=== PATIENT | male | born 1960 | race Caucasian/White ===

== ENCOUNTER → 2016-07-12 | Outpatient (CLI) | payer BC ==
[~2016-07-12] MED LIST: ACET-176 PO; ALL180 PO; AMR2 PO; CMD/25 PO; CRDCD/180 PO; HYD50 PO; LISI40TA PO; LOVA20TA4 PO; METF1TAB53 PO
[2016-07-12 12:28] LABS: HEMATOCRIT 30.5 % (42-52); MEAN CELL VOLUME 60.9 fL (80-100); MEAN CORPUSCULAR HEMOGLOBIN 15.8 pg (25-34); MEAN CORPUSCULAR HGB CONC 25.9 g/dl (32-36); RED BLOOD COUNT 5.01 M/uL (4.7-6.1); WHITE BLOOD COUNT 6.82 K/uL (4.8-10.8)
[2016-07-12 12:33] LABS: ANISOCYTOSIS PRESENT; BASO % 0.4 %; BASO ABS # 0.03 K/uL (0-0.2); COMPLETE YES; EOS % 2.1 %; GIANT PLATELETS 1+; HYPOCHROMIA PRESENT; IG% 0.3 %; LYMPH % 14.8 %; LYMPH ABS # 1.01 K/uL (1.2-3.4); MICROCYTOSIS PRESENT; MONO % 8.1 %; NEUT % 74.3 %; PLATELET COUNT 185 K/uL (130-400); POIKILOCYTOSIS PRESENT; POLYCHROMASIA 1+
[2016-07-12 12:47] LABS: BLOOD UREA NITROGEN 13 mg/dl (7-18); BUN/CREATININE RATIO 13.5 (10-20); CALCIUM 8.6 mg/dl (8.5-10.1); CARBON DIOXIDE 27 mmol/L (21-32); CHLORIDE 107 mmol/L (98-107); CREATININE 0.96 mg/dl (0.60-1.40); GLUCOSE 176 mg/dl (70-99); POTASSIUM 4.3 mmol/L (3.5-5.1); SODIUM 140 mmol/L (136-145)
[2016-07-12 12:56] LABS: ESTIMATED AVERAGE GLUCOSE 154 mg/dl; HA1C FLAG Normal (Normal)
== END | disposition home or self-care (01) ==
LOC: C.LABPVFM 10:30
PROVIDERS: ATTEND Nurse Practitioner
DX: D64.9 Anemia, unspecified (principal); K31.811 Angiodysplasia of stomach and duodenum with bleeding; E11.9 Type 2 diabetes mellitus without complications

== ENCOUNTER → 2016-09-20 | Outpatient (CLI) | payer BC ==
[2016-09-20 18:05] LABS: HEMATOCRIT 35.4 % (42-52); MEAN CELL VOLUME 62.8 fL (80-100); MEAN CORPUSCULAR HEMOGLOBIN 17.7 pg (25-34); MEAN CORPUSCULAR HGB CONC 28.2 g/dl (32-36); PLATELET COUNT 306 K/uL (130-400); RED BLOOD COUNT 5.64 M/uL (4.7-6.1); WHITE BLOOD COUNT 8.08 K/uL (4.8-10.8)
[2016-09-20 19:44] LABS: ANISOCYTOSIS PRESENT; BASO ABS # 0.08 K/uL (0-0.2); COMPLETE YES; EOS % 1.7 %; HYPOCHROMIA PRESENT; IG% 0.6 %; MONO % 12.2 %; NEUT % 69.5 %; OVALOCYTES 1+; POLYCHROMASIA 1+; SPHEROCYTE 1+
== END | disposition home or self-care (01) ==
LOC: C.LABPVFM 13:38
PROVIDERS: ATTEND Nurse Practitioner
DX: D64.9 Anemia, unspecified (principal)

== ENCOUNTER → 2016-12-24 | Outpatient (CLI) | payer BC ==
[2016-12-24 13:32] LABS: ESTIMATED AVERAGE GLUCOSE 329 mg/dl; HA1C FLAG Normal (Normal)
[2016-12-24 13:35] LABS: HEMATOCRIT 39.4 % (42-52); MEAN CELL VOLUME 64.5 fL (80-100); MEAN CORPUSCULAR HEMOGLOBIN 18.8 pg (25-34); MEAN CORPUSCULAR HGB CONC 29.2 g/dl (32-36); PLATELET COUNT 219 K/uL (130-400); RED BLOOD COUNT 6.11 M/uL (4.7-6.1)
[2016-12-24 13:36] LABS: BASO % 1.2 %; BASO ABS # 0.06 K/uL (0-0.2); COMPLETE YES; EOS % 4.9 %; HYPOCHROMIA PRESENT; IG% 0.2 %; LYMPH % 22.4 %; MICROCYTOSIS PRESENT; MONO % 8.6 %; NEUT % 62.7 %; SPHEROCYTE 1+
[2016-12-24 13:50] LABS: ALT/SGPT 17 U/L (12-78); AST/SGOT 11 U/L (15-37); BLOOD UREA NITROGEN 12 mg/dl (7-18); BUN/CREATININE RATIO 15.4 (10-20); CALCIUM 8.8 mg/dl (8.5-10.1); CARBON DIOXIDE 27 mmol/L (21-32); CHLORIDE 111 mmol/L (98-107); CREATININE 0.76 mg/dl (0.60-1.40); GLUCOSE 206 mg/dl (70-99); POTASSIUM 4.1 mmol/L (3.5-5.1); SODIUM 140 mmol/L (136-145)
[2016-12-24 13:53] LABS: ALB/GLOB RATIO 0.9 (0.9-2); ALKALINE PHOSPHATASE 116 U/L (45-117); CHOLESTEROL 171 mg/dl (0-200); CHOLESTEROL/HDL RATIO 4.5; HDL CHOLESTEROL 38 mg/dl; LDL CHOLESTEROL CALCULATED 98 mg/dl; TRIGLYCERIDES 175 mg/dl (0-150); VERY LOW DENSITY LIPOPROT CALC 35 mg/dl
== END | disposition home or self-care (01) ==
LOC: C.LABPVFM 09:15
PROVIDERS: ATTEND Neuromusculoskeletal Medicine & OMM
DX: E78.5 Hyperlipidemia, unspecified (principal); D64.9 Anemia, unspecified; E11.9 Type 2 diabetes mellitus without complications

== ENCOUNTER → 2017-02-01 | Outpatient (CLI) | payer BC ==
[~2017-02-01] MED LIST changes: +GADAVIST IV PRN
--- NOTE | 2017-02-01 09:38 | DIAGNOSTIC IMAGING REPORT ---
PROSTATE MRI COMBO CLINICAL HISTORY: 56 years-old Male presenting with R97.20. PSA 24.9 ng/mL. TECHNIQUE: Multisequence, multiplanar MR imaging of the prostate was performed before and after the administration of intravenous contrast. Additional postprocessing was performed on a separate [employer] workstation by the radiologist for 3-D volumetric segmentation of the prostate and contouring of region(s) of interest (DIALLO) for targeting. IV contrast: None. COMPARISON: None. FINDINGS: Prostate: The prostate measures 7.0 cm in transverse diameter (Dyna[employer] prostate boundary segmentation volume 157 mL). There is advanced benign prostatic hyperplasia. Median lobe hypertrophy is observed. A small utricular cyst is incidentally noted and measures up to 9 mm. Precontrast T1 weighted imaging demonstrates no T1 hyperintense lesions. Seminal vesicles normal. No suspicious lesion is apparent in the transition or peripheral zones. Bladder: The bladder wall is thickened and trabeculated consistent with chronic outlet obstruction. Bowel: Visualized portion of the rectum normal. Peritoneum: No free fluid in the pelvis. Lymph nodes: No lymphadenopathy in the visualized portion of the pelvis. Vasculature: Iliac vessels patent. Osseous structures: No destructive bony lesion is seen. IMPRESSION: 1. Severe benign prostatic hyperplasia . 2. No concerning prostatic lesion is identified. 3. A small utricular cyst is incidentally noted. 4. There is evidence of chronic bladder outlet obstruction. Electronically signed by: Eladio Mobley M.D. 02/01/2017 9:37 AM Dictated Date/Time: 02/01/2017 9:20 AM
== END | disposition home or self-care (01) ==
LOC: C.MRIBC 07:44
PROVIDERS: ATTEND Urology
DX: R97.20 Elevated prostate specific antigen [PSA] (principal)

== ENCOUNTER → 2017-05-29 | Outpatient (CLI) | payer BC ==
[~2017-05-29] MED LIST changes: -GADAVIST IV PRN
[2017-05-29 17:34] LABS: BLOOD UREA NITROGEN 10 mg/dl (7-18); CARBON DIOXIDE 29 mmol/L (21-32); CREATININE 0.96 mg/dl (0.60-1.40); GLUCOSE 116 mg/dl (70-99); POTASSIUM 3.5 mmol/L (3.5-5.1); SODIUM 136 mmol/L (136-145)
[2017-05-29 17:45] LABS: HEMATOCRIT 35.8 % (42-52); HEMOGLOBIN 10.3 g/dL (14.0-18.0); MEAN CELL VOLUME 59.9 fL (80-100); MEAN CORPUSCULAR HEMOGLOBIN 17.2 pg (25-34); MEAN CORPUSCULAR HGB CONC 28.8 g/dl (32-36); PLATELET COUNT 204 K/uL (130-400); RED CELL DISTRIBUTION WIDTH CV 18.7 % (11.5-14.5); RED CELL DISTRIBUTION WIDTH SD 39.6 fL (36.4-46.3); WHITE BLOOD COUNT 6.39 K/uL (4.8-10.8)
[2017-05-29 17:53] LABS: BASO % 0.9 %; BASO ABS # 0.06 K/uL (0-0.2); EOS % 3.6 %; EOS ABS # 0.23 K/uL (0-0.5); IG# 0.03 K/uL (0.00-0.02); LYMPH % 22.5 %; LYMPH ABS # 1.44 K/uL (1.2-3.4); MONO % 9.9 %; MONO ABS # 0.63 K/uL (0.11-0.59); NEUT % 62.6 %
[2017-05-30 05:40] LABS: HEMOGLOBIN A1C 6.7 % (4.5-5.6)
== END | disposition home or self-care (01) ==
LOC: C.LABPVFM 13:58
PROVIDERS: ATTEND Nurse Practitioner
DX: D64.9 Anemia, unspecified (principal); E11.9 Type 2 diabetes mellitus without complications

== ENCOUNTER 2020-09-23 12:08 | Inpatient (IN) ==
[2020-09-23 12:55] LABS: Basophils # (auto) 0.01 K/uL (0-0.2); Basophils % (auto) 0.1 %; Eosinophils # (auto) 0.03 K/uL (0-0.5); Eosinophils % (auto) 0.2 %; Hematocrit (blood only) 37.4 % (42-52); Immature Granulocytes # (auto) 0.12 K/uL (0.00-0.02); Immature Granulocytes % (auto) 0.8 %; Lymphocytes # (auto) 0.84 K/uL (1.2-3.4); Lymphocytes % (auto) 5.7 %; Mean Corpuscular Hemoglobin 28.1 pg (25-34); Mean Corpuscular Hgb Conc 34.8 g/dL (32-36); Mean Platelet Volume 10.2 fL (7.4-10.4); Monocytes # (auto) 1.34 K/uL (0.11-0.59); Monocytes % (auto) 9.1 %; Neutrophils # (auto) 12.33 K/uL (1.4-6.5); Neutrophils % (auto) 84.1 %; Platelet Count 276 K/uL (130-400); RDW Coefficient of Variation 13.8 % (11.5-14.5); RDW Standard Deviation 41.1 fL (36.4-46.3); Red Blood Count 4.62 M/uL (4.7-6.1); White Blood Count 14.67 K/uL (4.8-10.8)
[2020-09-23 13:00] LABS: iSTAT Arterial Blood Gas HCO3 21 meg/L (19-24); iSTAT Arterial Blood Gas pCO2 29 mmHg (35-46); iSTAT Arterial Blood Gas pH 7.46 (7.35-7.45); iSTAT Arterial Blood Gas pO2 63 mmHg (80-95); iSTAT Carbon Dioxide 21 mmol/L (24-31); iSTAT Hematocrit 40 % (42-52); iSTAT Hemoglobin 13.6 g/dl (14.0-18.0); iSTAT Potassium 3.9 mmol/L (3.3-5.0); iSTAT Sodium 131 mmol/L (135-144)
[2020-09-23 13:02] LABS: iSTAT Creatinine 0.5 mg/dl (0.6-1.3); iSTAT Hemoglobin 13.9 g/dl (14.0-18.0); iSTAT Ionized Calcium 1.19 mmol/l (1.12-1.32)
[2020-09-23] MEDS ORDERED: CEFEPIME 2,000 MG/20 ML VIAL IV STA (13:08)
[2020-09-23] MEDS ORDERED: VANCOMYCIN CONSULT ACTIVE PRN ×2 (13:08→18:25)
[2020-09-23] MEDS ORDERED: VANCOMYCIN HCL 2,000 MG in SODIUM CHLORIDE 0.9% 500 ML IV ONE (13:08)
[2020-09-23 13:13] LABS: Prothrombin Time 10.6 Seconds (9.0-12.0)
--- NOTE | 2020-09-23 13:15 | XRay Report ---
SINGLE VIEW CHEST CLINICAL HISTORY: Sepsis. FINDINGS: An AP, portable, upright chest radiograph is correlated with chest CT dated 11/10/2008. The cardiomediastinal silhouette is unremarkable. There is a moderate right pleural effusion with dense r ight basilar consolidation. Question mediastinal and hilar adenopathy. The left lung appears clear. N o pneumothorax is seen. The bony thorax is grossly intact. IMPRESSION: 1. There is a moderate right pleural effusion with associated right basilar consolidation. Correlate clinically for evidence of pneumonia. 2. Question mediastinal and hilar adenopathy. 3. The left lung appears clear. ACT 112: Negative or not required by law. Electronically signed by: Eladio Mobley M.D. 09/23/2020 1:14 PM
[2020-09-23 13:24] LABS: Alanine Aminotransferase 13 U/L (12-78); Albumin Globulin Ratio 0.4 (0.9-2); Albumin Level 2.2 gm/dl (3.4-5.0); Alkaline Phosphatase 105 U/L (45-117); Aspartate Aminotransferase 11 U/L (15-37); BUN Creatinine Ratio 26.6 (10-20); Bilirubin,Total 0.5 mg/dl (0.2-1); Blood Urea Nitrogen 19 mg/dl (7-18); Calcium 8.5 mg/dl (8.5-10.1); Carbon Dioxide 21 mmol/L (21-32); Chloride 99 mmol/L (98-107); Creatinine Clr Calc Pharmacy 124.5 ml/min; Est GFR (African American) 119.7 ml/min; Est GFR (Non-African American) 103.3 ml/min; Glucose 328 mg/dl (70-99); NT Pro B Type Natriuretic Pept 131 pg/ml (0-900); Potassium 3.9 mmol/L (3.5-5.1); Sodium 132 mmol/L (136-145); Total Protein 7.2 gm/dl (6.4-8.2); Troponin I < 0.015 ng/ml (0-0.045)
--- NOTE | 2020-09-23 13:43 | Electrocardiogram Report ---
Test Reason : Blood Pressure : / mmHG Vent. Rate : 134 BPM Atrial Rate : 134 BPM P-R Int : 148 ms QRS Dur : 092 ms QT Int : 284 ms P-R-T Axes : 037 117 014 degrees QTc Int : 424 ms Sinus tachycardia Left atrial enlargement Right axis deviation T wave abnormality, consider inferior ischemia Abnormal ECG When compared with ECG of 15-JUN-2007 12:28, Vent. rate has increased BY 53 BPM Confirmed by Gera Ray ([id number]) on 09/23/2020 1:42:57 PM Referred By: REFERRED SELF Confirmed By:Gera Ray
[2020-09-23 13:55] LABS: Beta-Hydroxybutyrate 27.35 mg/dl (0.2-2.81)
--- NOTE | 2020-09-23 14:15 | Emergency Department Note ---
History of Present Illness General Chief Complaint: Shortness of Breath/Dyspnea Stated Complaint: COUGH,RIB PAIN,LOW O2,TIRED,FEVER Time Seen by Provider: 09/23/20 12:15 History of Present Illness Provider Complaint: shortness of breath and cough Onset (ago): day(s) (5) Severity: moderate Consistency/Duration: + constant and + progressively worsening Maximum Pain Intensity: 4 Relieved By: + oxygen Exacerbated By: + lying flat, + exertion and + coughing Context: + recent illness; no choking/aspiration, no medication noncompliance, no recent travel and no trauma/injury Known history of: diabetes and other (Pulmonary hypertension) Associated symptoms: + chest pain, + fever (T-max 101), + cough and + sputum production; no orthopnea, no lower extremity pain, no polyuria, no polydipsia, no palpitations, no diaphoresis, no nausea/vomiting, no syncope, no abdominal pain and no lightheadedness Treatment prior to arrival: oxygen Related Data Home oxygen amount: none Home Medications Medication Instructions Recorded Confirmed Type acetaminophen 500 mg tablet 500 mg PO Q6H PRN tab 03/28/19 09/23/20 History ambrisentan 10 mg tablet 10 mg PO DAILY tab 03/28/19 09/23/20 History mupirocin 2 % topical ointment See Rx Instructions .ROUTE .COMPLEX 03/28/19 09/23/20 History spironolactone 25 mg tablet 50 mg PO .COMPLEX tab 03/28/19 09/23/20 History tadalafil (pulm. hypertension) 20 20 mg PO BID tab 03/28/19 09/23/20 History mg tablet (pulmonary hypertension) furosemide 20 mg tablet 20 mg PO DAILY PRN tab 04/11/19 09/23/20 History Oxygen Home #1 ea 08/13/19 08/26/20 History blood sugar diagnostic #10 ea 08/13/19 08/26/20 History pen needle, diabetic 31 gauge x #100 ea 11/04/19 08/26/20 Rx /" ferrous sulfate 325 mg (65 mg See Rx Instructions .ROUTE 11/29/19 09/23/20 Rx iron) tablet .COMPLEX #90 tablet lisinopril 5 mg tablet 5 mg PO DAILY #90 tab 11/29/19 09/23/20 Rx metformin 1,000 mg tablet 1,000 mg PO BID #180 tab 11/29/19 09/23/20 Rx omeprazole 20 mg capsule,delayed 20 mg PO DAILY #90 cap 11/29/19 09/23/20 Rx release insulin glargine 100 unit/mL (3 30 unit SQ DAILY #15 ml 08/06/20 09/23/20 Rx mL) subcutaneous pen tamsulosin 0.4 mg capsule 0.4 mg PO BID #180 cap 08/07/20 09/23/20 Rx blood-glucose meter #1 ea 08/28/20 Rx Allergies Allergy/AdvReac Type Severity Reaction Status Date / Time Victoza SOLN Allergy Severe Dizziness Uncoded 09/23/20 14:53 Past Med/Surg History Medical History (Updated 09/23/20 @ 15:50 by Alfred Vega) Anemia AVM (arteriovenous malformation) brain AVM (arteriovenous malformation) of duodenum, 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, acquired with hemorrhage Barretts esophagus Benign prostatic hyperplasia with urinary obstruction Hereditary hemorrhagic telangiectasia Surgical History History of brain surgery History of colonoscopy History of prostate biopsy History of umbilical hernia repair Family History Father Diabetes Hypertension Cancer brain Mother Hypertension Lung disease Cancer Other Bleeding disorder Denies family history of Ovarian cancer Prostate cancer Myocardial infarction Breast cancer Colorectal cancer Social History Smoking Status: Former smoker Second Hand Exposure: Yes; Hx Alcohol Use: No Hx Substance Use: No marital status: Current Living Situation: Family 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: 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 Feels Safe at Home: Yes caffeine: Yes during the past year weight has: remained stable Dental Care, Regularly: No Physical Activity Frequency: Does not Exercise Seatbelt Use: always Sunscreen Use: No Review of Systems A total of 10 systems reviewed and were otherwise negative Physical Exam Vital Signs: Vital Signs - 24 hr 09/23/20 12:09 09/23/20 12:22 09/23/20 12:31 Temperature 36.7 C Temperature Source Temporal Artery Sc an Pulse Rate 140 H 131 H Pulse Rate [Left A pical] Pulse Rate from Sp O2 Sensor Pulse Rhythm [Left Apical] Pulse Strength [Le ft Apical] Respiratory Rate 24 26 H Respiratory Effort / Characteristics Non-Labored Spontaneous Labore d Short of Breath Labored Respiratory Depth Normal Normal Respiratory Patter n Tachypnea Blood Pressure 145/84 H Blood Pressure [Ri ght Arm] Blood Pressure Angie n 104 Blood Pressure Angie n [Right Arm] Blood Pressure Pos ition [Right Arm] Pulse Oximetry 88 L 96 Oxygen Delivery Me thod Nasal Cannula Oxygen Flow Rate 2 Fraction of Inspir ed Oxygen 50 SaO2/FiO2 Ratio Sepsis Recent Feve r Within 48 Hours Yes Sepsis New/Unexpla ined Change in Men giovany Status Yes Sepsis Action Take n by Nursing No Action Required 09/23/20 13:00 09/23/20 13:03 09/23/20 13:05 Temperature Temperature Source Pulse Rate Pulse Rate [Left A pical] 130 H Pulse Rate from Sp O2 Sensor Pulse Rhythm [Left Apical] Regular Pulse Strength [Le ft Apical] Respiratory Rate 29 H Respiratory Effort / Characteristics Respiratory Depth Respiratory Patter n Blood Pressure Blood Pressure [Ri ght Arm] 143/91 H Blood Pressure Angie n Blood Pressure Angie n [Right Arm] 108 Blood Pressure Pos ition [Right Arm] Lying Pulse Oximetry 94 96 96 Oxygen Delivery Me thod BiPAP BiPAP BiPAP Oxygen Flow Rate Fraction of Inspir ed Oxygen 50 SaO2/FiO2 Ratio 188 Sepsis Recent Feve r Within 48 Hours Sepsis New/Unexpla ined Change in Men giovany Status Sepsis Action Take n by Nursing 09/23/20 13:15 09/23/20 13:30 09/23/20 13:45 Temperature Temperature Source Pulse Rate 130 H 127 H 123 H Pulse Rate [Left A pical] 127 H Pulse Rate from Sp O2 Sensor 130 H 127 H 124 H Pulse Rhythm [Left Apical] Pulse Strength [Le ft Apical] Respiratory Rate 24 18 22 Respiratory Effort / Characteristics Respiratory Depth Respiratory Patter n Blood Pressure 135/83 121/80 135/77 Blood Pressure [Ri ght Arm] 121/80 Blood Pressure Angie n 100 93 96 Blood Pressure Angie n [Right Arm] 93 Blood Pressure Pos ition [Right Arm] Pulse Oximetry 93 95 95 Oxygen Delivery Me thod BiPAP BiPAP BiPAP Oxygen Flow Rate Fraction of Inspir ed Oxygen 50 SaO2/FiO2 Ratio 184 Sepsis Recent Feve r Within 48 Hours Sepsis New/Unexpla ined Change in Men giovany Status Sepsis Action Take n by Nursing 09/23/20 13:59 09/23/20 14:00 09/23/20 14:15 Temperature Temperature Source Pulse Rate 124 H 128 H Pulse Rate [Left A pical] 123 H Pulse Rate from Sp O2 Sensor 125 H 129 H Pulse Rhythm [Left Apical] Regular Pulse Strength [Le ft Apical] Normal Respiratory Rate 22 22 20 Respiratory Effort / Characteristics Non-Labored Sponta neous Respiratory Depth Normal Respiratory Patter n Regular Blood Pressure 119/81 133/78 Blood Pressure [Ri ght Arm] 135/77 Blood Pressure Angie n 93 96 Blood Pressure Angie n [Right Arm] 96 Blood Pressure Pos ition [Right Arm] Lying Pulse Oximetry 96 95 93 Oxygen Delivery Me thod BiPAP BiPAP Oxygen Flow Rate Fraction of Inspir ed Oxygen 50 SaO2/FiO2 Ratio 192 Sepsis Recent Feve r Within 48 Hours Sepsis New/Unexpla ined Change in Men giovany Status Sepsis Action Take n by Nursing 09/23/20 14:39 09/23/20 14:41 Temperature Temperature Source Pulse Rate 137 H Pulse Rate [Left A pical] Pulse Rate from Sp O2 Sensor 136 H Pulse Rhythm [Left Apical] Pulse Strength [Le ft Apical] Respiratory Rate 20 Respiratory Effort / Characteristics Spontaneous Respiratory Depth Respiratory Patter n Blood Pressure 164/84 H Blood Pressure [Ri ght Arm] Blood Pressure Angie n 110 Blood Pressure Angie n [Right Arm] Blood Pressure Pos ition [Right Arm] Pulse Oximetry 94 94 Oxygen Delivery Me thod BiPAP BiPAP Oxygen Flow Rate Fraction of Inspir ed Oxygen SaO2/FiO2 Ratio Sepsis Recent Feve r Within 48 Hours Sepsis New/Unexpla ined Change in Men giovany Status Sepsis Action Take n by Nursing Physical Exam: Physical Exam HENT: Exam performed. - Head: Normocephalic and atraumatic. - Right Ear: External ear normal. No mastoid tenderness. - Left Ear: External ear normal. No mastoid tenderness. - Mouth/Throat: The oropharynx is clear and moist. No trismus in the jaw. No dental abscesses or uvula swelling. No oropharyngeal exudate or tonsillar abscesses. EYES: Conjunctivae and EOM are normal. Pupils are equal, round, and reactive to light. Right eye exhibits no discharge. Left eye exhibits no discharge. No scleral icterus. NECK: Normal range of motion. Neck supple. No JVD present. No spinous process tenderness present. No carotid bruit present. No rigidity. No tracheal deviation and normal range of motion present. No Brudzinski's sign and no Kernig's sign noted. CV: Tachycardic rate, regular rhythm, normal heart sounds and intact distal pulses. There is no peripheral edema. Palpable radial pulses bue. PULM/CHEST: Tachypneic. Rhonchi bilaterally. ABD: The abdomen is soft. Bowel sounds are normal. He has no distension. No mass is present. There is no tenderness. There is no rebound, no guarding, no Gupta's sign and no tenderness at McBurney's point. Rovsig negative. MUSC/SKEL: Normal range of motion. There is no peripheral edema, tenderness or deformity. LYMPH: No cervical adenopathy. NEURO: He is alert and oriented to person, place, and time. He has normal strength. No cranial nerve deficit or sensory deficit. Coordination and gait normal. GCS eye subscore is 4. GCS verbal subscore is 5. GCS motor subscore is 6. Cerebellar tests wnl. SKIN: Skin is warm and dry. He is not diaphoretic. PSYCH: He has a normal mood and affect. Behavior is normal. Judgment and thought content normal. Course Course 1215: The patient was evaluated in room A10. A complete history and physical exam was performed Cardiac monitoring: An order was placed for continuous cardiac monitoring. The monitor shows a rate of 130 with sinus tachycardia rhythm Patient was found to be hypoxic even on supplemental oxygen via nasal cannula. Patient has a history of pulmonary artery hypertension. We will start the patient on BiPAP. Patient states he is vaccinated against COVID-19. 1305: Patient tolerating BiPAP well. Blood gas within normal limits. Labs show leukocytosis of 14.6. Chest x-ray reviewed by me shows large right-sided pleural effusion. We will treat the patient with empiric antibiotics cefepime and vancomycin given his fevers, oxygen requirement, tachypnea and chest x-ray findings. CTA of the chest is still pending. 1515:Patient states he feels much better on BiPAP. CTA negative for PE but does confirm pneumonia. [facility]. Administered Medications Discontinued Medications Vancomycin HCl 2,000 mg/ (Sodium Chloride) 540 mls @ 200 mls/hr IV NOW ONE Stop: 09/23/20 15:49 Last Admin: 09/23/20 13:54 Dose: 200 mls/hr Documented by: [id number] Cefepime HCl (Maxipime) 2,000 mg in 20 mls @ 5 mls/min IV NOW STA; Protocol Stop: 09/23/20 13:11 Last Admin: 09/23/20 13:54 Dose: 5 mls/min Documented by: [id number] Ioversol (Optiray 350 500ml) 114 ml IV ONCE ONE Stop: 09/23/20 14:33 Last Admin: 09/23/20 14:33 Dose: 114 ml Documented by: [id number] Medical Decision Making Laboratory Data Result diagrams: 09/23/20 12:46 09/23/20 12:46 Lab Results 09/23/20 09/23/20 09/23/20 Range/Units 12:39 12:46 12:46 WBC (4.8-10.8) K/uL RBC (4.7-6.1) M/uL Hgb (14.0-18.0) g/dL POC Hgb 13.6 L (14.0-18.0) g/dl Hct (42-52) % POC Hct 40 L (42-52) % MCV (80-100) fL MCH (25-34) pg MCHC (32-36) g/dL RDW Std Deviation (36.4-46.3) fL RDW Coeff of Lesly (11.5-14.5) % Plt Count (130-400) K/uL MPV (7.4-10.4) fL Immature Gran % (Auto) % Neut % (Auto) % Lymph % (Auto) % [place] % (Auto) % Eos % (Auto) % Baso % (Auto) % Neut # (Auto) (1.4-6.5) K/uL Lymph # (Auto) (1.2-3.4) K/uL [place] # (Auto) (0.11-0.59) K/uL Eos # (Auto) (0-0.5) K/uL Baso # (Auto) (0-0.2) K/uL Immature Gran # (Auto) (0.00-0.02) K/uL PT (9.0-12.0) Seconds INR (0.9-1.1) APTT (21.0-31.0) Seconds PTT Ratio POC pH 7.46 H (7.35-7.45) POC pCO2 29 L (35-46) mmHg POC pO2 63 L (80-95) mmHg POC HCO3 21 (19-24) katey/L POC Total CO2 21 L (24-31) mmol/L POC Base Excess -3.0 (-9-1.8) katey/L POC ABG O2 Sat 93.0 (90-95) % POC Sodium 131 L (135-144) mmol/L Sodium 132 L (136-145) mmol/L POC Potassium 3.9 (3.3-5.0) mmol/L Potassium 3.9 (3.5-5.1) mmol/L POC Chloride (101-112) mmol/L Chloride 99 (98-107) mmol/L Carbon Dioxide 21 (21-32) mmol/L Anion Gap 12.0 H (3-11) POC Anion Gap (16-25) mmol/L POC BUN (7-18) mg/dl BUN 19 H (7-18) mg/dl Creatinine 0.70 (0.6-1.4) mg/dl POC Creatinine (0.6-1.3) mg/dl Est Cr Clr Drug Dosing 124.5 ml/min Est GFR ( Amer) 119.7 ml/min Est GFR (Non-Af Amer) 103.3 ml/min BUN/Creatinine Ratio 26.6 H (10-20) Glucose 328 H* (70-99) mg/dl POC Glucose (other) (70-99) mg/dl Lactate (0.4-2.0) mmol/L Calcium 8.5 (8.5-10.1) mg/dl POC Ioniz Calcium Mikayla (1.12-1.32) mmol/l Magnesium 2.0 (1.8-2.4) mg/dl Total Bilirubin 0.5 (0.2-1) mg/dl AST 11 L (15-37) U/L ALT 13 (12-78) U/L Alkaline Phosphatase 105 (45-117) U/L Troponin I < 0.015 (0-0.045) ng/ml NT-Pro-B Natriuret Pep 131 (0-900) pg/ml Total Protein 7.2 (6.4-8.2) gm/dl Albumin 2.2 L (3.4-5.0) gm/dl Globulin 5.0 H (2.5-4.0) gm/dl Albumin/Globulin Ratio 0.4 L (0.9-2) Beta-Hydroxybutyric Acd 27.35 H (0.2-2.81) mg/dl Procalcitonin 2.63 H (0-0.5) ng/ml Urine Color Urine Appearance (Clear) Urine pH (4.5-7.5) Ur Specific [place] (1.000-1.030) Urine Protein (Negative) Urine Glucose (UA) (Negative) Urine Ketones (Negative) Urine Blood (Negative) Urine Nitrite (Negative) Urine Bilirubin (Negative) Urine Urobilinogen (Negative) Ur Leukocyte Esterase (Negative) Urine WBC (Auto) (0-5) /hpf Urine RBC (Auto) (0-4) /hpf U Hyaline Cast (Auto) (0-5) /lpf U Epithel Cells (Auto) (0-5) /lpf Urine Bacteria (Auto) (Negative) Urine Yeast COVID-19 Eval Order SARS-CoV-2 (PCR) (Negative) 09/23/20 09/23/20 09/23/20 Range/Units 12:46 12:46 12:46 WBC 14.67 H (4.8-10.8) K/uL RBC 4.62 L (4.7-6.1) M/uL Hgb 13.0 L (14.0-18.0) g/dL POC Hgb (14.0-18.0) g/dl Hct 37.4 L (42-52) % POC Hct (42-52) % MCV 81.0 (80-100) fL MCH 28.1 (25-34) pg MCHC 34.8 (32-36) g/dL RDW Std Deviation 41.1 (36.4-46.3) fL RDW Coeff of Lesly 13.8 (11.5-14.5) % Plt Count 276 (130-400) K/uL MPV 10.2 (7.4-10.4) fL Immature Gran % (Auto) 0.8 % Neut % (Auto) 84.1 % Lymph % (Auto) 5.7 % [place] % (Auto) 9.1 % Eos % (Auto) 0.2 % Baso % (Auto) 0.1 % Neut # (Auto) 12.33 H (1.4-6.5) K/uL Lymph # (Auto) 0.84 L (1.2-3.4) K/uL [place] # (Auto) 1.34 H (0.11-0.59) K/uL Eos # (Auto) 0.03 (0-0.5) K/uL Baso # (Auto) 0.01 (0-0.2) K/uL Immature Gran # (Auto) 0.12 H (0.00-0.02) K/uL PT 10.6 (9.0-12.0) Seconds INR 1.0 (0.9-1.1) APTT 26.0 (21.0-31.0) Seconds PTT Ratio 1.0 POC pH (7.35-7.45) POC pCO2 (35-46) mmHg POC pO2 (80-95) mmHg POC HCO3 (19-24) katey/L POC Total CO2 (24-31) mmol/L POC Base Excess (-9-1.8) katey/L POC ABG O2 Sat (90-95) % POC Sodium (135-144) mmol/L Sodium (136-145) mmol/L POC Potassium (3.3-5.0) mmol/L Potassium (3.5-5.1) mmol/L POC Chloride (101-112) mmol/L Chloride (98-107) mmol/L Carbon Dioxide (21-32) mmol/L Anion Gap (3-11) POC Anion Gap (16-25) mmol/L POC BUN (7-18) mg/dl BUN (7-18) mg/dl Creatinine (0.6-1.4) mg/dl POC Creatinine (0.6-1.3) mg/dl Est Cr Clr Drug Dosing ml/min Est GFR ( Amer) ml/min Est GFR (Non-Af Amer) ml/min BUN/Creatinine Ratio (10-20) Glucose (70-99) mg/dl POC Glucose (other) (70-99) mg/dl Lactate 1.5 (0.4-2.0) mmol/L Calcium (8.5-10.1) mg/dl POC Ioniz Calcium Mikayla (1.12-1.32) mmol/l Magnesium (1.8-2.4) mg/dl Total Bilirubin (0.2-1) mg/dl AST (15-37) U/L ALT (12-78) U/L Alkaline Phosphatase (45-117) U/L Troponin I (0-0.045) ng/ml NT-Pro-B Natriuret Pep (0-900) pg/ml Total Protein (6.4-8.2) gm/dl Albumin (3.4-5.0) gm/dl Globulin (2.5-4.0) gm/dl Albumin/Globulin Ratio (0.9-2) Beta-Hydroxybutyric Acd (0.2-2.81) mg/dl Procalcitonin (0-0.5) ng/ml Urine Color Urine Appearance (Clear) Urine pH (4.5-7.5) Ur Specific [place] (1.000-1.030) Urine Protein (Negative) Urine Glucose (UA) (Negative) Urine Ketones (Negative) Urine Blood (Negative) Urine Nitrite (Negative) Urine Bilirubin (Negative) Urine Urobilinogen (Negative) Ur Leukocyte Esterase (Negative) Urine WBC (Auto) (0-5) /hpf Urine RBC (Auto) (0-4) /hpf U Hyaline Cast (Auto) (0-5) /lpf U Epithel Cells (Auto) (0-5) /lpf Urine Bacteria (Auto) (Negative) Urine Yeast COVID-19 Eval Order SARS-CoV-2 (PCR) (Negative) 09/23/20 09/23/20 09/23/20 Range/Units 12:50 13:03 13:03 WBC (4.8-10.8) K/uL RBC (4.7-6.1) M/uL Hgb (14.0-18.0) g/dL POC Hgb 13.9 L (14.0-18.0) g/dl Hct (42-52) % POC Hct 41 L (42-52) % MCV (80-100) fL MCH (25-34) pg MCHC (32-36) g/dL RDW Std Deviation (36.4-46.3) fL RDW Coeff of Lesly (11.5-14.5) % Plt Count (130-400) K/uL MPV (7.4-10.4) fL Immature Gran % (Auto) % Neut % (Auto) % Lymph % (Auto) % [place] % (Auto) % Eos % (Auto) % Baso % (Auto) % Neut # (Auto) (1.4-6.5) K/uL Lymph # (Auto) (1.2-3.4) K/uL [place] # (Auto) (0.11-0.59) K/uL Eos # (Auto) (0-0.5) K/uL Baso # (Auto) (0-0.2) K/uL Immature Gran # (Auto) (0.00-0.02) K/uL PT (9.0-12.0) Seconds INR (0.9-1.1) APTT (21.0-31.0) Seconds PTT Ratio POC pH (7.35-7.45) POC pCO2 (35-46) mmHg POC pO2 (80-95) mmHg POC HCO3 (19-24) katey/L POC Total CO2 20 L (24-31) mmol/L POC Base Excess (-9-1.8) katey/L POC ABG O2 Sat (90-95) % POC Sodium 132 L (135-144) mmol/L Sodium (136-145) mmol/L POC Potassium 4.0 (3.3-5.0) mmol/L Potassium (3.5-5.1) mmol/L POC Chloride 97 L (101-112) mmol/L Chloride (98-107) mmol/L Carbon Dioxide (21-32) mmol/L Anion Gap (3-11) POC Anion Gap 20.0 (16-25) mmol/L POC BUN 18 (7-18) mg/dl BUN (7-18) mg/dl Creatinine (0.6-1.4) mg/dl POC Creatinine 0.5 L (0.6-1.3) mg/dl Est Cr Clr Drug Dosing ml/min Est GFR ( Amer) ml/min Est GFR (Non-Af Amer) ml/min BUN/Creatinine Ratio (10-20) Glucose (70-99) mg/dl POC Glucose (other) 345 H (70-99) mg/dl Lactate (0.4-2.0) mmol/L Calcium (8.5-10.1) mg/dl POC Ioniz Calcium Mikayla 1.19 (1.12-1.32) mmol/l Magnesium (1.8-2.4) mg/dl Total Bilirubin (0.2-1) mg/dl AST (15-37) U/L ALT (12-78) U/L Alkaline Phosphatase (45-117) U/L Troponin I (0-0.045) ng/ml NT-Pro-B Natriuret Pep (0-900) pg/ml Total Protein (6.4-8.2) gm/dl Albumin (3.4-5.0) gm/dl Globulin (2.5-4.0) gm/dl Albumin/Globulin Ratio (0.9-2) Beta-Hydroxybutyric Acd (0.2-2.81) mg/dl Procalcitonin (0-0.5) ng/ml Urine Color Urine Appearance (Clear) Urine pH (4.5-7.5) Ur Specific [place] (1.000-1.030) Urine Protein (Negative) Urine Glucose (UA) (Negative) Urine Ketones (Negative) Urine Blood (Negative) Urine Nitrite (Negative) Urine Bilirubin (Negative) Urine Urobilinogen (Negative) Ur Leukocyte Esterase (Negative) Urine WBC (Auto) (0-5) /hpf Urine RBC (Auto) (0-4) /hpf U Hyaline Cast (Auto) (0-5) /lpf U Epithel Cells (Auto) (0-5) /lpf Urine Bacteria (Auto) (Negative) Urine Yeast COVID-19 Eval Order Covid19 at [facility] SARS-CoV-2 (PCR) NEGATIVE (Negative) 09/23/20 Range/Units 14:05 WBC (4.8-10.8) K/uL RBC (4.7-6.1) M/uL Hgb (14.0-18.0) g/dL POC Hgb (14.0-18.0) g/dl Hct (42-52) % POC Hct (42-52) % MCV (80-100) fL MCH (25-34) pg MCHC (32-36) g/dL RDW Std Deviation (36.4-46.3) fL RDW Coeff of Lesly (11.5-14.5) % Plt Count (130-400) K/uL MPV (7.4-10.4) fL Immature Gran % (Auto) % Neut % (Auto) % Lymph % (Auto) % [place] % (Auto) % Eos % (Auto) % Baso % (Auto) % Neut # (Auto) (1.4-6.5) K/uL Lymph # (Auto) (1.2-3.4) K/uL [place] # (Auto) (0.11-0.59) K/uL Eos # (Auto) (0-0.5) K/uL Baso # (Auto) (0-0.2) K/uL Immature Gran # (Auto) (0.00-0.02) K/uL PT (9.0-12.0) Seconds INR (0.9-1.1) APTT (21.0-31.0) Seconds PTT Ratio POC pH (7.35-7.45) POC pCO2 (35-46) mmHg POC pO2 (80-95) mmHg POC HCO3 (19-24) katey/L POC Total CO2 (24-31) mmol/L POC Base Excess (-9-1.8) katey/L POC ABG O2 Sat (90-95) % POC Sodium (135-144) mmol/L Sodium (136-145) mmol/L POC Potassium (3.3-5.0) mmol/L Potassium (3.5-5.1) mmol/L POC Chloride (101-112) mmol/L Chloride (98-107) mmol/L Carbon Dioxide (21-32) mmol/L Anion Gap (3-11) POC Anion Gap (16-25) mmol/L POC BUN (7-18) mg/dl BUN (7-18) mg/dl Creatinine (0.6-1.4) mg/dl POC Creatinine (0.6-1.3) mg/dl Est Cr Clr Drug Dosing ml/min Est GFR ( Amer) ml/min Est GFR (Non-Af Amer) ml/min BUN/Creatinine Ratio (10-20) Glucose (70-99) mg/dl POC Glucose (other) (70-99) mg/dl Lactate (0.4-2.0) mmol/L Calcium (8.5-10.1) mg/dl POC Ioniz Calcium Mikayla (1.12-1.32) mmol/l Magnesium (1.8-2.4) mg/dl Total Bilirubin (0.2-1) mg/dl AST (15-37) U/L ALT (12-78) U/L Alkaline Phosphatase (45-117) U/L Troponin I (0-0.045) ng/ml NT-Pro-B Natriuret Pep (0-900) pg/ml Total Protein (6.4-8.2) gm/dl Albumin (3.4-5.0) gm/dl Globulin (2.5-4.0) gm/dl Albumin/Globulin Ratio (0.9-2) Beta-Hydroxybutyric Acd (0.2-2.81) mg/dl Procalcitonin (0-0.5) ng/ml Urine Color Yellow Urine Appearance Clear (Clear) Urine pH 5.5 (4.5-7.5) Ur Specific [place] 1.045 H (1.000-1.030) Urine Protein 2+ H (Negative) Urine Glucose (UA) 3+ H (Negative) Urine Ketones 4+ H (Negative) Urine Blood 2+ H (Negative) Urine Nitrite Negative (Negative) Urine Bilirubin Negative (Negative) Urine Urobilinogen Negative (Negative) Ur Leukocyte Esterase Negative (Negative) Urine WBC (Auto) 1-5 (0-5) /hpf Urine RBC (Auto) 10-30 H (0-4) /hpf U Hyaline Cast (Auto) 1-5 (0-5) /lpf U Epithel Cells (Auto) 20-30 H (0-5) /lpf Urine Bacteria (Auto) Negative (Negative) Urine Yeast Not Reportable COVID-19 Eval Order SARS-CoV-2 (PCR) (Negative) Imaging Data Radiologist's Impression: Chest CTA 09/23/20 12:20 CT ANGIOGRAM OF THE CHEST CLINICAL HISTORY: Sepsis. Productive cough. Fever. Right-sided chest wall pain. COMPARISON STUDY: Chest x-ray dated 09/23/2020. Chest CT dated 11/10/2008. TECHNIQUE: Following the IV administration of 114 cc of Optiray 320, CT angiogram of the chest was performed from the upper abdomen to the thoracic inlet utilizing the pulmonary embolus protocol. Images are reviewed in the axial, sagittal, and coronal planes. 3-D MIPS images are created and assessed. IV contrast was administered without complication. A dose lowering technique was utilized adhering to the principles of ALARA. The examination is degraded by motion artifact. CT DOSE: 645.45 mGy.cm FINDINGS: Thyroid: Imaged portions of the thyroid gland are normal in size and attenuation. Thoracic aorta: The thoracic aorta is normal in caliber and demonstrates standard 3-vessel arch anatomy. No dissection is seen. Pulmonary vasculature: The pulmonary trunk is dilated, measuring 4.7 cm in transverse diameter. This suggests pulmonary artery hypertension. There are no filling defects identified in main, lobar, or proximal segmental pulmonary branches to suggest pulmonary embolus. Evaluation of the peripheral branches is degraded by suboptimal contrast opacification. Heart: The heart is top normal in size noting a small pericardial effusion. Lungs and pleural spaces: Evaluation of the lung parenchyma is degraded by motion artifact. There is a moderate right pleural effusion with atelectasis/ consolidation of the right lower lung. This may be at least partially loculated. The trachea and central airways are clear. Intralobular septal thickening is seen throughout both lungs. The left lung is otherwise clear. Mediastinum: Subcentimeter mediastinal lymph nodes are not pathologically enla rged by size criteria. María: Clear. Axillae: There is no axillary lymphadenopathy. Upper abdomen: There is a small hiatal hernia. Partially visualized upper abdominal viscera is otherwise within normal limits. Skeletal structures: No lytic or blastic bony lesions are seen. IMPRESSION: 1. There is no evidence of pulmonary embolus in the main, lobar, or proximal segmental pulmonary arteries. 2. There is a moderate right pleural effusion as detailed above with associated atelectasis/consolidation of the right lower lung. Correlate clinically for evidence of pneumonia. Radiographic follow-up to resolution is recommended. 3. There is marked dilatation of the pulmonary trunk suggesting pulmonary artery hypertension, and there is diffuse intralobular septal thickening which can be seen with congestive failure. Clinical correlation will be required. 4. Additional findings as above. ACT 112: Negative or not required by law. Electronically signed by: Eladio Mobley M.D. 09/23/2020 2:57 PM Chest X-Ray 09/23/20 12:21 SINGLE VIEW CHEST CLINICAL HISTORY: Sepsis. FINDINGS: An AP, portable, upright chest radiograph is correlated with chest CT dated 11/10/2008. The cardiomediastinal silhouette is unremarkable. There is a moderate right pleural effusion with dense right basilar consolidation. Question mediastinal and hilar adenopathy. The left lung appears clear. No pneumothorax is seen. The bony thorax is grossly intact. IMPRESSION: 1. There is a moderate right pleural effusion with associated right basilar consolidation. Correlate clinically for evidence of pneumonia. 2. Question mediastinal and hilar adenopathy. 3. The left lung appears clear. ACT 112: Negative or not required by law. Electronically signed by: Eladio Mobley M.D. 09/23/2020 1:14 PM ECG Data Interpretation: Sinus tachycardia with rate of 134. [place] QRS and QTc intervals are within normal limits. No ST elevation or ST depression. There is T wave inversion in lead III aVF. [facility] Narrative 1215: The patient was evaluated in room A10. A complete history and physical exam was performed Cardiac monitoring: An order was placed for continuous cardiac monitoring. The monitor shows a rate of 130 with sinus tachycardia rhythm Patient was found to be hypoxic even on supplemental oxygen via nasal cannula. Patient has a history of pulmonary artery hypertension. We will start the patient on BiPAP. Patient states he is vaccinated against COVID-19. 1305: Patient tolerating BiPAP well. Blood gas within normal limits. Labs show leukocytosis of 14.6. Chest x-ray reviewed by me shows large right-sided ple ural effusion. We will treat the patient with empiric antibiotics cefepime and vancomycin given his fevers, oxygen requirement, tachypnea and chest x-ray findings. CTA of the chest is still pending. 1515:Patient states he feels much better on BiPAP. CTA negative for PE but does confirm pneumonia. [facility] Mac[facility] notified. Impression & Plan Hypoxia, Pneumonia Critical Care Time Critical Care Time: Yes Total Critical Care Time: 42 I have personally spent greater than 42 minutes of critical care time in the direct management of this patient. This includes bedside care, interpretation of diagnostic studies, and testing, discussion with consultants, patient, and family members, and other required patient management activities. This 42 minutes is in excess of all separately billable procedures. Discharge Plan Visit Data Chief Complaint: Shortness of Breath/Dyspnea Stated Complaint: COUGH,RIB PAIN,LOW O2,TIRED,FEVER ED Provider: Alfred Vega Discharge Problem: Hypoxia, Pneumonia Patient Disposition: Admitted As Inpatient Forms Stand Alone Forms: My [facility], Virtual Emergency Department, Important Visit Information Prescriptions Prescriptions: No Action (DME) pen needle, diabetic [1st Tier Unifine Pentips] 31 gauge x 3/16" needle See Rx Instructions .ROUTE .MEDSUPPLY Qty: 100 RF: 0 Lantus Solostar U-100 Insulin 100 unit/mL (3 mL) insulin pen 30 unit SQ DAILY Qty: 15 RF: 3 (DME) blood-glucose meter [OneTouch Ultra2 Meter] Misc See Rx Instructions .ROUTE .MEDSUPPLY Qty: 1 RF: 0 acetaminophen 500 mg tablet 500 mg PO Q6H PRN (Reason: pain) RF: 0 tadalafil (pulm. hypertension) 20 mg tablet 20 mg PO BID RF: 0 ambrisentan 10 mg tablet 10 mg PO DAILY RF: 0 mupirocin 2 % ointment See Rx Instructions .ROUTE .COMPLEX RF: 0 spironolactone 25 mg tablet 50 mg PO .COMPLEX RF: 0 ferrous sulfate 325 mg (65 mg iron) tablet See Rx Instructions .ROUTE .COMPLEX Qty: 90 RF: 3 metformin 1,000 mg tablet 1,000 mg PO BID Qty: 180 RF: 3 lisinopril 5 mg tablet 5 mg PO DAILY Qty: 90 RF: 3 omeprazole 20 mg capsule,delayed release(DR/EC) 20 mg PO DAILY Qty: 90 RF: 3 (DME) blood sugar diagnostic [OneTouch Ultra Blue Test Strip] Strip See Rx Instructions .ROUTE .MEDSUPPLY Qty: 10 RF: 0 (DME) Oxygen Home Liters Per Minute See Rx Instructions .ROUTE .MEDSUPPLY Qty: 1 RF: 0 tamsulosin 0.4 mg capsule 0.4 mg PO BID Qty: 180 RF: 3 furosemide 20 mg tablet 20 mg PO DAILY PRN (Reason: edema) RF: 0 Referrals Referrals: Mirta Alaniz CRNP [Primary Care Provider] - Discharge Problem: Pneumonia Qualifiers: Pneumonia type: due to unspecified organism Laterality: unspecified laterality Lung location: unspecified part of lung Qualified Code(s): J18.9 - Pneumonia, unspecified organism
[2020-09-23] MEDS ORDERED: OPTIRAY 350 500ml IV ONE (14:32)
--- NOTE | 2020-09-23 14:58 | CT Scan Report ---
CT ANGIOGRAM OF THE CHEST CLINICAL HISTORY: Sepsis. Productive cough. Fever. Right-sided chest wall pain. COMPARISON STUDY: Chest x-ray dated 09/23/2020. Chest CT dated 11/10/2008. TECHNIQUE: Following the IV administration of 114 cc of Optiray 320, CT angiogram of the chest was pe rformed from the upper abdomen to the thoracic inlet utilizing the pulmonary embolus protocol. Images are reviewed in the axial, sagittal, and coronal planes. 3-D MIPS images are created and assessed. I V contrast was administered without complication. A dose lowering technique was utilized adhering to the principles of ALARA. The examination is degraded by motion artifact. CT DOSE: 645.45 mGy.cm FINDINGS: Thyroid: Imaged portions of the thyroid gland are normal in size and attenuation. Thoracic aorta: The thoracic aorta is normal in caliber and demonstrates standard 3-vessel arch anato my. No dissection is seen. Pulmonary vasculature: The pulmonary trunk is dilated, measuring 4.7 cm in transverse diameter. This suggests pulmonary artery hypertension. There are no filling defects identified in main, lobar, or pr oximal segmental pulmonary branches to suggest pulmonary embolus. Evaluation of the peripheral branch es is degraded by suboptimal contrast opacification. Heart: The heart is top normal in size noting a small pericardial effusion. Lungs and pleural spaces: Evaluation of the lung parenchyma is degraded by motion artifact. There is a moderate right pleural effusion with atelectasis/consolidation of the right lower lung. This may be at least partially loculated. The trachea and central airways are clear. Intralobular septal thicken ing is seen throughout both lungs. The left lung is otherwise clear. Mediastinum: Subcentimeter mediastinal lymph nodes are not pathologically enlarged by size criteria. María: Clear. Axillae: There is no axillary lymphadenopathy. Upper abdomen: There is a small hiatal hernia. Partially visualized upper abdominal viscera is otherw ise within normal limits. Skeletal structures: No lytic or blastic bony lesions are seen. IMPRESSION: 1. There is no evidence of pulmonary embolus in the main, lobar, or proximal segmental pulmonary morelia renetta. 2. There is a moderate right pleural effusion as detailed above with associated atelectasis/consolida tion of the right lower lung. Correlate clinically for evidence of pneumonia. Radiographic follow-up to resolution is recommended. 3. There is marked dilatation of the pulmonary trunk suggesting pulmonary artery hypertension, and th ere is diffuse intralobular septal thickening which can be seen with congestive failure. Clinical cor relation will be required. 4. Additional findings as above. ACT 112: Negative or not required by law. Electronically signed by: Eladio Mobley M.D. 09/23/2020 2:57 PM
[2020-09-23 15:02] LABS: Appearance Urine Clear (Clear); Bacteria Urine Automated Negative (Negative); Bilirubin Urine Negative (Negative); Blood Urine 2+ (Negative); Color Urine Yellow; Epithelial Cell Urine Auto 20-30 /lpf (0-5); Glucose Urine UA 3+ (Negative); Ketones Urine 4+ (Negative); Leukocyte Esterase Urine Negative (Negative); Nitrite Urine Negative (Negative); Protein Urine 2+ (Negative); Specific Gravity Urine 1.045 (1.000-1.030); Urobilinogen Urine Negative (Negative); pH Urine 5.5 (4.5-7.5)
--- NOTE | 2020-09-23 16:17 | History & Physical Report ---
Date of Service September 23, 2020 Assessment & Plan (1) Pleural effusion, right: Moderate right pleural effusion/right lower lobe pneumonia- Admit to monitored bed Placed on vancomycin IV and Zosyn IV Duonebs every 4 hours while awake and every 2 hours when necessary. Consult pulmonology Present on Admission?: Yes (2) Right lower lobe pneumonia: See above Present on Admission?: Yes (3) Hypoxia: See above Present on Admission?: Yes (4) Pulmonary hypertension: Continue tadalafil Present on Admission?: Yes (5) Hypertension: Hold lisinopril Present on Admission?: Yes (6) Hyperlipidemia: (7) DM II (diabetes mellitus, type II), controlled: Hold Metformin Placed on Accu-Cheks before meals and at bedtime with NovoLog coverage per scale Check hemoglobin A1c Present on Admission?: Yes (8) Benign prostatic hyperplasia with urinary obstruction: Continue tamsulosin Present on Admission?: Yes History of Present Illness Chief Complaint: The patient presents to the emergency department with complaint of right-sided chest pain, shortness of breath and dyspnea on exertion worsening over the past week Primary Care Provider: SAURABH Valencia The patient is a 60-year-old male with a past medical history including pulmonary hypertension, hypertension, hyperlipidemia, diabetes mellitus type 2, BPH with urinary obstruction, Velazquez's esophagus and anemia. He presents with the above symptoms. Work-up in the emergency department included chest x-ray and CT angiography of chest, which was negative for PE, but did show a moderate sized right pleural effusion with right lower lobe infiltrate, and pulmonary artery hypertension. ED began patient on vancomycin IV and cefepime IV and the patient was placed on BiPAP due to significant hypoxemia, with ABG 7.46/PCO2 29/PO2 63 Allergies Allergy/AdvReac Type Severity Reaction Status Date / Time Victoza SOLN Allergy Severe Dizziness Uncoded 09/23/20 14:53 Home Medications Medication Instructions Recorded Confirmed Type acetaminophen 500 mg tablet 500 mg PO Q6H PRN tab 03/28/19 09/23/20 History ambrisentan 10 mg tablet 10 mg PO DAILY tab 03/28/19 09/23/20 History mupirocin 2 % topical ointment See Rx Instructions .ROUTE .COMPLEX 03/28/19 09/23/20 History spironolactone 25 mg tablet 50 mg PO .COMPLEX tab 03/28/19 09/23/20 History tadalafil (pulm. hypertension) 20 20 mg PO BID tab 03/28/19 09/23/20 History mg tablet (pulmonary hypertension) furosemide 20 mg tablet 20 mg PO DAILY PRN tab 04/11/19 09/23/20 History Oxygen Home #1 ea 08/13/19 08/26/20 History blood sugar diagnostic #10 ea 08/13/19 08/26/20 History pen needle, diabetic 31 gauge x #100 ea 11/04/19 08/26/20 Rx 07/07" ferrous sulfate 325 mg (65 mg See Rx Instructions .ROUTE 11/29/19 09/23/20 Rx iron) tablet .COMPLEX #90 tablet lisinopril 5 mg tablet 5 mg PO DAILY #90 tab 11/29/19 09/23/20 Rx metformin 1,000 mg tablet 1,000 mg PO BID #180 tab 11/29/19 09/23/20 Rx omeprazole 20 mg capsule,delayed 20 mg PO DAILY #90 cap 11/29/19 09/23/20 Rx release insulin glargine 100 unit/mL (3 30 unit SQ DAILY #15 ml 08/06/20 09/23/20 Rx mL) subcutaneous pen tamsulosin 0.4 mg capsule 0.4 mg PO BID #180 cap 08/07/20 09/23/20 Rx blood-glucose meter #1 ea 08/28/20 Rx Past Med/Surg History Medical History (Updated 09/23/20 @ 16:33 by Catalino Thompson MD) Anemia AVM (arteriovenous malformation) brain AVM (arteriovenous malformation) of duodenum, 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, acquired with hemorrhage Barretts esophagus Benign prostatic hyperplasia with urinary obstruction Hereditary hemorrhagic telangiectasia Surgical History History of brain surgery History of colonoscopy History of prostate biopsy History of umbilical hernia repair Family History Father Diabetes Hypertension Cancer brain Mother Hypertension Lung disease Cancer Other Bleeding disorder Denies family history of Ovarian cancer Prostate cancer Myocardial infarction Breast cancer Colorectal cancer Social History Smoking Status: Former smoker Second Hand Exposure: Yes; Hx Alcohol Use: No Hx Substance Use: No marital status: Current Living Situation: Family 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: 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 Feels Safe at Home: Yes caffeine: Yes during the past year weight has: remained stable Dental Care, Regularly: No Physical Activity Frequency: Does not Exercise Seatbelt Use: always Sunscreen Use: No Review of Systems Review of Systems: The patient denies palpitations, lower extremity swelling, sore throat, fevers, chills, sweats, nausea, vomiting, diarrhea , constipation, abdominal pain, pelvic pain, blood in urine or stool, dysuria, urinary frequency or urgency, lightheadedness, dizziness, headache, memory loss, loss of consciousness, rash, abnormal bruising or bleeding, imbalance, focal or generalized weakness, numbness or tingling in arms or legs, generalized arthralgias or myalgias, back or neck pain, or night sweats. The review of systems is otherwise negative other than for that already noted above, and at least 10 systems have been reviewed. Physical Exam Physical Exam: The patient is awake, alert and oriented 3, well developed and well nourished, wearing BiPAP, sitting upright in bed and in no acute distress. HEENT--PERRL, EOMI, mucous membranes and oropharynx dry. Neck--supple. No JVD. No bruits. Thyroid normal, trachea midline, no adenopathy. Heart--normal S1 and S2. No murmurs, rubs or gallops. Lungs--coarse breath sounds, right greater than left. Mild respiratory distress, no accessory muscle use. Abdomen--normal bowel sounds and soft. Nontender. Nondistended. Extremities--no cyanosis or clubbing. No edema. Dermatologic--normal skin turgor, normal color, no abnormal lymph nodes, no rash. Neurologic--cranial nerves II through XII grossly intact. Rheumatologic--normal range of motion. Psychiatric--normal affect. Results & Data Results & Data ([facility]) Vital Signs (Past 12 Hours) Vital Signs Temp Pulse Pulse Resp BP BP Pulse Ox 09/23/20 14:41 94 09/23/20 14:39 137 H 20 164/84 H 94 09/23/20 14:15 128 H 20 133/78 93 09/23/20 14:00 124 H 22 119/81 95 09/23/20 13:59 123 H 22 135/77 96 09/23/20 13:45 123 H 22 135/77 95 09/23/20 13:30 127 H 127 H 18 121/80 121/80 95 09/23/20 13:15 130 H 24 135/83 93 09/23/20 13:05 96 09/23/20 13:03 96 09/23/20 13:00 130 H 29 H 143/91 H 94 09/23/20 12:22 131 H 26 H 96 09/23/20 12:09 98.1 F 140 H 24 145/84 H 88 L Laboratory Results Laboratory Results WBC 14.67 K/uL (4.8-10.8) H 09/23/20 12:46 RBC 4.62 M/uL (4.7-6.1) L 09/23/20 12:46 Hgb 13.0 g/dL (14.0-18.0) L 09/23/20 12:46 POC Hgb 13.9 g/dl (14.0-18.0) L 09/23/20 12:50 Hct 37.4 % (42-52) L 09/23/20 12:46 POC Hct 41 % (42-52) L 09/23/20 12:50 MCV 81.0 fL (80-100) 09/23/20 12:46 MCH 28.1 pg (25-34) 09/23/20 12:46 MCHC 34.8 g/dL (32-36) 09/23/20 12:46 RDW Std Deviation 41.1 fL (36.4-46.3) 09/23/20 12:46 RDW Coeff of Lesly 13.8 % (11.5-14.5) 09/23/20 12:46 Plt Count 276 K/uL (130-400) 09/23/20 12:46 MPV 10.2 fL (7.4-10.4) 09/23/20 12:46 Immature Gran % (Auto) 0.8 % 09/23/20 12:46 Neut % (Auto) 84.1 % 09/23/20 12:46 Lymph % (Auto) 5.7 % 09/23/20 12:46 [place] % (Auto) 9.1 % 09/23/20 12:46 Eos % (Auto) 0.2 % 09/23/20 12:46 Baso % (Auto) 0.1 % 09/23/20 12:46 Neut # (Auto) 12.33 K/uL (1.4-6.5) H 09/23/20 12:46 Lymph # (Auto) 0.84 K/uL (1.2-3.4) L 09/23/20 12:46 [place] # (Auto) 1.34 K/uL (0.11-0.59) H 09/23/20 12:46 Eos # (Auto) 0.03 K/uL (0-0.5) 09/23/20 12:46 Baso # (Auto) 0.01 K/uL (0-0.2) 09/23/20 12:46 Immature Gran # (Auto) 0.12 K/uL (0.00-0.02) H 09/23/20 12:46 PT 10.6 Seconds (9.0-12.0) 09/23/20 12:46 INR 1.0 (0.9-1.1) 09/23/20 12:46 APTT 26.0 Seconds (21.0-31.0) 09/23/20 12:46 PTT Ratio 1.0 09/23/20 12:46 POC pH 7.46 (7.35-7.45) H 09/23/20 12:39 POC pCO2 29 mmHg (35-46) L 09/23/20 12:39 POC pO2 63 mmHg (80-95) L 09/23/20 12:39 POC HCO3 21 katey/L (19-24) 09/23/20 12:39 POC Total CO2 21 mmol/L (24-31) L 09/23/20 12:39 POC Base Excess -3.0 katey/L (-9-1.8) 09/23/20 12:39 POC ABG O2 Sat 93.0 % (90-95) 09/23/20 12:39 POC Sodium 132 mmol/L (135-144) L 09/23/20 12:50 Sodium 132 mmol/L (136-145) L 09/23/20 12:46 POC Potassium 4.0 mmol/L (3.3-5.0) 09/23/20 12:50 Potassium 3.9 mmol/L (3.5-5.1) 09/23/20 12:46 POC Chloride 97 mmol/L (101-112) L 09/23/20 12:50 Chloride 99 mmol/L (98-107) 09/23/20 12:46 Carbon Dioxide 21 mmol/L (21-32) 09/23/20 12:46 POC Total CO2 20 mmol/L (24-31) L 09/23/20 12:50 Anion Gap 12.0 (3-11) H 09/23/20 12:46 POC Anion Gap 20.0 mmol/L (16-25) 09/23/20 12:50 POC BUN 18 mg/dl (7-18) 09/23/20 12:50 BUN 19 mg/dl (7-18) H 09/23/20 12:46 Creatinine 0.70 mg/dl (0.6-1.4) 09/23/20 12:46 POC Creatinine 0.5 mg/dl (0.6-1.3) L 09/23/20 12:50 Est Cr Clr Drug Dosing 124.5 ml/min 09/23/20 12:46 Est GFR ( Amer) 119.7 ml/min 09/23/20 12:46 Est GFR (Non-Af Amer) 103.3 ml/min 09/23/20 12:46 BUN/Creatinine Ratio 26.6 (10-20) H 09/23/20 12:46 Glucose 328 mg/dl (70-99) H* 09/23/20 12:46 POC Glucose (other) 345 mg/dl (70-99) H 09/23/20 12:50 Lactate 1.5 mmol/L (0.4-2.0) 09/23/20 12:46 Calcium 8.5 mg/dl (8.5-10.1) 09/23/20 12:46 POC Ioniz Calcium Mikayla 1.19 mmol/l (1.12-1.32) 09/23/20 12:50 Magnesium 2.0 mg/dl (1.8-2.4) 09/23/20 12:46 Total Bilirubin 0.5 mg/dl (0.2-1) 09/23/20 12:46 AST 11 U/L (15-37) L 09/23/20 12:46 ALT 13 U/L (12-78) 09/23/20 12:46 Alkaline Phosphatase 105 U/L (45-117) 09/23/20 12:46 Troponin I < 0.015 ng/ml (0-0.045) 09/23/20 12:46 NT-Pro-B Natriuret Pep 131 pg/ml (0-900) 09/23/20 12:46 Total Protein 7.2 gm/dl (6.4-8.2) 09/23/20 12:46 Albumin 2.2 gm/dl (3.4-5.0) L 09/23/20 12:46 Globulin 5.0 gm/dl (2.5-4.0) H 09/23/20 12:46 Albumin/Globulin Ratio 0.4 (0.9-2) L 09/23/20 12:46 Beta-Hydroxybutyric Acd 27.35 mg/dl (0.2-2.81) H 09/23/20 12:46 Procalcitonin 2.63 ng/ml (0-0.5) H 09/23/20 12:46 Urine Color Yellow 09/23/20 14:05 Urine Appearance Clear (Clear) 09/23/20 14:05 Urine pH 5.5 (4.5-7.5) 09/23/20 14:05 Ur Specific [place] 1.045 (1.000-1.030) H 09/23/20 14:05 Urine Protein 2+ (Negative) H 09/23/20 14:05 Urine Glucose (UA) 3+ (Negative) H 09/23/20 14:05 Urine Ketones 4+ (Negative) H 09/23/20 14:05 Urine Blood 2+ (Negative) H 09/23/20 14:05 Urine Nitrite Negative (Negative) 09/23/20 14:05 Urine Bilirubin Negative (Negative) 09/23/20 14:05 Urine Urobilinogen Negative (Negative) 09/23/20 14:05 Ur Leukocyte Esterase Negative (Negative) 09/23/20 14:05 Urine WBC (Auto) 1-5 /hpf (0-5) 09/23/20 14:05 Urine RBC (Auto) 10-30 /hpf (0-4) H 09/23/20 14:05 U Hyaline Cast (Auto) 1-5 /lpf (0-5) 09/23/20 14:05 U Epithel Cells (Auto) 20-30 /lpf (0-5) H 09/23/20 14:05 Urine Bacteria (Auto) Negative (Negative) 09/23/20 14:05 Urine Yeast Not Reportable 09/23/20 14:05 COVID-19 Eval Order Covid19 at [facility] 09/23/20 13:03 SARS-CoV-2 (PCR) NEGATIVE (Negative) 09/23/20 13:03 Impressions Chest CTA 09/23/20 12:20 CT ANGIOGRAM OF THE CHEST CLINICAL HISTORY: Sepsis. Productive cough. Fever. Right-sided chest wall pain. COMPARISON STUDY: Chest x-ray dated 09/23/2020. Chest CT dated 11/10/2008. TECHNIQUE: Following the IV administration of 114 cc of Optiray 320, CT angiogram of the chest was performed from the upper abdomen to the thoracic inlet utilizing the pulmonary embolus protocol. Images are reviewed in the axial, sagittal, and coronal planes. 3-D MIPS images are created and assessed. IV contrast was administered without complication. A dose lowering technique was utilized adhering to the principles of ALARA. The examination is degraded by motion artifact. CT DOSE: 645.45 mGy.cm FINDINGS: Thyroid: Imaged portions of the thyroid gland are normal in size and attenuation. Thoracic aorta: The thoracic aorta is normal in caliber and demonstrates standard 3-vessel arch anatomy. No dissection is seen. Pulmonary vasculature: The pulmonary trunk is dilated, measuring 4.7 cm in transverse diameter. This suggests pulmonary artery hypertension. There are no filling defects identified in main, lobar, or proximal segmental pulmonary branches to suggest pulmonary embolus. Evaluation of the peripheral branches is degraded by suboptimal contrast opacification. Heart: The heart is top normal in size noting a small pericardial effusion. Lungs and pleural spaces: Evaluation of the lung parenchyma is degraded by motion artifact. There is a moderate right pleural effusion with atelectasis/consolidation of the right lower lung. This may be at least partially loculated. The trachea and central airways are clear. Intralobular septal thickening is seen throughout both lungs. The left lung is otherwise clear. Mediastinum: Subcentimeter mediastinal lymph nodes are not pathologically enlarged by size criteria. María: Clear. Axillae: There is no axillary lymphadenopathy. Upper abdomen: There is a small hiatal hernia. Partially visualized upper abdominal viscera is otherwise within normal limits. Skeletal structures: No lytic or blastic bony lesions are seen. IMPRESSION: 1. There is no evidence of pulmonary embolus in the main, lobar, or proximal segmental pulmonary arteries. 2. There is a moderate right pleural effusion as detailed above with associated atelectasis/consolidation of the right lower lung. Correlate clinically for evidence of pneumonia. Radiographic follow-up to resolution is recommended. 3. There is marked dilatation of the pulmonary trunk suggesting pulmonary artery hypertension, and there is diffuse intralobular septal thickening which can be seen with congestive failure. Clinical correlation will be required. 4. Additional findings as above. ACT 112: Negative or not required by law. Electronically signed by: Eladio Mobley M.D. 09/23/2020 2:57 PM Chest X-Ray 09/23/20 12:21 SINGLE VIEW CHEST CLINICAL HISTORY: Sepsis. FINDINGS: An AP, portable, upright chest radiograph is correlated with chest CT dated 11/10/2008. The cardiomediastinal silhouette is unremarkable. There is a moderate right pleural effusion with dense right basilar consolidation. Question mediastinal and hilar adenopathy. The left lung appears clear. No pneumothorax is seen. The bony thorax is grossly intact. IMPRESSION: 1. There is a moderate right pleural effusion with associated right basilar consolidation. Correlate clinically for evidence of pneumonia. 2. Question mediastinal and hilar adenopathy. 3. The left lung appears clear. ACT 112: Negative or not required by law. Electronically signed by: Eladio Mobley M.D. 09/23/2020 1:14 PM Code Status & VTE Plan Code Status Full code VTE Prophylaxis Plan VTE Prophylaxis will be ordered: Yes PG Care Time/CCT Total # of Minutes Spent Total Time Spent with Patient: Total time spent is greater than 50% in coordination of care (as documented) at patient's floor/unit and/or counseling patient: Coding Level of Care Code 63489 Initial Inpt Care Lvl 3 Diagnoses Pleural effusion, right J90 Right lower lobe pneumonia J18.9 Hypoxia R09.02 Pulmonary hypertension I27.20 Hypertension I10 Hyperlipidemia E78.5 DM II (diabetes mellitus, type II), controlled E11.9 Benign prostatic hyperplasia with urinary obstruction N40.1; N13.8
[2020-09-23] MEDS ORDERED: VANCOMYCIN HCL 1,000 MG in SODIUM CHLORIDE 0.9% 250 ML IV SCH (18:25)
[2020-09-23] MEDS ORDERED: GLUCAGON FOR INJ 1 MG VIAL SQ PRN (18:25)
[2020-09-23] MEDS ORDERED: GLUCOSE 40% GEL 15 GM TUBE PO PRN (18:25)
[2020-09-23] MEDS ORDERED: ACETAMINOPHEN HOME PACK 500 MG TABLET PO PRN (18:25)
[2020-09-23] MEDS ORDERED: GLUCOSE 10 TABS/TUBE PO PRN (18:25)
[2020-09-23] MEDS ORDERED: ONDANSETRON INJ 2 MG/ML 2 ML VIAL IV PRN (18:25)
[2020-09-23] MEDS ORDERED: PIPERACILLIN/TAZOBACTAM 4.5 GM in DEXTROSE 5% 100 ML IV SCH (18:25)
[2020-09-23] MEDS ORDERED: CARBOHYDRATES FOR HYPOGLYCEMIA PO PRN (18:25)
[2020-09-23] MEDS ORDERED: PIPERACILL/TAZOBAC CONSULT ACTIVE PRN (18:25)
[2020-09-23] MEDS ORDERED: ACETAMINOPHEN 325 MG TAB PO PRN (18:25)
[2020-09-23] MEDS ORDERED: PIPERACILLIN/TAZOBACTAM 4.5 GM in DEXTROSE 5% 100 ML IV ONE (19:00)
[2020-09-23] MEDS: ALBUT/IPRATROP 3MG/0.5MG NEB 3 ML VIAL NEB SCH (19:21)
[2020-09-23] MEDS: TAMSULOSIN HCL 0.4 MG CAP PO SCH (20:35)
[2020-09-23] MEDS: INSULIN ASPART 100 UNITS/ML 3 ML PEN SC SCH (20:37)
[2020-09-23] MEDS: VANCOMYCIN HCL 1,250 MG in SODIUM CHLORIDE 0.9% 250 ML IV SCH (22:04)
[2020-09-24] MEDS: PIPERACILLIN/TAZOBACTAM 4.5 GM in DEXTROSE 5% 100 ML IV SCH ×3 (05:45→16:09)
[2020-09-24] MEDS: VANCOMYCIN HCL 1,250 MG in SODIUM CHLORIDE 0.9% 250 ML IV SCH ×3 (06:29→21:40)
[2020-09-24] MEDS: INSULIN ASPART 100 UNITS/ML 3 ML PEN SC SCH ×5 (07:03→21:31)
[2020-09-24] MEDS: ALBUT/IPRATROP 3MG/0.5MG NEB 3 ML VIAL NEB SCH ×4 (07:22→20:12)
--- NOTE | 2020-09-24 07:42 | Hospitalist Progress Note ---
Date of Service September 24, 2020 Assessment & Plan (1) Pleural effusion, right: significant and Moderate right pleural effusion/right lower lobe pneumonia-compressive atelectasis CTA Chest 09/23/20 IMPRESSION: 1. There is no evidence of pulmonary embolus in the main, lobar, or proximal segmental pulmonary arteries. 2. There is a moderate right pleural effusion as detailed above with associated atelectasis/consolidation of the right lower lung. Correlate clinically for evidence of pneumonia. Radiographic follow-up to resolution is recommended. 3. There is marked dilatation of the pulmonary trunk suggesting pulmonary artery hypertension, and there is diffuse intralobular septal thickening which can be seen with congestive failure. Clinical correlation will be required. Thoracentesis fluid shows pH of 6.9 likely consistent with exudative effusion or parapneumonic effusion multiple septae and loculations were noted on ultrasound and dornase was administered vancomycin IV and Zosyn IV Duonebs every 4 hours while awake and every 2 hours when necessary. Consult pulmonology for possible thoracentesis Given multiple visits throughout the morning discussion with ICU therapist and also transferred to the ICU additional time was spent caring for this patient this morning all total 90 minutes were spent subsequently an extended visit (2) Right lower lobe pneumonia: See above, concern for gram negatives and mrsa will have on broad spectrum antibiotics with elevation of procalcitonin and abnormal ua must also consider other sources, blood cultures are obtained will add urine culture (3) Hypoxia: Patient with oxygen supplementation pH is satisfactory however high flow oxygen was required (4) Pulmonary hypertension: Continue tadalafil and ambrisentan family brought both medications and they are non formulary (5) Hypertension: lisinopril (6) Hyperlipidemia: (7) DM II (diabetes mellitus, type II), controlled: Hold Metformin, marekdly elevated beta hydroxy butyric acid, will follow serum bicarb and acid base balance Placed on Accu-Cheks before meals and at bedtime with NovoLog coverage per scale hemoglobin A1c 8.1 (8) Benign prostatic hyperplasia with urinary obstruction: Continue tamsulosin, Admission and Anticipated Discharge Date Admission Date: September 23, 2020 Subjective This patient was in moderate respiratory distress this morning he had a thoracentesis performed, after that the pt had good drainage of what likely is an exudative effusion, however persisted with respiratory distress and increased work of breathing that prompted a move to the icu for hi flow oxygen and monitoring for respiratory failure Review of Systems Review of Systems: Moderate respiratory distress and fatigue no headache, no visual changes no speech or swallowing issues Pleuritic chest pain but no pressure or palpitations Significant shortness of breath speaking in short sentences diaphoretic no abdominal pain, nausea or vomiting, diarrhea or constipation no dysuria, hematuria or frequency no focal joint pain or swelling Right-sided thoracic pain no bruising, bleeding or rashes no focal signs of weakness or numbness or altered sensation Patient with significant anxiety and pain Physical Exam Physical Exam: The patient appeared significantly ill Vital signs as documented. Head exam is normocephalic atraumatic patient is diaphoretic Neck is with JVD, thyromegaly, or carotid bruits. Lung with diminished breath sounds on the right Cardiac exam, seems to be with sinus tachycardia Abdominal exam reveals normal bowel sounds, soft non tender, has some abdominal bloating Extremities are nonedematous and both pedal pulses are present Neurologic exam is alert and oriented, no focal loss of strength or sensation Skin is without bruises or rashes Psychologically is with concerns for anxiety Results & Data Results & Data ([facility]) Vital Signs (Past 12 Hours) Vital Signs Temp Pulse Pulse Pulse Resp BP Pulse Ox 09/24/20 07:23 119 H 26 H 94 09/24/20 07:10 124 H 27 H 92 09/24/20 03:44 99.1 F 122 H 20 151/84 H 09/24/20 02:44 121 H 28 H 93 09/24/20 02:32 122 H 09/23/20 23:44 98.4 F 124 H 20 137/80 94 09/23/20 22:00 116 H 24 94 PG Care Time/CCT Total # of Minutes Spent Total Time Spent with Patient: Total time spent is greater than 50% in coordination of care (as documented) at patient's floor/unit and/or counseling patient: Coding Level of Care Code 72246 Subseq Hosp Care Lvl 3 (25 - SIGNIFICANT, SEPARATELY IDENTIFIABLE ) Diagnoses Pleural effusion, right J90 Right lower lobe pneumonia J18.9 Hypoxia R09.02 Pulmonary hypertension I27.20 Hypertension I10 Hyperlipidemia E78.5 DM II (diabetes mellitus, type II), controlled E11.9 Benign prostatic hyperplasia with urinary obstruction N40.1; N13.8 Time Spent (min) 90
[2020-09-24] MEDS ORDERED: FUROSEMIDE 40 MG in SYRINGE 0 ML IV ONE (07:55)
[2020-09-24 07:58] LABS: Basophils # (auto) 0.02 K/uL (0-0.2); Basophils % (auto) 0.1 %; Eosinophils # (auto) 0.03 K/uL (0-0.5); Eosinophils % (auto) 0.2 %; Hematocrit (blood only) 36.1 % (42-52); Hemoglobin 12.1 g/dL (14.0-18.0); Immature Granulocytes % (auto) 1.2 %; Lymphocytes # (auto) 0.72 K/uL (1.2-3.4); Lymphocytes % (auto) 4.3 %; Mean Corpuscular Hemoglobin 27.6 pg (25-34); Mean Corpuscular Hgb Conc 33.5 g/dL (32-36); Mean Corpuscular Volume 82.4 fL (80-100); Mean Platelet Volume 10.6 fL (7.4-10.4); Monocytes # (auto) 1.93 K/uL (0.11-0.59); Monocytes % (auto) 11.6 %; Neutrophils # (auto) 13.67 K/uL (1.4-6.5); Neutrophils % (auto) 82.6 %; Platelet Count 300 K/uL (130-400); RDW Coefficient of Variation 14.1 % (11.5-14.5); RDW Standard Deviation 42.8 fL (36.4-46.3); Red Blood Count 4.38 M/uL (4.7-6.1); White Blood Count 16.57 K/uL (4.8-10.8)
[2020-09-24] MEDS ORDERED: NITROGLYCERIN 2% OINTMENT 30GM TUBE EXT ONE (07:59)
[2020-09-24 08:25] LABS: BUN Creatinine Ratio 24.6 (10-20); Calcium 8.5 mg/dl (8.5-10.1); Creatinine Clr Calc Pharmacy 92.8 ml/min; Est GFR (Non-African American) 93.2 ml/min
[2020-09-24 08:27] LABS: Albumin Globulin Ratio 0.4 (0.9-2); Bilirubin,Total 0.7 mg/dl (0.2-1); Globulin 4.7 gm/dl (2.5-4.0); Total Protein 6.7 gm/dl (6.4-8.2)
[2020-09-24] MEDS ORDERED: FUROSEMIDE 40 MG/4 ML VIAL IV ONE (08:30)
[2020-09-24] MEDS ORDERED: LIDOCAINE 1% LOCAL 20 ML VIAL ONE (08:40)
[2020-09-24] MEDS ORDERED: INSULIN GLARGINE SOLOSTAR 100 UNITS/ML 3 ML PEN SQ SCH (09:00)
--- NOTE | 2020-09-24 09:09 | Pharmacy Report ---
Pharmacy Abx Initial Consult - Date of Service September 24, 2020 - Pharmacy Dosing Scope Date of Consult: 09/23 Consultation requested by: Dr. Thompson Pharmacy is consulted to initiate vancomycin IV dosing therapy, order appropriate labs and adjust drug dose/frequency. - Subjective The patient is a 60 year old M admitted on 09/23/20 16:15. - Objective Height: 5 ft 6 in Weight: 89.9 kg Vital Signs (Past 12hrs): Vital Signs Temp Pulse Pulse Pulse Resp BP Pulse Ox 09/24/20 07:41 36.6 C 125 H 26 H 133/91 92 09/24/20 07:23 119 H 26 H 94 09/24/20 07:10 124 H 27 H 92 09/24/20 03:44 37.3 C 122 H 20 151/84 H 09/24/20 02:44 121 H 28 H 93 09/24/20 02:32 122 H 09/23/20 23:44 36.9 C 124 H 20 137/80 94 09/23/20 22:00 116 H 24 94 Lab Results (24hrs): Laboratory Tests (24 Hours) 09/24/20 09/24/20 09/23/20 07:28 07:28 12:46 WBC 16.57 H 14.67 H Neut # (Auto) 13.67 H 12.33 H Creatinine 0.90 Est Cr Clr Drug Dosing 92.8 Procalcitonin 09/23/20 09/23/20 12:46 12:46 WBC Neut # (Auto) Creatinine 0.70 Est Cr Clr Drug Dosing 124.5 Procalcitonin 2.63 H Micro Results: 09/23/20 14:05 Urine Culture - Pending Urine,Clean Catch 09/23/20 Unknown Aerobic Blood Culture - Pending Blood Anaerobic Blood Culture - Pending 09/23/20 12:46 Aerobic Blood Culture - Pending Blood Anaerobic Blood Culture - Pending - Assessment & Plan Assessment 60 year old M with a past medical history significant for pulmonary hypertension receiving vancomycin IV and Zosyn for a right pleural effusion with RLL pneumonia. Renal function stable. Blood and urine cultures pending. MRSA nasal swab ordered. Pulmonary consulted. Plan Vancomycin IV * Loading dose: 2000 mg (20 mg/kg) * Maintenance dose: 1250mg IV q8h * Goal trough level: 15-20mcg/mL * Trough level ordered for 6/4 AM Pharmacy will continue to follow and will adjust dose/frequency as necessary. Thank you.
--- NOTE | 2020-09-24 09:15 | Procedure Note ---
Procedure Note Date of Service September 24, 2020 Note PIGTAIL CATHETER PLACEMENT NOTE: Procedure: Pigtail Catheter Chest Tube Placement Indication: Loculated right pleural effusion Anesthesia: 15 mL lidocaine 1% Written consent was obtained and placed on the chart. Timeout was done prior to the procedure. Prior to procedure, chest x-ray films were reviewed by myself and demonstrated a large loculated right pleural effusion. A time-out was completed verifying correct patient, procedure, site, positioning, and implant(s) or special equipment if applicable. Utilizing bedside ultrasound, chest wall was evaluated for location for optimal chest tube placement. Location between the fifth and sixth ribs were marked on the skin using gentle pressure. The right sided chest wall was prepped with chlorhexidine and draped in the typical sterile fashion. 15 mL of 1% Lidocaine without epinephrine was used to anesthetize the skin down to the dorsal surface of the fifth rib. Pleural fluid return confirmed entry into the pleural space. Lidocaine was injected into the pleural space for i ncreased anesthetization. Introducer needle on syringe was inserted in perpendicular fashion taking care to ride just above the dorsal surface of the fifth rib. Entry into the pleural space was heralded by pleural fluid return into the syringe while under gentle aspiration. Guide wire was advanced into the pleural space without resistance and the introducer needle was subsequently removed. Scalpel was used to make small incision of the superficial tissue, parallel to the direction of the rib anatomy. Dilator was advanced uneventfully over the guide wire into the pleural space. 14 [place] Pigtail Catheter was inserted into the pleural space. Inner introducer and guide wire were removed. Drain was immediately connected to pre-prepared HARRISON pleur-evac system. Pigtail was sutured securely in place and sterile dressing was applied. Chest tube was placed to -20 cmH2O suction. Patient tolerated procedure well. Blood Loss: Minimal Complications: None Post procedure chest x-ray is pending. Coding CPT Codes Pulmonary/Thoracic - Pulmonary and Thoracic: 42385 Tube thoracostomy ([id number]) [facility] [place] Procedure Codes (Charges) Pulmonary/Thoracic Procedure 1: Pulmonary and Thoracic: 55715 Tube thoracostomy
[2020-09-24 09:22] LABS: Estimated Average Glucose 255 mg/dl; Hemoglobin A1C 10.5 % (4.5-5.6)
[2020-09-24] MEDS: TAMSULOSIN HCL 0.4 MG CAP PO SCH ×2 (09:35→21:40)
[2020-09-24] MEDS: PANTOprazole 40 MG TAB PO SCH (09:35)
[2020-09-24 09:48] LABS: Glucose Pleural Fluid 253 mg/dl
[2020-09-24 09:56] LABS: Amylase Pleural Fluid 15 U/L; LDH Pleural Fluid 666 U/L; Total Protein Pleural Fluid 4.9 g/dl
--- NOTE | 2020-09-24 10:30 | XRay Report ---
XR chest 1V portable CLINICAL HISTORY: s/p right pigtail COMPARISON STUDY: Chest radiograph and chest CT September 23, 2020. FINDINGS: Interval placement of a right basilar pigtail catheter is noted. There is no pneumothorax. A moderate sized loculated right pleural effusion persists. Cardiomediastinal silhouette is stable. I nterstitial thickening within the lungs is again noted. IMPRESSION: 1. Interval placement of a basilar right pleural pigtail catheter. No pneumothorax. Persistent modera te loculated right pleural fusion. 2. Persistent interstitial thickening within the lungs. ACT 112: Negative or not required by law. Electronically signed by: Ryne Peralta M.D. 09/24/2020 10:29 AM
[2020-09-24 11:02] LABS: Basophils, Fluid 0 %; Eosinophils, Fluid 0 %; Lymphocytes, Fluid 1 %; Mono,Macrophage,Mesothelial 11 %; Neutrophils, Fluid 88 %
[2020-09-24 11:13] LABS: Appearance Pleural Fluid HAZY; Color Pleural Fluid YELLOW; RBC Pleural Fluid (A) < 3000 /uL; Source Pleural Fluid RIGHT LUNG; WBC Pleural Fluid (A) 529 /uL
--- NOTE | 2020-09-24 11:15 | Pulmonary Consultation ---
Date of Consultation September 24, 2020 Assessment & Plan (1) Pleural effusion, right: 60-year-old male with a past medical history of poorly controlled diabetes mellitus, pulmonary arterial hypertension on ambrisentan and tadalafil who presented to the hospital due to right lower lobe pneumonia and pleural effusion. Right lower lobe pneumonia and parapneumonic effusion: Please obtain MRSA screen. Agree with vancomycin and Zosyn at this time. Significant loculation noted on pleural ultrasound. Only 200 mL was able to be aspirated from the pleural effusion due to the loculations. Lytic therapy will be instilled via the right chest tube twice daily for 3 days to help drain the pleural effusion. Pleural fluid studies are suggestive of a complicated parapneumonic effusion. Pleural pH is 6.91. Cultures were sent. Cytology sent as well. He may require VATS if he does not respond well to lytic therapy. We will continue with daily chest x-rays. Recommend infectious disease consultation. Pulmonary hypertension: Patient with prior history of pulmonary arterial hypertension followed in [place]. He needs to be restarted on his ambrisentan. Continue tadalafil. Poorly controlled diabetes mellitus type 2: A1c 10.5 and hyperglycemia noted during the hospitalization. Glucose must be well controlled in order to help with the pleural space infection. Hypoxia: Maintain oxygenation between 92 to 94%. Currently on BiPAP. Can likely transition to oxime mask or nasal cannula. Thank you for the consultation. Pulmonary clear follow-up with you. (2) Right lower lobe pneumonia: (3) Hypoxia: (4) Pulmonary hypertension: (5) DM II (diabetes mellitus, type II), controlled: History of Present Illness Attending Physician: Tom Hill MD History of Present Illness 60-year-old male with a past medical history of HH T, severe MICHAEL, unprovoked pulmonary embolism in 2007, hypertension, poorly controlled diabetes mellitus type 2 and pulmonary arterial hypertension followed in [place] (currently on the ambrisentan and tadalafil since 2016) who presented to the hospital yesterday due to severe shortness of breath and fever. Patient notes his symptoms started over the weekend with mild chest pain on the right as well. He feels it is difficult for him to take a deep breath. He also has mild orthopnea. A chest CTA was completed yesterday which demonstrated moderate right pleural effusion with loculation. Consolidation was noted as well. I performed a bedside pleural ultrasound which demonstrated significant pleural fluid loculations. Chest tube was inserted at bedside and 200 mL of pleural fluid was evacuated. Chest tube was set to suction. Allergies Allergy/AdvReac Type Severity Reaction Status Date / Time Victoza SOLN Allergy Severe Dizziness Uncoded 09/23/20 14:53 Home Medications Medication Instructions Recorded Confirmed Type acetaminophen 500 mg tablet 500 mg PO Q6H PRN tab 03/28/19 09/23/20 History ambrisentan 10 mg tablet 10 mg PO DAILY tab 03/28/19 09/23/20 History mupirocin 2 % topical ointment See Rx Instructions .ROUTE .COMPLEX 03/28/19 09/23/20 History spironolactone 25 mg tablet 50 mg PO .COMPLEX tab 03/28/19 09/23/20 History tadalafil (pulm. hypertension) 20 40 mg PO DAILY tab 03/28/19 09/24/20 History mg tablet (pulmonary hypertension) furosemide 20 mg tablet 20 mg PO DAILY PRN tab 04/11/19 09/23/20 History Oxygen Home #1 ea 08/13/19 08/26/20 History blood sugar diagnostic #10 ea 08/13/19 08/26/20 History pen needle, diabetic 31 gauge x #100 ea 11/04/19 08/26/20 Rx 07/07" ferrous sulfate 325 mg (65 mg See Rx Instructions .ROUTE 11/29/19 09/23/20 Rx iron) tablet .COMPLEX #90 tablet lisinopril 5 mg tablet 5 mg PO DAILY #90 tab 11/29/19 09/23/20 Rx metformin 1,000 mg tablet 1,000 mg PO BID #180 tab 11/29/19 09/23/20 Rx omeprazole 20 mg capsule,delayed 20 mg PO DAILY #90 cap 11/29/19 09/23/20 Rx release insulin glargine 100 unit/mL (3 30 unit SQ DAILY #15 ml 08/06/20 09/23/20 Rx mL) subcutaneous pen tamsulosin 0.4 mg capsule 0.4 mg PO BID #180 cap 08/07/20 09/23/20 Rx blood-glucose meter #1 ea 08/28/20 Rx Patient History Medical History Anemia AVM (arteriovenous malformation) brain AVM (arteriovenous malformation) of duodenum, 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, acquired with hemorrhage Barretts esophagus Benign prostatic hyperplasia with urinary obstruction Hereditary hemorrhagic telangiectasia Surgical History History of brain surgery History of colonoscopy History of prostate biopsy History of umbilical hernia repair Family History Father Diabetes Hypertension Cancer brain Mother Hypertension Lung disease Cancer Other Bleeding disorder Denies family history of Ovarian cancer Prostate cancer Myocardial infarction Breast cancer Colorectal cancer Social History Smoking Status: Former smoker Second Hand Exposure: Yes; Hx Alcohol Use: Yes Alcohol type: wine Hx Substance Use: No Preferred Language: [place]ian Communication Ability: Effective Paperhanger Supervisor Required: No Beliefs That Will Affect Care: None marital status: Current Living Situation: Spouse 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: employed 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 No significant wheezing. Crackles present noted on the right. Tachypnea. Cardiovascular: RRR, no murmur, no edema Gastrointestinal (Abdomen): normal bowel sounds, soft, nontender, no hepatosplenomegaly Neurologic: PERRL, EOMI, accommodation nl, no face palsy, no dysarthria Psychiatric: A+Ox3, euthymic affect Results & Data Results & Data ([facility] [place]) Vital Signs (Past 12 Hours) Vital Signs Temp Pulse Pulse Pulse Resp BP Pulse Ox 09/24/20 10:55 98.1 F 122 H 22 131/84 92 09/24/20 09:44 114 H 28 H 149/88 H 93 09/24/20 07:41 97.9 F 125 H 26 H 133/91 92 09/24/20 07:23 119 H 26 H 94 09/24/20 07:10 124 H 27 H 92 09/24/20 03:44 99.1 F 122 H 20 151/84 H 09/24/20 02:44 121 H 28 H 93 09/24/20 02:32 122 H 09/23/20 23:44 98.4 F 124 H 20 137/80 94 vital signs, labs and imaging reviewed as noted in HPI. Patient with evidence of leukocytosis and elevated procalcitonin. PG Care Time/CCT Total # of Minutes Spent Total Time Spent with Patient: Total time spent is greater than 50% in coordination of care (as documented) at patient's floor/unit and/or counseling patient: Coding Level of Care Code 31548 Inpt Consult Level 5 Diagnoses Pleural effusion, right J90 Right lower lobe pneumonia J18.9 Hypoxia R09.02 Pulmonary hypertension I27.20 DM II (diabetes mellitus, type II), controlled E11.9
[2020-09-24] MEDS: ALTEPLASE, RECOMBINANT 10 MG in SYRINGE 50 ML IPL SCH (11:30)
[2020-09-24] MEDS: MoRPHine SULFATE 2 MG/ML CARP IV PRN ×2 (12:09→12:38)
--- NOTE | 2020-09-24 13:05 | XRay Report ---
XR chest 1V portable HISTORY: Shortness of breath. recent paracenteisis and ctube COMPARISON: Chest 06/27/2020. FINDINGS: Right basilar pigtail catheter is unchanged in position. Small right pleural effusion has d ecreased in size. Right basilar densities are noted. Suspect a tiny right pneumothorax. There is mild central pulmonary basilar congestion without overt edema. The heart remains mildly enlarged. IMPRESSION: 1. Decrease in size in a small right pleural effusion. The right chest tube is unchanged in position. 2. Tiny right pneumothorax. 3. Mild central pulmonary vascular congestion without overt edema. ACT 112: Negative or not required by law. Electronically signed by: Chaitanya Jensen M.D. 09/24/2020 1:04 PM
[2020-09-24 13:09] LABS: iSTAT Allen Test Pass; iSTAT Art Bld Gas pCO2 Correct 40 mmHg (35-46); iSTAT Art Bld Gas pH Corrected 7.366 (7.35-7.45); iSTAT Arterial Blood Gas HCO3 23 meg/L (19-24); iSTAT Arterial Blood Gas pCO2 40 mmHg (35-46); iSTAT Arterial Blood Gas pH 7.37 (7.35-7.45); iSTAT Arterial Blood Gas pO2 76 mmHg (80-95); iSTAT Arterial Blood Gas pO2 C 76; iSTAT Carbon Dioxide 24 mmol/L (24-31); iSTAT FiO2 50 %; iSTAT Hematocrit 40 % (42-52); iSTAT Hemoglobin 13.6 g/dl (14.0-18.0); iSTAT Potassium 4.1 mmol/L (3.3-5.0); iSTAT Site R Radial; iSTAT Sodium 130 mmol/L (135-144)
[2020-09-24] MEDS ORDERED: ICU PROTOCOL FOR HYPERGLYCEMIA PRN (14:12)
[2020-09-24] MEDS: DORNASE ALFA 5 ML in SYRINGE 25 ML IPL SCH (14:18)
[2020-09-24] MEDS: oxyCODONE HCL IR 5 MG TAB (IMMEDIATE RELEASE) PO PRN ×2 (15:24→23:23)
[2020-09-24] MEDS: TADALAFIL PO SCH (16:07)
[2020-09-24] MEDS: AMBRISENTAN PO SCH (16:08)
[2020-09-24] MEDS ORDERED: METOPROLOL TARTRATE 1 MG/ML VIAL IV STA ×2 (16:41→18:17)
--- NOTE | 2020-09-24 16:45 | Communication Note ---
Date of Service: September 24, 2020 Patient was moved to the ICU earlier today due to increasing work of breathing and hypoxia. He was transitioned to high flow nasal cannula with improvement of symptoms. His symptoms seem to have increased after pigtail catheter placement. He has drained approximately 2 L of pleural fluid. Continue with TPA dornase instillation. Follow-up chest x-ray demonstrated a small pneumothorax with improvement of the empyema. Will obtain repeat chest x-ray now for further follow-up. CBC now. I am going to give 2.5 mg of IV metoprolol given his ongoing sinus tachycardia and hypertension. I suspect this is a response secondary to sepsis. He does have a history of severe pulmonary arterial hypertension we will have to be very cautious with beta-blockade so as not to worsen the right ventricular function. Patient's is at bedside and she was updated with the plan along with the patient. We will continue to keep a close eye on the patient in the intensive care unit. CRITICAL CARE TIME - I have personally spent 30 minutes of critical care time in the direct management of this patient. This is a life/limb threatening event. This includes time spent evaluating patient, direct bedside care, chart review, placing orders, interpretation of diagnostic studies, discussion with consultants, patient, and family members, as well as other required patient management activities. This time is exclusive of all separately billable procedures, and teaching time and separate from and in addition to any other critical care service time. Coding Level of Care Code Critical Care 1st 30-74 mins Time Spent (min) 30
[2020-09-24 17:10] LABS: Hematocrit (blood only) 39.8 % (42-52); Hemoglobin 13.5 g/dL (14.0-18.0); Mean Corpuscular Hemoglobin 28.4 pg (25-34); Mean Corpuscular Hgb Conc 33.9 g/dL (32-36); Mean Corpuscular Volume 83.6 fL (80-100); Mean Platelet Volume 10.3 fL (7.4-10.4); Platelet Count 412 K/uL (130-400); RDW Coefficient of Variation 14.3 % (11.5-14.5); RDW Standard Deviation 44.3 fL (36.4-46.3); Red Blood Count 4.76 M/uL (4.7-6.1); White Blood Count 22.19 K/uL (4.8-10.8)
[2020-09-24] MEDS ORDERED: MODERATE STRESS LEVEL ONE (17:30)
[2020-09-24] MEDS ORDERED: INSULIN PROTOCOL GOAL RANGE ONE (17:30)
[2020-09-24] MEDS ORDERED: INSULIN REGULAR 250 UNITS in SODIUM CHLORIDE 0.9% 247.5 ML IV SCH (17:30)
[2020-09-24] MEDS ORDERED: PHARMACY GLYCEMIC MGMT CONSULT PRN (17:32)
--- NOTE | 2020-09-24 17:32 | Hospitalist Progress Note ---
Date of Service September 24, 2020 Assessment & Plan (1) Pleural effusion, right: significant and Moderate right pleural effusion/right lower lobe pneumonia-compressive atelectasis CTA Chest 09/23/20 IMPRESSION: 1. There is no evidence of pulmonary embolus in the main, lobar, or proximal segmental pulmonary arteries. 2. There is a moderate right pleural effusion as detailed above with associated atelectasis/consolidation of the right lower lung. Correlate clinically for evidence of pneumonia. Radiographic follow-up to resolution is recommended. 3. There is marked dilatation of the pulmonary trunk suggesting pulmonary artery hypertension, and there is diffuse intralobular septal thickening which can be seen with congestive failure. Clinical correlation will be required. Thoracentesis fluid shows pH of 6.9 likely consistent with exudative effusion or parapneumonic effusion multiple septae and loculations were noted on ultrasound and dornase was administered vancomycin IV and Zosyn IV Duonebs every 4 hours while awake and every 2 hours when necessary. Consult pulmonology for possible thoracentesis Given multiple visits throughout the morning discussion with ICU therapist and also transferred to the ICU additional time was spent caring for this patient this morning all total 90 minutes were spent subsequently an extended visit (2) Right lower lobe pneumonia: Sepsis POA e/b +4/4 SIRS criteria and SOFA score of 3 See above, concern for gram negatives and mrsa will have on broad spectrum antibiotics with elevation of procalcitonin and abnormal ua must also consider other sources, blood cultures are obtained will add urine culture (3) Hypoxia: Acute respiratory failure with hypoxia in setting of pleura effusion, pneumonia and sepsis (4) Pulmonary hypertension: Continue tadalafil and ambrisentan family brought both medications and they are non formulary (5) Hypertension: lisinopril (6) Hyperlipidemia: (7) DM II (diabetes mellitus, type II), controlled: Hold Metformin, marekdly elevated beta hydroxy butyric acid, will follow serum bicarb and acid base balance Placed on Accu-Cheks before meals and at bedtime with NovoLog coverage per scale hemoglobin A1c 8.1 (8) Benign prostatic hyperplasia with urinary obstruction: Continue tamsulosin, Admission and Anticipated Discharge Date Admission Date: September 23, 2020 Results & Data Results & Data ([facility]) Vital Signs (Past 12 Hours) Vital Signs Temp Pulse Pulse Pulse Pulse Resp BP 09/24/20 17:08 130 H 180/123 H 09/24/20 16:30 125 H 32 H 158/113 H 09/24/20 16:15 125 H 29 H 140/107 H 09/24/20 16:00 124 H 23 140/113 H 09/24/20 15:45 126 H 40 H 167/113 H 09/24/20 15:30 135 H 45 H 143/112 H 09/24/20 15:29 137 H 26 H 09/24/20 15:15 137 H 23 161/117 H 09/24/20 15:00 132 H 29 H 153/108 H 09/24/20 14:45 130 H 27 H 156/107 H 09/24/20 14:30 127 H 43 H 166/109 H 09/24/20 14:15 127 H 33 H 159/104 H 09/24/20 14:12 98.2 F 134 H 130 H 35 H 09/24/20 14:00 130 H 36 H 130/96 09/24/20 13:58 130 H 32 H 150/99 H 09/24/20 13:55 131 H 35 H 09/24/20 13:00 133 H 09/24/20 12:57 09/24/20 12:45 129 H 129 H 20 09/24/20 12:30 129 H 35 H 09/24/20 12:00 123 H 09/24/20 11:20 118 H 118 H 22 09/24/20 11:00 123 H 09/24/20 10:55 98.1 F 122 H 22 09/24/20 10:00 118 H 09/24/20 09:44 114 H 28 H 09/24/20 09:00 117 H 09/24/20 08:11 121 H 09/24/20 08:00 122 H 09/24/20 07:41 97.9 F 125 H 26 H 09/24/20 07:23 119 H 26 H 09/24/20 07:10 124 H 27 H 09/24/20 07:00 127 H 09/24/20 06:00 120 H BP Pulse Ox Pulse Ox 09/24/20 17:08 09/24/20 16:30 93 09/24/20 16:15 93 09/24/20 16:00 94 09/24/20 15:45 94 09/24/20 15:30 94 09/24/20 15:29 94 09/24/20 15:15 94 09/24/20 15:00 93 09/24/20 14:45 94 09/24/20 14:30 94 09/24/20 14:15 94 09/24/20 14:12 166/109 H 94 94 09/24/20 14:00 94 09/24/20 13:58 92 09/24/20 13:55 93 09/24/20 13:00 09/24/20 12:57 90 09/24/20 12:45 153/87 H 91 09/24/20 12:30 156/122 H 90 09/24/20 12:00 09/24/20 11:20 93 09/24/20 11:00 09/24/20 10:55 131/84 92 09/24/20 10:00 09/24/20 09:44 149/88 H 93 09/24/20 09:00 09/24/20 08:11 09/24/20 08:00 09/24/20 07:41 133/91 92 09/24/20 07:23 94 09/24/20 07:10 92 09/24/20 07:00 09/24/20 06:00 PG Care Time/CCT Total # of Minutes Spent Total Time Spent with Patient: Total time spent is greater than 50% in coordination of care (as documented) at patient's floor/unit and/or counseling patient: Coding Level of Care Code None Diagnoses Pleural effusion, right J90 Right lower lobe pneumonia J18.9 Hypoxia R09.02 Pulmonary hypertension I27.20 Hypertension I10 Hyperlipidemia E78.5 DM II (diabetes mellitus, type II), controlled E11.9 Benign prostatic hyperplasia with urinary obstruction N40.1; N13.8
--- NOTE | 2020-09-24 17:33 | XRay Report ---
SINGLE VIEW CHEST CLINICAL HISTORY: Follow-up pneumothorax. FINDINGS: An AP, portable, upright chest radiograph is compared to study dated 09/24/2020 and correlate d with chest CT dated 09/23/2020. The heart is top normal for projection. Pulmonary vascular congestion persists. A pigtail catheter is again seen at the right lung base. There is a small residual right p leural effusion with right basilar consolidation. No residual right-sided pneumothorax is clearly justen ntified. The left lung appears clear noting basilar atelectasis. The bony thorax is grossly intact. IMPRESSION: 1. There a pigtail catheter is again seen at the right lung base. No residual pneumothorax is identif ied. 2. There is a small residual right pleural effusion with associated right basilar consolidation. 3. Mild pulmonary vascular congestion persists. ACT 112: Negative or not required by law. Electronically signed by: Eladio Mobley M.D. 09/24/2020 5:32 PM
[2020-09-24] MEDS ORDERED: INSULIN ASPART 100 UNITS/ML 3 ML PEN SC SCH (21:00)
[2020-09-25] MEDS: ALTEPLASE, RECOMBINANT 10 MG in SYRINGE 50 ML IPL SCH ×3 (00:15→23:44)
[2020-09-25] MEDS: PIPERACILLIN/TAZOBACTAM 4.5 GM in DEXTROSE 5% 100 ML IV SCH ×4 (00:36→23:45)
[2020-09-25] MEDS ORDERED: OXYMETAZOLINE 0.05% 30 ML BTL ONE (01:39)
[2020-09-25] MEDS: DORNASE ALFA 5 ML in SYRINGE 25 ML IPL SCH ×2 (02:05→12:53)
[2020-09-25] MEDS: oxyCODONE HCL SOLN 5 MG/5 ML UDC PO PRN (03:38)
[2020-09-25 04:58] LABS: Hematocrit (blood only) 37.9 % (42-52); Hemoglobin 12.9 g/dL (14.0-18.0); Mean Corpuscular Hemoglobin 27.9 pg (25-34); Mean Platelet Volume 10.4 fL (7.4-10.4); Platelet Count 357 K/uL (130-400); RDW Coefficient of Variation 14.4 % (11.5-14.5); RDW Standard Deviation 43.1 fL (36.4-46.3); Red Blood Count 4.62 M/uL (4.7-6.1); White Blood Count 19.81 K/uL (4.8-10.8)
[2020-09-25 05:18] LABS: Basophils # (auto) 0.01 K/uL (0-0.2); Basophils % (auto) 0.1 %; Eosinophils # (auto) 0.02 K/uL (0-0.5); Eosinophils % (auto) 0.1 %; Immature Granulocytes # (auto) 0.33 K/uL (0.00-0.02); Immature Granulocytes % (auto) 1.7 %; Lymphocytes # (auto) 1.78 K/uL (1.2-3.4); Monocytes # (auto) 1.44 K/uL (0.11-0.59); Monocytes % (auto) 7.3 %; Neutrophils # (auto) 16.23 K/uL (1.4-6.5); Neutrophils % (auto) 81.8 %
[2020-09-25 05:19] LABS: Albumin Level 1.9 gm/dl (3.4-5.0); BUN Creatinine Ratio 42.5 (10-20); Calcium 8.6 mg/dl (8.5-10.1); Creatinine Clr Calc Pharmacy 118.4 ml/min; Est GFR (African American) 119.7 ml/min; Est GFR (Non-African American) 103.3 ml/min; Magnesium 2.2 mg/dl (1.8-2.4); Potassium 3.9 mmol/L (3.5-5.1)
[2020-09-25] MEDS ORDERED: VANCOMYCIN TROUGH ONE (05:30)
[2020-09-25 05:44] LABS: Albumin Globulin Ratio 0.4 (0.9-2); Bilirubin,Total 0.5 mg/dl (0.2-1); Globulin 4.5 gm/dl (2.5-4.0); Phosphorus 3.4 mg/dl (2.5-4.9); Total Protein 6.4 gm/dl (6.4-8.2)
[2020-09-25] MEDS: ALBUT/IPRATROP 3MG/0.5MG NEB 3 ML VIAL NEB SCH ×5 (05:56→19:30)
[2020-09-25] MEDS: VANCOMYCIN HCL 1,250 MG in SODIUM CHLORIDE 0.9% 250 ML IV SCH (06:12)
[2020-09-25] MEDS: oxyCODONE HCL IR 5 MG TAB (IMMEDIATE RELEASE) PO PRN ×3 (06:37→23:56)
[2020-09-25] MEDS: INSULIN ASPART 100 UNITS/ML 3 ML PEN SC SCH ×4 (08:12→20:43)
[2020-09-25] MEDS: TAMSULOSIN HCL 0.4 MG CAP PO SCH ×2 (08:14→20:37)
[2020-09-25] MEDS: PANTOprazole 40 MG TAB PO SCH (08:14)
[2020-09-25] MEDS: TADALAFIL PO SCH (08:15)
--- NOTE | 2020-09-25 08:15 | Critical Care Progress Note ---
Date of Service September 25, 2020 Assessment & Plan (1) Parapneumonic effusion: 60-year-old male with a past medical history of HHT, pulmonary arterial hypertension, BPH and diabetes mellitus type 2 who is currently in the ICU due to hypoxic respiratory failure from complicated right-sided parapneumonic effusion. Neurologic: No significant issues at this time. As needed opiates are available. Pulmonary: History of pulmonary arterial hypertension on ambrisentan and tadalafil. He has a loculated right pleural effusion likely parapneumonic. Pigtail in place. Continue with MIST 2 protocol. Today would be day #2. Cardiovascular: Pulmonary arterial hypertension noted as above. Continues to have persistent sinus tachycardia likely as a compensatory mechanism for sepsis. We will give a dose of 2.5 mg IV metoprolol today. Gastrointestinal: No significant issues at present. Renal: Mild hyponatremia present. Possible SIADH given the acute pneumonia and large pleural effusion. Infectious disease: Large loculated right pleural effusion. Pigtail catheter drain in place. Continue Zosyn. Vancomycin discontinued as his MRSA screen was negative. Hematologic: History of HHT. He had epistaxis overnight which was treated with Afrin and pressure. Holding Lovenox today. Endocrine: He was on insulin drip overnight. We are transitioning to long-acting insulin. A1c 10.5. Lines and tubes: Right pigtail catheter placed 09/24/2020. VTE prophylaxis: Holding Lovenox today. CODE STATUS: Full code Disposition: Remain in ICU. (2) Right lower lobe pneumonia: (3) Pulmonary hypertension: (4) HHT (hereditary hemorrhagic telangiectasia): Admission and Anticipated Discharge Date Admission Date: September 23, 2020 Subjective Patient seen and examined at bedside this morning. Shortness of breath is improved from yesterday. He still somewhat tachypneic. His pain is well controlled with as needed opiates. He continues to have persistent sinus tachycardia on the monitor. Hemodynamically has been stable. He is currently on 40 L of oxygen at 60% FiO2. Denies any nausea or vomiting. He did have epistaxis overnight which subsided with pressure and Afrin spray. Review of Systems Review of Systems: All systems reviewed & are unremarkable except as noted in HPI & below Physical Exam Constitutional: WD/WN, vitals as above + ill appearing Respiratory: Diminished lung sounds on the right with crackles. Chest tube catheter noted on the right. Cardiovascular: Rate/Rhythm: + tachycardic Heart Sounds: normal S1 and normal S2; no murmur Gastrointestinal (Abdomen): normal bowel sounds, soft, nontender, no hepatosplenomegaly Musculoskeletal: no cyanosis or clubbing, extremities motor strength 5/5 Neurologic: PERRL, EOMI, accommodation nl, no face palsy, no dysarthria Psychiatric: A+Ox3, euthymic affect Results & Data Results & Data ([facility]) Vital Signs (Past 12 Hours) Vital Signs Temp Pulse Pulse Pulse Resp BP Pulse Ox 09/25/20 07:30 125 H 09/25/20 07:20 119 H 20 92 09/25/20 06:30 124 H 25 H 115/76 92 09/25/20 06:15 121 H 20 126/85 91 09/25/20 06:00 120 H 20 124/89 92 09/25/20 05:56 115 H 22 94 09/25/20 05:46 115 H 26 H 133/106 H 91 09/25/20 05:30 112 H 19 117/81 92 09/25/20 05:15 118 H 19 123/97 92 09/25/20 05:00 115 H 20 129/84 93 09/25/20 04:45 113 H 27 H 140/95 93 09/25/20 04:30 112 H 22 137/101 H 94 09/25/20 04:15 116 H 24 143/91 H 93 09/25/20 04:01 116 H 24 136/109 H 92 09/25/20 03:45 118 H 22 137/94 90 09/25/20 03:30 99.3 F 119 H 33 H 137/84 90 09/25/20 03:17 119 H 26 H 139/100 92 09/25/20 03:00 116 H 25 H 147/97 H 91 09/25/20 02:45 115 H 32 H 131/92 90 09/25/20 02:30 118 H 27 H 128/86 93 09/25/20 02:15 118 H 26 H 149/92 H 93 09/25/20 02:00 119 H 33 H 120/82 92 09/25/20 01:45 119 H 23 150/128 H 90 09/25/20 01:30 124 H 27 H 132/106 H 82 L 09/25/20 01:15 120 H 23 157/87 H 92 06/04/21 01:00 118 H 19 163/81 H 91 09/25/20 00:45 120 H 22 162/83 H 93 09/25/20 00:35 115 H 21 140/102 H 90 09/25/20 00:32 115 H 24 113/65 91 09/25/20 00:15 110 H 21 142/101 H 93 09/25/20 00:00 111 H 22 140/109 H 93 09/24/20 23:46 115 H 23 159/94 H 94 09/24/20 23:30 115 H 24 149/107 H 93 09/24/20 23:16 115 H 26 H 152/102 H 92 09/24/20 23:00 119 H 25 H 145/113 H 92 09/24/20 22:45 117 H 26 H 146/89 H 91 09/24/20 22:31 114 H 22 145/82 H 92 09/24/20 22:30 114 H 22 91 09/24/20 22:16 113 H 21 161/100 H 91 09/24/20 22:01 110 H 26 H 149/98 H 92 09/24/20 22:00 114 H 29 H 94 09/24/20 21:45 117 H 21 164/128 H 93 09/24/20 21:30 116 H 22 144/97 H 93 09/24/20 21:15 119 H 25 H 134/106 H 93 09/24/20 21:00 110 H 37 H 147/106 H 93 09/24/20 20:45 115 H 22 138/99 93 09/24/20 20:30 113 H 19 146/116 H 93 09/24/20 20:15 112 H 23 166/109 H 95 09/24/20 20:12 114 H 21 94 vital signs, labs and imaging reviewed. Chest x-ray with persistent right effusion. Pigtail is present but has migrated out laterally. Coding Level of Care Code 43990 Subseq Hosp Care Lvl 3 Diagnoses Parapneumonic effusion J18.9; J91.8 Right lower lobe pneumonia J18.9 Pulmonary hypertension I27.20 HHT (hereditary hemorrhagic telangiectasia) I78.0
[2020-09-25] MEDS: AMBRISENTAN PO SCH (08:16)
[2020-09-25] MEDS ORDERED: METOPROLOL TARTRATE 1 MG/ML VIAL IV STA ×2 (08:21→14:20)
[2020-09-25] MEDS ORDERED: INSULIN GLARGINE SOLOSTAR 100 UNITS/ML 3 ML PEN SQ SCH (09:00)
--- NOTE | 2020-09-25 09:06 | XRay Report ---
SINGLE VIEW CHEST CLINICAL HISTORY: Empyema. FINDINGS: An AP, portable, upright chest radiograph is compared to studies dated 09/24/2020 and correla deysi with chest CT dated 09/23/2020. The heart is top normal for projection. Pulmonary vascular congesti on persists. A pigtail catheter is again seen at the right lung base. There is a small residual right pleural effusion with right basilar consolidation. No pneumothorax is seen. The left lung appears cl ear noting basilar atelectasis. The bony thorax is grossly intact. IMPRESSION: 1. There a pigtail catheter is again seen at the right lung base. No pneumothorax is identified. 2. There is a small residual right pleural effusion with right basilar consolidation. 3. Mild pulmonary vascular congestion persists. ACT 112: Negative or not required by law. Electronically signed by: Eladio Mobley M.D. 09/25/2020 9:04 AM
[2020-09-25] MEDS ORDERED: INSULIN ASPART 100 UNITS/ML 3 ML PEN SC ONE (12:45)
[2020-09-25] MEDS: MoRPHine SULFATE 4 MG/ML 1 ML CARP\\VIAL IV PRN (12:57)
--- NOTE | 2020-09-25 13:24 | Pharmacy Report ---
Pharmacy Glycemic Short Note 2 - Date of Service September 25, 2020 - Glycemic Short BSG Results (Last 24 hours): 09/24/20 09/24/20 09/24/20 16:25 16:27 18:06 Glucose POC Glucose 343 H* 335 H* 323 H* 09/24/20 09/24/20 09/24/20 19:19 20:15 21:09 Glucose POC Glucose 302 H* 268 H 266 H 09/24/20 09/24/20 09/25/20 22:12 23:13 00:17 Glucose POC Glucose 208 H 225 H 187 H 09/25/20 09/25/20 09/25/20 01:22 02:07 03:26 Glucose POC Glucose 171 H 159 H 164 H 09/25/20 09/25/20 09/25/20 04:47 05:15 07:03 Glucose 180 H POC Glucose 142 H 155 H 09/25/20 09/25/20 09/25/20 08:49 11:10 12:39 Glucose POC Glucose 162 H 166 H 218 H OUTPATIENT ANTIDIABETIC REGIMEN: * Metformin 1 gm; Lantus 30 units daily * A1c 10.5% 09/24/20 ASSESSMENT: * Mr. Mace has PMH including HHT, pulmonary arterial hypertension, BPH and DM type 2 is admitted for respiratory failure from complicated right-sided parapneumonic effusion. Currently on MIST2 protocol and zosyn. * BSGs were elevated on admission and continued to be elevated therefore an insulin infusion was started yesterday evening, infusion continued into this morning at an average of 2.5 units/hr. * Patient received 40 units of lantus this morning and was transitioned off of insulin infusion shortly after lunch. Will begin weight based stress of 3 novolog parameters. Additional 10 units of lantus for this evening. PLAN FOR INPATIENT GLYCEMIC CONTROL: * Hold outpatient oral diabetes medications * Basal insulin * Lantus 40 units this AM, 0-10 this evening per scale * Bolus insulin * NovoLog per scale ACHS or Q6hrs while NPO * Goal Range: Low 110 mg/dL - High 140 mg/dL * Correction Factor: 20 mg/dL/unit * Nutritional / Prandial insulin per carb ratio of 1 unit per 6 grams CHO consumed
--- NOTE | 2020-09-25 17:34 | Hospitalist Progress Note ---
Date of Service September 25, 2020 Assessment & Plan (1) Pleural effusion, right: significant and Moderate right pleural effusion/right lower lobe pneumonia-compressive atelectasis consistent with exudate concern for empyema CTA Chest 09/23/20 IMPRESSION: 1. There is no evidence of pulmonary embolus in the main, lobar, or proximal segmental pulmonary arteries. 2. There is a moderate right pleural effusion as detailed above with associated atelectasis/consolidation of the right lower lung. Correlate clinically for evidence of pneumonia. Radiographic follow-up to resolution is recommended. 3. There is marked dilatation of the pulmonary trunk suggesting pulmonary artery hypertension, and there is diffuse intralobular septal thickening which can be seen with congestive failure. Clinical correlation will be required. Thoracentesis fluid shows pH of 6.9 likely consistent with exudative effusion or parapneumonic effusion multiple septae and loculations were noted on ultrasound and dornase was administered Zosyn IV, vancomycin discontinued with negative MRSA nasal swab Duonebs every 4 hours while awake and every 2 hours when necessary. Consult pulmonology appreciate management by pulmonary critical care (2) Right lower lobe pneumonia: Sepsis POA e/b +4/4 SIRS criteria and SOFA score of 3 See above, concern for gram negatives and mrsa will have on Zosyn therapy at this time with elevation of procalcitonin and abnormal ua must also consider other sources, blood cultures are obtained will add urine culture (3) Hypoxia: Acute respiratory failure with hypoxia in setting of pleura effusion, pneumonia and sepsis patient requiring high flow oxygen (4) Pulmonary hypertension: Continue tadalafil and ambrisentan family brought both medications and they are non formulary (5) Hypertension: lisinopril (6) Hyperlipidemia: (7) DM II (diabetes mellitus, type II), controlled: Hold Metformin, marekdly elevated beta hydroxy butyric acid, will follow serum bicarb and acid base balance Placed on Accu-Cheks before meals and at bedtime with NovoLog coverage per scale hemoglobin A1c 8.1 (8) Benign prostatic hyperplasia with urinary obstruction: Continue tamsulosin, (9) Sinus tachycardia: Admission and Anticipated Discharge Date Admission Date: September 23, 2020 Subjective This patient is with much improved work of breathing. He still requiring significant oxygen supplementation. He had another dose of dornase infusion his chest today it is quite painful and creates tachypnea and tachycardia. Ros he said he did have times to get more comfortable overnight and was able to sleep little bit. Review of Systems Review of Systems: Improving respiratory distress and fatigue no headache, no visual changes no speech or swallowing issues Pleuritic chest pain but no pressure or palpitations Patient remains tachypneic tires easily when speaking no abdominal pain, nausea or vomiting, diarrhea or constipation no dysuria, hematuria or frequency no focal joint pain or swelling Right-sided thoracic pain no bruising, bleeding or rashes no focal signs of weakness or numbness or altered sensation Patient with significant anxiety and pain Physical Exam Physical Exam: The patient appeared significantly ill Vital signs as documented. Head exam is normocephalic atraumatic patient is diaphoretic Neck is with JVD, thyromegaly, or carotid bruits. Lung continues with diminished breath sounds on the right Cardiac exam, continues with sinus tachycardia Abdominal exam reveals normal bowel sounds, soft non tender, has some abdominal bloating Extremities are nonedematous and both pedal pulses are present Neurologic exam is alert and oriented, no focal loss of strength or sensation Skin is without bruises or rashes Psychologically is with concerns for anxiety Results & Data Results & Data ([facility]) Vital Signs (Past 12 Hours) Vital Signs Temp Pulse Pulse Pulse Resp BP Pulse Ox 09/25/20 15:04 106 H 90 09/25/20 15:00 106 H 23 118/81 91 09/25/20 14:26 127 H 144/98 H 09/25/20 14:00 116 H 27 H 144/98 H 90 09/25/20 13:00 114 H 28 H 127/84 89 L 09/25/20 12:00 115 H 22 133/90 92 09/25/20 11:10 113 H 22 92 09/25/20 11:00 109 H 22 117/84 92 09/25/20 10:00 106 H 109 H 26 H 123/97 92 09/25/20 09:30 105 H 16 127/85 93 09/25/20 09:15 105 H 21 121/82 92 09/25/20 09:00 108 H 20 120/79 94 09/25/20 08:45 118 H 20 146/98 H 93 09/25/20 08:44 126 H 118/88 09/25/20 08:30 119 H 20 118/88 93 09/25/20 08:15 127 H 19 133/94 91 06/04/21 08:00 98.1 F 128 H 22 131/84 94 09/25/20 07:45 127 H 32 H 151/95 H 90 09/25/20 07:30 118 H 17 131/94 91 09/25/20 07:20 119 H 20 92 09/25/20 07:15 118 H 19 146/86 H 92 09/25/20 07:00 119 H 32 H 135/90 93 09/25/20 06:45 122 H 40 H 130/90 92 09/25/20 06:30 124 H 25 H 115/76 92 09/25/20 06:15 121 H 20 126/85 91 09/25/20 06:00 120 H 20 124/89 92 09/25/20 05:56 115 H 22 94 09/25/20 05:46 115 H 26 H 133/106 H 91 PG Care Time/CCT Total # of Minutes Spent Total Time Spent with Patient: Total time spent is greater than 50% in coordination of care (as documented) at patient's floor/unit and/or counseling patient: Coding Level of Care Code 06142 Subseq Hosp Care Lvl 2 Diagnoses Pleural effusion, right J90 Right lower lobe pneumonia J18.9 Hypoxia R09.02 Pulmonary hypertension I27.20 Hypertension I10 Hyperlipidemia E78.5 DM II (diabetes mellitus, type II), controlled E11.9 Benign prostatic hyperplasia with urinary obstruction N40.1; N13.8 Sinus tachycardia R00.0
[2020-09-25] MEDS ORDERED: INSULIN GLARGINE SOLOSTAR 100 UNITS/ML 3 ML PEN SQ ONE (21:00)
[2020-09-26] MEDS: INSULIN ASPART 100 UNITS/ML 3 ML PEN SC SCH ×6 (00:16→21:47)
[2020-09-26] MEDS: DORNASE ALFA 5 ML in SYRINGE 25 ML IPL SCH ×2 (01:00→12:37)
[2020-09-26] MEDS: MoRPHine SULFATE 4 MG/ML 1 ML CARP\\VIAL IV PRN (03:44)
[2020-09-26] MEDS: oxyCODONE HCL SOLN 5 MG/5 ML UDC PO PRN (04:50)
[2020-09-26 06:34] LABS: Hematocrit (blood only) 40.6 % (42-52); Hemoglobin 13.7 g/dL (14.0-18.0); Mean Corpuscular Hemoglobin 27.8 pg (25-34); Mean Corpuscular Hgb Conc 33.7 g/dL (32-36); Mean Corpuscular Volume 82.5 fL (80-100); Mean Platelet Volume 10.6 fL (7.4-10.4); Platelet Count 569 K/uL (130-400); RDW Coefficient of Variation 14.6 % (11.5-14.5); RDW Standard Deviation 44.5 fL (36.4-46.3); Red Blood Count 4.92 M/uL (4.7-6.1); White Blood Count 27.16 K/uL (4.8-10.8)
[2020-09-26 06:35] LABS: ALC (manual) 1.17 K/uL (1.2-3.4); ANC (manual) 21.51 K/uL (1.4-6.5); Albumin Level 1.8 gm/dl (3.4-5.0); BUN Creatinine Ratio 22.3 (10-20); Calcium 8.1 mg/dl (8.5-10.1); Creatinine Clr Calc Pharmacy 42.6 ml/min; Echinocytes 1+; Est GFR (African American) 41.6 ml/min; Est GFR (Non-African American) 35.9 ml/min; Lymphocytes # (manual) 1.17 K/uL (1.2-3.4); Lymphocytes % (manual) 4.3 %; Magnesium 2.8 mg/dl (1.8-2.4); Metamyelocytes # (manual) 0.71 K/uL (0-0); Metamyelocytes % (manual) 2.6 %; Monocytes # (manual) 3.78 K/uL (0.11-0.59); Monocytes % (manual) 13.9 %; Neutrophils # (manual) 21.51 K/uL (1.4-6.5); Neutrophils % (manual) 79.2 %
[2020-09-26] MEDS ORDERED: NORMOSOL-R 500 ML IV ONE (06:52)
[2020-09-26 06:55] LABS: Albumin Globulin Ratio 0.4 (0.9-2); Bilirubin,Total 0.5 mg/dl (0.2-1); Globulin 4.6 gm/dl (2.5-4.0); Phosphorus 6.3 mg/dl (2.5-4.9); Total Protein 6.4 gm/dl (6.4-8.2)
[2020-09-26] MEDS: ALBUT/IPRATROP 3MG/0.5MG NEB 3 ML VIAL NEB SCH ×4 (07:21→19:37)
--- NOTE | 2020-09-26 08:13 | Critical Care Progress Note ---
Date of Service September 26, 2020 Assessment & Plan (1) Parapneumonic effusion: 60-year-old male with a past medical history of HHT, pulmonary arterial hypertension, BPH and diabetes mellitus type 2 who is currently in the ICU due to hypoxic respiratory failure from complicated right-sided parapneumonic effusion. Neurologic: No significant issues at this time. As needed opiates are available. Pulmonary: History of pulmonary arterial hypertension on ambrisentan and tadalafil. He has a loculated right pleural effusion likely parapneumonic. Pigtail in place. Continue with MIST 2 protocol. Today would be day #3. We will repeat a CT scan of the chest tomorrow. Cardiovascular: Pulmonary arterial hypertension noted as above. Continues to have persistent sinus tachycardia likely as a compensatory mechanism for sepsis. Gastrointestinal: No significant issues at present. Tolerating diet. Renal: Mild hyponatremia present. Hyponatremia worsening today which may be in the setting of hyperglycemia, SIADH and hypovolemia. I am giving a 500 mL saline bolus followed by infusion of normal saline at 100 mL/h. Nephrology will be consulted. Renal ultrasound ordered. AMARIS present as well likely due to hypovolemia and sepsis. Repeat BMP at 10 AM. Infectious disease: Large loculated right pleural effusion. Pigtail catheter drain in place. Continue Zosyn. Vancomycin discontinued as his MRSA screen was negative. Count is trending upwards, but may be related to dehydration. Hematologic: History of HHT. Hemoglobin stable. Endocrine: Pharmacy assisting with hyperglycemia. A1c 10.5. Lines and tubes: Right pigtail catheter placed 09/24/2020. VTE prophylaxis: Heparin 5000 units twice daily. CODE STATUS: Full code Disposition: Remain in ICU. (2) Right lower lobe pneumonia: (3) Pulmonary hypertension: (4) HHT (hereditary hemorrhagic telangiectasia): (5) AMARIS (acute kidney injury): Admission and Anticipated Discharge Date Admission Date: September 23, 2020 Subjective Patient seen and examined this morning. Still continues to have intermittent pain around the chest tube site. Breathing is a little less labored today. He is eating his breakfast. Otherwise, no fevers, no chills or night sweats. No nausea at this time. Physical Exam Constitutional: WD/WN, vitals as above + ill appearing Respiratory: Diminished lung sounds on the right with crackles. Chest tube catheter noted on the right. Cardiovascular: Rate/Rhythm: + tachycardic Heart Sounds: normal S1 and normal S2; no murmur Gastrointestinal (Abdomen): normal bowel sounds, soft, nontender, no hepatosplenomegaly Musculoskeletal: no cyanosis or clubbing, extremities motor strength 5/5 Neurologic: PERRL, EOMI, accommodation nl, no face palsy, no dysarthria Psychiatric: A+Ox3, euthymic affect Results & Data Results & Data ([facility]) Vital Signs (Past 12 Hours) Vital Signs Temp Pulse Resp BP Pulse Ox Pulse Ox 09/26/20 06:30 118 H 26 H 91 09/26/20 06:00 116 H 31 H 133/96 92 09/26/20 05:30 118 H 24 91 09/26/20 05:00 119 H 23 134/82 92 09/26/20 04:37 115 H 24 93 09/26/20 04:30 120 H 29 H 92 09/26/20 04:00 98.2 F 117 H 21 139/90 92 92 09/26/20 03:30 116 H 22 92 09/26/20 03:00 115 H 36 H 148/93 H 91 09/26/20 02:30 113 H 22 91 09/26/20 02:27 92 09/26/20 02:00 111 H 20 131/80 94 09/26/20 01:30 112 H 23 93 09/26/20 01:00 114 H 20 126/87 92 09/26/20 00:30 111 H 22 94 09/26/20 00:00 115 H 20 137/96 93 09/25/20 23:59 105 H 09/25/20 23:35 98.2 F 09/25/20 23:30 105 H 19 94 09/25/20 23:00 105 H 16 132/85 92 09/25/20 22:30 108 H 20 92 09/25/20 22:00 107 H 20 119/77 92 09/25/20 21:30 102 H 14 92 09/25/20 21:00 105 H 18 123/68 93 09/25/20 20:30 112 H 23 93 vital signs, labs and imaging reviewed. Coding Level of Care Code 10777 Subseq Hosp Care Lvl 3 Diagnoses Parapneumonic effusion J18.9; J91.8 Right lower lobe pneumonia J18.9 Pulmonary hypertension I27.20 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
[2020-09-26] MEDS ORDERED: SODIUM CHLORIDE 0.9% 1000ML 500 ML IV ONE (08:48)
[2020-09-26] MEDS: SODIUM CHLORIDE 0.9% 1000ML 1,000 ML IV SCH ×2 (08:51→19:41)
[2020-09-26] MEDS: PIPERACILLIN/TAZOBACTAM 4.5 GM in DEXTROSE 5% 100 ML IV SCH ×3 (08:51→23:49)
[2020-09-26] MEDS: TAMSULOSIN HCL 0.4 MG CAP PO SCH ×2 (08:52→21:33)
[2020-09-26] MEDS: INSULIN GLARGINE SOLOSTAR 100 UNITS/ML 3 ML PEN SQ SCH (08:52)
[2020-09-26] MEDS: HEPARIN SOD 5,000 UNIT/0.5 ML VIAL SQ SCH ×2 (08:52→21:17)
[2020-09-26] MEDS: PANTOprazole 40 MG TAB PO SCH (08:52)
[2020-09-26] MEDS: AMBRISENTAN PO SCH (08:53)
[2020-09-26] MEDS: TADALAFIL PO SCH (08:54)
--- NOTE | 2020-09-26 10:36 | Pharmacy Report ---
Pharmacy Glycemic Short Note 2 - Date of Service September 26, 2020 - Glycemic Short BSG Results (Last 24 hours): 09/25/20 09/25/20 09/25/20 11:10 12:39 16:21 Glucose POC Glucose 166 H 218 H 204 H 09/25/20 09/25/20 09/26/20 20:29 20:32 00:08 Glucose POC Glucose 277 H 272 H 254 H 09/26/20 09/26/20 09/26/20 03:38 05:30 08:45 Glucose 226 H POC Glucose 220 H 217 H OUTPATIENT ANTIDIABETIC REGIMEN: * Metformin 1 gm; Lantus 30 units daily * A1c 10.5% 09/24/20 ASSESSMENT: 09/26/20 * Patient received 98 units of insulin yesterday, 60 units basal, 38 units bolus * Blood sugars remain above goal, will increase basal and tighten parameters for bolus * AMARIS at this time, SCr up from 0.7 --> 1.98mg/dl today, nephrology consulted 09/25/20 * Mr. aMce has PMH including HHT, pulmonary arterial hypertension, BPH and DM type 2 is admitted for respiratory failure from complicated right-sided parapneumonic effusion. Currently on MIST2 protocol and zosyn. * BSGs were elevated on admission and continued to be elevated therefore an insulin infusion was started yesterday evening, infusion continued into this morning at an average of 2.5 units/hr. * Patient received 40 units of lantus this morning and was transitioned off of insulin infusion shortly after lunch. Will begin weight based stress of 3 novolog parameters. Additional 10 units of lantus for this evening. PLAN FOR INPATIENT GLYCEMIC CONTROL: * Hold outpatient oral diabetes medications * Basal insulin -increase * Lantus 60 units SQ daily * Bolus insulin - tighten CF/CR * NovoLog per scale ACHS or Q6hrs while NPO * Goal Range: Low 110 mg/dL - High 140 mg/dL * Correction Factor: 10 mg/dL/unit * Nutritional / Prandial insulin per carb ratio of 1 unit per 3.5 grams CHO consumed
[2020-09-26 10:43] LABS: BUN Creatinine Ratio 21.4 (10-20); Calcium 7.9 mg/dl (8.5-10.1); Creatinine Clr Calc Pharmacy 36.6 ml/min; Est GFR (African American) 34.7 ml/min; Potassium 3.8 mmol/L (3.5-5.1)
[2020-09-26] MEDS ORDERED: INSULIN PROTOCOL GOAL RANGE ONE (10:56)
--- NOTE | 2020-09-26 11:12 | XRay Report ---
XR chest 1V portable CLINICAL HISTORY: empyema COMPARISON STUDY: September 25, 2020 FINDINGS: No pneumothorax. Stable moderate right pleural effusion associated with atelectasis/infiltrate at the right base. Diffuse prominence of pulmonary interstitium is again seen, unchanged since prior. Cardiac silhouette is stable, mildly enlarged and partially obscured on the right by surrounding opac ities. Pulmonary vasculature is obscured.. Osseous structures: unremarkable vertebral bodies are poorly seen. Stable position of right-sided chest tube. IMPRESSION: 1. Stable right pleural effusion with is atelectasis at the right base. Stable right chest tube. 2. Stable mild cardiomegaly, possible pulmonary edema. ACT 112: Negative or not required by law. The above report was generated using voice recognition software. It may contain grammatical, syntax o r spelling errors. Electronically signed by: Kelly Dailey DO 09/26/2020 11:10 AM
[2020-09-26] MEDS ORDERED: NovoLIN-R BOLUS FROM BAG IV ONE (11:15)
[2020-09-26] MEDS ORDERED: INSULIN REGULAR 250 UNITS in SODIUM CHLORIDE 0.9% 247.5 ML IV SCH (11:15)
[2020-09-26] MEDS: ALTEPLASE, RECOMBINANT 10 MG in SYRINGE 50 ML IPL SCH ×2 (11:23→23:48)
--- NOTE | 2020-09-26 12:39 | Nephrology Consultation ---
Date of Consultation September 26, 2020 Assessment & Plan (1) AMARIS (acute kidney injury): * AMARIS due to IV contrast & bacteremia in the setting of СЕРГЕЙ inhibitor, dehydration * Will send urine for microscopy - suspect ATN * Will order renal US * Monitor I&O. If patient is unable to collect urine, place sheehan catheter * Monitor PRP * No acute indication for HD at this time (2) Hyponatremia: * Likely SIADH due to pneumonia, sepsis, relative hypotension * Agree w/ gentle hydration. If sodium does not correct w/ 0.9NS, consider change to 1.5% NaCl (3) Right lower lobe pneumonia: * On IV Zosyn * Chest tube in place History of Present Illness Reason for Consultation: AMARIS, hyponatremia Attending Physician: Tom Hill MD History of Present Illness Mr. Mace is a 60 year old white male who is seen at the request of Dr. Larson for evaluation of AMARIS, hyponatremia. Medical records in the EMR were reviewed today and are summarized as follows: Mr. Mace has no prior h/o kidney disease. His baseline Cr is 0.7. His medical history is significant for pulmonary artery HTN, AODM, BPH and hereditary telangiectasia. His outpatient medical regimen included Lisinopril and Furosemide. Mr. Mace was admitted to [facility] 09/23/20 for management of RLL pneumonia w/ a parapneumonic effusion. CTA was negative for PE. Patient required thoracentesis and later chest tube placement. Patient has had relative hypotension. СЕРГЕЙ and loop diuretic have been held. Patient has developed AMARIS and mild hyponatremia. Serum Cr has risen to 2.3 and serum sodium has dropped to 125 mmol/L. Allergies Allergy/AdvReac Type Severity Reaction Status Date / Time liraglutide [From Victoza] Allergy Severe Dizziness Verified 09/24/20 22:27 Home Medications Medication Instructions Recorded Confirmed Type acetaminophen 500 mg tablet 500 mg PO Q6H PRN tab 03/28/19 09/23/20 History ambrisentan 10 mg tablet 10 mg PO DAILY tab 03/28/19 09/23/20 History mupirocin 2 % topical ointment See Rx Instructions .ROUTE .COMPLEX 03/28/19 09/23/20 History spironolactone 25 mg tablet 50 mg PO .COMPLEX tab 03/28/19 09/23/20 History tadalafil (pulm. hypertension) 20 40 mg PO DAILY tab 03/28/19 09/24/20 History mg tablet (pulmonary hypertension) furosemide 20 mg tablet 20 mg PO DAILY PRN tab 04/11/19 09/23/20 History Oxygen Home #1 ea 08/13/19 08/26/20 History blood sugar diagnostic #10 ea 08/13/19 08/26/20 History pen needle, diabetic 31 gauge x #100 ea 11/04/19 08/26/20 Rx 07/07" ferrous sulfate 325 mg (65 mg See Rx Instructions .ROUTE 11/29/19 09/23/20 Rx iron) tablet .COMPLEX #90 tablet lisinopril 5 mg tablet 5 mg PO DAILY #90 tab 11/29/19 09/23/20 Rx metformin 1,000 mg tablet 1,000 mg PO BID #180 tab 11/29/19 09/23/20 Rx omeprazole 20 mg capsule,delayed 20 mg PO DAILY #90 cap 11/29/19 09/23/20 Rx release insulin glargine 100 unit/mL (3 30 unit SQ DAILY #15 ml 08/06/20 09/23/20 Rx mL) subcutaneous pen tamsulosin 0.4 mg capsule 0.4 mg PO BID #180 cap 08/07/20 09/23/20 Rx blood-glucose meter #1 ea 08/28/20 Rx Patient History Medical History (Updated 09/26/20 @ 12:46 by Sami Stone MD) AMARIS (acute kidney injury) Anemia AVM (arteriovenous malformation) brain AVM (arteriovenous malformation) of duodenum, 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, acquired with hemorrhage Barretts esophagus Benign prostatic hyperplasia with urinary obstruction 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) Parapneumonic effusion Surgical History History of brain surgery History of colonoscopy History of prostate biopsy History of umbilical hernia repair Family History Father Diabetes Hypertension Cancer brain Mother Hypertension Lung disease Cancer Other Bleeding disorder Denies family history of Ovarian cancer Prostate cancer Myocardial infarction Breast cancer Colorectal cancer Social History Smoking Status: Former smoker Second Hand Exposure: Yes; Hx Alcohol Use: Yes Alcohol type: wine Hx Substance Use: No Preferred Language: Mohawk Communication Ability: Effective Air Hammer Operator Required: No Beliefs That Will Affect Care: None marital status: Current Living Situation: Spouse 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: employed 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 Feels Safe at Home: Yes caffeine: Yes during the past year weight has: remained stable Dental Care, Regularly: No Physical Activity Frequency: Does not Exercise Seatbelt Use: always Sunscreen Use: No Assistive Devices: Oxygen - Continuous Review of Systems Constitutional: no fever Eyes: no problem reported Ear, Nose, Mouth, Throat: no problem reported Respiratory: + dyspnea Cardiovascular: no chest pain and no edema Gastrointestinal: no abdominal pain, no nausea and no diarrhea/loose stools Genitourinary: no dysuria, no urinary hesitancy and no hematuria Musculoskeletal: no back pain Neurologic: no confusion Physical Exam Constitutional: + ill appearing Eyes: PERRL, conjunctivae normal, anicteric sclerae ENMT: external ear and nose normal, oropharynx normal Neck: trachea midline, no thyromegaly Respiratory: diminished breath sounds on the R Cardiovascular: Rate/Rhythm: regular rhythm and + tachycardic Gastrointestinal (Abdomen): normal bowel sounds, soft, nontender, no hepatosplenomegaly Musculoskeletal: Extremities: no cyanosis Neurologic: awake; not confused Results & Data ([facility]) Vital Signs (Past 12 Hours) Vital Signs Temp Pulse Pulse Resp BP Pulse Ox Pulse Ox 09/26/20 12:00 110 H 18 91/71 L 89 L 09/26/20 11:30 110 H 31 H 91 09/26/20 11:14 113 H 20 91 09/26/20 11:00 112 H 24 117/84 91 09/26/20 10:30 109 H 18 91 09/26/20 10:00 112 H 19 97/69 L 91 09/26/20 09:30 111 H 26 H 89 L 09/26/20 09:01 117 H 17 115/73 90 09/26/20 09:00 117 H 19 92 09/26/20 08:30 114 H 26 H 89 L 09/26/20 08:01 120 H 20 140/90 88 L 09/26/20 08:00 119 H 20 90 09/26/20 07:30 116 H 23 92 06/05/21 07:13 103 H 19 94 06/05/21 07:00 115 H 18 126/71 92 09/26/20 06:45 116 H 18 91 09/26/20 06:30 118 H 26 H 91 09/26/20 06:00 116 H 31 H 133/96 92 09/26/20 05:30 118 H 24 91 09/26/20 05:00 119 H 23 134/82 92 09/26/20 04:37 115 H 24 93 09/26/20 04:30 120 H 29 H 92 09/26/20 04:00 36.8 C 117 H 21 139/90 92 92 09/26/20 03:30 116 H 22 92 09/26/20 03:00 115 H 36 H 148/93 H 91 09/26/20 02:30 113 H 22 91 09/26/20 02:27 92 09/26/20 02:00 111 H 20 131/80 94 09/26/20 01:30 112 H 23 93 09/26/20 01:00 114 H 20 126/87 92 09/26/20 00:30 111 H 22 94 Laboratory Tests 09/23/20 09/26/20 09/26/20 14:05 05:30 05:30 WBC 27.16 H Hgb 13.7 L Hct 40.6 L Plt Count 569 H D Sodium 124 L D Potassium 4.0 Chloride 90 L Carbon Dioxide 24 BUN 44 H Creatinine 1.98 H D Glucose 226 H Calcium 8.1 L Phosphorus 6.3 H D Magnesium 2.8 H AST 10 L ALT 12 Urine Color Yellow Urine Appearance Clear Urine pH 5.5 Ur Specific [place] 1.045 H Urine Protein 2+ H Urine Glucose (UA) 3+ H Urine Ketones 4+ H Urine Blood 2+ H Urine Nitrite Negative Urine RBC (Auto) 10-30 H U Epithel Cells (Auto) 20-30 H Urine Bacteria (Auto) Negative PG Care Time/CCT Total # of Minutes Spent Total Time Spent with Patient: Total time spent is greater than 50% in coordination of care (as documented) at patient's floor/unit and/or counseling patient: Coding Level of Care Code 14236 Inpt Consult Level 5 Diagnoses AMARIS (acute kidney injury) N17.9 Hyponatremia E87.1 Right lower lobe pneumonia J18.9
[2020-09-26 12:45] LABS: Appearance Urine Cloudy (Clear); Bacteria Urine Automated Negative (Negative); Bilirubin Urine Negative (Negative); Blood Urine Negative (Negative); Color Urine Yellow; Epithelial Cell Urine Auto >30 /lpf (0-5); Glucose Urine UA Negative (Negative); Ketones Urine Trace (Negative); Leukocyte Esterase Urine Negative (Negative); Nitrite Urine Negative (Negative); Protein Urine 1+ (Negative); RBC Urine Automated 0-4 /hpf (0-4); Specific Gravity Urine 1.022 (1.000-1.030); Urobilinogen Urine Negative (Negative)
[2020-09-26 14:25] LABS: BUN Creatinine Ratio 24.5 (10-20); Calcium 7.7 mg/dl (8.5-10.1); Creatinine Clr Calc Pharmacy 37.1 ml/min; Est GFR (African American) 35.3 ml/min; Est GFR (Non-African American) 30.4 ml/min; Potassium 3.9 mmol/L (3.5-5.1)
--- NOTE | 2020-09-26 14:46 | Ultrasound Report ---
RENAL ULTRASOUND HISTORY: Acute kidney injury. COMPARISON: None. FINDINGS: Right kidney: 11.8 cm. The lower pole is partially obscured by overlying bowel gas. No hydronephrosis . Normal cortical thickness. Slight increased cortical echogenicity. Left kidney: 12.8 cm. No hydronephrosis. Normal cortical thickness. Slight increased cortical echogen icity. Bladder: Mild bladder wall thickening. The bilateral ureteral jets are identified. Lobular soft tissu e abnormality measuring 3.7 cm seen at the base of the bladder which appears to be contiguous with th e enlarged prostate gland and therefore favors median lobe hypertrophy of the prostate gland. Hepatic steatosis. IMPRESSION: 1. No hydronephrosis. 2. Slight increased cortical echogenicity within the kidneys suggestive of medical renal disease. 3. Lobular soft tissue abnormality measuring 3.7 cm seen at the base of the bladder which appears to be contiguous with the enlarged prostate gland and therefore favors median lobe hypertrophy of the pr ostate gland. ACT 112: Negative or not required by law. Electronically signed by: Chaitanya Jensen M.D. 09/26/2020 2:45 PM
--- NOTE | 2020-09-26 15:44 | Hospitalist Progress Note ---
Date of Service September 26, 2020 Assessment & Plan (1) Pleural effusion, right: Significant and Moderate right pleural effusion/right lower lobe pneumonia-compressive atelectasis consistent with exudate concern for empyema CTA Chest 09/23/20 IMPRESSION: 1. There is no evidence of pulmonary embolus in the main, lobar, or proximal segmental pulmonary arteries. 2. There is a moderate right pleural effusion as detailed above with associated atelectasis/consolidation of the right lower lung. Correlate clinically for evidence of pneumonia. Radiographic follow-up to resolution is recommended. 3. There is marked dilatation of the pulmonary trunk suggesting pulmonary artery hypertension, and there is diffuse intralobular septal thickening which can be seen with congestive failure. Clinical correlation will be required. Thoracentesis fluid shows pH of 6.9 likely consistent with exudative effusion or parapneumonic effusion multiple septae and loculations were noted on ultrasound and dornase was administered Zosyn IV, vancomycin discontinued with negative MRSA nasal swab Duonebs every 4 hours while awake and every 2 hours when necessary. Consult pulmonology appreciate management by pulmonary critical care (2) Right lower lobe pneumonia: Sepsis POA e/b +4/4 SIRS criteria and SOFA score of 3 See above, concern for gram negatives and mrsa will have on Zosyn therapy at this time with elevation of procalcitonin and abnormal ua must also consider other sources, blood cultures are obtained will add urine culture (3) Hypoxia: Acute respiratory failure with hypoxia in setting of pleura effusion, pneumonia and sepsis patient requiring high flow oxygen (4) Pulmonary hypertension: Continue tadalafil and ambrisentan family brought both medications and they are non formulary (5) Hypertension: lisinopril (6) Hyperlipidemia: (7) DM II (diabetes mellitus, type II), controlled: Hold Metformin, marekdly elevated beta hydroxy butyric acid, will follow serum bicarb and acid base balance Placed on Accu-Cheks before meals and at bedtime with NovoLog coverage per scale hemoglobin A1c 8.1 (8) Benign prostatic hyperplasia with urinary obstruction: Continue tamsulosin, (9) Sinus tachycardia: Admission and Anticipated Discharge Date Admission Date: September 23, 2020 Subjective This patient is with much improved but still with significant work of breathing. He still requiring significant oxygen supplementation. He had another dose of dornase infusion his chest today it is quite painful and creates tachypnea and tachycardia. he is constipated and will start a bowel protocol Review of Systems Review of Systems: Improving respiratory distress and fatigue no headache, no visual changes no speech or swallowing issues Pleuritic chest pain but no pressure or palpitations Patient remains tachypneic tires easily when speaking no abdominal pain, nausea or vomiting, diarrhea or constipation no dysuria, hematuria or frequency no focal joint pain or swelling Right-sided thoracic pain no bruising, bleeding or rashes no focal signs of weakness or numbness or altered sensation Patient with significant anxiety and pain Physical Exam Physical Exam: The patient appeared significantly ill Vital signs as documented. Head exam is normocephalic atraumatic patient is diaphoretic Neck is with JVD, thyromegaly, or carotid bruits. Lung continues with diminished breath sounds on the right Cardiac exam, continues with sinus tachycardia Abdominal exam reveals normal bowel sounds, soft non tender, has some abdominal bloating Extremities are nonedematous and both pedal pulses are present Neurologic exam is alert and oriented, no focal loss of strength or sensation Skin is without bruises or rashes Psychologically is with concerns for anxiety Results & Data Results & Data ([facility]) Vital Signs (Past 12 Hours) Vital Signs Temp Pulse Pulse Resp BP Pulse Ox Pulse Ox 09/26/20 15:36 110 H 09/26/20 15:30 110 H 23 87 L 09/26/20 15:01 105 H 16 112/79 92 09/26/20 15:00 104 H 18 92 09/26/20 14:57 104 H 26 H 90 09/26/20 14:30 112 H 36 H 88 L 09/26/20 14:00 106 H 21 95/77 L 90 09/26/20 13:30 108 H 19 88 L 09/26/20 13:01 108 H 20 126/74 90 09/26/20 13:00 114 H 22 91 09/26/20 12:30 114 H 19 90 09/26/20 12:00 110 H 18 91/71 L 89 L 09/26/20 11:30 110 H 31 H 91 09/26/20 11:14 113 H 20 91 09/26/20 11:00 112 H 24 117/84 91 09/26/20 10:30 109 H 18 91 09/26/20 10:00 112 H 19 97/69 L 91 06/05/21 09:30 111 H 26 H 89 L 09/26/20 09:01 117 H 17 115/73 90 09/26/20 09:00 117 H 19 92 09/26/20 08:30 114 H 26 H 89 L 09/26/20 08:01 120 H 20 140/90 88 L 09/26/20 08:00 119 H 20 90 09/26/20 07:30 116 H 23 92 09/26/20 07:13 103 H 19 94 09/26/20 07:00 115 H 18 126/71 92 09/26/20 06:45 116 H 18 91 09/26/20 06:30 118 H 26 H 91 09/26/20 06:00 116 H 31 H 133/96 92 09/26/20 05:30 118 H 24 91 09/26/20 05:00 119 H 23 134/82 92 09/26/20 04:37 115 H 24 93 09/26/20 04:30 120 H 29 H 92 09/26/20 04:00 98.2 F 117 H 21 139/90 92 92 PG Care Time/CCT Total # of Minutes Spent Total Time Spent with Patient: Total time spent is greater than 50% in coordination of care (as documented) at patient's floor/unit and/or counseling patient: Coding Level of Care Code 88513 Subseq Hosp Care Lvl 2 Diagnoses Pleural effusion, right J90 Right lower lobe pneumonia J18.9 Hypoxia R09.02 Pulmonary hypertension I27.20 Hypertension I10 Hyperlipidemia E78.5 DM II (diabetes mellitus, type II), controlled E11.9 Benign prostatic hyperplasia with urinary obstruction N40.1; N13.8 Sinus tachycardia R00.0
[2020-09-26] MEDS: POLYETHYLENE (MIRALAX) 17 GM PACK PO SCH (16:33)
[2020-09-26 20:11] LABS: BUN Creatinine Ratio 23.3 (10-20); Calcium 7.8 mg/dl (8.5-10.1); Creatinine Clr Calc Pharmacy 34.4 ml/min; Est GFR (African American) 32.2 ml/min; Est GFR (Non-African American) 27.8 ml/min; Potassium 3.6 mmol/L (3.5-5.1)
[2020-09-26] MEDS: DOCUSATE SODIUM 100 MG CAP PO SCH (21:16)
[2020-09-27] MEDS: DORNASE ALFA 5 ML in SYRINGE 25 ML IPL SCH (01:03)
[2020-09-27] MEDS ORDERED: METOPROLOL TARTRATE 1 MG/ML VIAL IV ONE (01:32)
[2020-09-27] MEDS ORDERED: fentaNYL citrate 100 MCG/2 ML VIAL ONE (01:42)
--- NOTE | 2020-09-27 01:49 | Communication Note ---
Date of Service: September 27, 2020 Was notified by patient's RN patient was severely tachycardic with heart rate in the 170s. EKG revealed A. fib RVR. Prior to this he was in normal sinus rh ythm. Patient was initially given 5 mg metoprolol IV and heart rate did improve to the 140s to 150s, however, patient was becoming increasingly hypoxic and 100% FiO2 and hypotensive with systolics in the 80s. Given patient's right heart failure, decision was made to perform synchronized cardioversion. Patient was given 100 mcg of fentanyl prior to cardioversion. Pads were placed on the patient and a synchronized shock at 100 J was delivered and the patient immediately converted to normal sinus rhythm with heart rate in the 90s. His blood pressure immediately improved and he is now normotensive. He has now been placed on CPAP and sats are acceptable and expect to improve and chest x-ray ordered, will follow up. BMP/electrolytes pending. Following procedure patient feels much more comfortable and experienced no other complications. Coding Level of Care Code None
[2020-09-27] MEDS ORDERED: fentaNYL citrate 100 MCG/2 ML VIAL IV STA (01:51)
[2020-09-27 02:19] LABS: BUN Creatinine Ratio 23.4 (10-20); Calcium 7.6 mg/dl (8.5-10.1); Creatinine Clr Calc Pharmacy 34.8 ml/min; Est GFR (African American) 32.7 ml/min; Est GFR (Non-African American) 28.2 ml/min; Magnesium 2.4 mg/dl (1.8-2.4); Potassium 3.6 mmol/L (3.5-5.1)
[2020-09-27 02:20] LABS: Phosphorus 6.2 mg/dl (2.5-4.9)
[2020-09-27] MEDS ORDERED: SODIUM CHLORIDE 3 % 500 ML IV SCH (02:30)
[2020-09-27] MEDS: POTASSIUM CHLORIDE / WTR 10 MEQ/100 ML PLCT IV SCH ×3 (02:44→06:21)
[2020-09-27] MEDS: SODIUM CHLORIDE 0.9% 1000ML 1,000 ML IV SCH (04:15)
[2020-09-27] MEDS: INSULIN ASPART 100 UNITS/ML 3 ML PEN SC SCH ×5 (04:50→21:59)
[2020-09-27] MEDS: MoRPHine SULFATE 4 MG/ML 1 ML CARP\\VIAL IV PRN (05:14)
[2020-09-27] MEDS: oxyCODONE HCL SOLN 5 MG/5 ML UDC PO PRN ×2 (05:15→09:21)
[2020-09-27 05:37] LABS: Hematocrit (blood only) 35.6 % (42-52); Hemoglobin 12.2 g/dL (14.0-18.0); Mean Corpuscular Hemoglobin 27.5 pg (25-34); Mean Corpuscular Hgb Conc 34.3 g/dL (32-36); Mean Corpuscular Volume 80.2 fL (80-100); Mean Platelet Volume 10.5 fL (7.4-10.4); Nucleated RBC # (auto) 0.04 K/uL (0-0); Nucleated RBC % (auto) 0.1 %; Platelet Count 439 K/uL (130-400); RDW Coefficient of Variation 14.5 % (11.5-14.5); RDW Standard Deviation 42.6 fL (36.4-46.3); Red Blood Count 4.44 M/uL (4.7-6.1); White Blood Count 26.35 K/uL (4.8-10.8)
[2020-09-27 05:57] LABS: Basophils # (auto) 0.05 K/uL (0-0.2); Basophils % (auto) 0.2 %; Echinocytes 1+; Eosinophils # (auto) 0.03 K/uL (0-0.5); Eosinophils % (auto) 0.1 %; Immature Granulocytes # (auto) 1.69 K/uL (0.00-0.02); Immature Granulocytes % (auto) 6.4 %; Lymphocytes # (auto) 1.05 K/uL (1.2-3.4); Monocytes # (auto) 2.71 K/uL (0.11-0.59); Monocytes % (auto) 10.3 %; Neutrophils # (auto) 20.82 K/uL (1.4-6.5)
[2020-09-27 05:59] LABS: Partial Thromboplastin Ratio 1.1; Partial Thromboplastin Time 29.4 Seconds (21.0-31.0); Prothrombin Time 10.5 Seconds (9.0-12.0)
[2020-09-27] MEDS: ALBUT/IPRATROP 3MG/0.5MG NEB 3 ML VIAL NEB SCH ×2 (07:41→10:45)
[2020-09-27 07:59] LABS: BUN Creatinine Ratio 23.4 (10-20); Calcium 7.7 mg/dl (8.5-10.1); Creatinine Clr Calc Pharmacy 30.1 ml/min; Est GFR (African American) 27.3 ml/min; Est GFR (Non-African American) 23.5 ml/min
--- NOTE | 2020-09-27 08:04 | Electrocardiogram Report ---
Test Reason : Blood Pressure : / mmHG Vent. Rate : 160 BPM Atrial Rate : 178 BPM P-R Int : 000 ms QRS Dur : 100 ms QT Int : 274 ms P-R-T Axes : 000 099 -29 degrees QTc Int : 447 ms Poor data quality, interpretation may be adversely affected Atrial fibrillation with rapid ventricular response Rightward axis Nonspecific T wave abnormality Inferior leads Abnormal ECG When compared with ECG of 23-SEP-2020 12:24, HR has increased by 26 bpm Atrial fibrillation has replaced Sinus rhythm Confirmed by Gera Ray ([id number]) on 09/27/2020 8:04:38 AM Referred By: REFERRED SELF Confirmed By:Gera Ray
--- NOTE | 2020-09-27 08:21 | Critical Care Progress Note ---
Date of Service September 27, 2020 Assessment & Plan (1) Parapneumonic effusion: 60-year-old male with a past medical history of HHT, pulmonary arterial hypertension, BPH and diabetes mellitus type 2 who is currently in the ICU due to hypoxic respiratory failure from complicated right-sided parapneumonic effusion. Neurologic: No significant issues at this time. As needed opiates are available. Pulmonary: History of pulmonary arterial hypertension on ambrisentan and tadalafil. We will hold tadalafil today given his acute kidney injury and decreased creatinine clearance. He has a loculated right pleural effusion likely parapneumonic. Pigtail in place day 4. We will discontinue pigtail catheter once 24-hour total output is less than 150 mL. Completed MIST [address] chest demonstrates significant improvement in the right pleural effusion. Cardiovascular: Pulmonary arterial hypertension noted as above. He wanted to atrial fibrillation with rapid ventricular response yesterday. He underwent DC cardioversion. Will consult cardiology. Can probably avoid anticoagulation as A. fib was caught within 48 hours. Gastrointestinal: No significant issues at present. Tolerating diet. Renal: Hyponatremia may be in the setting of hyperglycemia, SIADH and hypovolemia. Will send urine sodium. Nephrology consult. Renal ultrasound without evidence of hydronephrosis. AMARIS present as well likely due to hypovolemia and sepsis. We will hold any further fluids at this time. Infectious disease: Large loculated right pleural effusion appears substantially improved. Pigtail catheter drain in place. Continue Zosyn. Hematologic: History of HHT. Hemoglobin stable. Endocrine: Pharmacy assisting with hyperglycemia. A1c 10.5. Lines and tubes: Right pigtail catheter placed 09/24/2020. VTE prophylaxis: Heparin 5000 units twice daily. CODE STATUS: Full code Disposition: Remain in ICU. (2) Right lower lobe pneumonia: (3) Pulmonary hypertension: (4) HHT (hereditary hemorrhagic telangiectasia): (5) AMARIS (acute kidney injury): Admission and Anticipated Discharge Date Admission Date: September 23, 2020 Subjective Patient seen and examined this morning. He is complaining of right-sided chest pain and mild shortness of breath. He underwent DC cardioversion overnight due to rapid atrial fibrillation and hypotension. He is hemodynamically stable at p resent. He is currently in normal sinus rhythm. He had approximately 2 L of output from his right chest tube. Review of Systems Review of Systems: All systems reviewed & are unremarkable except as noted in HPI & below Physical Exam Constitutional: WD/WN, vitals as above + ill appearing Respiratory: Diminished lung sounds on the right with crackles. Chest tube catheter noted on the right. Cardiovascular: Rate/Rhythm: + tachycardic Heart Sounds: normal S1 and normal S2; no murmur Gastrointestinal (Abdomen): normal bowel sounds, soft, nontender, no hepatosplenomegaly Musculoskeletal: no cyanosis or clubbing, extremities motor strength 5/5 Neurologic: PERRL, EOMI, accommodation nl, no face palsy, no dysarthria Psychiatric: A+Ox3, euthymic affect Results & Data Results & Data ([facility]) Vital Signs (Past 12 Hours) Vital Signs Temp Pulse Pulse Resp BP Pulse Ox 09/27/20 07:42 64 16 94 09/27/20 06:00 99 H 21 114/58 L 94 09/27/20 05:30 110 H 19 93 09/27/20 05:14 109 H 28 H 138/63 95 09/27/20 05:00 92 H 19 111/68 94 09/27/20 04:30 96 H 19 93 09/27/20 04:12 93 H 20 95 09/27/20 04:00 97.9 F 92 H 18 100/55 L 93 09/27/20 03:30 92 H 20 94 09/27/20 03:00 93 H 17 90/55 L 95 09/27/20 02:30 103 H 21 92 09/27/20 02:00 95 H 19 105/68 91 09/27/20 01:55 95 H 20 113/73 91 09/27/20 01:51 94 H 21 89/71 L 90 09/27/20 01:45 93 H 27 H 119/81 88 L 09/27/20 01:43 131 H 31 H 97/75 L 88 L 09/27/20 01:40 157 H 95/60 L 09/27/20 01:36 147 H 28 H 85/64 L 91 09/27/20 01:30 176 H 24 95/60 L 92 09/27/20 01:22 168 H 21 96/70 L 89 L 09/27/20 01:00 110 H 24 142/70 H 91 09/27/20 00:30 106 H 24 90 09/27/20 00:00 97.9 F 115 H 20 112/70 90 09/26/20 23:30 106 H 18 90 09/26/20 23:00 107 H 19 104/71 90 09/26/20 22:30 106 H 18 90 09/26/20 22:00 104 H 22 98/82 L 91 09/26/20 21:30 107 H 22 88 L 09/26/20 21:00 106 H 19 116/79 90 09/26/20 20:30 105 H 18 90 Vital signs, labs and imaging reviewed Coding Level of Care Code 48718 Subseq Hosp Care [facility] 3 Diagnoses Parapneumonic effusion J18.9; J91.8 Right lower lobe pneumonia J18.9 Pulmonary hypertension I27.20 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
[2020-09-27] MEDS: AMBRISENTAN PO SCH (08:38)
[2020-09-27] MEDS: TADALAFIL PO SCH (08:39)
[2020-09-27] MEDS: DOCUSATE SODIUM 100 MG CAP PO SCH ×2 (08:40→21:53)
[2020-09-27] MEDS: TAMSULOSIN HCL 0.4 MG CAP PO SCH ×2 (08:40→21:58)
[2020-09-27] MEDS: PANTOprazole 40 MG TAB PO SCH (08:40)
[2020-09-27] MEDS: PIPERACILLIN/TAZOBACTAM 4.5 GM in DEXTROSE 5% 100 ML IV SCH ×2 (08:40→16:34)
--- NOTE | 2020-09-27 08:40 | CT Scan Report ---
CT chest diagnostic wo con CLINICAL HISTORY: Empyema COMPARISON STUDY: September 23, 2020 CT DOSE: 659.67 mGy.cm TECHNIQUE: CT of the thorax was performed from the thoracic inlet to the lung bases. Images are revi ewed in the axial, sagittal, and coronal planes. IV contrast was not administered for this examinatio n. A dose lowering technique was utilized adhering to the principles of ALARA. FINDINGS: Thyroid: Imaged portions of the thyroid gland are normal in appearance. Thoracic aorta: The thoracic aorta is normal in course and caliber, noting standard 3 vessel arch maximo gissel. There is mild dilatation of the main pulmonary artery which could be seen in pulmonary hypertension Heart: Heart is normal in size. Mild pericardial effusion is again seen. Lungs and pleural spaces: Tracheobronchial tree is patent. Mild interval improvement of the large right pleural effusion and decrease of atelectasis of the righ t lower lobe and right middle lobe. Patchy centrilobular groundglass opacities are seen throughout bilateral lungs and not significantly changed since prior. Mediastinum: Slightly prominent mediastinal lymph nodes are again seen: 1.3 cm in subcarinal region a nd 1.1 cm in AP the interval. 0.9 cm right pericardial lymph node is seen, probably reactive. María: No definite hilar lymph nodes are seen due to lack of IV contrast. Axilla: Clear. Upper abdomen: Partially visualized upper abdominal viscera is within normal limits. Skeletal structures: Multilevel degenerative changes of the spine. As stable partial deformity of the T12 is unchanged since prior. IMPRESSION: 1. Interval improvement of the right pleural effusion and increase in aeration of the right middle l obe and the right lower lobe. 2. Patchy centrilobular groundglass opacities are seen throughout bilateral lungs are unchanged sinc e prior could represent infectious/inflammatory etiology. 3. Pericardial effusion is unchanged since prior. 4. Redemonstration of dilated pulmonary artery which could be seen in pulmonary hypertension. ACT 112: Negative or not required by law. The above report was generated using voice recognition software. It may contain grammatical, syntax o r spelling errors. Electronically signed by: Kelly Dailey DO 09/27/2020 8:39 AM
[2020-09-27] MEDS: INSULIN GLARGINE SOLOSTAR 100 UNITS/ML 3 ML PEN SQ SCH (08:41)
[2020-09-27] MEDS: POLYETHYLENE (MIRALAX) 17 GM PACK PO SCH (08:41)
[2020-09-27] MEDS ORDERED: WATER IV SCH (09:00)
[2020-09-27] MEDS ORDERED: STERILE IV SCH (09:00)
[2020-09-27] MEDS ORDERED: SOD CHLOR IV SCH (09:00)
--- NOTE | 2020-09-27 10:09 | XRay Report ---
XR chest 1V portable CLINICAL HISTORY: empyema COMPARISON STUDY: Chest CT September 23, 2020. Chest radiograph September 27, 2020. FINDINGS: Right basilar pleural pigtail catheter remains in place. Right lung aeration has significan tly improved. There is a small right pleural effusion with right basilar opacity. There is minimal le ft basilar opacity. Cardiomediastinal silhouette is stable. There is no pneumothorax. IMPRESSION: 1. Significant interval improvement in right lung aeration with decrease in a right pleural effusion. Small residual right pleural effusion with right basilar pleural pigtail catheter in place. 2. No pneumothorax. 3. Bibasilar opacities, greater on the right. ACT 112: Negative or not required by law. Electronically signed by: Ryne Peralta M.D. 09/27/2020 10:07 AM
--- NOTE | 2020-09-27 10:29 | Nephrology Progress Note ---
Date of Service September 27, 2020 Assessment & Plan (1) AMARIS (acute kidney injury): * AMARIS due to IV contrast & hypotension in the setting of СЕРГЕЙ inhibitor, dehydration * Continue to hold Lisinopril * Urine microscopy - no pyuria, hematuria or RBC casts. Granular casts present are suggestive of ATN * Renal US 09/26: no hydronephrosis, mild increase in echogenicity, + BPH * Agree w/ placing Nolan catheter for accurate measurement of I&O's * Monitor PRP. Expect that patient will remain in injury phase due to recent atrial fibrillation/hypotension event * No acute indication for HD at this time (2) Hyponatremia: * Likely SIADH due to pneumonia, sepsis, relative hypotension. Urine osmolality 389 mOsm/kg * Will change IVF to 1.5% NaCl at 100 cc/hr x 1 liter and then heplock IV (3) Right lower lobe pneumonia: * On IV Zosyn * Chest tube in place Admission and Anticipated Discharge Date Admission Date: September 23, 2020 Subjective Mr. Mace was seen & examined in the ICU this morning. He remains mildly dyspneic. He is uncomfortable due to the R chest tube. Overnight Mr. Mace developed atrial fibrillation w/ RVR and hypotension requiring cardioversion. Review of Systems Constitutional: no fever Eyes: no problem reported Ear, Nose, Mouth, Throat: no problem reported Respiratory: + dyspnea Cardiovascular: no chest pain and no edema Gastrointestinal: no abdominal pain, no nausea and no diarrhea/loose stools Genitourinary: no dysuria, no urinary hesitancy and no hematuria Musculoskeletal: no back pain Neurologic: no confusion Physical Exam Constitutional: + ill appearing Eyes: PERRL, conjunctivae normal, anicteric sclerae ENMT: external ear and nose normal, oropharynx normal Neck: trachea midline, no thyromegaly Respiratory: diminished breath sounds at the R base Cardiovascular: Rate/Rhythm: regular rate and regular rhythm Gastrointestinal (Abdomen): normal bowel sounds, soft, nontender, no hepatosplenomegaly Musculoskeletal: Extremities: no cyanosis Neurologic: awake; not confused Results & Data ([facility]) Vital Signs (Past 12 Hours) Vital Signs Temp Pulse Pulse Pulse Resp BP BP 09/27/20 08:00 37.9 C H 99 H 98 H 24 113/68 09/27/20 07:42 64 16 09/27/20 06:00 99 H 21 114/58 L 09/27/20 05:30 110 H 19 09/27/20 05:14 109 H 28 H 138/63 09/27/20 05:00 92 H 19 111/68 09/27/20 04:30 96 H 19 09/27/20 04:12 93 H 20 09/27/20 04:00 36.6 C 92 H 18 100/55 L 09/27/20 03:30 92 H 20 09/27/20 03:00 93 H 17 90/55 L 09/27/20 02:30 103 H 21 09/27/20 02:00 95 H 19 105/68 09/27/20 01:55 95 H 20 113/73 09/27/20 01:51 94 H 21 89/71 L 09/27/20 01:45 93 H 27 H 119/81 09/27/20 01:43 131 H 31 H 97/75 L 09/27/20 01:40 157 H 95/60 L 09/27/20 01:36 147 H 28 H 85/64 L 09/27/20 01:30 176 H 24 95/60 L 09/27/20 01:22 168 H 21 96/70 L 09/27/20 01:00 110 H 24 142/70 H 09/27/20 00:30 106 H 24 09/27/20 00:00 36.6 C 115 H 20 112/70 09/26/20 23:30 106 H 18 09/26/20 23:00 107 H 19 104/71 09/26/20 22:30 106 H 18 Pulse Ox Pulse Ox 09/27/20 08:00 96 96 09/27/20 07:42 94 09/27/20 06:00 94 09/27/20 05:30 93 09/27/20 05:14 95 09/27/20 05:00 94 09/27/20 04:30 93 09/27/20 04:12 95 09/27/20 04:00 93 09/27/20 03:30 94 09/27/20 03:00 95 09/27/20 02:30 92 09/27/20 02:00 91 09/27/20 01:55 91 09/27/20 01:51 90 09/27/20 01:45 88 L 09/27/20 01:43 88 L 09/27/20 01:40 09/27/20 01:36 91 09/27/20 01:30 92 09/27/20 01:22 89 L 09/27/20 01:00 91 09/27/20 00:30 90 09/27/20 00:00 90 09/26/20 23:30 90 09/26/20 23:00 90 09/26/20 22:30 90 Laboratory Tests 09/26/20 09/26/20 09/26/20 05:30 10:53 10:53 WBC Hgb Hct Plt Count Sodium Potassium Chloride Carbon Dioxide BUN Creatinine Glucose Calcium Albumin 1.8 L Urine Color Yellow Urine Appearance Cloudy A Urine pH 5.0 Ur Specific [place] 1.022 Urine Protein 1+ H Urine Glucose (UA) Negative Urine Blood Negative Ur Leukocyte Esterase Negative Urine WBC (Auto) 1-5 Urine RBC (Auto) 0-4 U Hyaline Cast (Auto) 5-10 H Granular Casts 5-10 H Urine Osmolality 389 L 09/27/20 09/27/20 05:06 07:22 WBC 26.35 H Hgb 12.2 L Hct 35.6 L Plt Count 439 H Sodium 123 L Potassium 4.0 Chloride 89 L Carbon Dioxide 20 L BUN 66 H Creatinine 2.81 H D Glucose 165 H Calcium 7.7 L Albumin Urine Color Urine Appearance Urine pH Ur Specific [place] Urine Protein Urine Glucose (UA) Urine Blood Ur Leukocyte Esterase Urine WBC (Auto) Urine RBC (Auto) U Hyaline Cast (Auto) Granular Casts Urine Osmolality PG Care Time/CCT Total # of Minutes Spent Total Time Spent with Patient: Total time spent is greater than 50% in coordination of care (as documented) at patient's floor/unit and/or counseling patient: Coding Level of Care Code 02378 Subseq Hosp Care Lvl 3 Diagnoses AMARIS (acute kidney injury) N17.9 Hyponatremia E87.1 Right lower lobe pneumonia J18.9
[2020-09-27 10:35] LABS: Thyroid Stimulating Hormone 0.218 uIu/ml (0.300-4.500)
[2020-09-27 10:48] LABS: T4 Free Thyroxine 1.37 ng/dl (0.8-1.6)
[2020-09-27] MEDS: HEPARIN SOD 5,000 UNIT/0.5 ML VIAL SQ SCH ×2 (11:05→21:58)
--- NOTE | 2020-09-27 11:07 | Cardiology Consultation ---
Date of Consultation September 27, 2020 Assessment & Plan (1) Paroxysmal atrial fibrillation with rapid ventricular response: (2) Pericardial effusion: (3) Parapneumonic effusion: (4) Pulmonary hypertension: (5) Hypoxia: (6) AMARIS (acute kidney injury): Complex patient with significant baseline comorbidities including pulmonary arterial hypertension (on ambrisentan/tadalafil) but no known cardiac history who has a right parapneumonic effusion and hypoxic respiratory failure for which he is being managed in the intensive care unit. As noted, he developed atrial fibrillation with rapid ventricular response requiring electrical cardioversion. A small pericardial effusion has been incidentally noted on serial CT scans. Suspect his atrial fibrillation is a result of his generalized inflammatory status, local inflammation from pericarditis/pleuritis, and the hyperadrenergic milieu of hypoxic respiratory failure. Given the significant probability of recurrence and the high likelihood that this would further complicate his management, agree with initiation of short- term amiodarone for rhythm control. Since he is stable and in sinus rhythm currently could initiate amiodarone 200 mg orally twice daily, if recurrent atrial fibrillation would accelerate loading process with IV amiodarone. I could find no interaction between amiodarone and ambrisentan. There is a class C interaction between amiodarone and tadalafil (both agents may lower blood pressure), but the hypotensive effect of amiodarone should be minimal and he is being closely monitored. Given the short duration of atrial fibrillation, anticoagulation is not an immediate concern. Depending upon the frequency of recurrence and the duration of further episodes of atrial fibrillation, would defer this decision until closer to hospital discharge. Case discussed with Dr. Larson. Will follow along. History of Present Illness Reason for Consultation: Atrial fibrillation with rapid ventricular rate. Requesting Physician: Shankar Larson MD Attending Physician: Tom Hill MD History of Present Illness 60-year-old male with diabetes mellitus (insulin), hypertension, pulmonary arterial hypertension (ambrisentan/tadalafil), and other medical problems who was admitted 09/23/2020 with right pleural effusion now felt to be empyema, developed atrial fibrillation with rapid ventricular rate yesterday. Due to hypoxic respiratory failure he is currently in the intensive care unit but does not require mechanical ventilation. Yesterday he was in sinus tachycardia with rates of up to 130 bpm, later in the day he developed atrial fibrillation with rapid ventricular response and rates up to 170 bpm. He underwent electrical cardioversion and return to sinus rhythm, where he remains. He noted increased dyspnea and subjective palpitations but no chest pain during the episode of atrial fibrillation. At the time of my evaluation this morning, he was mildly uncomfortable with dyspnea on minimal activity, but had no further subjective palpitations and no chest pain. Allergies Allergy/AdvReac Type Severity Reaction Status Date / Time liraglutide [From Victoza] Allergy Severe Dizziness Verified 09/24/20 22:27 Home Medications Medication Instructions Recorded Confirmed Type acetaminophen 500 mg tablet 500 mg PO Q6H PRN tab 03/28/19 09/23/20 History ambrisentan 10 mg tablet 10 mg PO DAILY tab 03/28/19 09/23/20 History mupirocin 2 % topical ointment See Rx Instructions .ROUTE .COMPLEX 03/28/19 09/23/20 History spironolactone 25 mg tablet 50 mg PO .COMPLEX tab 03/28/19 09/23/20 History tadalafil (pulm. hypertension) 20 40 mg PO DAILY tab 03/28/19 09/24/20 History mg tablet (pulmonary hypertension) furosemide 20 mg tablet 20 mg PO DAILY PRN tab 04/11/19 09/23/20 History Oxygen Home #1 ea 08/13/19 08/26/20 History blood sugar diagnostic #10 ea 08/13/19 08/26/20 History pen needle, diabetic 31 gauge x #100 ea 11/04/19 08/26/20 Rx 3/16" ferrous sulfate 325 mg (65 mg See Rx Instructions .ROUTE 11/29/19 09/23/20 Rx iron) tablet .COMPLEX #90 tablet lisinopril 5 mg tablet 5 mg PO DAILY #90 tab 11/29/19 09/23/20 Rx metformin 1,000 mg tablet 1,000 mg PO BID #180 tab 11/29/19 09/23/20 Rx omeprazole 20 mg capsule,delayed 20 mg PO DAILY #90 cap 11/29/19 09/23/20 Rx release insulin glargine 100 unit/mL (3 30 unit SQ DAILY #15 ml 08/06/20 09/23/20 Rx mL) subcutaneous pen tamsulosin 0.4 mg capsule 0.4 mg PO BID #180 cap 08/07/20 09/23/20 Rx blood-glucose meter #1 ea 08/28/20 Rx Patient History Medical History (Updated 09/27/20 @ 11:00 by Gera Ray MD) AMARIS (acute kidney injury) Anemia AVM (arteriovenous malformation) brain AVM (arteriovenous malformation) of duodenum, 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, acquired with hemorrhage Barretts esophagus Benign prostatic hyperplasia with urinary obstruction 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) Parapneumonic effusion Pulmonary hypertension Surgical History History of brain surgery History of colonoscopy History of prostate biopsy History of umbilical hernia repair Family History Diabetes Father Bleeding disorder Lung disease Mother Cancer Father brain Mother Hypertension Father Mother Denies family history of Ovarian cancer Prostate cancer Myocardial infarction Breast cancer Colorectal cancer Social History Smoking Status: Former smoker Second Hand Exposure: Yes; Hx Alcohol Use: Yes Alcohol type: wine Hx Substance Use: No Preferred Language: Lao Communication Ability: Effective Laundry Worker Required: No Beliefs That Will Affect Care: None marital status: Current Living Situation: Spouse 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: employed 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 Temperature 100.2. Blood pressure low normal (systolic blood pressure range 90-138 mmHg). Pulse currently in the 90s and regular without ectopy. Skin: no ecchymoses or generalized lesions. HEENT: unremarkable. Neck: Jugular venous pulse one third of the way to the angle of the jaw with i ncreased respiratory variation, no obvious carotid bruits. Lungs: Markedly reduced to absent breath sounds in the right, mildly decreased left breath sounds but generally clear. Cardiac: regular rhythm, no obvious murmur or gallop. Abdomen: benign. Extremities: no edema, pulses intact (dorsalis pedis brisk). Neurologic: normal affect and conversation, nonfocal. Results & Data ([facility]) Laboratory Results WBC 26,000, hemoglobin 12.2, platelet count 439,000. Sodium 123, potassium 4.0, chloride 89, CO2 20, BUN 66, creatinine 2.81. Transaminases normal. Diagnostic Findings ECG yesterday showed sinus tachycardia 134 bpm, minor inferior T wave inversions and right axis deviation. Compared with ECG of 06/15/2007, heart rate faster but otherwise no significant change. ECG early this morning showed atrial fibrillation with ventricular rate of 160 bpm and similar inferior T wave findings. Chest CT shows right pleural effusion and bilateral infiltrates, small pericardial effusion (unchanged from CT 4 days prior). PG Care Time/CCT Total # of Minutes Spent Total Time Spent with Patient: Total time spent is greater than 50% in coordination of care (as documented) at patient's floor/unit and/or counseling patient: Coding Level of Care Code 73284 Inpt Consult Level 5 Diagnoses Paroxysmal atrial fibrillation with rapid ventricular response I48.0 Pericardial effusion I31.3 Parapneumonic effusion J18.9; J91.8 Pulmonary hypertension I27.20 Hypoxia R09.02 AMARIS (acute kidney injury) N17.9 Time Spent (min) 75
--- NOTE | 2020-09-27 11:54 | XRay Report ---
XR chest 1V portable CLINICAL HISTORY: hypoxia COMPARISON STUDY: Chest radiograph September 27, 2011: The 1. FINDINGS: Right basilar pleural pigtail catheter remains in place. There is no pneumothorax. Aeration of the right lung has significantly diminished since prior examination of September 26, 2020. Specifically , note is now made of opacity within the mid to upper right hemithorax. This may reflect pleural flui d. There is also right lower lung opacity. IMPRESSION: Significant interval decrease in right lung aeration with suspected right pleural effusion and associ ated consolidation. Right basilar pleural catheter in place. No pneumothorax. ACT 112: Negative or not required by law. Electronically signed by: Ryne Peralta M.D. 09/27/2020 11:53 AM
[2020-09-27] MEDS ORDERED: INSULIN GLARGINE SOLOSTAR 100 UNITS/ML 3 ML PEN SQ ONE (12:15)
--- NOTE | 2020-09-27 12:16 | Pharmacy Report ---
Pharmacy Glycemic Short Note 2 - Date of Service September 27, 2020 - Glycemic Short BSG Results (Last 24 hours): 09/26/20 09/26/20 09/26/20 12:31 13:31 14:03 Glucose 250 H POC Glucose 251 H 225 H 09/26/20 09/26/20 09/26/20 14:36 15:34 16:29 Glucose POC Glucose 249 H 239 H 207 H 09/26/20 09/26/20 09/26/20 17:31 18:39 19:30 Glucose POC Glucose 222 H 209 H 135 H 09/26/20 09/26/20 09/26/20 19:39 20:42 21:04 Glucose 140 H POC Glucose 113 H 124 H 09/26/20 09/26/20 09/27/20 22:04 22:31 01:09 Glucose POC Glucose 99 93 135 H 09/27/20 09/27/20 09/27/20 01:43 04:16 07:22 Glucose 132 H 165 H POC Glucose 148 H 09/27/20 09/27/20 07:50 11:20 Glucose POC Glucose 162 H 233 H OUTPATIENT ANTIDIABETIC REGIMEN: * Metformin 1 gm; Lantus 30 units daily * A1c 10.5% 09/24/20 ASSESSMENT: 09/27/20 * Patient started back in insulin drip yesterday for ~12 hours by community service patrol officer, now back on basal bolus * Fasting blood sugar 162mg/dl, but now trended up to 233mg/dl prior to lunch * Increase basal and tighten CF/CR and add checks overnight * Patient in AMARIS, no HD indicated at this time, had episode of Afib, now NSR 09/26/20 * Patient received 98 units of insulin yesterday, 60 units basal, 38 units bolus * Blood sugars remain above goal, will increase basal and tighten parameters for bolus * AMARIS at this time, SCr up from 0.7 --> 1.98mg/dl today, nephrology consulted 09/25/20 * Mr. Mace has PMH including HHT, pulmonary arterial hypertension, BPH and DM type 2 is admitted for respiratory failure from complicated right-sided parapneumonic effusion. Currently on MIST2 protocol and zosyn. * BSGs were elevated on admission and continued to be elevated therefore an insulin infusion was started yesterday evening, infusion continued into this morning at an average of 2.5 units/hr. * Patient received 40 units of lantus this morning and was transitioned off of insulin infusion shortly after lunch. Will begin weight based stress of 3 novolog parameters. Additional 10 units of lantus for this evening. PLAN FOR INPATIENT GLYCEMIC CONTROL: * Hold outpatient oral diabetes medications * Basal insulin -increase * Lantus 60 units SQ daily + 20 units x 1 dose today at 12, re-evaluate dose in AM * Bolus insulin - tighten CF/CR * NovoLog per scale ACHS or Q6hrs while NPO * Goal Range: Low 110 mg/dL - High 140 mg/dL * Correction Factor: 6 mg/dL/unit * Nutritional / Prandial insulin per carb ratio of 1 unit per 2 grams CHO consumed
[2020-09-27 13:43] LABS: BUN Creatinine Ratio 22.6 (10-20); Creatinine Clr Calc Pharmacy 28.2 ml/min; Est GFR (African American) 25.3 ml/min; Est GFR (Non-African American) 21.8 ml/min; Potassium 4.4 mmol/L (3.5-5.1)
[2020-09-27] MEDS ORDERED: ALBUT/IPRATROP 3MG/0.5MG NEB 3 ML VIAL NEB PRN (14:49)
[2020-09-27 16:25] LABS: BUN Creatinine Ratio 21.4 (10-20); Creatinine Clr Calc Pharmacy 28.2 ml/min; Est GFR (African American) 25.2 ml/min; Est GFR (Non-African American) 21.7 ml/min; Potassium 3.9 mmol/L (3.5-5.1)
[2020-09-27] MEDS: AMIODARONE 200 MG TAB PO SCH (16:34)
--- NOTE | 2020-09-27 16:35 | Hospitalist Progress Note ---
Date of Service September 27, 2020 Assessment & Plan (1) Pleural effusion, right: Significant and Moderate right pleural effusion/right lower lobe pneumonia-compressive atelectasis consistent with exudate concern for empyema CTA Chest 09/23/20 IMPRESSION: 1. There is no evidence of pulmonary embolus in the main, lobar, or proximal segmental pulmonary arteries. 2. There is a moderate right pleural effusion as detailed above with associated atelectasis/consolidation of the right lower lung. Correlate clinically for evidence of pneumonia. Radiographic follow-up to resolution is recommended. 3. There is marked dilatation of the pulmonary trunk suggesting pulmonary artery hypertension, and there is diffuse intralobular septal thickening which can be seen with congestive failure. Clinical correlation will be required. Thoracentesis fluid shows pH of 6.9 likely consistent with exudative effusion or parapneumonic effusion multiple septae and loculations were noted on ultrasound and dornase was administered Zosyn IV, vancomycin discontinued with negative MRSA nasal swab Duonebs every 4 hours while awake and every 2 hours when necessary. Consult pulmonology appreciate management by pulmonary critical care, they are managing chest tube also (2) Sinus tachycardia: pt developed afib rvr was cardioverted in the lead material handler hours and cardiology did see and started amiodarone (3) Right lower lobe pneumonia: Sepsis POA e/b +4/4 SIRS criteria and SOFA score of 3 See above, concern for gram negatives and mrsa will have on Zosyn therapy at this time with elevation of procalcitonin and abnormal ua must also consider other sources, blood cultures are obtained will non cliniclally significant urine culture (4) Hypoxia: Acute respiratory failure with hypoxia in setting of pleura effusion, pneumonia and sepsis patient requiring high flow oxygen (5) Pulmonary hypertension: Continue tadalafil and ambrisentan family brought both medications and they are non formulary (6) Hypertension: lisinopril (7) Hyperlipidemia: (8) DM II (diabetes mellitus, type II), controlled: Hold Metformin, marekdly elevated beta hydroxy butyric acid, will follow serum bicarb and acid base balance Placed on Accu-Cheks before meals and at bedtime with NovoLog coverage per scale hemoglobin A1c 8.1 (9) Benign prostatic hyperplasia with urinary obstruction: Continue tamsulosin, Admission and Anticipated Discharge Date Admission Date: September 23, 2020 Subjective Overnight Mr. Mace developed atrial fibrillation w/ RVR and hypotension requiring cardioversion. was present at the bedside and was upset as she was not called overnight, the avoids eye contact, he has some worsening renal function and is being followed by nephrology Review of Systems Review of Systems: slowly Improving respiratory distress and fatigue no headache, no visual changes no speech or swallowing issues Pleuritic chest pain but no pressure or palpitations no subjective sensation of palpitations no abdominal pain, nausea or vomiting, diarrhea or constipation no dysuria, hematuria or frequency no focal joint pain or swelling Right-sided thoracic pain no bruising, bleeding or rashes no focal signs of weakness or numbness or altered sensation Patient with significant anxiety and pain Physical Exam Physical Exam: The patient appeared significantly ill Vital signs as documented. Head exam is normocephalic atraumatic patient is diaphoretic Neck is with JVD, thyromegaly, or carotid bruits. Lung continues with diminished breath sounds on the right Cardiac exam, continues with sinus tachycardia Abdominal exam reveals normal bowel sounds, soft non tender, has some abdominal bloating Extremities are nonedematous and both pedal pulses are present Neurologic exam is alert and oriented, no focal loss of strength or sensation Skin is without bruises or rashes Psychologically is with concerns for anxiety Results & Data Results & Data ([facility]) Vital Signs (Past 12 Hours) Vital Signs Temp Pulse Pulse Pulse Resp BP BP 09/27/20 16:00 98.4 F 102 H 09/27/20 15:00 102 H 21 09/27/20 14:01 90 12 114/57 L 09/27/20 14:00 90 14 09/27/20 13:00 87 12 82/52 L 09/27/20 12:00 98.4 F 95 H 15 103/62 09/27/20 11:14 96 H 17 96/77 L 09/27/20 11:12 95 H 20 95/70 L 09/27/20 11:00 95 H 16 82/59 L 09/27/20 10:46 92 H 19 09/27/20 10:01 98 H 22 101/49 L 09/27/20 10:00 96 H 22 09/27/20 09:00 96 H 17 112/63 09/27/20 08:18 98 H 27 H 111/71 09/27/20 08:15 100 H 17 09/27/20 08:00 100.2 F H 99 H 98 H 24 113/68 09/27/20 07:42 64 16 09/27/20 07:01 114 H 21 113/68 09/27/20 07:00 108 H 29 H 09/27/20 06:00 99 H 21 114/58 L 09/27/20 05:30 110 H 19 09/27/20 05:14 109 H 28 H 138/63 09/27/20 05:00 92 H 19 111/68 Pulse Ox Pulse Ox 09/27/20 16:00 09/27/20 15:00 92 09/27/20 14:01 94 09/27/20 14:00 91 09/27/20 13:00 95 09/27/20 12:00 93 09/27/20 11:14 94 09/27/20 11:12 93 09/27/20 11:00 93 09/27/20 10:46 94 09/27/20 10:01 95 09/27/20 10:00 92 09/27/20 09:00 93 09/27/20 08:18 93 09/27/20 08:15 95 09/27/20 08:00 96 96 09/27/20 07:42 94 09/27/20 07:01 94 09/27/20 07:00 96 09/27/20 06:00 94 09/27/20 05:30 93 09/27/20 05:14 95 09/27/20 05:00 94 PG Care Time/CCT Total # of Minutes Spent Total Time Spent with Patient: Total time spent is greater than 50% in coordination of care (as documented) at patient's floor/unit and/or counseling patient: Coding Level of Care Code 77817 Subseq Hosp Care Lvl 3 Diagnoses Pleural effusion, right J90 Sinus tachycardia R00.0 Right lower lobe pneumonia J18.9 Hypoxia R09.02 Pulmonary hypertension I27.20 Hypertension I10 Hyperlipidemia E78.5 DM II (diabetes mellitus, type II), controlled E11.9 Benign prostatic hyperplasia with urinary obstruction N40.1; N13.8
[2020-09-27] MEDS: DEXTROSE 50% 50 ML SYRINGE IV PRN (21:51)
[2020-09-28] MEDS: DEXTROSE 50% 50 ML SYRINGE IV PRN ×2 (00:58→23:51)
[2020-09-28] MEDS: INSULIN ASPART 100 UNITS/ML 3 ML PEN SC SCH ×7 (01:00→23:52)
[2020-09-28] MEDS: PIPERACILLIN/TAZOBACTAM 4.5 GM in DEXTROSE 5% 100 ML IV SCH ×4 (01:01→23:52)
[2020-09-28] MEDS ORDERED: D5W AND NSS 1,000 ML IV SCH (01:15)
[2020-09-28 01:44] LABS: BUN Creatinine Ratio 24.3 (10-20); Calcium 7.1 mg/dl (8.5-10.1); Creatinine Clr Calc Pharmacy 28.5 ml/min; Est GFR (African American) 25.6 ml/min; Est GFR (Non-African American) 22.1 ml/min; Potassium 3.4 mmol/L (3.5-5.1)
[2020-09-28] MEDS ORDERED: SODIUM CHLORIDE IV SCH (02:30)
[2020-09-28] MEDS ORDERED: WATER IV SCH (02:45)
[2020-09-28] MEDS ORDERED: STERILE IV SCH (02:45)
[2020-09-28] MEDS ORDERED: SOD CHLOR IV SCH (02:45)
[2020-09-28 05:31] LABS: Hematocrit (blood only) 29.7 % (42-52); Hemoglobin 10.1 g/dL (14.0-18.0); Mean Corpuscular Hemoglobin 27.5 pg (25-34); Mean Corpuscular Volume 80.9 fL (80-100); Mean Platelet Volume 10.2 fL (7.4-10.4); Nucleated RBC # (auto) 0.02 K/uL (0-0); Nucleated RBC % (auto) 0.1 %; Platelet Count 414 K/uL (130-400); RDW Coefficient of Variation 14.5 % (11.5-14.5); RDW Standard Deviation 43.3 fL (36.4-46.3); Red Blood Count 3.67 M/uL (4.7-6.1); White Blood Count 15.24 K/uL (4.8-10.8)
[2020-09-28 05:40] LABS: Albumin Level 1.3 gm/dl (3.4-5.0); BUN Creatinine Ratio 21.7 (10-20); Bilirubin Direct 0.2 mg/dl (0-0.2); Est GFR (African American) 26.1 ml/min; Est GFR (Non-African American) 22.5 ml/min; Potassium 3.5 mmol/L (3.5-5.1)
[2020-09-28 05:44] LABS: Bilirubin,Total 0.4 mg/dl (0.2-1); Total Protein 5.2 gm/dl (6.4-8.2)
[2020-09-28 05:51] LABS: Basophils # (auto) 0.02 K/uL (0-0.2); Basophils % (auto) 0.1 %; Echinocytes 1+; Eosinophils # (auto) 0.11 K/uL (0-0.5); Eosinophils % (auto) 0.7 %; Immature Granulocytes # (auto) 1.05 K/uL (0.00-0.02); Immature Granulocytes % (auto) 6.9 %; Lymphocytes # (auto) 1.09 K/uL (1.2-3.4); Lymphocytes % (auto) 7.2 %; Monocytes # (auto) 1.52 K/uL (0.11-0.59); Neutrophils # (auto) 11.45 K/uL (1.4-6.5); Neutrophils % (auto) 75.1 %
[2020-09-28] MEDS ORDERED: POTASSIUM CHLORIDE CRTAB 20 MEQ TABCR PO STA (05:54)
[2020-09-28] MEDS: AMBRISENTAN PO SCH (08:44)
[2020-09-28] MEDS: PANTOprazole 40 MG TAB PO SCH (08:44)
[2020-09-28] MEDS: TADALAFIL PO SCH (08:44)
[2020-09-28] MEDS: POLYETHYLENE (MIRALAX) 17 GM PACK PO SCH (08:44)
[2020-09-28] MEDS: TAMSULOSIN HCL 0.4 MG CAP PO SCH ×2 (08:45→20:54)
[2020-09-28] MEDS: HEPARIN SOD 5,000 UNIT/0.5 ML VIAL SQ SCH ×2 (08:45→20:53)
[2020-09-28] MEDS: DOCUSATE SODIUM 100 MG CAP PO SCH ×2 (08:45→20:53)
[2020-09-28] MEDS: AMIODARONE 200 MG TAB PO SCH ×2 (08:45→17:13)
[2020-09-28] MEDS ORDERED: INSULIN GLARGINE SOLOSTAR 100 UNITS/ML 3 ML PEN SQ SCH (09:00)
--- NOTE | 2020-09-28 09:06 | XRay Report ---
XR chest 1V portable CLINICAL HISTORY: Respiratory failure COMPARISON STUDY: 09/27/2020 FINDINGS: The cardiac and mediastinal contours remain stable. The right-sided pigtail pleural cathete r remains unchanged in position. There is a small right pleural effusion with associated right mid to lower lung zone airspace opacities. There is right hilar enlargement. This may be secondary to a dil ated right pulmonary artery. Subtle left lung airspace opacities are suspected.[ IMPRESSION: 1. Enlargement of the right hilum, possibly secondary to a dilated pulmonary artery 2. Subtle bilateral pulmonary airspace opacities likely infectious/inflammatory 3. Persistent right pleural effusion with associated right basilar atelectasis/consolidation 4. No change in position of the right-sided oral pigtail catheter. No pneumothorax identified. ACT 112: Negative or not required by law. Electronically signed by: Rivera Lopez M.D. 09/28/2020 9:05 AM
--- NOTE | 2020-09-28 09:17 | Nephrology Progress Note ---
Date of Service September 28, 2020 Assessment & Plan (1) AMARIS (acute kidney injury): * AMARIS due to IV contrast & hypotension in the setting of СЕРГЕЙ inhibitor, dehydration * Continue to hold Lisinopril * Urine microscopy - no pyuria, hematuria or RBC casts. Granular casts present are suggestive of ATN * Renal US 09/26: no hydronephrosis, mild increase in echogenicity, + BPH * Nolan catheter is in place. Patient is nonoliguric. 1100 cc UO last 24 hours * Creatinine stable at ~ 3.0 * Monitor PRP * No acute indication for HD at this time (2) Hyponatremia: * Likely SIADH due to pneumonia, sepsis, relative hypotension. Urine osmolality 389 mOsm/kg * Will change IVF to 1.5% NaCl at 100 cc/hr x 1 liter and then heplock IV * Serum sodium is gradually correcting (3) Right lower lobe pneumonia: * On IV Zosyn * Chest tube in place Admission and Anticipated Discharge Date Admission Date: September 23, 2020 Subjective Mr. Mace was seen & examined in the ICU this morning. Breathing is subjectively improved. Chest tube remains in place. O2 has been weaned to 1L/min NC. Hypoglycemic overnight. Required IV dextrose infusion. Review of Systems Constitutional: no fever Eyes: no problem reported Ear, Nose, Mouth, Throat: no problem reported Respiratory: + dyspnea Cardiovascular: no chest pain and no edema Gastrointestinal: no abdominal pain, no nausea and no diarrhea/loose stools Genitourinary: no dysuria, no urinary hesitancy and no hematuria Musculoskeletal: no back pain Neurologic: no confusion Physical Exam Constitutional: no acute distress Eyes: PERRL, conjunctivae normal, anicteric sclerae ENMT: external ear and nose normal, oropharynx normal Neck: trachea midline, no thyromegaly Cardiovascular: Rate/Rhythm: regular rate and regular rhythm Gastrointestinal (Abdomen): normal bowel sounds, soft, nontender, no hepatosplenomegaly Musculoskeletal: Extremities: no cyanosis Neurologic: awake; not confused Results & Data ([facility]) Vital Signs (Past 12 Hours) Vital Signs Temp Pulse Pulse Resp BP BP Pulse Ox 09/28/20 07:33 36.6 C 98 H 20 120/57 L 94 09/28/20 06:30 93 H 12 94 09/28/20 06:07 91 H 17 111/77 97 09/28/20 06:06 94 H 11 L 09/28/20 05:30 89 16 97 09/28/20 05:02 90 18 98/45 L 97 09/28/20 05:00 85 10 L 98 09/28/20 04:30 85 7 L 97 09/28/20 04:05 83 12 99 09/28/20 04:00 36.6 C 82 9 L 115/75 97 09/28/20 03:30 78 14 99 09/28/20 03:00 79 13 113/60 98 09/28/20 02:30 81 12 99 09/28/20 02:00 78 10 L 122/61 99 09/28/20 01:30 85 14 100 09/28/20 01:00 84 13 93/56 L 100 09/28/20 00:30 84 12 97 09/28/20 00:00 36.6 C 82 12 101/63 95 09/27/20 23:30 88 13 95 09/27/20 23:00 86 15 136/70 95 09/27/20 22:30 85 14 96 09/27/20 22:00 85 13 107/60 95 09/27/20 21:30 92 H 18 93 Laboratory Tests 09/28/20 09/28/20 04:58 04:58 WBC 15.24 H D Hgb 10.1 L Hct 29.7 L Plt Count 414 H Sodium 126 L Potassium 3.5 Chloride 94 L Carbon Dioxide 23 BUN 63 H Creatinine 2.91 H PG Care Time/CCT Total # of Minutes Spent Total Time Spent with Patient: Total time spent is greater than 50% in coordination of care (as documented) at patient's floor/unit and/or counseling patient: Coding Level of Care Code 88134 Subseq Hosp Care Lvl 3 Diagnoses AMARIS (acute kidney injury) N17.9 Hyponatremia E87.1 Right lower lobe pneumonia J18.9
--- NOTE | 2020-09-28 09:27 | Hospitalist Progress Note ---
Date of Service September 28, 2020 Assessment & Plan (1) Pleural effusion, right: Significant and Moderate right pleural effusion/right lower lobe pneumonia-compressive atelectasis consistent with exudate concern for empyema CTA Chest 09/23/20 IMPRESSION: no PE, moderate right pleural effusion with associated atelectasis/consolidation of the right lower lung Thoracentesis fluid shows pH of 6.9 likely consistent with exudative effusion or parapneumonic effusion multiple septae and loculations were noted on ultrasound and dornase was administered - empyema continue Zosyn IV, no fever, vitals stable, WBC down to 15k from 26k vancomycin discontinued with negative MRSA nasal swab Duonebs every 4 hours while awake and every 2 hours when necessary. Consult pulmonology appreciate management by pulmonary critical care, they are managing chest tube consider downgrade to PCU today? (2) Right lower lobe pneumonia: Sepsis POA e/b +4/4 SIRS criteria and SOFA score of 3 continue Zosyn no growth on pleural fluid cultures or blood cultures at 48 hours continue to follow (3) Paroxysmal atrial fibrillation with rapid ventricular response: went into RVR overnight/early 09/27 and required cardioversion appreciate cardiology consult, continue Amiodarone 200mg PO BID to maintain normal sinus rhythm no need for anticoagulation as afib was so brief if goes back into afib RVR then try Amiodarone IV bolus and drip (4) Sinus tachycardia: only with activity, resting HR in the 90's at this time, not in atrial fibrillation this morning (5) Hypoxia: Acute respiratory failure with hypoxia in setting of pleura effusion, pneumonia and sepsis patient requiring high flow oxygen much improved, stable on 1L NC this morning titrate to room air as tolerated (6) Pulmonary hypertension: Continue tadalafil and ambrisentan family brought both medications and they are non formulary (7) Hypertension: lisinopril BP 105 systolic this morning (8) Hyperlipidemia: (9) DM II (diabetes mellitus, type II), controlled: Hold Metformin, markedly elevated beta hydroxy butyric acid, will follow serum bicarb and acid base balance Placed on Accu-Cheks before meals and at bedtime with NovoLog coverage per scale hemoglobin A1c 8.1 monitor for hypoglycemia (10) Benign prostatic hyperplasia with urinary obstruction: Continue tamsulosin, Admission and Anticipated Discharge Date Admission Date: September 23, 2020 Subjective patient doing well this morning, sitting up in a chair only complaint is some discomfort with the chest tube on the right but it is manageable breathing is stable on low flow nasal canula no fever, WBC down to 15k from 26k, Cr is down slightly at 2.9, K is 3.5, Na is 126 he is eating well, had a BM this morning as well as last night he says his buttocks hurts a little from being in bed and in a chair so much reviewed the chart, imaging reviewed notes from Dr. Ray as well as nephrology, spoke with Dr. Giron in ICU Review of Systems Review of Systems: All systems reviewed & are unremarkable except as noted in Subjective Constitutional: + weakness; no fever, no chills, no sweats and no fatigue Respiratory: + cough, + dyspnea and + dyspnea on exertion Cardiovascular: + chest pain (right side due to chest tube) and + dyspnea on exertion; no syncope and no edema Gastrointestinal: no abdominal pain, no nausea, no vomiting, no constipation and no diarrhea/loose stools Physical Exam Constitutional: well developed, cooperative and comfortable; no acute distress, not ill appearing and not frail appearing Neck: trachea midline, no thyromegaly Respiratory: normal respiratory effort and + cough; no respiratory distress and no labored breathing Auscultation: + diminished lung sounds (right base); no wheezes Cardiovascular: RRR, no murmur, no edema Gastrointestinal (Abdomen): normal bowel sounds, soft, nontender, no hepatosplenomegaly Musculoskeletal: no cyanosis or clubbing, extremities motor strength 5/5 Skin: no rashes, warm and dry Neurologic: patellar DTR's 2+ bilat, sensation intact and PERRL, EOMI, accommodation nl, no face palsy, no dysarthria Psychiatric: A+Ox3, euthymic affect Lymphatic: no cervical or axillary lymphadenopathy Results & Data Results & Data ([facility]) Vital Signs (Past 12 Hours) Vital Signs Temp Pulse Pulse Resp BP BP Pulse Ox 09/28/20 07:33 36.6 C 98 H 20 120/57 L 94 09/28/20 06:30 93 H 12 94 09/28/20 06:07 91 H 17 111/77 97 09/28/20 06:06 94 H 11 L 09/28/20 05:30 89 16 97 09/28/20 05:02 90 18 98/45 L 97 09/28/20 05:00 85 10 L 98 09/28/20 04:30 85 7 L 97 09/28/20 04:05 83 12 99 09/28/20 04:00 36.6 C 82 9 L 115/75 97 09/28/20 03:30 78 14 99 09/28/20 03:00 79 13 113/60 98 09/28/20 02:30 81 12 99 09/28/20 02:00 78 10 L 122/61 99 09/28/20 01:30 85 14 100 09/28/20 01:00 84 13 93/56 L 100 09/28/20 00:30 84 12 97 09/28/20 00:00 36.6 C 82 12 101/63 95 09/27/20 23:30 88 13 95 09/27/20 23:00 86 15 136/70 95 09/27/20 22:30 85 14 96 09/27/20 22:00 85 13 107/60 95 09/27/20 21:30 92 H 18 93 Laboratory Results Laboratory Results - last 24 hr 09/27/20 09/27/20 09/27/20 07:22 11:20 11:22 WBC RBC Hgb Hct MCV MCH MCHC RDW Std Deviation RDW Coeff of Lesly Plt Count MPV Immature Gran % (Auto) Neut % (Auto) Lymph % (Auto) Menard % (Auto) Eos % (Auto) Baso % (Auto) Neut # (Auto) Lymph # (Auto) Menard # (Auto) Eos # (Auto) Baso # (Auto) Immature Gran # (Auto) Absolute Nucleated RBC Nucleated RBC % (auto) Echinocytes Sodium Potassium Chloride Carbon Dioxide Anion Gap BUN Creatinine Est Cr Clr Drug Dosing Est GFR ( Amer) Est GFR (Non-Af Amer) BUN/Creatinine Ratio Glucose POC Glucose 233 H Calcium Total Bilirubin Direct Bilirubin AST ALT Alkaline Phosphatase Total Protein Albumin TSH 0.218 L Free T4 1.37 Ur Random Sodium < 5 09/27/20 09/27/20 09/27/20 13:15 15:37 16:01 WBC RBC Hgb Hct MCV MCH MCHC RDW Std Deviation RDW Coeff of Lesly Plt Count MPV Immature Gran % (Auto) Neut % (Auto) Lymph % (Auto) Menard % (Auto) Eos % (Auto) Baso % (Auto) Neut # (Auto) Lymph # (Auto) Menard # (Auto) Eos # (Auto) Baso # (Auto) Immature Gran # (Auto) Absolute Nucleated RBC Nucleated RBC % (auto) Echinocytes Sodium 122 L 126 L Potassium 4.4 3.9 Chloride 89 L 92 L Carbon Dioxide 21 23 Anion Gap 12.0 H 11.0 BUN 68 H 64 H Creatinine 2.99 H 3.00 H Est Cr Clr Drug Dosing 28.2 28.2 Est GFR ( Amer) 25.3 25.2 Est GFR (Non-Af Amer) 21.8 21.7 BUN/Creatinine Ratio 22.6 H 21.4 H Glucose 245 H 83 POC Glucose 120 H Calcium 7.0 L 7.0 L Total Bilirubin Direct Bilirubin AST ALT Alkaline Phosphatase Total Protein Albumin TSH Free T4 Ur Random Sodium 09/27/20 09/27/20 09/27/20 21:41 21:45 22:13 WBC RBC Hgb Hct MCV MCH MCHC RDW Std Deviation RDW Coeff of Lesly Plt Count MPV Immature Gran % (Auto) Neut % (Auto) Lymph % (Auto) Menard % (Auto) Eos % (Auto) Baso % (Auto) Neut # (Auto) Lymph # (Auto) Menard # (Auto) Eos # (Auto) Baso # (Auto) Immature Gran # (Auto) Absolute Nucleated RBC Nucleated RBC % (auto) Echinocytes Sodium Potassium Chloride Carbon Dioxide Anion Gap BUN Creatinine Est Cr Clr Drug Dosing Est GFR ( Amer) Est GFR (Non-Af Amer) BUN/Creatinine Ratio Glucose POC Glucose 66 L* 61 L* 95 Calcium Total Bilirubin Direct Bilirubin AST ALT Alkaline Phosphatase Total Protein Albumin TSH Free T4 Ur Random Sodium 09/28/20 09/28/20 09/28/20 00:50 01:14 01:15 WBC RBC Hgb Hct MCV MCH MCHC RDW Std Deviation RDW Coeff of Lesly Plt Count MPV Immature Gran % (Auto) Neut % (Auto) Lymph % (Auto) Menard % (Auto) Eos % (Auto) Baso % (Auto) Neut # (Auto) Lymph # (Auto) Menard # (Auto) Eos # (Auto) Baso # (Auto) Immature Gran # (Auto) Absolute Nucleated RBC Nucleated RBC % (auto) Echinocytes Sodium 125 L Potassium 3.4 L Chloride 92 L Carbon Dioxide 20 L Anion Gap 13.0 H BUN 72 H Creatinine 2.96 H Est Cr Clr Drug Dosing 28.5 Est GFR ( Amer) 25.6 Est GFR (Non-Af Amer) 22.1 BUN/Creatinine Ratio 24.3 H Glucose 104 H POC Glucose 56 L* 125 H Calcium 7.1 L Total Bilirubin Direct Bilirubin AST ALT Alkaline Phosphatase Total Protein Albumin TSH Free T4 Ur Random Sodium 09/28/20 09/28/20 09/28/20 04:09 04:58 04:58 WBC 15.24 H D RBC 3.67 L Hgb 10.1 L Hct 29.7 L MCV 80.9 MCH 27.5 MCHC 34.0 RDW Std Deviation 43.3 RDW Coeff of Lesly 14.5 Plt Count 414 H MPV 10.2 Immature Gran % (Auto) 6.9 Neut % (Auto) 75.1 Lymph % (Auto) 7.2 Menard % (Auto) 10.0 Eos % (Auto) 0.7 Baso % (Auto) 0.1 Neut # (Auto) 11.45 H Lymph # (Auto) 1.09 L Menard # (Auto) 1.52 H Eos # (Auto) 0.11 Baso # (Auto) 0.02 Immature Gran # (Auto) 1.05 H Absolute Nucleated RBC 0.02 H Nucleated RBC % (auto) 0.1 Echinocytes 1+ Sodium 126 L Potassium 3.5 Chloride 94 L Carbon Dioxide 23 Anion Gap 9.0 BUN 63 H Creatinine 2.91 H Est Cr Clr Drug Dosing 29.0 Est GFR ( Amer) 26.1 Est GFR (Non-Af Amer) 22.5 BUN/Creatinine Ratio 21.7 H Glucose 69 L POC Glucose 81 Calcium 7.0 L Total Bilirubin 0.4 Direct Bilirubin 0.2 AST 15 ALT 10 L Alkaline Phosphatase 68 Total Protein 5.2 L Albumin 1.3 L TSH Free T4 Ur Random Sodium 09/28/20 07:21 WBC RBC Hgb Hct MCV MCH MCHC RDW Std Deviation RDW Coeff of Lesly Plt Count MPV Immature Gran % (Auto) Neut % (Auto) Lymph % (Auto) Menard % (Auto) Eos % (Auto) Baso % (Auto) Neut # (Auto) Lymph # (Auto) Menard # (Auto) Eos # (Auto) Baso # (Auto) Immature Gran # (Auto) Absolute Nucleated RBC Nucleated RBC % (auto) Echinocytes Sodium Potassium Chloride Carbon Dioxide Anion Gap BUN Creatinine Est Cr Clr Drug Dosing Est GFR ( Amer) Est GFR (Non-Af Amer) BUN/Creatinine Ratio Glucose POC Glucose 73 Calcium Total Bilirubin Direct Bilirubin AST ALT Alkaline Phosphatase Total Protein Albumin TSH Free T4 Ur Random Sodium Medications Administered Current Inpatient Medications Acetaminophen (Acetaminophen 325 Mg Tab) 650 mg PO Q4H PRN PRN Reason: Pain or Fever Stop: 10/23/20 18:24 Albuterol (Albut/Ipratrop 3mg/0.5mg Neb 3 Ml Vial) 3 ml NEB QIDR PRN PRN Reason: Shortness Of Breath Or Wheezing Stop: 10/23/20 18:59 Ambrisentan (Ambrisentan) 1 ea PO DAILY KATHRYN Stop: 10/24/20 15:29 Last Admin: 09/28/20 08:44 Dose: 1 ea Documented by: Amiodarone HCl (Amiodarone 200 Mg Tab) 200 mg PO BIDM KATHRYN Stop: 10/27/20 16:59 Last Admin: 09/28/20 08:45 Dose: 200 mg Documented by: Dextrose (Dextrose 50% 50 Ml Syringe) 25 - 50 ml IV UD PRN; Protocol PRN Reason: Hypoglycemia Protocol Stop: 10/23/20 18:24 Last Admin: 09/28/20 00:58 Dose: 25 ml Documented by: Docusate Sodium (Docusate Sodium 100 Mg Cap) 100 mg PO BID KATHRYN Stop: 10/26/20 20:59 Last Admin: 09/28/20 08:45 Dose: 100 mg Documented by: Glucagon (Glucagon For Inj 1 Mg Vial) 1 mg SQ UD PRN; Protocol PRN Reason: Hypoglycemia Protocol Stop: 10/23/20 18:24 Glucose (Glucose 10 Tabs/Tube) 4 - 8 tabs PO UD PRN; Protocol PRN Reason: Hypoglycemia Protocol Stop: 10/23/20 18:24 Glucose (Glucose 40% Gel 15 Gm Tube) 15 - 30 gm PO UD PRN; Protocol PRN Reason: Hypoglycemia Protocol Stop: 10/23/20 18:24 Heparin Sodium (Porcine) (Heparin Sod 5,000 Unit/0.5 Ml Vial) 5,000 units SQ Q12 KATHRYN Stop: 10/26/20 08:59 Last Admin: 09/28/20 08:45 Dose: 5,000 units Documented by: Piperacillin Sod/Tazobactam (Sod 4.5 gm/ Dextrose) 120 mls @ 30 mls/hr IV Q8H [facility]; Protocol Stop: 10/01/20 00:00 Last Admin: 09/28/20 08:43 Dose: 30 mls/hr Documented by: Dextrose/Sodium Chloride (D5w And Nss) 1,000 mls @ 75 mls/hr IV .[id number] [facility] Stop: 10/28/20 01:14 Last Admin: 09/28/20 01:24 Dose: 75 mls/hr Documented by: Sodium Chloride 256 meq/ (Sterile Water) 1,000 mls @ 100 mls/hr IV .Q10H [facility] Stop: 09/28/20 12:44 Last Admin: 09/28/20 03:00 Dose: 100 mls/hr Documented by: Insulin Aspart (Insulin Aspart 100 Units/Ml 3 Ml Pen) 0 units SC ACHS [facility]; Pro tocol Stop: 10/27/20 03:59 Last Admin: 09/28/20 08:37 Dose: Not Given Documented by: Insulin Aspart (Insulin Aspart 100 Units/Ml 3 Ml Pen) 0 units SC 0000,0400 [facility]; Protocol Stop: 10/28/20 00:00 Last Admin: 09/28/20 04:29 Dose: Not Given Documented by: Insulin Glargine (Insulin Glargine Solostar 100 Units/Ml 3 Ml Pen) 50 units SQ DAILY [facility] Stop: 10/26/20 07:29 Miscellaneous (Carbohydrates For Hypoglycemia ) 15 - 30 gm PO UD PRN PRN Reason: Hypoglycemia Protocol Stop: 10/23/20 18:24 Miscellaneous Information (Piperacill/Tazobac Consult Active) 1 ea N/A UD PRN PRN Reason: Consult Stop: 10/23/20 18:24 Miscellaneous Information (Pharmacy Glycemic Mgmt Consult) 1 ea N/A UD PRN PRN Reason: Consult Stop: 10/24/20 17:31 Tadalafil: Non- Formulary Patient's Own Med 2 ea PO DAILY [facility] Stop: 10/25/20 08:59 Last Admin: 09/28/20 08:44 Dose: 40 mg Documented by: Ondansetron HCl (Ondansetron Inj 2 Mg/Ml 2 Ml Vial) 4 mg IV Q6H PRN PRN Reason: Nausea Stop: 10/23/20 18:24 Oxycodone HCl (Oxycodone Hcl Ir 5 Mg Tab (Immediate Release)) 10 mg PO Q6H PRN PRN Reason: Moderate Pain Stop: 10/08/20 10:07 Last Admin: 09/25/20 23:56 Dose: 10 mg Documented by: Oxycodone HCl (Oxycodone Hcl Soln 5 Mg/5 Ml Udc) 5 mg PO Q4H PRN PRN Reason: Pain Stop: 10/08/20 15:09 Last Admin: 09/27/20 09:21 Dose: 5 mg Documented by: Pantoprazole Sodium (Pantoprazole 40 Mg Tab) 40 mg PO DAILY [facility]; Protocol Stop: 10/24/20 08:59 Last Admin: 09/28/20 08:44 Dose: 40 mg Documented by: Polyethylene Glycol (Polyethylene (Miralax) 17 Gm Pack) 17 gm PO DAILY [facility] Stop: 10/26/20 15:44 Last Admin: 09/28/20 08:44 Dose: 17 gm Documented by: Tamsulosin HCl (Tamsulosin Hcl 0.4 Mg Cap) 0.4 mg PO BID [facility] Stop: 10/23/20 20:59 Last Admin: 09/28/20 08:45 Dose: 0.4 mg Documented by: PG Care Time/CCT Total # of Minutes Spent Total Time Spent with Patient: Total time spent is greater than 50% in coordination of care (as documented) at patient's floor/unit and/or counseling patient: Coding Level of Care Code 65359 Subseq Hosp Care Lvl 3 Diagnoses Pleural effusion, right J90 Right lower lobe pneumonia J18.9 Paroxysmal atrial fibrillation with rapid ventricular response I48.0 Sinus tachycardia R00.0 Hypoxia R09.02 Pulmonary hypertension I27.20 Hypertension I10 Hyperlipidemia E78.5 DM II (diabetes mellitus, type II), controlled E11.9 Benign prostatic hyperplasia with urinary obstruction N40.1; N13.8
--- NOTE | 2020-09-28 10:07 | Cardiology Progress Note ---
Date of Service September 28, 2020 Assessment & Plan (1) Paroxysmal atrial fibrillation with rapid ventricular response: 2. Pericardial effusion 3. Pleural effusion, pneumonia 4. Pulmonary hypertension 5. AMARIS Patient improved, still in ICU but may be transferred to PCU today. No recurrent atrial fibrillation, suspect this was in the setting of his generalized illness. On exam appears well perfused without signs of heart failure. Will continue current oral amiodarone. Anticoagulation not currently indicated given short duration of his atrial fibrillation, if he has recurrence during hospitalization can make final decision on necessity of anticoagulation prior to discharged. Admission and Anticipated Discharge Date Admission Date: September 23, 2020 Supervising Physician Co-Signing Physician Notes Agree with above evaluation by Lisette Perdue PA-C. Patient seen and examined. One atrial run seen (9 beats, 2 seconds), generally sinus rhythm. Continue amiodarone oral loading. Subjective Patient reports feeling much better today. Sitting in his chair comfortably. Denies any palpitations. No chest pain aside from mild discomfort at chest tube site. Breathing improved, on NC 1L. No orthopnea or PND. No lower extremity edema. No abnormal bleeding. No recurrent atrial fibrillation. Review of Systems Review of Systems: All systems reviewed & are unremarkable except as noted in HPI & below Physical Exam Physical Exam: General: No acute distress. HEENT: unremarkable. Neck: No JVD. No carotid bruit Lungs: Decreased breath sounds right chest. Left chest clear. Cardiac: Regular rate and rhythm. No appreciable murmur, gallop or rub Abdomen: benign. Extremities: --Well perfused, no edema --Pedal pulses intact Neurologic: normal affect and conversation, nonfocal. PG Care Time/CCT Total # of Minutes Spent Total Time Spent with Patient: Total time spent is greater than 50% in coordination of care (as documented) at patient's floor/unit and/or counseling patient: Coding Level of Care Code 89383 Subseq Hosp Care Lvl 2 Diagnoses Paroxysmal atrial fibrillation with rapid ventricular response I48.0
--- NOTE | 2020-09-28 10:50 | Critical Care Progress Note ---
Date of Service September 28, 2020 Assessment & Plan (1) Parapneumonic effusion: 60-year-old male with a past medical history of HHT, pulmonary arterial hypertension, BPH and diabetes mellitus type 2 who is currently in the ICU due to hypoxic respiratory failure from complicated right-sided parapneumonic effusion. Neurologic: No significant issues at this time. As needed opiates are available. Pulmonary: History of pulmonary arterial hypertension on ambrisentan and tadalafil. We will hold tadalafil today given his acute kidney injury and decreased creatinine clearance. He has a loculated right pleural effusion likely parapneumonic. Pigtail in place day 4. We will discontinue pigtail catheter once 24-hour total output is less than 150 mL. Completed MIST [address] chest demonstrates significant improvement in the right pleural effusion. Cardiovascular: Pulmonary arterial hypertension noted as above. He wanted to atrial fibrillation with rapid ventricular response yesterday. He underwent DC cardioversion. Will consult cardiology. Can probably avoid anticoagulation as A. fib was caught within 48 hours. Gastrointestinal: No significant issues at present. Tolerating diet. Renal: Hyponatremia may be in the setting of hyperglycemia, SIADH and hypovolemia. Will send urine sodium. Nephrology consult. Renal ultrasound without evidence of hydronephrosis. AMARIS present as well likely due to hypovolemia and sepsis. We will hold any further fluids at this time. Infectious disease: Large loculated right pleural effusion appears substantially improved. Pigtail catheter drain in place. Continue Zosyn. Hematologic: History of HHT. Hemoglobin stable. Endocrine: Pharmacy assisting with hyperglycemia. A1c 10.5. Lines and tubes: Right pigtail catheter placed 09/24/2020. VTE prophylaxis: Heparin 5000 units twice daily. CODE STATUS: Full code Disposition: Remain in ICU. (2) Right lower lobe pneumonia: (3) Pulmonary hypertension: (4) HHT (hereditary hemorrhagic telangiectasia): (5) AMARIS (acute kidney injury): Admission and Anticipated Discharge Date Admission Date: September 23, 2020 Results & Data Results & Data ([facility]) Vital Signs (Past 12 Hours) Vital Signs Temp Pulse Pulse Resp BP BP Pulse Ox 09/28/20 09:24 96 H 16 105/70 93 09/28/20 09:00 107 H 21 87 L 09/28/20 08:00 36.8 C 91 H 13 108/60 92 09/28/20 07:33 36.6 C 98 H 20 120/57 L 94 09/28/20 07:00 87 14 120/57 L 94 09/28/20 06:30 93 H 12 94 09/28/20 06:07 91 H 17 111/77 97 09/28/20 06:06 94 H 11 L 09/28/20 05:30 89 16 97 09/28/20 05:02 90 18 98/45 L 97 09/28/20 05:00 85 10 L 98 09/28/20 04:30 85 7 L 97 09/28/20 04:05 83 12 99 09/28/20 04:00 36.6 C 82 9 L 115/75 97 09/28/20 03:30 78 14 99 09/28/20 03:00 79 13 113/60 98 09/28/20 02:30 81 12 99 09/28/20 02:00 78 10 L 122/61 99 09/28/20 01:30 85 14 100 09/28/20 01:00 84 13 93/56 L 100 09/28/20 00:30 84 12 97 09/28/20 00:00 36.6 C 82 12 101/63 95 09/27/20 23:30 88 13 95 09/27/20 23:00 86 15 136/70 95 Pulse Ox 09/28/20 09:24 09/28/20 09:00 09/28/20 08:00 96 09/28/20 07:33 09/28/20 07:00 09/28/20 06:30 09/28/20 06:07 09/28/20 06:06 09/28/20 05:30 09/28/20 05:02 09/28/20 05:00 09/28/20 04:30 09/28/20 04:05 09/28/20 04:00 09/28/20 03:30 09/28/20 03:00 09/28/20 02:30 09/28/20 02:00 09/28/20 01:30 09/28/20 01:00 09/28/20 00:30 09/28/20 00:00 09/27/20 23:30 09/27/20 23:00 Coding Diagnoses Parapneumonic effusion J18.9; J91.8 Right lower lobe pneumonia J18.9 Pulmonary hypertension I27.20 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
[2020-09-28] MEDS ORDERED: oxyCODONE HCL IR 5 MG TAB (IMMEDIATE RELEASE) PO PRN (11:30)
[2020-09-28 11:31] LABS: BUN Creatinine Ratio 21.9 (10-20); Calcium 6.8 mg/dl (8.5-10.1); Creatinine Clr Calc Pharmacy 30.8 ml/min; Est GFR (African American) 28.1 ml/min; Est GFR (Non-African American) 24.2 ml/min; Potassium 3.8 mmol/L (3.5-5.1)
--- NOTE | 2020-09-28 14:43 | Pharmacy Report ---
Pharmacy Glycemic Short Note 2 - Date of Service September 28, 2020 - Glycemic Short BSG Results (Last 24 hours): 09/27/20 09/27/20 09/27/20 15:37 16:01 21:41 Glucose 83 POC Glucose 120 H 66 L* 09/27/20 09/27/20 09/28/20 21:45 22:13 00:50 Glucose POC Glucose 61 L* 95 56 L* 09/28/20 09/28/20 09/28/20 01:14 01:15 04:09 Glucose 104 H POC Glucose 125 H 81 09/28/20 09/28/20 09/28/20 04:58 07:21 11:09 Glucose 69 L 153 H POC Glucose 73 09/28/20 11:26 Glucose POC Glucose 156 H OUTPATIENT ANTIDIABETIC REGIMEN: * Metformin 1 gm; Lantus 30 units daily * A1c 10.5% 09/24/20 ASSESSMENT: 09/28 * Patient transferred out of ICU this afternoon. * Patient did have episodes of hypoglycemia overnight, lantus dose was reduced by ~38% today will continue to monitor * Novolog parameters loosened to weight based stress of 3 correction and stress of 2 carb ratio * SCr appears to have peaked at 2.9, down to 2.7 on last check * Continue to monitor insulin needs 09/27/20 * Patient started back in insulin drip yesterday for ~12 hours by seat cover maker, now back on basal bolus * Fasting blood sugar 162mg/dl, but now trended up to 233mg/dl prior to lunch * Increase basal and tighten CF/CR and add checks overnight * Patient in AMARIS, no HD indicated at this time, had episode of Afib, now NSR 09/26/20 * Patient received 98 units of insulin yesterday, 60 units basal, 38 units bolus * Blood sugars remain above goal, will increase basal and tighten parameters for bolus * AMARIS at this time, SCr up from 0.7 --> 1.98mg/dl today, nephrology consulted 09/25/20 * Mr. Mace has PMH including HHT, pulmonary arterial hypertension, BPH and DM type 2 is admitted for respiratory failure from complicated right-sided parapneumonic effusion. Currently on MIST2 protocol and zosyn. * BSGs were elevated on admission and continued to be elevated therefore an insulin infusion was started yesterday evening, infusion continued into this morning at an average of 2.5 units/hr. * Patient received 40 units of lantus this morning and was transitioned off of insulin infusion shortly after lunch. Will begin weight based stress of 3 novolog parameters. Additional 10 units of lantus for this evening. PLAN FOR INPATIENT GLYCEMIC CONTROL: * Hold outpatient oral diabetes medications * Basal insulin -decrease * Lantus 50 units SQ daily * Bolus insulin - loosen * NovoLog per scale ACHS or Q6hrs while NPO * Goal Range: Low 110 mg/dL - High 140 mg/dL * Correction Factor: 20 mg/dL/unit * Nutritional / Prandial insulin per carb ratio of 1 unit per 9 grams CHO consumed
[2020-09-28 14:52] LABS: BUN Creatinine Ratio 21.9 (10-20); Calcium 6.9 mg/dl (8.5-10.1); Creatinine Clr Calc Pharmacy 32.2 ml/min; Est GFR (African American) 29.7 ml/min; Est GFR (Non-African American) 25.6 ml/min
--- NOTE | 2020-09-28 15:18 | Pulmonology Progress Note ---
Date of Service September 28, 2020 Assessment & Plan (1) Pulmonary hypertension: (2) HHT (hereditary hemorrhagic telangiectasia): (3) Parapneumonic effusion: (4) Right lower lobe pneumonia: Impression: 60-year-old male with Group 1 pulmonary hypertension secondary to HHT on pulmonary vasodilator therapy admitted with parapneumonic effusion status post pigtail drainage. He is slowly improving but drain output continues to remain high. Recommendations: 1. Parapneumonic effusion: Continue tube drainage until output decreases below 150 cc per 24-hour period of time. Will follow daily chest x-rays. Unclear if additional intrapleural lysis is required. If his chest x-ray remains abnormal and there is concerned about undrained fluid, repeat noncontrast CT of the chest may be required. 2. Pneumonia: Continue antibiotics. We will follow up on the replating of the pleural fluid cultures. He is currently day #6 Zosyn. White count is decreasing and fever curve is improving. 3. Hypoxemia: Continue supplemental oxygen titrated to keep saturations at or above 92% to avoid any component of hypoxic vasoconstriction. 4. Pulmonary hypertension: Patient is still on his ambrisartan. Would restart his tadalafil to prevent rebound - tadalafil not available on formulary at our facility so we will place the patient on sildenafil 20 mg a day. We will see if he can bring in his home medications to restart. Continue diuresis as renal function tolerates. We will continue to follow with you. Feel free to contact us with questions or concerns (5) Hypoxia: Admission and Anticipated Discharge Date Admission Date: September 23, 2020 Subjective Patient seen and examined. Discussed with off going lamp cleaner. EMR reviewed. Patient was transferred out of the ICU this morning. He is seen sitting up in a chair. He states his breathing is good. He is coughing and occasionally expectorating small amounts of phlegm. Drainage output from the catheter rem ains high. His pain control is adequate. He is not had any syncope presyncope or significant lower extremity edema. Review of Systems Review of Systems: All systems reviewed & are unremarkable except as noted in HPI & below Physical Exam Constitutional: well developed, cooperative and comfortable; no acute distress, not ill appearing and not frail appearing Neck: trachea midline, no thyromegaly Respiratory: normal respiratory effort and + cough; no respiratory distress and no labored breathing Auscultation: + diminished lung sounds (right base); no wheezes Cardiovascular: RRR, no murmur, no edema Gastrointestinal (Abdomen): normal bowel sounds, soft, nontender, no he patosplenomegaly Musculoskeletal: no cyanosis or clubbing, extremities motor strength 5/5 Skin: no rashes, warm and dry Neurologic: patellar DTR's 2+ bilat, sensation intact and PERRL, EOMI, accommodation nl, no face palsy, no dysarthria Psychiatric: A+Ox3, euthymic affect Lymphatic: no cervical or axillary lymphadenopathy Results & Data Results & Data ([facility]) Vital Signs (Past 12 Hours) Vital Signs Temp Pulse Pulse Resp BP BP Pulse Ox 09/28/20 12:17 97 H 15 123/59 L 95 09/28/20 12:00 36.5 C 103 H 16 95 09/28/20 11:00 87 20 115/64 95 09/28/20 10:00 94 H 17 103/52 L 94 09/28/20 09:24 96 H 16 105/70 93 09/28/20 09:00 107 H 21 87 L 09/28/20 08:00 36.8 C 91 H 13 108/60 92 09/28/20 07:33 36.6 C 98 H 20 120/57 L 94 09/28/20 07:00 87 14 120/57 L 94 09/28/20 06:30 93 H 12 94 09/28/20 06:07 91 H 17 111/77 97 09/28/20 06:06 94 H 11 L 09/28/20 05:30 89 16 97 09/28/20 05:02 90 18 98/45 L 97 09/28/20 05:00 85 10 L 98 09/28/20 04:30 85 7 L 97 09/28/20 04:05 83 12 99 09/28/20 04:00 36.6 C 82 9 L 115/75 97 09/28/20 03:30 78 14 99 Pulse Ox 09/28/20 12:17 09/28/20 12:00 09/28/20 11:00 09/28/20 10:00 09/28/20 09:24 09/28/20 09:00 09/28/20 08:00 96 09/28/20 07:33 09/28/20 07:00 09/28/20 06:30 09/28/20 06:07 09/28/20 06:06 09/28/20 05:30 09/28/20 05:02 09/28/20 05:00 09/28/20 04:30 09/28/20 04:05 09/28/20 04:00 09/28/20 03:30 Ct output: 1150 last 24 hours Laboratory Results 09/28/20 04:58 09/28/20 14:19 Culture data: Pleural fluid with pinpoint growth, awaiting replating Diagnostic Findings Imaging studies were independently reviewed. Chest x-ray today demonstrated cardiomegaly with basilar airspace opacities and a small right effusion with a right-sided pleural pigtail catheter in place. Improved aeration at the right lung base PG Care Time/CCT Total # of Minutes Spent Total Time Spent with Patient: Total time spent is greater than 50% in coordination of care (as documented) at patient's floor/unit and/or counseling patient: Coding Level of Care Code 39743 Subseq Hosp Care Lvl 3 Diagnoses Pulmonary hypertension I27.20 HHT (hereditary hemorrhagic telangiectasia) I78.0 Parapneumonic effusion J18.9; J91.8 Right lower lobe pneumonia J18.9 Hypoxia R09.02
[2020-09-28] MEDS ORDERED: SILDENAFIL CITRATE 20 MG TABLET PO SCH (15:30)
[2020-09-29] MEDS: INSULIN ASPART 100 UNITS/ML 3 ML PEN SC SCH ×5 (04:08→20:40)
[2020-09-29 06:26] LABS: Hematocrit (blood only) 27.4 % (42-52); Hemoglobin 9.4 g/dL (14.0-18.0); Mean Corpuscular Hemoglobin 27.4 pg (25-34); Mean Corpuscular Hgb Conc 34.3 g/dL (32-36); Mean Corpuscular Volume 79.9 fL (80-100); Mean Platelet Volume 9.8 fL (7.4-10.4); Platelet Count 371 K/uL (130-400); RDW Coefficient of Variation 14.7 % (11.5-14.5); RDW Standard Deviation 43.1 fL (36.4-46.3); Red Blood Count 3.43 M/uL (4.7-6.1); White Blood Count 10.58 K/uL (4.8-10.8)
[2020-09-29 06:58] LABS: BUN Creatinine Ratio 21.6 (10-20); Calcium 7.5 mg/dl (8.5-10.1); Est GFR (African American) 31.1 ml/min; Est GFR (Non-African American) 26.8 ml/min; Potassium 3.7 mmol/L (3.5-5.1)
[2020-09-29 07:01] LABS: Basophils # (auto) 0.03 K/uL (0-0.2); Basophils % (auto) 0.3 %; Eosinophils # (auto) 0.18 K/uL (0-0.5); Eosinophils % (auto) 1.7 %; Giant Platelets 1+; Immature Granulocytes # (auto) 0.99 K/uL (0.00-0.02); Immature Granulocytes % (auto) 9.4 %; Lymphocytes # (auto) 0.74 K/uL (1.2-3.4); Monocytes # (auto) 0.91 K/uL (0.11-0.59); Monocytes % (auto) 8.6 %; Neutrophils # (auto) 7.73 K/uL (1.4-6.5)
[2020-09-29] MEDS: PIPERACILLIN/TAZOBACTAM 4.5 GM in DEXTROSE 5% 100 ML IV SCH ×3 (07:40→23:38)
[2020-09-29] MEDS: AMIODARONE 200 MG TAB PO SCH ×2 (07:40→17:49)
--- NOTE | 2020-09-29 08:39 | Pulmonology Progress Note ---
Date of Service September 29, 2020 Assessment & Plan (1) Pulmonary hypertension: (2) Right lower lobe pneumonia: Impression: 60-year-old male with pulmonary hypertension secondary to HHT on pulmonary vasodilator therapy admitted with parapneumonic effusion status post pigtail drainage. He is slowly improving but drain output continues to remain high. Recommendations: 1. Parapneumonic effusion: Continue tube drainage until output decreases below 150 cc per 24-hour period of time. Will follow daily chest x-rays. Unclear if additional intrapleural lysis is required. If his chest x-ray remains abnormal and there is concerned about undrained fluid, repeat noncontrast CT of the chest may be required. 2. Pneumonia: Continue antibiotics. We will follow up on the replating of the pleural fluid cultures. He is currently day #7 Zosyn. White count is now normal and fever curve is normal. May require 14 to 21 days of antimicrobial therapy 3. Hypoxemia: Continue supplemental oxygen titrated to keep saturations at or above 92% to avoid any component of hypoxic vasoconstriction. 4. Pulmonary hypertension: Patient is still on his ambrisartan and tadalafil. Continue diuresis as tolerated by kidney function and nephrology We will continue to follow with you. Feel free to contact us with questions or concerns (3) Hypoxia: Admission and Anticipated Discharge Date Admission Date: September 23, 2020 Subjective Patient seen and examined. EMR reviewed. He reports that he is doing well. He has some slight pain at the pigtail insertion site but otherwise breathing continues to improve. He remains on 4 L of oxygen. He is not coughing or expectorating phlegm. He is tolerating a diet. Physical Exam Constitutional: well developed, cooperative and comfortable; no acute distress, not ill appearing and not frail appearing Neck: trachea midline, no thyromegaly Respiratory: normal respiratory effort; no respiratory distress and no labored breathing Auscultation: + diminished lung sounds (right base); no wheezes Cardiovascular: RRR, no murmur, no edema Gastrointestinal (Abdomen): normal bowel sounds, soft, nontender, no hepatosplenomegaly Musculoskeletal: no cyanosis or clubbing, extremities motor strength 5/5 Skin: no rashes, warm and dry Neurologic: PERRL, EOMI, accommodation nl, no face palsy, no dysarthria Psychiatric: A+Ox3, euthymic affect Lymphatic: no cervical or axillary lymphadenopathy Results & Data Results & Data ([facility]) Vital Signs (Past 12 Hours) Vital Signs Temp Pulse Pulse Pulse Resp BP Pulse Ox 09/29/20 07:43 36.5 C 80 20 117/81 95 09/29/20 04:00 36.5 C 83 20 125/68 93 09/29/20 03:31 87 18 92 09/28/20 23:59 88 09/28/20 23:14 36.8 C 89 18 127/63 95 09/28/20 21:00 96 H 21 93 Chest tube output 1150 last 24 hours Laboratory Results 09/29/20 05:48 09/29/20 05:48 Diagnostic Findings Chest x-ray from today was independently reviewed. There are persistent hazy infiltrates in the right lung. The pigtail catheter appears to be in position at the right lung base. Not appreciably changed from yesterday. PG Care Time/CCT Total # of Minutes Spent Total Time Spent with Patient: Total time spent is greater than 50% in coordination of care (as documented) at patient's floor/unit and/or counseling patient: Coding Level of Care Code 54228 Subseq Hosp Care Lvl 2 Diagnoses Pulmonary hypertension I27.20 Right lower lobe pneumonia J18.9 Hypoxia R09.02
--- NOTE | 2020-09-29 08:43 | XRay Report ---
XR chest 1V portable HISTORY: 60 years-old Male resp failure acute respiratory failure COMPARISON: Chest radiograph 09/28/2020 TECHNIQUE: Portable AP view of the chest FINDINGS: Asymmetric prominence of the right hilum redemonstrated. The cardiac silhouette is enlarged. No pneum othorax. Pigtail drainage catheter of the lateral right lung base is unchanged. Persistent right pleu ral effusion with slowly decreased right lung base consolidation. Unchanged bilateral interstitial op acities, right greater than left. No acute fracture. IMPRESSION: 1. Stable positioning of the right lung base pigtail drainage catheter. No pneumothorax. 2. Unchanged right pleural effusion with slightly decreased right lung base consolidation. 3. Unchanged bilateral interstitial opacities. ACT 112: Negative or not required by law. The above report was generated using voice recognition software. It may contain grammatical, syntax o r spelling errors. Electronically signed by: Paras Renteria M.D. 09/29/2020 8:42 AM
[2020-09-29] MEDS: TAMSULOSIN HCL 0.4 MG CAP PO SCH ×2 (08:51→20:42)
[2020-09-29] MEDS: AMBRISENTAN PO SCH (08:52)
[2020-09-29] MEDS: DOCUSATE SODIUM 100 MG CAP PO SCH ×2 (08:52→20:42)
[2020-09-29] MEDS: POLYETHYLENE (MIRALAX) 17 GM PACK PO SCH (08:53)
[2020-09-29] MEDS: HEPARIN SOD 5,000 UNIT/0.5 ML VIAL SQ SCH ×2 (08:53→20:42)
[2020-09-29] MEDS: PANTOprazole 40 MG TAB PO SCH (08:54)
[2020-09-29] MEDS: TADALAFIL PO SCH (08:54)
[2020-09-29] MEDS ORDERED: INSULIN GLARGINE SOLOSTAR 100 UNITS/ML 3 ML PEN SQ SCH (09:00)
--- NOTE | 2020-09-29 10:14 | Nephrology Progress Note ---
Date of Service September 29, 2020 Assessment & Plan (1) AMARIS (acute kidney injury): * AMARIS due to IV contrast & hypotension in the setting of СЕРГЕЙ inhibitor, dehydration * Continue to hold Lisinopril * Urine microscopy - no pyuria, hematuria or RBC casts. Granular casts present are suggestive of ATN * Renal US 09/26: no hydronephrosis, mild increase in echogenicity, + BPH * Nolan catheter is in place. Patient is nonoliguric. 1100 cc UO last 24 hours * Cr improved 3.0 --> 2.5 * Monitor PRP * No acute indication for HD at this time (2) Hyponatremia: * Likely SIADH due to pneumonia, sepsis, relative hypotension. Urine osmolality had been inappropriately elevated at 389 mOsm/kg * Heplock IV * Serum Na 122 --> 129 (3) Right lower lobe pneumonia: * On IV Zosyn * Chest tube in place Admission and Anticipated Discharge Date Admission Date: September 23, 2020 Subjective Mr. Mace was seen & examined in his hospital room this morning. Breathing is subjectively improved. Chest tube remains in place. Hypoglycemic overnight. Insulin is being adjusted Review of Systems Constitutional: no fever Eyes: no problem reported Ear, Nose, Mouth, Throat: no problem reported Respiratory: + dyspnea Cardiovascular: no chest pain and no edema Gastrointestinal: no abdominal pain, no nausea and no diarrhea/loose stools Genitourinary: no dysuria, no urinary hesitancy and no hematuria Musculoskeletal: no back pain Neurologic: no confusion Physical Exam Constitutional: no acute distress Eyes: PERRL, conjunctivae normal, anicteric sclerae ENMT: external ear and nose normal, oropharynx normal Neck: trachea midline, no thyromegaly Cardiovascular: Rate/Rhythm: regular rate and regular rhythm Gastrointestinal (Abdomen): normal bowel sounds, soft, nontender, no hepatosplenomegaly Musculoskeletal: Extremities: no cyanosis Neurologic: awake; not confused Results & Data ([facility]) Vital Signs (Past 12 Hours) Vital Signs Temp Pulse Pulse Pulse Resp BP Pulse Ox 09/29/20 07:43 36.5 C 80 20 117/81 95 09/29/20 04:00 36.5 C 83 20 125/68 93 09/29/20 03:31 87 18 92 09/28/20 23:59 88 09/28/20 23:14 36.8 C 89 18 127/63 95 Laboratory Tests 09/29/20 09/29/20 05:48 05:48 WBC 10.58 Hgb 9.4 L Hct 27.4 L Plt Count 371 Sodium 129 L Potassium 3.7 Chloride 100 Carbon Dioxide 20 L BUN 54 H Creatinine 2.52 H PG Care Time/CCT Total # of Minutes Spent Total Time Spent with Patient: Total time spent is greater than 50% in coordination of care (as documented) at patient's floor/unit and/or counseling patient: Coding Level of Care Code 10275 Subseq Hosp Care Lvl 3 Diagnoses AMARIS (acute kidney injury) N17.9 Hyponatremia E87.1 Right lower lobe pneumonia J18.9
--- NOTE | 2020-09-29 10:42 | Cardiology Progress Note ---
Date of Service September 29, 2020 Assessment & Plan (1) Paroxysmal atrial fibrillation with rapid ventricular response: (2) Pericardial effusion: (3) Parapneumonic effusion: (4) Pulmonary hypertension: (5) AMARIS (acute kidney injury): Given the high likelihood recurrent atrial fibrillation would complicate this patient's management, agree with continuing short-term amiodarone for rhythm control. Continue amiodarone 200 mg twice daily, upon discharge this could be reduced to 200 mg daily. Since his paroxysmal atrial fibrillation episode was transient and occurred in the context of acute distress/hyperadrenergic state, and since he has not shown recurrent atrial fibrillation, probably will not need chronic anticoagulation. Please arrange follow-up with me for 1 month after discharge, will reevaluate duration of amiodarone therapy at that time. No dynamic cardiac issues currently, will sign off. Please contact if change in clinical status. Thank you. Admission and Anticipated Discharge Date Admission Date: September 23, 2020 Subjective Patient improving overall. Note chest pain, dyspnea at rest, or subjective palpitations. Good appetite. Telemetry showed sinus rhythm in the 90s. Brief (2 seconds) atrial run yesterday morning at 6 AM was the last atrial ectopy, consistently sinus since then. Physical Exam Physical Exam: No distress. Skin: no ecchymoses or generalized lesions. HEENT: unremarkable. Neck: no JVD or carotid bruits. Lungs: Decreased breath sounds with rhonchi in the right, bilateral faint expiratory wheeze. No accessory muscle use. Cardiac: regular rhythm, no obvious murmur or gallop. Abdomen: benign. Extremities: no edema, pulses intact. Neurologic: normal affect, nonfocal. Results & Data ([facility]) Vital Signs (Past 12 Hours) Vital Signs Temp Pulse Pulse Pulse Resp BP Pulse Ox 09/29/20 07:43 97.7 F 80 20 117/81 95 09/29/20 04:00 97.7 F 83 20 125/68 93 09/29/20 03:31 87 18 92 09/28/20 23:59 88 09/28/20 23:14 98.2 F 89 18 127/63 95 Laboratory Results Normal electrolytes, BUN 54, creatinine 2.52 (improving). PG Care Time/CCT Total # of Minutes Spent Total Time Spent with Patient: Total time spent is greater than 50% in coordination of care (as documented) at patient's floor/unit and/or counseling patient: Coding Level of Care Code 45239 Subseq Hosp Care Lvl 3 Diagnoses Paroxysmal atrial fibrillation with rapid ventricular response I48.0 Pericardial effusion I31.3 Parapneumonic effusion J18.9; J91.8 Pulmonary hypertension I27.20 AMARIS (acute kidney injury) N17.9
--- NOTE | 2020-09-29 12:35 | Pharmacy Report ---
Pharmacy Glycemic Short Note 2 - Date of Service September 29, 2020 - Glycemic Short BSG Results (Last 24 hours): 09/28/20 09/28/20 09/28/20 14:19 16:07 20:34 Glucose 139 H POC Glucose 115 H 73 09/28/20 09/28/20 09/29/20 23:45 23:47 00:07 Glucose POC Glucose 52 L* 57 L* 164 H 09/29/20 09/29/20 09/29/20 02:32 03:58 05:48 Glucose 99 POC Glucose 97 80 09/29/20 09/29/20 07:12 11:34 Glucose POC Glucose 86 127 H OUTPATIENT ANTIDIABETIC REGIMEN: * Metformin 1 gm; Lantus 30 units daily * A1c 10.5% 09/24/20 ASSESSMENT: 09/29/20: * Mr Mace had another episode of hypoglycemia last evening. * Lantus dose reduced to home dose this morning. * Novolog parameters loosened last evening. * BSGs have been appropriate thus far today. 09/28 * Patient transferred out of ICU this afternoon. * Patient did have episodes of hypoglycemia overnight, lantus dose was reduced by ~38% today will continue to monitor * Novolog parameters loosened to weight based stress of 3 correction and stress of 2 carb ratio * SCr appears to have peaked at 2.9, down to 2.7 on last check * Continue to monitor insulin needs 09/27 * Patient started back in insulin drip yesterday for ~12 hours by fast food cook, now back on basal bolus * Fasting blood sugar 162mg/dl, but now trended up to 233mg/dl prior to lunch * Increase basal and tighten CF/CR and add checks overnight * Patient in AMARIS, no HD indicated at this time, had episode of Afib, now NSR 09/26 * Patient received 98 units of insulin yesterday, 60 units basal, 38 units bolus * Blood sugars remain above goal, will increase basal and tighten parameters for bolus * AMARIS at this time, SCr up from 0.7 --> 1.98mg/dl today, nephrology consulted 09/25 * Mr. Mace has PMH including HHT, pulmonary arterial hypertension, BPH and DM type 2 is admitted for respiratory failure from complicated right-sided parapneumonic effusion. Currently on MIST2 protocol and zosyn. * BSGs were elevated on admission and continued to be elevated therefore an insulin infusion was started yesterday evening, infusion continued into this morning at an average of 2.5 units/hr. * Patient received 40 units of lantus this morning and was transitioned off of insulin infusion shortly after lunch. Will begin weight based stress of 3 novolog parameters. Additional 10 units of lantus for this evening. PLAN FOR INPATIENT GLYCEMIC CONTROL: * Hold outpatient oral diabetes medications * Basal insulin -decrease * Lantus 30 units SQ daily * Bolus insulin - loosen * NovoLog per scale ACHS or Q6hrs while NPO * Goal Range: Low 110 mg/dL - High 140 mg/dL * Correction Factor: 30 mg/dL/unit * Nutritional / Prandial insulin per carb ratio of 1 unit per 11 grams CHO consumed DISCHARGE PLANNING: * A1c: 10.5% * This indicates suboptimal glycemic control as an outpt. Expect that pt will require adjustments to his regimen at discharge. Specific recommendations pending as admission progresses.
--- NOTE | 2020-09-29 12:35 | Hospitalist Progress Note ---
Date of Service September 29, 2020 Assessment & Plan (1) Pleural effusion, right: Significant and Moderate right pleural effusion/right lower lobe pneumonia-compressive atelectasis consistent with exudate concern for empyema CTA Chest 09/23/20 IMPRESSION: no PE, moderate right pleural effusion with associated atelectasis/consolidation of the right lower lung Thoracentesis fluid shows pH of 6.9 likely consistent with exudative effusion or parapneumonic effusion multiple septae and loculations were noted on ultrasound and dornase was administered - empyema continue Zosyn IV, no fever, vitals stable, WBC down to 10k from 15k vancomycin discontinued with negative MRSA nasal swab Duonebs every 4 hours while awake and every 2 hours when necessary. appreciate pulmonology notes, drainage is low the past 24 hours, less than 150cc per RN will get CT chest without contrast to re-assess the effusions, loculations blood cultures with no growth pleural fluid cultures re-incubating but no growth initially per pulmonology, likely needed 14-21 days of antibiotics (2) Right lower lobe pneumonia: Sepsis POA e/b +4/4 SIRS criteria and SOFA score of 3 continue Zosyn, needs 14-21 days no growth on pleural fluid cultures or blood cultures at 72 hours continue to follow (3) AMARIS (acute kidney injury): Cr peaked at 3.0, AMARIS due to dehydration, IV contrast, Lisinopril Cr down to 2.5, 1100mL out past 24 hours, non oliguric continue to monitor closely holding Lisinopril, spironolactone, Lasix nephrology following daily, appreciate their input (4) Paroxysmal atrial fibrillation with rapid ventricular response: went into RVR overnight/early 09/27 and required cardioversion appreciate cardiology consult, continue Amiodarone 200mg PO BID to maintain normal sinus rhythm no need for anticoagulation as afib was so brief if goes back into afib RVR then try Amiodarone IV bolus and drip continues to be NSR on monitor (5) Sinus tachycardia: only with activity, resting HR in the 80's at this time, not in atrial fibrillation this morning (6) Hypoxia: Acute respiratory failure with hypoxia in setting of pleura effusion, pneumonia and sepsis patient requiring high flow oxygen much improved, stable on 4L NC this morning titrate to room air as tolerated (7) Pulmonary hypertension: Continue tadalafil and ambrisentan family brought both medications and they are non formulary (8) Hypertension: lisinopril BP 105 systolic this morning (9) Hyperlipidemia: (10) DM II (diabetes mellitus, type II), controlled: Hold Metformin, markedly elevated beta hydroxy butyric acid, will follow serum bicarb and acid base balance Placed on Accu-Cheks before meals and at bedtime with NovoLog coverage per scale hemoglobin A1c 8.1 had hypoglycemia last night in 's adjusted Lantus to 30 units from 50 units pharmacy consulted (11) Benign prostatic hyperplasia with urinary obstruction: Continue tamsulosin, Admission and Anticipated Discharge Date Admission Date: September 23, 2020 Subjective patient feeling okay today, he had some hypoglycemia last night in the 's, Lantus was reduced and Novolog adjusted reviewed labs, WBC down to 10k, Cr is 2.5, Na 129, Hb stable making urine, 1100cc out in past 24 hours he remains in sinus rhythm on monitor d/w Dr. Rice, will get CT chest to evaluate effusion, loculations per RN, only 100cc out yesterday, no drainage overnight or this morning updated patient's at the bedside, answered her questions no fever, + dyspnea, + cough, + right sided chest pain with the tube no nausea, eating well, had a BM today has some edema in legs but holding Lasix and spironolactone with AMARIS, nephrology following Review of Systems Review of Systems: All systems reviewed & are unremarkable except as noted in Subjective Physical Exam Constitutional: well developed, cooperative and comfortable; no acute distress, not ill appearing and not frail appearing Neck: trachea midline, no thyromegaly Respiratory: normal respiratory effort and + cough; no respiratory distress and no labored breathing Auscultation: + diminished lung sounds (right base); no wheezes Cardiovascular: Rate/Rhythm: regular rate and regular rhythm Heart Sounds: normal S1 and normal S2; no murmur Vessels: normal peripheral pulses; no JVD Extremities: normal capillary refill and + edema (+1 ankles) Gastrointestinal (Abdomen): normal bowel sounds, soft, nontender, no hepatosplenomegaly Musculoskeletal: no cyanosis or clubbing, extremities motor strength 5/5 Skin: no rashes, warm and dry Neurologic: patellar DTR's 2+ bilat, sensation intact and PERRL, EOMI, accommodation nl, no face palsy, no dysarthria Psychiatric: A+Ox3, euthymic affect Lymphatic: no cervical or axillary lymphadenopathy Results & Data Results & Data ([facility]) Vital Signs (Past 12 Hours) Vital Signs Temp Pulse Pulse Pulse Resp BP Pulse Ox 09/29/20 11:18 36.6 C 88 22 124/71 97 09/29/20 08:00 73 09/29/20 07:43 36.5 C 80 20 117/81 95 09/29/20 04:00 36.5 C 83 20 125/68 93 09/29/20 03:31 87 18 92 Laboratory Results Laboratory Results - last 24 hr 09/28/20 09/28/20 09/28/20 14:19 16:07 20:34 WBC RBC Hgb Hct MCV MCH MCHC RDW Std Deviation RDW Coeff of Lesly Plt Count MPV Immature Gran % (Auto) Neut % (Auto) Lymph % (Auto) [place] % (Auto) Eos % (Auto) Baso % (Auto) Neut # (Auto) Lymph # (Auto) [place] # (Auto) Eos # (Auto) Baso # (Auto) Immature Gran # (Auto) Giant Platelets Sodium 127 L Potassium 4.0 Chloride 98 Carbon Dioxide 19 L Anion Gap 10.0 BUN 57 H Creatinine 2.62 H Est Cr Clr Drug Dosing 32.2 Est GFR ( Amer) 29.7 Est GFR (Non-Af Amer) 25.6 BUN/Creatinine Ratio 21.9 H Glucose 139 H POC Glucose 115 H 73 Calcium 6.9 L 09/28/20 09/28/20 09/29/20 23:45 23:47 00:07 WBC RBC Hgb Hct MCV MCH MCHC RDW Std Deviation RDW Coeff of Lesly Plt Count MPV Immature Gran % (Auto) Neut % (Auto) Lymph % (Auto) [place] % (Auto) Eos % (Auto) Baso % (Auto) Neut # (Auto) Lymph # (Auto) [place] # (Auto) Eos # (Auto) Baso # (Auto) Immature Gran # (Auto) Giant Platelets Sodium Potassium Chloride Carbon Dioxide Anion Gap BUN Creatinine Est Cr Clr Drug Dosing Est GFR ( Amer) Est GFR (Non-Af Amer) BUN/Creatinine Ratio Glucose POC Glucose 52 L* 57 L* 164 H Calcium 09/29/20 09/29/20 09/29/20 02:32 03:58 05:48 WBC 10.58 RBC 3.43 L Hgb 9.4 L Hct 27.4 L MCV 79.9 L MCH 27.4 MCHC 34.3 RDW Std Deviation 43.1 RDW Coeff of Lesly 14.7 H Plt Count 371 MPV 9.8 Immature Gran % (Auto) 9.4 Neut % (Auto) 73.0 Lymph % (Auto) 7.0 [place] % (Auto) 8.6 Eos % (Auto) 1.7 Baso % (Auto) 0.3 Neut # (Auto) 7.73 H Lymph # (Auto) 0.74 L [place] # (Auto) 0.91 H Eos # (Auto) 0.18 Baso # (Auto) 0.03 Immature Gran # (Auto) 0.99 H Giant Platelets 1+ Sodium Potassium Chloride Carbon Dioxide Anion Gap BUN Creatinine Est Cr Clr Drug Dosing Est GFR ( Amer) Est GFR (Non-Af Amer) BUN/Creatinine Ratio Glucose POC Glucose 97 80 Calcium 09/29/20 09/29/20 09/29/20 05:48 07:12 11:34 WBC RBC Hgb Hct MCV MCH MCHC RDW Std Deviation RDW Coeff of Lesly Plt Count MPV Immature Gran % (Auto) Neut % (Auto) Lymph % (Auto) [place] % (Auto) Eos % (Auto) Baso % (Auto) Neut # (Auto) Lymph # (Auto) [place] # (Auto) Eos # (Auto) Baso # (Auto) Immature Gran # (Auto) Giant Platelets Sodium 129 L Potassium 3.7 Chloride 100 Carbon Dioxide 20 L Anion Gap 9.0 BUN 54 H Creatinine 2.52 H Est Cr Clr Drug Dosing 34.0 Est GFR ( Amer) 31.1 Est GFR (Non-Af Amer) 26.8 BUN/Creatinine Ratio 21.6 H Glucose 99 POC Glucose 86 127 H Calcium 7.5 L Medications Administered Current Inpatient Medications Acetaminophen (Acetaminophen 325 Mg Tab) 650 mg PO Q4H PRN PRN Reason: Pain or Fever Stop: 10/23/20 18:24 Albuterol (Albut/Ipratrop 3mg/0.5mg Neb 3 Ml Vial) 3 ml NEB QIDR PRN PRN Reason: Shortness Of Breath Or Wheezing Stop: 10/23/20 18:59 Ambrisentan (Ambrisentan) 1 ea PO DAILY [facility] Stop: 10/24/20 15:29 Last Admin: 09/29/20 08:52 Dose: 1 ea Documented by: Amiodarone HCl (Amiodarone 200 Mg Tab) 200 mg PO BIDM [facility] Stop: 10/27/20 16:59 Last Admin: 09/29/20 07:40 Dose: 200 mg Documented by: Dextrose (Dextrose 50% 50 Ml Syringe) 25 - 50 ml IV UD PRN; Protocol PRN Reason: Hypoglycemia Protocol Stop: 10/23/20 18:24 Last Admin: 09/28/20 23:51 Dose: 50 ml Documented by: Docusate Sodium (Docusate Sodium 100 Mg Cap) 100 mg PO BID [facility]AT[facility] Stop: 10/26/20 20:59 Last Admin: 09/29/20 08:52 Dose: Not Given Documented by: Glucagon (Glucagon For Inj 1 Mg Vial) 1 mg SQ UD PRN; Protocol PRN Reason: Hypoglycemia Protocol Stop: 10/23/20 18:24 Glucose (Glucose 10 Tabs/Tube) 4 - 8 tabs PO UD PRN; Protocol PRN Reason: Hypoglycemia Protocol Stop: 10/23/20 18:24 Glucose (Glucose 40% Gel 15 Gm Tube) 15 - 30 gm PO UD PRN; Protocol PRN Reason: Hypoglycemia Protocol Stop: 10/23/20 18:24 Heparin Sodium (Porcine) (Heparin Sod 5,000 Unit/0.5 Ml Vial) 5,000 units SQ Q12 [facility]AT[facility]YN Stop: 10/29/20 20:59 Piperacillin Sod/Tazobactam (Sod 4.5 gm/ Dextrose) 120 mls @ 30 mls/hr IV Q8H KATHRYN; Protocol Stop: 10/01/20 00:00 Last Infusion: 09/29/20 11:51 Dose: Infused Documented by: Insulin Aspart (Insulin Aspart 100 Units/Ml 3 Ml Pen) 0 units SC ACHS [facility]; Protocol Stop: 10/27/20 03:59 Last Admin: 09/29/20 12:15 Dose: 2 units Documented by: Insulin Glargine (Insulin Glargine Solostar 100 Units/Ml 3 Ml Pen) 30 units SQ DAILY [facility] Stop: 10/29/20 08:59 Last Admin: 09/29/20 08:53 Dose: 30 units Documented by: Miscellaneous (Carbohydrates For Hypoglycemia ) 15 - 30 gm PO UD PRN PRN Reason: Hypoglycemia Protocol Stop: 10/23/20 18:24 Miscellaneous Information (Piperacill/Tazobac Consult Active) 1 ea N/A UD PRN PRN Reason: Consult Stop: 10/23/20 18:24 Miscellaneous Information (Pharmacy Glycemic Mgmt Consult) 1 ea N/A UD PRN PRN Reason: Consult Stop: 10/24/20 17:31 Ondansetron HCl (Ondansetron Inj 2 Mg/Ml 2 Ml Vial) 4 mg IV Q6H PRN PRN Reason: Nausea Stop: 10/23/20 18:24 Oxycodone HCl (Oxycodone Hcl Ir 5 Mg Tab (Immediate Release)) 5 mg PO Q4H PRN PRN Reason: Pain Stop: 10/12/20 11:20 Pantoprazole Sodium (Pantoprazole 40 Mg Tab) 40 mg PO DAILY [facility]; Protocol Stop: 10/24/20 08:59 Last Admin: 09/29/20 08:54 Dose: 40 mg Documented by: Polyethylene Glycol (Polyethylene (Miralax) 17 Gm Pack) 17 gm PO DAILY [facility] Stop: 10/26/20 15:44 Last Admin: 09/29/20 08:53 Dose: Not Given Documented by: Tamsulosin HCl (Tamsulosin Hcl 0.4 Mg Cap) 0.4 mg PO BID KATHRYN Stop: 10/23/20 20:59 Last Admin: 09/29/20 08:51 Dose: 0.4 mg Documented by: PG Care Time/CCT Total # of Minutes Spent Total Time Spent with Patient: Total time spent is greater than 50% in coordination of care (as documented) at patient's floor/unit and/or counseling patient: Coding Level of Care Code 53374 Subseq Hosp Care Lvl 3 Diagnoses Pleural effusion, right J90 Right lower lobe pneumonia J18.9 AMARIS (acute kidney injury) N17.9 Paroxysmal atrial fibrillation with rapid ventricular response I48.0 Sinus tachycardia R00.0 Hypoxia R09.02 Pulmonary hypertension I27.20 Hypertension I10 Hyperlipidemia E78.5 DM II (diabetes mellitus, type II), controlled E11.9 Benign prostatic hyperplasia with urinary obstruction N40.1; N13.8
--- NOTE | 2020-09-29 13:53 | CT Scan Report ---
CT chest diagnostic wo con CLINICAL HISTORY: follow up parapneumonic effusion, right side COMPARISON STUDY: 09/27/2020 CT DOSE: 652.81 mGy.cm TECHNIQUE: CT of the thorax was performed from the thoracic inlet to the lung bases. Images are revi ewed in the axial, sagittal, and coronal planes. IV contrast was not administered for this examinatio n. A dose lowering technique was utilized adhering to the principles of ALARA. FINDINGS: Thyroid: Imaged portions of the thyroid gland are normal in appearance. Thoracic aorta: The thoracic aorta is normal in course and caliber, noting standard 3 vessel arch maximo gissel. Heart: The heart is the upper limits of normal in size. There is a trace pericardial effusion. There is dilatation of main pulmonary artery suggesting pulmonary hypertension. Lungs and pleural spaces: There is a persistent small right pleural effusion. There is a right pleura l pigtail catheter present. There is mild septal edema. There is right lower lobe atelectasis/consoli dation. There is a decreasing trace left pleural effusion. There are improving subtle centrilobular g roundglass opacities. Mediastinum: There is persistent mediastinal lymphadenopathy, likely reactive. María: Hilar structures are difficult to evaluate without intravenous contrast. Axilla: There is no pathologic axillary lymphadenopathy Upper abdomen: Partially visualized upper abdominal viscera is within normal limits. Skeletal structures: There are no lytic or blastic osseous lesions. IMPRESSION: 1. No significant change in the position of the right-sided pigtail pleural catheter 2. Persistent small right pleural effusion with right lower lobe atelectasis/consolidation 3. Improving trace left pleural effusion 4. Persistent septal edema 5. Improving subtle centrilobular groundglass opacities 6. Dilatation the main pulmonary artery, likely secondary to pulmonary to hypertension 7. Stable mediastinal lymphadenopathy ACT 112: Negative or not required by law. Electronically signed by: Rivera Lopez M.D. 09/29/2020 1:51 PM
[2020-09-30 07:35] LABS: Hematocrit (blood only) 28.8 % (42-52); Hemoglobin 9.6 g/dL (14.0-18.0); Mean Corpuscular Hemoglobin 27.4 pg (25-34); Mean Corpuscular Hgb Conc 33.3 g/dL (32-36); Mean Corpuscular Volume 82.1 fL (80-100); Platelet Count 429 K/uL (130-400); RDW Coefficient of Variation 14.7 % (11.5-14.5); RDW Standard Deviation 44.1 fL (36.4-46.3); Red Blood Count 3.51 M/uL (4.7-6.1); White Blood Count 10.89 K/uL (4.8-10.8)
[2020-09-30 08:07] LABS: BUN Creatinine Ratio 17.3 (10-20); Calcium 7.3 mg/dl (8.5-10.1); Creatinine Clr Calc Pharmacy 31.3 ml/min; Est GFR (African American) 28.1 ml/min; Est GFR (Non-African American) 24.2 ml/min; Potassium 3.6 mmol/L (3.5-5.1)
[2020-09-30 08:10] LABS: ALC (manual) 0.48 K/uL (1.2-3.4); ANC (manual) 8.49 K/uL (1.4-6.5); Basophils % (manual) 0.9 %; Eosinophils % (manual) 0.9 %; Lymphocytes # (manual) 0.48 K/uL (1.2-3.4); Lymphocytes % (manual) 4.4 %; Metamyelocytes # (manual) 0.66 K/uL (0-0); Metamyelocytes % (manual) 6.1 %; Monocytes # (manual) 0.86 K/uL (0.11-0.59); Monocytes % (manual) 7.9 %; Myelocytes % (manual) 1.8 %; Neutrophils # (manual) 8.49 K/uL (1.4-6.5)
[2020-09-30] MEDS: DOCUSATE SODIUM 100 MG CAP PO SCH (08:22)
[2020-09-30] MEDS: HEPARIN SOD 5,000 UNIT/0.5 ML VIAL SQ SCH ×2 (08:30→21:09)
[2020-09-30] MEDS: TAMSULOSIN HCL 0.4 MG CAP PO SCH ×2 (08:30→21:10)
[2020-09-30] MEDS: PIPERACILLIN/TAZOBACTAM 4.5 GM in DEXTROSE 5% 100 ML IV SCH ×2 (08:30→15:52)
[2020-09-30] MEDS: POLYETHYLENE (MIRALAX) 17 GM PACK PO SCH (08:31)
[2020-09-30] MEDS: AMBRISENTAN PO SCH (08:31)
[2020-09-30] MEDS: TADALAFIL PO SCH (08:32)
[2020-09-30] MEDS: PANTOprazole 40 MG TAB PO SCH (08:33)
[2020-09-30] MEDS: AMIODARONE 200 MG TAB PO SCH ×2 (08:33→17:04)
[2020-09-30] MEDS: INSULIN ASPART 100 UNITS/ML 3 ML PEN SC SCH ×4 (08:34→21:11)
--- NOTE | 2020-09-30 08:35 | Pharmacy Report ---
Pharmacy Glycemic Short Note 2 - Date of Service September 30, 2020 - Glycemic Short BSG Results (Last 24 hours): 09/29/20 09/29/20 09/29/20 11:34 16:15 20:36 Glucose POC Glucose 127 H 75 93 09/30/20 09/30/20 06:56 07:06 Glucose 75 POC Glucose 87 OUTPATIENT ANTIDIABETIC REGIMEN: * Metformin 1 gm; Lantus 30 units daily * A1c 10.5% 09/24/20 ASSESSMENT: 09/30/20: * Patient received total of 35 units of insulin yesterday, of which 30 units were basal insulin * Fasting BSG 87 mg/dL within range, however fasting BSG trending down slightly from day prior. Appears PO intake poorer yesterday. BSGs yesterday trending down throughout the day. Due to concern for possible lower BSGs with poor PO intake and worsening renal function, plan to scale back on basal insulin this AM. Will decrease to 20 units of basal insulin this AM. * Plan to continue same CF/CR 09/29/20: * Mr Mace had another episode of hypoglycemia last evening. * Lantus dose reduced to home dose this morning. * Novolog parameters loosened last evening. * BSGs have been appropriate thus far today. 09/28 * Patient transferred out of ICU this afternoon. * Patient did have episodes of hypoglycemia overnight, lantus dose was reduced by ~38% today will continue to monitor * Novolog parameters loosened to weight based stress of 3 correction and stress of 2 carb ratio * SCr appears to have peaked at 2.9, down to 2.7 on last check * Continue to monitor insulin needs 09/27 * Patient started back in insulin drip yesterday for ~12 hours by promotional representative, now back on basal bolus * Fasting blood sugar 162mg/dl, but now trended up to 233mg/dl prior to lunch * Increase basal and tighten CF/CR and add checks overnight * Patient in AMARIS, no HD indicated at this time, had episode of Afib, now NSR 09/26 * Patient received 98 units of insulin yesterday, 60 units basal, 38 units bolus * Blood sugars remain above goal, will increase basal and tighten parameters for bolus * AMARIS at this time, SCr up from 0.7 --> 1.98mg/dl today, nephrology consulted 09/25 * Mr. Mace has PMH including HHT, pulmonary arterial hypertension, BPH and DM type 2 is admitted for respiratory failure from complicated right-sided parapneumonic effusion. Currently on MIST2 protocol and zosyn. * BSGs were elevated on admission and continued to be elevated therefore an insulin infusion was started yesterday evening, infusion continued into this morning at an average of 2.5 units/hr. * Patient received 40 units of lantus this morning and was transitioned off of insulin infusion shortly after lunch. Will begin weight based stress of 3 novolog parameters. Additional 10 units of lantus for this evening. PLAN FOR INPATIENT GLYCEMIC CONTROL: * Hold outpatient oral diabetes medications * Basal insulin -decrease * Lantus 20 units SQ daily * Bolus insulin - continue same * NovoLog per scale ACHS or Q6hrs while NPO * Goal Range: Low 110 mg/dL - High 140 mg/dL * Correction Factor: 30 mg/dL/unit * Nutritional / Prandial insulin per carb ratio of 1 unit per 11 grams CHO consumed DISCHARGE PLANNING: * A1c: 10.5% - a reasonable goal would be A1c <7% * A1c is greater than or equal to 10% - consider triple therapy with metformin + basal insulin + (GLP1-RA OR prandial insulin) * Would recommend continuation of home metformin on discharge, as long as renal function improves back to baseline. Discontinuation of metformin recommended if eGFR remains <30 * Could consider increasing home Lantus insulin dose by ~15% on discharge to Lantus 35 units daily to help with improvement of BSGs at home * Per DM educator notes, patient has trialed Victoza and Trulicity in the past and reports allergic reaction to Victoza and was unable to tolerate Trulicity due to side effects. * Could consider addition of prandial insulin at discharge. If patient agreeable, would recommend at least once daily with largest meal of the day (dinner). Will determine dosing closer to discharge. * Patient SMBG only 1x/day currently, would encourage more frequent checks (AM fasting, with dinner, at HS) * Would recommend continued support of patient self management with healthy lifestyle (diet, exercise), and prevention of complications (BP, immunizations) * Will continue to follow and update discharge recommendations
[2020-09-30] MEDS ORDERED: INSULIN GLARGINE SOLOSTAR 100 UNITS/ML 3 ML PEN SQ SCH (09:00)
--- NOTE | 2020-09-30 09:05 | Pulmonology Progress Note ---
Date of Service September 30, 2020 Assessment & Plan (1) Pulmonary hypertension: (2) Right lower lobe pneumonia: Impression: 60-year-old male with pulmonary hypertension secondary to HHT on pulmonary vasodilator therapy admitted with parapneumonic effusion status post pigtail drainage. Output from the drain is decreased in follow-up CT scan demonstrated that there is no communicating fluid with the catheter. Will be removed today. Recommendations: 1. Parapneumonic effusion: I discussed options with the patient at this point time. As the catheter is no longer communicating with fluid collections I think it can be removed safely. The current fluid collection is too small for us to place an additional catheter in order to pursue drainage. I would recommend continuing antibiotics and following the patient clinically. There is a potential risk for the loculated collections to increase however it is also possible that he may resorb them over time. I would favor removal of the cur rent catheter and completion of 21 days antimicrobial therapy and a follow-up chest x-ray in 1 to 2 weeks. If the fluid were to reaccumulate, consideration for replacement of the pigtail catheter or referral for IR or thoracic surgery consideration of video-assisted thoracoscopic decortication may be appropriate. 2. Pneumonia: Continue antibiotics. Replating shows cutibacterium -unclear if this is a pathogen or contaminant. He is currently day #8 Zosyn. White count is now normal and fever curve is normal. Could consider transitioning to oral Augmentin to complete course of antibiotics when the patient is ready from dismissal from the hospital 3. Hypoxemia: Continue supplemental oxygen titrated to keep saturations at or above 92% to avoid any component of hypoxic vasoconstriction. 4. Pulmonary hypertension: Patient on his ambrisartan and tadalafil. Continue diuresis as tolerated by kidney function and nephrology. He will need to follow with his outpatient pulmonary hypertension providers. We will continue to follow with you. Feel free to contact us with questions or concerns (3) Hypoxia: Admission and Anticipated Discharge Date Admission Date: September 23, 2020 Subjective Patient seen and examined. EMR reviewed. He feels that he is doing well c linically. He is not experiencing any chest pain. His breathing appears slightly better. Said minimal output from his chest tube. His intake and output have been inaccurately recorded over the last several days. Review of Systems Review of Systems: All systems reviewed & are unremarkable except as noted in HPI & below Physical Exam Constitutional: well developed, cooperative and comfortable; no acute distress, not ill appearing and not frail appearing Neck: trachea midline, no thyromegaly Respiratory: normal respiratory effort and + cough; no respiratory distress and no labored breathing Auscultation: + diminished lung sounds (right base); no wheezes Cardiovascular: RRR, no murmur, no edema Gastrointestinal (Abdomen): normal bowel sounds, soft, nontender, no hepa tosplenomegaly Musculoskeletal: no cyanosis or clubbing, extremities motor strength 5/5 Skin: no rashes, warm and dry Neurologic: patellar DTR's 2+ bilat, sensation intact and PERRL, EOMI, accommodation nl, no face palsy, no dysarthria Psychiatric: A+Ox3, euthymic affect Lymphatic: no cervical or axillary lymphadenopathy Results & Data Results & Data ([facility]) Vital Signs (Past 12 Hours) Vital Signs Temp Pulse Pulse Pulse Resp BP Pulse Ox 09/30/20 07:46 70 09/30/20 07:09 36.5 C 77 18 147/65 H 96 09/30/20 04:20 36.4 C L 83 18 127/61 94 09/30/20 03:15 15 93 09/29/20 23:59 92 H 09/29/20 23:00 86 20 125/64 94 09/29/20 22:43 90 12 93 Laboratory Results 09/30/20 06:56 09/30/20 06:[address] of the chest independently reviewed. The pigtail catheter is in the pleural space however there does not appear to be any fluid communicating with the catheter. There is a small focus of loculation near the spine and an additional secondary small focus posteriorly. Persistent parenchymal opacities are noted. PG Care Time/CCT Total # of Minutes Spent Total Time Spent with Patient: Total time spent is greater than 50% in coordination of care (as documented) at patient's floor/unit and/or counseling patient: Coding Level of Care Code 15407 Subseq Hosp Care Lvl 3 Diagnoses Pulmonary hypertension I27.20 Right lower lobe pneumonia J18.9 Hypoxia R09.02
--- NOTE | 2020-09-30 09:06 | Procedure Note ---
Procedure Note Date of Service September 30, 2020 Procedure: Removal of right thoracic pigtail catheter Suspender Maker Dr. Rice Anesthesia none Estimated blood loss none Procedure: The dressing was taken down. The locking mechanism was released. On full expiration the tube was pulled and observed to be intact. A sterile dressing was applied. Patient tolerated the procedure well without complication. Coding CPT Codes Pulmonary/Thoracic - Pulmonary and Thoracic: 42675 Remove lung catheter ([id number]) [facility] [place] Procedure Codes (Charges) Pulmonary/Thoracic Procedure 1: Pulmonary and Thoracic: 13451 Remove lung catheter
[2020-09-30] MEDS ORDERED: SODIUM CHLORIDE 0.9% 1000ML 1,000 ML IV SCH (09:45)
--- NOTE | 2020-09-30 09:48 | Nephrology Progress Note ---
Date of Service September 30, 2020 Assessment & Plan (1) AMARIS (acute kidney injury): * AMARIS due to IV contrast & hypotension in the setting of СЕРГЕЙ inhibitor, dehydration * Continue to hold Lisinopril * Urine microscopy - no pyuria, hematuria or RBC casts. Granular casts present are suggestive of ATN * Renal US 09/26: no hydronephrosis, mild increase in echogenicity, + BPH * Nolan catheter is in place. Patient is nonoliguric. 1500 cc UO last 24 hours * Cr is fluctuating 2.5 --> 2.7 * Will provide 1L NS IV today * Monitor PRP (2) Hyponatremia: * Likely SIADH due to pneumonia, sepsis, relative hypotension. Urine osmolality had been inappropriately elevated at 389 mOsm/kg * Heplock IV * Serum Na 122 --> 133 (3) Right lower lobe pneumonia: * On IV Zosyn - will stop 10/01 * Chest tube has been removed Admission and Anticipated Discharge Date Admission Date: September 23, 2020 Subjective Mr. Mace was seen & examined in his hospital room this morning. Breathing is subjectively improved. Chest tube has been removed. Review of Systems Constitutional: no fever Eyes: no problem reported Ear, Nose, Mouth, Throat: no problem reported Respiratory: + dyspnea Cardiovascular: no chest pain and no edema Gastrointestinal: no abdominal pain, no nausea and no diarrhea/loose stools Genitourinary: no dysuria, no urinary hesitancy and no hematuria Musculoskeletal: no back pain Neurologic: no confusion Physical Exam Constitutional: no acute distress Eyes: PERRL, conjunctivae normal, anicteric sclerae ENMT: external ear and nose normal, oropharynx normal Neck: trachea midline, no thyromegaly Respiratory: Auscultation: + crackles (R base) Cardiovascular: Rate/Rhythm: regular rate and regular rhythm Gastrointestinal (Abdomen): normal bowel sounds, soft, nontender, no hepatosplenomegaly Musculoskeletal: Extremities: no cyanosis Neurologic: awake; not confused Results & Data ([facility]) Vital Signs (Past 12 Hours) Vital Signs Temp Pulse Pulse Pulse Resp BP Pulse Ox 09/30/20 07:46 70 09/30/20 07:09 36.5 C 77 18 147/65 H 96 09/30/20 04:20 36.4 C L 83 18 127/61 94 06/09/21 03:15 15 93 09/29/20 23:59 92 H 09/29/20 23:00 86 20 125/64 94 09/29/20 22:43 90 12 93 Laboratory Tests 09/30/20 09/30/20 06:56 06:56 WBC 10.89 H Hgb 9.6 L Hct 28.8 L Plt Count 429 H Sodium 133 L Potassium 3.6 Chloride 103 Carbon Dioxide 20 L BUN 48 H Creatinine 2.74 H PG Care Time/CCT Total # of Minutes Spent Total Time Spent with Patient: Total time spent is greater than 50% in coordination of care (as documented) at patient's floor/unit and/or counseling patient: Coding Level of Care Code 25486 Subseq Hosp Care Lvl 3 Diagnoses AMARIS (acute kidney injury) N17.9 Hyponatremia E87.1 Right lower lobe pneumonia J18.9
--- NOTE | 2020-09-30 12:38 | Hospitalist Progress Note ---
Date of Service September 30, 2020 Assessment & Plan (1) Pleural effusion, right: Significant and Moderate right pleural effusion/right lower lobe pneumonia-compressive atelectasis consistent with exudate concern for empyema CTA Chest 09/23/20 IMPRESSION: no PE, moderate right pleural effusion with associated atelectasis/consolidation of the right lower lung Thoracentesis fluid shows pH of 6.9 likely consistent with exudative effusion or parapneumonic effusion multiple septae and loculations were noted on ultrasound and dornase was administered - empyema continue Zosyn IV, no fever, vitals stable, WBC down to 10k from 15k vancomycin discontinued with negative MRSA nasal swab Duonebs every 4 hours while awake and every 2 hours when necessary. drainage was < 150mL in 24 hours on 09/29 CT chest with small effusion, possible two small loculated areas chest tube pulled on 09/30, less pain now will need to get follow up CT chest in a few weeks blood cultures with no growth pleural fluid cultures re-incubating but no growth initially per pulmonology, likely needed 14 more days of antibiotics change to Augmentin BID tomorrow (2) Right lower lobe pneumonia: Sepsis POA e/b +4/4 SIRS criteria and SOFA score of 3 continue Zosyn through today, change to Augmentin tomorrow, plan for 14 more days no growth on pleural fluid cultures or blood cultures at 4 days continue to follow (3) AMARIS (acute kidney injury): Cr peaked at 3.0, AMARIS due to dehydration, IV contrast, Lisinopril Cr up slightly at 2.7, non oliguric Dr. Stone ordered 1000mL challenge, repeat BMP in AM continue to monitor closely holding Lisinopril, spironolactone, Lasix nephrology following daily, appreciate their input (4) Paroxysmal atrial fibrillation with rapid ventricular response: went into RVR overnight/early 09/27 and required cardioversion appreciate cardiology consult, continue Amiodarone 200mg PO BID to maintain normal sinus rhythm no need for anticoagulation as afib was so brief if goes back into afib RVR then try Amiodarone IV bolus and drip continues to be NSR on monitor will move to medical floor tomorrow (5) Sinus tachycardia: only with activity, resting HR in the 80's at this time, not in atrial fibrillation this morning (6) Hypoxia: Acute respiratory failure with hypoxia in setting of pleura effusion, pneumonia and sepsis patient requiring high flow oxygen much improved, stable on 4L NC this morning titrate to room air as tolerated (7) Pulmonary hypertension: Continue tadalafil and ambrisentan family brought both medications and they are non formulary (8) Hypertension: holding lisinopril (9) Hyperlipidemia: (10) DM II (diabetes mellitus, type II), controlled: Hold Metformin, markedly elevated beta hydroxy butyric acid, will follow serum bicarb and acid base balance Placed on Accu-Cheks before meals and at bedtime with NovoLog coverage per scale hemoglobin A1c 8.1 had hypoglycemia night of 09/29 in the 50's adjusted Lantus to 30 units from 50 units pharmacy consulted no further hypoglycemia (11) Benign prostatic hyperplasia with urinary obstruction: Continue tamsulosin, Admission and Anticipated Discharge Date Admission Date: September 23, 2020 Subjective patient doing well today, chest tube removed this morning by Dr. Rice discussed plan with Dr. Rice, will change to Augmentin BID x 14 more days small loculated fluid, might need drained in future, can monitor with repeat CT chest WBC is 10k, no fever, minimal cough, less right sided chest pain now that tube is out Cr up slightly to 2.7, Dr. Stone ordered patient 1L NSS and repeat BMP in the AM he continues to eat great, had a BM this morning, making urine via sheehan stay on tele for now, likely move to floor tomorrow Review of Systems Review of Systems: All systems reviewed & are unremarkable except as noted in Subjective Physical Exam Constitutional: well developed, cooperative and comfortable; no acute distress, not ill appearing and not frail appearing Neck: trachea midline, no thyromegaly Respiratory: normal respiratory effort and + cough; no respiratory distress and no labored breathing Auscultation: + diminished lung sounds (right base); no wheezes Cardiovascular: RRR, no murmur, no edema Rate/Rhythm: regular rate and regular rhythm Heart Sounds: normal S1 and normal S2; no murmur Vessels: normal peripheral pulses; no JVD Extremities: normal capillary refill and + edema (+1 ankles) Gastrointestinal (Abdomen): normal bowel sounds, soft, nontender, no hepatosplenomegaly Musculoskeletal: no cyanosis or clubbing, extremities motor strength 5/5 Skin: no rashes, warm and dry Neurologic: patellar DTR's 2+ bilat, sensation intact and PERRL, EOMI, accommodation nl, no face palsy, no dysarthria Psychiatric: A+Ox3, euthymic affect Lymphatic: no cervical or axillary lymphadenopathy Results & Data Results & Data ([facility]) Vital Signs (Past 12 Hours) Vital Signs Temp Pulse Pulse Pulse Resp BP Pulse Ox 09/30/20 11:20 36.5 C 85 20 140/65 94 09/30/20 07:46 70 09/30/20 07:09 36.5 C 77 18 147/65 H 96 09/30/20 04:20 36.4 C L 83 18 127/61 94 09/30/20 03:15 15 93 Laboratory Results Laboratory Results - last 24 hr 09/29/20 09/29/20 09/30/20 16:15 20:36 06:56 WBC RBC Hgb Hct MCV MCH MCHC RDW Std Deviation RDW Coeff of Lesly Plt Count MPV Neutrophils % (Manual) Lymphocytes % (Manual) Monocytes % (Manual) Eosinophils % (Manual) Basophils % (Manual) Metamyelocytes % (Man) Myelocytes % (Man) Neutrophils # (Manual) Total Absolute Neuts Lymphocytes # (Manual) Total Abs Lymphocytes Monocytes # (Manual) Eosinophils # (Manual) Basophils # (Manual) Metamyelocytes # (Man) Myelocytes # (Manual) Sodium 133 L Potassium 3.6 Chloride 103 Carbon Dioxide 20 L Anion Gap 10.0 BUN 48 H Creatinine 2.74 H Est Cr Clr Drug Dosing 31.3 Est GFR ( Amer) 28.1 Est GFR (Non-Af Amer) 24.2 BUN/Creatinine Ratio 17.3 Glucose 75 POC Glucose 75 93 Calcium 7.3 L 09/30/20 09/30/20 09/30/20 06:56 07:06 11:32 WBC 10.89 H RBC 3.51 L Hgb 9.6 L Hct 28.8 L MCV 82.1 MCH 27.4 MCHC 33.3 RDW Std Deviation 44.1 RDW Coeff of Lesly 14.7 H Plt Count 429 H MPV 10.0 Neutrophils % (Manual) 78.0 Lymphocytes % (Manual) 4.4 Monocytes % (Manual) 7.9 Eosinophils % (Manual) 0.9 Basophils % (Manual) 0.9 Metamyelocytes % (Man) 6.1 Myelocytes % (Man) 1.8 Neutrophils # (Manual) 8.49 H Total Absolute Neuts 8.49 H Lymphocytes # (Manual) 0.48 L Total Abs Lymphocytes 0.48 L Monocytes # (Manual) 0.86 H Eosinophils # (Manual) 0.10 Basophils # (Manual) 0.10 Metamyelocytes # (Man) 0.66 H Myelocytes # (Manual) 0.20 H Sodium Potassium Chloride Carbon Dioxide Anion Gap BUN Creatinine Est Cr Clr Drug Dosing Est GFR ( Amer) Est GFR (Non-Af Amer) BUN/Creatinine Ratio Glucose POC Glucose 87 179 H Calcium Medications Administered Current Inpatient Medications Acetaminophen (Acetaminophen 325 Mg Tab) 650 mg PO Q4H PRN PRN Reason: Pain or Fever Stop: 10/23/20 18:24 Albuterol (Albut/Ipratrop 3mg/0.5mg Neb 3 Ml Vial) 3 ml NEB QIDR PRN PRN Reason: Shortness Of Breath Or Wheezing Stop: 10/23/20 18:59 Ambrisentan (Ambrisentan) 1 ea PO DAILY [facility] Stop: 10/24/20 15:29 Last Admin: 09/30/20 08:31 Dose: 1 ea Documented by: Amiodarone HCl (Amiodarone 200 Mg Tab) 200 mg PO BIDM KATHRYN Stop: 10/27/20 16:59 Last Admin: 09/30/20 08:33 Dose: 200 mg Documented by: Amoxicillin/Clavulanate Potassium (Amoxicillin/Clavulanate 500 Mg Tab) 1 tab PO BIDM KATHRYN; Protocol Stop: 10/15/20 07:59 Dextrose (Dextrose 50% 50 Ml Syringe) 25 - 50 ml IV UD PRN; Protocol PRN Reason: Hypoglycemia Protocol Stop: 10/23/20 18:24 Last Admin: 09/28/20 23:51 Dose: 50 ml Documented by: Docusate Sodium (Docusate Sodium 100 Mg Cap) 100 mg PO BID KATHRYN Stop: 10/26/20 20:59 Last Admin: 09/30/20 08:22 Dose: Not Given Documented by: Glucagon (Glucagon For Inj 1 Mg Vial) 1 mg SQ UD PRN; Protocol PRN Reason: Hypoglycemia Protocol Stop: 10/23/20 18:24 Glucose (Glucose 10 Tabs/Tube) 4 - 8 tabs PO UD PRN; Protocol PRN Reason: Hypoglycemia Protocol Stop: 10/23/20 18:24 Glucose (Glucose 40% Gel 15 Gm Tube) 15 - 30 gm PO UD PRN; Protocol PRN Reason: Hypoglycemia Protocol Stop: 10/23/20 18:24 Heparin Sodium (Porcine) (Heparin Sod 5,000 Unit/0.5 Ml Vial) 5,000 units SQ Q12 KATHRYN Stop: 10/29/20 20:59 Last Admin: 09/30/20 08:30 Dose: 5,000 units Documented by: Piperacillin Sod/Tazobactam (Sod 4.5 gm/ Dextrose) 120 mls @ 30 mls/hr IV Q8H KATHRYN; Protocol Stop: 10/01/20 04:00 Last Infusion: 09/30/20 12:32 Dose: Infused Documented by: Sodium Chloride (Nss 1000ml) 1,000 mls @ 125 mls/hr IV .Q8H KATHRYN Stop: 09/30/20 17:44 Last Admin: 09/30/20 10:31 Dose: 125 mls/hr Documented by: Insulin Aspart (Insulin Aspart 100 Units/Ml 3 Ml Pen) 0 units SC ACHS [facility]; Protocol Stop: 10/27/20 03:59 Last Admin: 09/30/20 12:04 Dose: 4 units Documented by: Insulin Glargine (Insulin Glargine Solostar 100 Units/Ml 3 Ml Pen) 20 units SQ DAILY [facility] Stop: 10/30/20 08:59 Last Admin: 09/30/20 08:33 Dose: 20 units Documented by: Miscellaneous (Carbohydrates For Hypoglycemia ) 15 - 30 gm PO UD PRN PRN Reason: Hypoglycemia Protocol Stop: 10/23/20 18:24 Miscellaneous Information (Piperacill/Tazobac Consult Active) 1 ea N/A UD PRN PRN Reason: Consult Stop: 10/01/20 04:00 Miscellaneous Information (Pharmacy Glycemic Mgmt Consult) 1 ea N/A UD PRN PRN Reason: Consult Stop: 10/24/20 17:31 Ondansetron HCl (Ondansetron Inj 2 Mg/Ml 2 Ml Vial) 4 mg IV Q6H PRN PRN Reason: Nausea Stop: 10/23/20 18:24 Oxycodone HCl (Oxycodone Hcl Ir 5 Mg Tab (Immediate Release)) 5 mg PO Q4H PRN PRN Reason: Pain Stop: 10/12/20 11:20 Pantoprazole Sodium (Pantoprazole 40 Mg Tab) 40 mg PO DAILY [facility]; Protocol Stop: 10/24/20 08:59 Last Admin: 09/30/20 08:33 Dose: 40 mg Documented by: Polyethylene Glycol (Polyethylene (Miralax) 17 Gm Pack) 17 gm PO DAILY [facility] Stop: 10/26/20 15:44 Last Admin: 09/30/20 08:31 Dose: Not Given Documented by: Tamsulosin HCl (Tamsulosin Hcl 0.4 Mg Cap) 0.4 mg PO BID [facility] Stop: 10/23/20 20:59 Last Admin: 09/30/20 08:30 Dose: 0.4 mg Documented by: PG Care Time/CCT Total # of Minutes Spent Total Time Spent with Patient: Total time spent is greater than 50% in coordination of care (as documented) at patient's floor/unit and/or counseling patient: Coding Level of Care Code 83166 Subseq Hosp Care Lvl 3 Diagnoses Pleural effusion, right J90 Right lower lobe pneumonia J18.9 AMARIS (acute kidney injury) N17.9 Paroxysmal atrial fibrillation with rapid ventricular response I48.0 Sinus tachycardia R00.0 Hypoxia R09.02 Pulmonary hypertension I27.20 Hypertension I10 Hyperlipidemia E78.5 DM II (diabetes mellitus, type II), controlled E11.9 Benign prostatic hyperplasia with urinary obstruction N40.1; N13.8
[2020-09-30] MEDS ORDERED: POLYETHYLENE (MIRALAX) 17 GM PACK PO PRN (12:43)
[2020-09-30 15:08] LABS: Calcium 7.3 mg/dl (8.5-10.1); Creatinine Clr Calc Pharmacy 30.4 ml/min; Est GFR (African American) 27.1 ml/min; Est GFR (Non-African American) 23.4 ml/min; Potassium 3.8 mmol/L (3.5-5.1)
[2020-10-01] MEDS: PIPERACILLIN/TAZOBACTAM 4.5 GM in DEXTROSE 5% 100 ML IV SCH (01:39)
[2020-10-01 06:13] LABS: Appearance Urine Slightly Cloudy (Clear); Bilirubin Urine Negative (Negative); Blood Urine 3+ (Negative); Glucose Urine UA Negative (Negative); Ketones Urine Trace (Negative); Leukocyte Esterase Urine Trace (Negative); Nitrite Urine Negative (Negative); Protein Urine 1+ (Negative); Specific Gravity Urine 1.015 (1.000-1.030); Urobilinogen Urine Negative (Negative); pH Urine 5.5 (4.5-7.5)
[2020-10-01 06:30] LABS: Color Urine Red
[2020-10-01 06:37] LABS: Epithelial Cell Urine 0-5 /lpf (0-5); RBC Urine >30 /hpf (0-4); WBC Urine 0-5 /hpf (0-5)
[2020-10-01 06:38] LABS: Bacteria Urine Negative (Negative); Uric Acid Crystals Urine Present (None Prsent)
[2020-10-01 07:34] LABS: Hematocrit (blood only) 28.5 % (42-52); Hemoglobin 9.5 g/dL (14.0-18.0); Mean Corpuscular Hemoglobin 27.2 pg (25-34); Mean Corpuscular Hgb Conc 33.3 g/dL (32-36); Mean Corpuscular Volume 81.7 fL (80-100); Mean Platelet Volume 9.3 fL (7.4-10.4); Platelet Count 413 K/uL (130-400); RDW Coefficient of Variation 14.6 % (11.5-14.5); RDW Standard Deviation 43.4 fL (36.4-46.3); Red Blood Count 3.49 M/uL (4.7-6.1); White Blood Count 10.56 K/uL (4.8-10.8)
[2020-10-01 07:54] LABS: BUN Creatinine Ratio 14.1 (10-20); Calcium 7.2 mg/dl (8.5-10.1); Creatinine Clr Calc Pharmacy 33.2 ml/min; Est GFR (African American) 30.2 ml/min; Est GFR (Non-African American) 26.1 ml/min; Potassium 3.9 mmol/L (3.5-5.1)
[2020-10-01] MEDS: TAMSULOSIN HCL 0.4 MG CAP PO SCH ×2 (08:18→20:30)
[2020-10-01] MEDS: AMOXICILLIN/CLAVULANATE 500 MG TAB PO SCH ×2 (08:18→17:48)
[2020-10-01] MEDS: INSULIN ASPART 100 UNITS/ML 3 ML PEN SC SCH ×4 (08:19→20:29)
[2020-10-01] MEDS: AMIODARONE 200 MG TAB PO SCH ×2 (08:19→17:48)
[2020-10-01] MEDS: PANTOprazole 40 MG TAB PO SCH (08:19)
[2020-10-01] MEDS: AMBRISENTAN PO SCH (08:20)
[2020-10-01] MEDS: HEPARIN SOD 5,000 UNIT/0.5 ML VIAL SQ SCH ×2 (08:20→20:30)
[2020-10-01] MEDS: TADALAFIL PO SCH (08:21)
--- NOTE | 2020-10-01 08:34 | Pulmonology Progress Note ---
Date of Service October 01, 2020 Assessment & Plan (1) Pulmonary hypertension: (2) Right lower lobe pneumonia: Impression: 60-year-old male with pulmonary hypertension secondary to HHT on pulmonary vasodilator therapy admitted with parapneumonic effusion status post pigtail drainage. Output from the drain is decreased in follow-up CT scan demonstrated that there is no communicating fluid with the catheter. Will be removed today. Recommendations: 1. Parapneumonic effusion: Pigtail discontinued 09/30/2020. Fever curve better and white count better. Continue to follow clinically. Repeat chest x-ray in a few days or sooner based on clinical symptoms.. 2. Pneumonia: Continue antibiotics. Replating shows cutibacterium -unclear if this is a pathogen or contaminant. He is currently day #9 Zosyn. White count is now normal and fever curve is normal. Could consider transitioning to oral Augmentin to complete course of antibiotics when the patient is ready from dismissal from the hospital. Recommend 2 to 3 weeks antimicrobial therapy 3. Hypoxemia: Continue supplemental oxygen titrated to keep saturations at or above 92% to avoid any component of hypoxic vasoconstriction. 4. Pulmonary hypertension: Patient on his ambrisartan and tadalafil. Continue diuresis as tolerated by kidney function and nephrology. He will need to follow with his outpatient pulmonary hypertension providers. We will continue to follow with you. Feel free to contact us with questions or concerns (3) Hypoxia: Admission and Anticipated Discharge Date Admission Date: September 23, 2020 Subjective Patient reports that he is doing well this morning. He has some slight pain at the previous chest tube site. He is not coughing or expectorating phlegm. He overall feels well. No fevers chills night sweats. Review of Systems Review of Systems: All systems reviewed & are unremarkable except as noted in HPI & below Physical Exam Constitutional: well developed, cooperative and comfortable; no acute distress, not ill appearing and not frail appearing Neck: trachea midline, no thyromegaly Respiratory: normal respiratory effort and + cough; no respiratory distress and no labored breathing Auscultation: + diminished lung sounds (right base); no wheezes Cardiovascular: RRR, no murmur, no edema Gastrointestinal (Abdomen): normal bowel sounds, soft, nontender, no hepatosplenomegaly Musculoskeletal: no cyanosis or clubbing, extremities motor strength 5/5 Skin: no rashes, warm and dry Neurologic: patellar DTR's 2+ bilat, sensation intact and PERRL, EOMI, acc ommodation nl, no face palsy, no dysarthria Psychiatric: A+Ox3, euthymic affect Lymphatic: no cervical or axillary lymphadenopathy Results & Data Results & Data ([facility]) Vital Signs (Past 12 Hours) Vital Signs Temp Pulse Pulse Pulse Resp BP Pulse Ox 10/01/20 08:00 36.5 C 73 19 132/71 94 10/01/20 03:46 78 16 94 10/01/20 03:35 36.4 C L 80 18 128/71 95 09/30/20 23:59 73 09/30/20 23:40 36.5 C 81 20 130/66 94 09/30/20 22:13 75 16 94 Laboratory Results 10/01/20 07:15 10/01/20 07:15 Diagnostic Findings No new imaging PG Care Time/CCT Total # of Minutes Spent Total Time Spent with Patient: Total time spent is greater than 50% in coordination of care (as documented) at patient's floor/unit and/or counseling patient: Coding Level of Care Code 70035 Subseq Hosp Care Lvl 2 Diagnoses Pulmonary hypertension I27.20 Right lower lobe pneumonia J18.9 Hypoxia R09.02
[2020-10-01] MEDS ORDERED: INSULIN GLARGINE SOLOSTAR 100 UNITS/ML 3 ML PEN SQ SCH (09:00)
--- NOTE | 2020-10-01 10:05 | Nephrology Progress Note ---
Date of Service October 01, 2020 Assessment & Plan (1) AMARIS (acute kidney injury): * Cr improved to 2.5 this morning * AMARIS due to IV contrast & hypotension in the setting of СЕРГЕЙ inhibitor, dehydration * Continue to hold Lisinopril * Urine microscopy - no pyuria, hematuria or RBC casts. Granular casts present are suggestive of ATN * Renal US 09/26: no hydronephrosis, mild increase in echogenicity, + BPH * Nonoliguric. 2200 cc UO overnight. Agree w/ removal of Nolan and voiding trial * Monitor PRP (2) Hyponatremia: * SIADH - resolved (3) Right lower lobe pneumonia: * Completed Zosyn therapy * Chest tube has been removed Admission and Anticipated Discharge Date Admission Date: September 23, 2020 Subjective Mr. Mace was seen & examined in his hospital room this morning. He is anxious to have a voiding trial and begin physical therapy for strengthening Review of Systems Constitutional: no fever Eyes: no problem reported Ear, Nose, Mouth, Throat: no problem reported Respiratory: no dyspnea Cardiovascular: no chest pain and no edema Gastrointestinal: no abdominal pain, no nausea and no diarrhea/loose stools Genitourinary: no dysuria, no urinary hesitancy and no hematuria Musculoskeletal: no back pain Neurologic: no confusion Physical Exam Constitutional: no acute distress Eyes: PERRL, conjunctivae normal, anicteric sclerae ENMT: external ear and nose normal, oropharynx normal Neck: trachea midline, no thyromegaly Respiratory: Auscultation: + crackles (R base) Cardiovascular: Rate/Rhythm: regular rate and regular rhythm Gastrointestinal (Abdomen): normal bowel sounds, soft, nontender, no hepatosplenomegaly Musculoskeletal: Extremities: no cyanosis Neurologic: awake; not confused Results & Data ([facility]) Vital Signs (Past 12 Hours) Vital Signs Temp Pulse Pulse Pulse Resp BP Pulse Ox 10/01/20 08:00 36.5 C 62 73 19 132/71 94 10/01/20 03:46 78 16 94 10/01/20 03:35 36.4 C L 80 18 128/71 95 09/30/20 23:59 73 09/30/20 23:40 36.5 C 81 20 130/66 94 09/30/20 22:13 75 16 94 Laboratory Tests 09/28/20 10/01/20 10/01/20 04:58 07:15 07:15 WBC 10.56 Hgb 9.5 L Hct 28.5 L Plt Count 413 H Sodium 135 L Potassium 3.9 Chloride 105 Carbon Dioxide 23 BUN 37 H Creatinine 2.58 H Calcium 7.2 L Albumin 1.3 L PG Care Time/CCT Total # of Minutes Spent Total Time Spent with Patient: Total time spent is greater than 50% in coordination of care (as documented) at patient's floor/unit and/or counseling patient: Coding Level of Care Code 34458 Subseq Hosp Care Lvl 3 Diagnoses AMARIS (acute kidney injury) N17.9 Hyponatremia E87.1 Right lower lobe pneumonia J18.9
--- NOTE | 2020-10-01 12:57 | Hospitalist Progress Note ---
Date of Service October 01, 2020 Assessment & Plan (1) Pleural effusion, right: Significant and Moderate right pleural effusion/right lower lobe pneumonia-compressive atelectasis consistent with exudate concern for empyema CTA Chest 09/23/20 IMPRESSION: no PE, moderate right pleural effusion with associated atelectasis/consolidation of the right lower lung Thoracentesis fluid shows pH of 6.9 likely consistent with exudative effusion or parapneumonic effusion multiple septae and loculations were noted on ultrasound and dornase was administered - empyema continue Zosyn IV, no fever, vitals stable, WBC down to 10k from 15k vancomycin discontinued with negative MRSA nasal swab Duonebs every 4 hours while awake and every 2 hours when necessary. drainage was < 150mL in 24 hours on 09/29 CT chest with small effusion, possible two small loculated areas chest tube pulled on 09/30, less pain now will need to get follow up CT chest in a few weeks blood cultures with no growth pleural fluid cultures -- Cutibacterium (Propioni) acnes, no sensitivity to follow per pulmonology, likely needed 14-21 days total of antibiotics, today is day 8 continue Augmentin BID (2) Right lower lobe pneumonia: Sepsis POA e/b +4/4 SIRS criteria and SOFA score of 3 completed 7 days of Zosyn, now on Augmentin, day 8 pleural cultures - Cutibacterium (Propioni) acnes (3) AMARIS (acute kidney injury): Cr peaked at 3.0, AMARIS due to dehydration, IV contrast, Lisinopril Cr down to 2.5 after fluid challeng, non oliguric holding Lisinopril, spironolactone, Lasix nephrology following daily, appreciate their input (4) Paroxysmal atrial fibrillation with rapid ventricular response: went into RVR overnight/early 09/27 and required cardioversion appreciate cardiology consult, continue Amiodarone 200mg PO BID to maintain normal sinus rhythm no need for anticoagulation as afib was so brief if goes back into afib RVR then try Amiodarone IV bolus and drip continues to be NSR on monitor move to medical/surgical floor today (5) Sinus tachycardia: only with activity, resting HR in the 80's at this time, not in atrial fibrillation this morning (6) Hypoxia: Acute respiratory failure with hypoxia in setting of pleura effusion, pneumonia and sepsis patient requiring high flow oxygen much improved, stable on 2L NC this morning titrate to room air as tolerated (7) Pulmonary hypertension: Continue tadalafil and ambrisentan family brought both medications and they are non formulary (8) Hypertension: holding lisinopril (9) Hyperlipidemia: (10) DM II (diabetes mellitus, type II), controlled: Hold Metformin, markedly elevated beta hydroxy butyric acid, will follow serum bicarb and acid base balance Placed on Accu-Cheks before meals and at bedtime with NovoLog coverage per scale hemoglobin A1c 8.1 had hypoglycemia night of 09/29 in the 's adjusted Lantus to 30 units from 50 units pharmacy consulted no further hypoglycemia (11) Benign prostatic hyperplasia with urinary obstruction: Continue tamsulosin, Admission and Anticipated Discharge Date Admission Date: September 23, 2020 Subjective patient doing well today, less pain, breathing better, no fever labs reviewed, Cr responded well to fluids, down to 2.5 today, making adequate urine no issues on tele, will move to medical floor get formal PT/OT, needs to get moving eating very well, moving his bowels Hb WBC is 10, Hb stable, plts 400's Review of Systems Review of Systems: All systems reviewed & are unremarkable except as noted in Subjective Constitutional: no fever Respiratory: + dyspnea, + dyspnea on exertion and + pain on inspiration; no cough Cardiovascular: no chest pain and no edema Gastrointestinal: no abdominal pain, no nausea, no vomiting, no constipation and no diarrhea/loose stools Physical Exam Constitutional: well developed, cooperative and comfortable; no acute distress, not ill appearing and not frail appearing Neck: trachea midline, no thyromegaly Respiratory: normal respiratory effort and + cough; no respiratory distress and no labored breathing Auscultation: + diminished lung sounds (right base); no wheezes Cardiovascular: RRR, no murmur, no edema Rate/Rhythm: regular rate and regular rhythm Heart Sounds: normal S1 and normal S2; no murmur Vessels: normal peripheral pulses; no JVD Extremities: normal capillary refill and + edema (+1 ankles) Gastrointestinal (Abdomen): normal bowel sounds, soft, nontender, no hepatosplenomegaly Musculoskeletal: no cyanosis or clubbing, extremities motor strength 5/5 Skin: no rashes, warm and dry Neurologic: patellar DTR's 2+ bilat, sensation intact and PERRL, EOMI, accommodation nl, no face palsy, no dysarthria Psychiatric: A+Ox3, euthymic affect Lymphatic: no cervical or axillary lymphadenopathy Results & Data Results & Data ([facility]) Vital Signs (Past 12 Hours) Vital Signs Temp Pulse Pulse Pulse Resp BP Pulse Ox 10/01/20 12:07 36.5 C 80 21 115/55 L 96 10/01/20 08:00 36.5 C 62 73 19 132/71 94 10/01/20 03:46 78 16 94 10/01/20 03:35 36.4 C L 80 18 128/71 95 Laboratory Results Laboratory Results - last 24 hr 09/30/20 09/30/20 09/30/20 14:33 16:00 20:41 WBC RBC Hgb Hct MCV MCH MCHC RDW Std Deviation RDW Coeff of Lesly Plt Count MPV Sodium 132 L Potassium 3.8 Chloride 103 Carbon Dioxide 19 L Anion Gap 9.0 BUN 45 H Creatinine 2.82 H Est Cr Clr Drug Dosing 30.4 Est GFR ( Amer) 27.1 Est GFR (Non-Af Amer) 23.4 BUN/Creatinine Ratio 16.0 Glucose 195 H POC Glucose 208 H 242 H Calcium 7.3 L Urine Color Urine Appearance Urine pH Ur Specific Marion Urine Protein Urine Glucose (UA) Urine Ketones Urine Blood Urine Nitrite Urine Bilirubin Urine Urobilinogen Ur Leukocyte Esterase Urine RBC Urine WBC Ur Epithelial Cells Uric Acid Crystals Urine Bacteria 10/01/20 10/01/20 10/01/20 05:45 07:03 07:15 WBC 10.56 RBC 3.49 L Hgb 9.5 L Hct 28.5 L MCV 81.7 MCH 27.2 MCHC 33.3 RDW Std Deviation 43.4 RDW Coeff of Lesly 14.6 H Plt Count 413 H MPV 9.3 Sodium Potassium Chloride Carbon Dioxide Anion Gap BUN Creatinine Est Cr Clr Drug Dosing Est GFR ( Amer) Est GFR (Non-Af Amer) BUN/Creatinine Ratio Glucose POC Glucose 175 H Calcium Urine Color Red Urine Appearance Slightly Cloudy Urine pH 5.5 Ur Specific Marion 1.015 Urine Protein 1+ H Urine Glucose (UA) Negative Urine Ketones Trace H Urine Blood 3+ H Urine Nitrite Negative Urine Bilirubin Negative Urine Urobilinogen Negative Ur Leukocyte Esterase Trace H Urine RBC >30 H Urine WBC 0-5 Ur Epithelial Cells 0-5 Uric Acid Crystals Present A Urine Bacteria Negative 10/01/20 10/01/20 07:15 11:06 WBC RBC Hgb Hct MCV MCH MCHC RDW Std Deviation RDW Coeff of Lesly Plt Count MPV Sodium 135 L Potassium 3.9 Chloride 105 Carbon Dioxide 23 Anion Gap 7.0 BUN 37 H Creatinine 2.58 H Est Cr Clr Drug Dosing 33.2 Est GFR ( Amer) 30.2 Est GFR (Non-Af Amer) 26.1 BUN/Creatinine Ratio 14.1 Glucose 171 H POC Glucose 224 H Calcium 7.2 L Urine Color Urine Appearance Urine pH Ur Specific Marion Urine Protein Urine Glucose (UA) Urine Ketones Urine Blood Urine Nitrite Urine Bilirubin Urine Urobilinogen Ur Leukocyte Esterase Urine RBC Urine WBC Ur Epithelial Cells Uric Acid Crystals Urine Bacteria Medications Administered Current Inpatient Medications Acetaminophen (Acetaminophen 325 Mg Tab) 650 mg PO Q4H PRN PRN Reason: Pain or Fever Stop: 10/23/20 18:24 Albuterol (Albut/Ipratrop 3mg/0.5mg Neb 3 Ml Vial) 3 ml NEB QIDR PRN PRN Reason: Shortness Of Breath Or Wheezing Stop: 10/23/20 18:59 Ambrisentan (Ambrisentan) 1 ea PO DAILY [facility] Stop: 10/24/20 15:29 Last Admin: 10/01/20 08:20 Dose: 1 ea Documented by: Amiodarone HCl (Amiodarone 200 Mg Tab) 200 mg PO BIDM [facility] Stop: 10/27/20 16:59 Last Admin: 10/01/20 08:19 Dose: 200 mg Documented by: Amoxicillin/Clavulanate Potassium (Amoxicillin/Clavulanate 500 Mg Tab) 1 tab PO BIDM KATHRYN; Protocol Stop: 10/15/20 07:59 Last Admin: 10/01/20 08:18 Dose: 1 tab Documented by: Dextrose (Dextrose 50% 50 Ml Syringe) 25 - 50 ml IV UD PRN; Protocol PRN Reason: Hypoglycemia Protocol Stop: 10/23/20 18:24 Last Admin: 09/28/20 23:51 Dose: 50 ml Documented by: Glucagon (Glucagon For Inj 1 Mg Vial) 1 mg SQ UD PRN; Protocol PRN Reason: Hypoglycemia Protocol Stop: 10/23/20 18:24 Glucose (Glucose 10 Tabs/Tube) 4 - 8 tabs PO UD PRN; Protocol PRN Reason: Hypoglycemia Protocol Stop: 10/23/20 18:24 Glucose (Glucose 40% Gel 15 Gm Tube) 15 - 30 gm PO UD PRN; Protocol PRN Reason: Hypoglycemia Protocol Stop: 10/23/20 18:24 Heparin Sodium (Porcine) (Heparin Sod 5,000 Unit/0.5 Ml Vial) 5,000 units SQ Q12 KATHRYN Stop: 10/29/20 20:59 Last Admin: 10/01/20 08:20 Dose: 5,000 units Documented by: Insulin Aspart (Insulin Aspart 100 Units/Ml 3 Ml Pen) 0 units SC ACHS KATHRYN; Protocol Stop: 10/27/20 03:59 Last Admin: 10/01/20 12:14 Dose: 9 units Documented by: Insulin Glargine (Insulin Glargine Solostar 100 Units/Ml 3 Ml Pen) 25 units SQ DAILY KATHRYN Stop: 10/31/20 08:59 Last Admin: 10/01/20 08:20 Dose: 25 units Documented by: Miscellaneous (Carbohydrates For Hypoglycemia ) 15 - 30 gm PO UD PRN PRN Reason: Hypoglycemia Protocol Stop: 10/23/20 18:24 Miscellaneous Information (Pharmacy Glycemic Mgmt Consult) 1 ea N/A UD PRN PRN Reason: Consult Stop: 10/24/20 17:31 Ondansetron HCl (Ondansetron Inj 2 Mg/Ml 2 Ml Vial) 4 mg IV Q6H PRN PRN Reason: Nausea Stop: 10/23/20 18:24 Oxycodone HCl (Oxycodone Hcl Ir 5 Mg Tab (Immediate Release)) 5 mg PO Q4H PRN PRN Reason: Pain Stop: 10/12/20 11:20 Pantoprazole Sodium (Pantoprazole 40 Mg Tab) 40 mg PO DAILY KATHRYN; Protocol Stop: 10/24/20 08:59 Last Admin: 10/01/20 08:19 Dose: 40 mg Documented by: Polyethylene Glycol (Polyethylene (Miralax) 17 Gm Pack) 17 gm PO DAILY PRN PRN Reason: Constipation Stop: 10/30/20 12:42 Tamsulosin HCl (Tamsulosin Hcl 0.4 Mg Cap) 0.4 mg PO BID KATHRYN Stop: 10/23/20 20:59 Last Admin: 06/10/21 08:18 Dose: 0.4 mg Documented by: PG Care Time/CCT Total # of Minutes Spent Total Time Spent with Patient: Total time spent is greater than 50% in coordination of care (as documented) at patient's floor/unit and/or counseling patient: Coding Level of Care Code 53027 Subseq Hosp Care Lvl 3 Diagnoses Pleural effusion, right J90 Right lower lobe pneumonia J18.9 AMARIS (acute kidney injury) N17.9 Paroxysmal atrial fibrillation with rapid ventricular response I48.0 Sinus tachycardia R00.0 Hypoxia R09.02 Pulmonary hypertension I27.20 Hypertension I10 Hyperlipidemia E78.5 DM II (diabetes mellitus, type II), controlled E11.9 Benign prostatic hyperplasia with urinary obstruction N40.1; N13.8
[2020-10-02 05:50] LABS: Hematocrit (blood only) 29.1 % (42-52); Hemoglobin 9.6 g/dL (14.0-18.0); Mean Corpuscular Hemoglobin 27.2 pg (25-34); Mean Corpuscular Volume 82.4 fL (80-100); Mean Platelet Volume 9.5 fL (7.4-10.4); Nucleated RBC # (auto) 0.03 K/uL (0-0); Nucleated RBC % (auto) 0.2 %; Platelet Count 435 K/uL (130-400); RDW Coefficient of Variation 14.9 % (11.5-14.5); RDW Standard Deviation 44.7 fL (36.4-46.3); Red Blood Count 3.53 M/uL (4.7-6.1)
[2020-10-02 06:24] LABS: BUN Creatinine Ratio 13.3 (10-20); Calcium 7.3 mg/dl (8.5-10.1); Creatinine Clr Calc Pharmacy 40.9 ml/min; Est GFR (African American) 39.4 ml/min; Potassium 4.3 mmol/L (3.5-5.1)
[2020-10-02] MEDS: AMOXICILLIN/CLAVULANATE 500 MG TAB PO SCH (07:26)
[2020-10-02] MEDS: TAMSULOSIN HCL 0.4 MG CAP PO SCH (07:26)
[2020-10-02] MEDS: AMIODARONE 200 MG TAB PO SCH (07:26)
[2020-10-02] MEDS: PANTOprazole 40 MG TAB PO SCH (07:26)
[2020-10-02] MEDS: TADALAFIL PO SCH (07:27)
[2020-10-02] MEDS: HEPARIN SOD 5,000 UNIT/0.5 ML VIAL SQ SCH (07:28)
[2020-10-02] MEDS: AMBRISENTAN PO SCH (07:28)
[2020-10-02] MEDS: INSULIN ASPART 100 UNITS/ML 3 ML PEN SC SCH ×2 (08:59→12:27)
[2020-10-02] MEDS ORDERED: INSULIN GLARGINE SOLOSTAR 100 UNITS/ML 3 ML PEN SQ SCH (09:00)
--- NOTE | 2020-10-02 09:24 | Pulmonology Progress Note ---
Date of Service October 02, 2020 Assessment & Plan (1) Pulmonary hypertension: (2) Right lower lobe pneumonia: Impression: 60-year-old male with pulmonary hypertension secondary to HHT on pulmonary vasodilator therapy admitted with parapneumonic effusion status post pigtail drainage. Output from the drain is decreased in follow-up CT scan demonstrated that there is no communicating fluid with the catheter. Will be removed today. Recommendations: 1. Parapneumonic effusion: Pigtail discontinued 09/30/2020. Fever curve better and white count better. Continue to follow clinically. Repeat chest x-ray in 1 week, sooner if symptoms. 2. Pneumonia: Continue antibiotics. Replating shows cutibacterium -unclear if this is a pathogen or contaminant. He is currently day #10 combination Zo syn/Augmentin. White count is now normal and fever curve is normal. Recommend 2 to 3 weeks antimicrobial therapy 3. Hypoxemia: Continue supplemental oxygen titrated to keep saturations at or above 92% to avoid any component of hypoxic vasoconstriction. 4. Pulmonary hypertension: Patient on his ambrisartan and tadalafil. Continue diuresis as tolerated by kidney function and nephrology. He will need to follow with his outpatient pulmonary hypertension providers in [place]. Patient may be appropriate to discharge home at this point time on antibiotics. He should be assessed for potential supplemental oxygen to use during the day. He already has oxygen to use at night. He can follow-up with his outpatient policy advisor with a chest x-ray in a week or so. Pulmonary will sign off at this point time. Feel free to contact us if we can be of additional assistance (3) Hypoxia: Admission and Anticipated Discharge Date Admission Date: September 23, 2020 Subjective Patient seen and examined. EMR reviewed. He is doing well clinically. He is down to 2 L of oxygen. He was ambulatory yesterday without any significant shortness of breath. No syncope or presyncope. Minimal pain at the chest tube insertion site. No cough or sputum production. No fevers chills or night sweats overnight. Review of Systems Review of Systems: All systems reviewed & are unremarkable except as noted in HPI & below Physical Exam Constitutional: WD/WN, vitals as above Neck: trachea midline, no thyromegaly Respiratory: normal respiratory effort, lungs clear to auscultation Cardiovascular: RRR, no murmur, no edema Gastrointestinal (Abdomen): normal bowel sounds, soft, nontender, no hepatosplenomegaly Musculoskeletal: Extremities: extremities normal to inspection Skin: no rashes, warm and dry Neurologic: Nonfocal exam Lymphatic: no cervical lymphadenopathy Results & Data Results & Data ([facility]) Vital Signs (Past 12 Hours) Vital Signs Temp Pulse Pulse Pulse Resp BP Pulse Ox 10/02/20 08:09 36.7 C 85 18 146/70 H 98 10/02/20 07:04 36.7 C 98 H 16 137/82 95 10/01/20 22:59 96 H 18 94 10/01/20 22:34 36.5 C 78 18 138/73 96 Laboratory Results 10/02/20 05:26 10/02/20 05:26 Diagnostic Findings No new imaging PG Care Time/CCT Total # of Minutes Spent Total Time Spent with Patient: Total time spent is greater than 50% in coord ination of care (as documented) at patient's floor/unit and/or counseling patient: Coding Level of Care Code 53288 Subseq Hosp Care Lvl 2 Diagnoses Pulmonary hypertension I27.20 Right lower lobe pneumonia J18.9 Hypoxia R09.02
--- NOTE | 2020-10-02 10:33 | Nephrology Progress Note ---
Date of Service October 02, 2020 Assessment & Plan (1) AMARIS (acute kidney injury): * AMARIS due to IV contrast & hypotension in the setting of СЕРГЕЙ inhibitor, dehydration * Cr improved to 2.0 this morning * Continue to hold Lisinopril * Urine microscopy - no pyuria, hematuria or RBC casts. Granular casts present are suggestive of ATN * Renal US 09/26: no hydronephrosis, mild increase in echogenicity, + BPH * Kidney function is clearly improving. Volume status and electrolyte balance are acceptable. No further Nephrology evaluation indicated at this time. Will sign off. Please call if further assistance is needed (2) Hyponatremia: * SIADH - resolved (3) Right lower lobe pneumonia: * Completed Zosyn therapy * Chest tube has been removed Admission and Anticipated Discharge Date Admission Date: September 23, 2020 Subjective Mr. Mace was seen & examined in his hospital room this morning. He is breathing comfortably on O2 at 2L/min NC. He is voiding easily on his own. He voices no new medical concerns Review of Systems Constitutional: no fever Eyes: no problem reported Ear, Nose, Mouth, Throat: no problem reported Respiratory: no dyspnea Cardiovascular: no chest pain and no edema Gastrointestinal: no abdominal pain, no nausea and no diarrhea/loose stools Genitourinary: no dysuria, no urinary hesitancy and no hematuria Musculoskeletal: no back pain Neurologic: no confusion Physical Exam Constitutional: no acute distress Eyes: PERRL, conjunctivae normal, anicteric sclerae ENMT: external ear and nose normal, oropharynx normal Neck: trachea midline, no thyromegaly Respiratory: Auscultation: + crackles (R base) Cardiovascular: Rate/Rhythm: regular rate and regular rhythm Gastrointestinal (Abdomen): normal bowel sounds, soft, nontender, no hepatosplenomegaly Musculoskeletal: Extremities: no cyanosis Neurologic: awake; not confused Results & Data ([facility]) Vital Signs (Past 12 Hours) Vital Signs Temp Pulse Pulse Pulse Resp BP Pulse Ox 10/02/20 08:09 36.7 C 85 18 146/70 H 98 10/02/20 07:04 36.7 C 98 H 16 137/82 95 10/01/20 22:59 96 H 18 94 10/01/20 22:34 36.5 C 78 18 138/73 96 Laboratory Tests 09/27/20 09/28/2010/01/21 16:01 14:19 07:15 WBC Hgb Hct Plt Count Sodium Potassium Chloride Carbon Dioxide BUN Creatinine 3.00 H 2.62 H 2.58 H Glucose 10/02/20 10/02/20 05:26 05:26 WBC 11.90 H Hgb 9.6 L Hct 29.1 L Plt Count 435 H Sodium 138 Potassium 4.3 Chloride 109 H Carbon Dioxide 23 BUN 28 H Creatinine 2.07 H D Glucose 168 H PG Care Time/CCT Total # of Minutes Spent Total Time Spent with Patient: Total time spent is greater than 50% in coordination of care (as documented) at patient's floor/unit and/or counseling patient: Coding Level of Care Code 55473 Subseq Hosp Care Lvl 3 Diagnoses AMARIS (acute kidney injury) N17.9 Hyponatremia E87.1 Right lower lobe pneumonia J18.9
--- NOTE | 2020-10-02 10:57 | Pharmacy Report ---
Pharmacy Glycemic Short Note 2 - Date of Service October 02, 2020 - Glycemic Short BSG Results (Last 24 hours): 10/01/20 10/01/20 10/01/20 11:06 17:08 20:22 Glucose POC Glucose 224 H 116 H 156 H 10/02/20 10/02/20 05:26 08:16 Glucose 168 H POC Glucose 193 H OUTPATIENT ANTIDIABETIC REGIMEN: * Metformin 1 gm PO BIDM * Lantus 30 units daily * A1c 10.5% 09/24/20 ASSESSMENT: 10/02: * BSGs yesterday of 175, 224, 116, and 156 mg/dL * Received 44 units of insulin (25 units of basal and 19 units of prandial/correctional bolus) * Fasting BSG of 193 mg/dL this morning - will increase again today * Novolog tightened yesterday at lunchtime -will continue * Renal function continues to improve, SCr: 2.07 mg/dL today (eGFR: 34) 09/30: * Patient received total of 35 units of insulin yesterday, of which 30 units were basal insulin * Fasting BSG 87 mg/dL within range, however fasting BSG trending down slightly from day prior. Appears PO intake poorer yesterday. BSGs yesterday trending down throughout the day. Due to concern for possible lower BSGs with poor PO intake and worsening renal function, plan to scale back on basal insulin this AM. Will decrease to 20 units of basal insulin this AM. * Plan to continue same CF/CR 09/25 * Mr. Mace has PMH including HHT, pulmonary arterial hypertension, BPH and DM type 2 is admitted for respiratory failure from complicated right-sided parapneumonic effusion. Currently on MIST2 protocol and zosyn. * BSGs were elevated on admission and continued to be elevated therefore an insulin infusion was started yesterday evening, infusion continued into this morning at an average of 2.5 units/hr. * Patient received 40 units of lantus this morning and was transitioned off of insulin infusion shortly after lunch. Will begin weight based stress of 3 novolog parameters. Additional 10 units of lantus for this evening. PLAN FOR INPATIENT GLYCEMIC CONTROL: * Hold outpatient oral diabetes medications * Basal insulin -increase * Lantus 30 units SQ daily * Bolus insulin - continue * NovoLog per scale ACHS or Q6hrs while NPO * Goal Range: Low 110 mg/dL - High 140 mg/dL * Correction Factor: 20 mg/dL/unit * Nutritional / Prandial insulin per carb ratio of 1 unit per 7 grams CHO consumed DISCHARGE PLANNING: * A1c: 10.5% - a reasonable goal would be A1c <7% * A1c is greater than or equal to 10% - consider triple therapy with metformin + basal insulin + (GLP1-RA OR prandial insulin) * AMARIS has resolved significantly, current eGFR is above 30 - likely okay to resume outpatient metformin * Suggest increasing Lantus to 35 units SC daily * Patient also agreeable to bolus insulin TID with meals - at this point, suggest Novolog 6 units TIDM * Further insulin dose adjustments will likely be required - ensure timely outpatient follow-up with managing provider * Per DM educator notes, patient has trialed Victoza and Trulicity in the past and reports allergic reaction to Victoza and was unable to tolerate Trulicity due to side effects. * Patient SMBG only 1x/day currently, would encourage more frequent checks ([facility]), especially now that TID insulin will be initiated * Would recommend continued support of patient self management with adjust jayde yousif (diet, exercise), and prevention of complications (BP, immunizations)
--- NOTE | 2020-10-02 13:55 | Discharge Summary ---
Date of Service October 02, 2020 Admission HPI Per Admitting Provider The patient is a 60-year-old male with a past medical history including pulmonary hypertension, hypertension, hyperlipidemia, diabetes mellitus type 2, BPH with urinary obstruction, Velazquez's esophagus and anemia. He presents with the above symptoms. Work-up in the emergency department included chest x-ray and CT angiography of chest, which was negative for PE, but did show a moderate sized right pleural effusion with right lower lobe infiltrate, and pulmonary artery hypertension. ED began patient on vancomycin IV and cefepime IV and the patient was placed on BiPAP due to significant hypoxemia, with ABG 7.46/PCO2 29/PO2 63 Principal Diagnosis right sided parapneumonic effusion Discharge Exam Constitutional well developed, cooperative and comfortable; no acute distress, not ill appearing and not frail appearing Neck trachea midline, no thyromegaly Respiratory normal respiratory effort and + cough; no respiratory distress and no labored breathing Auscultation: + diminished lung sounds (right base); no wheezes Cardiovascular RRR, no murmur, no edema Rate/Rhythm: regular rate and regular rhythm Heart Sounds: normal S1 and normal S2; no murmur Vessels: normal peripheral pulses; no JVD Extremities: normal capillary refill and + edema (+1 ankles) Gastrointestinal (Abdomen) normal bowel sounds, soft, nontender, no hepatosplenomegaly Musculoskeletal no cyanosis or clubbing, extremities motor strength 5/5 Skin no rashes, warm and dry Neurologic patellar DTR's 2+ bilat, sensation intact and PERRL, EOMI, accommodation nl, no face palsy, no dysarthria Psychiatric A+Ox3, euthymic affect Lymphatic no cervical or axillary lymphadenopathy Discharge Data Allergies Allergy/AdvReac Type Severity Reaction Status Date / Time liraglutide [From Victoza] Allergy Severe Dizziness Verified 09/24/20 22:27 Consultations 09/23/20 15:17 ED Decision to Admit Stat 09/23/20 18:25 Consult Pulmonology Routine 09/26/20 07:57 Consult Nephrology Routine 09/27/20 07:28 Consult Cardiology Routine Ordered Studies 09/23/20 12:20 CT angio chest PE protocol Stat 09/24/20 08:12 US point of care ultrasound Urgent 09/26/20 12:28 US renal/blad retro comp Routine 09/27/20 07:27 CT chest diagnostic wo con Stat 09/29/20 12:38 CT chest diagnostic wo con Urgent Diabetes Follow up Diabetes Follow-up Needed for HgbA1c >9% Hospital Course (1) Pleural effusion, right: Significant and Moderate right pleural effusion/right lower lobe pneumonia-compressive atelectasis consistent with exudate concern for empyema CTA Chest 09/23/20 IMPRESSION: no PE, moderate right pleural effusion with associated atelectasis/consolidation of the right lower lung Thoracentesis fluid showed pH of 6.9 likely consistent with exudative effusion or parapneumonic effusion multiple septae and loculations were noted on ultrasound and dornase was administered - empyema continue Zosyn IV, no fever, vitals stable, WBC down to 11k from 15k vancomycin discontinued with negative MRSA nasal swab Duonebs every 4 hours while awake and every 2 hours when necessary. drainage was < 150mL in 24 hours on 09/29 CT chest with small effusion, possible two small loculated areas chest tube pulled on 09/30, less pain now will need to get follow up CT chest in a few weeks blood cultures with no growth pleural fluid cultures -- Cutibacterium (Propioni) acnes, no sensitivity to follow per pulmonology, likely needed 14-21 days total of antibiotics, today is day 9 continue Augmentin BID for 12 more days follow up in one week with Dr. Rice with chest x-ray (2) Right lower lobe pneumonia: Sepsis POA e/b +4/4 SIRS criteria and SOFA score of 3 completed 7 days of Zosyn, now on Augmentin, day 9 total of antibiotics pleural cultures - Cutibacterium (Propioni) acnes (3) AMARIS (acute kidney injury): Cr peaked at 3.0, AMARIS due to dehydration, IV contrast, Lisinopril Cr down to 2.0 after fluid challenge on 09/30, non oliguric continue to hold Lisinopril as well as PRN Lasix and Spironolactone check a BMP on Thursday 10/05 follow up with PCP (4) Paroxysmal atrial fibrillation with rapid ventricular response: went into RVR overnight/early 09/27 and required cardioversion appreciate cardiology consult, continue Amiodarone 200mg PO BID to maintain normal sinus rhythm no need for anticoagulation as afib was so brief if goes back into afib RVR then try Amiodarone IV bolus and drip continues to be NSR on monitor follow up with Dr. Ray in 3-4 weeks, can likely stop Amiodarone at that time (5) Sinus tachycardia: only with activity, resting HR in the 80's at this time, not in atrial fibrillation this morning (6) Hypoxia: Acute respiratory failure with hypoxia in setting of pleura effusion, pneumonia and sepsis patient requiring high flow oxygen much improved, stable on 2L NC this morning titrate to room air as tolerated he has oxygen to use at home with his pulmonary HTN diagnosis he is stable on room air today had him walk down the [place] without oxygen, when he got back he was 86%, no distress again, he has a portable tank he can use at home (7) Pulmonary hypertension: Continue tadalafil and ambrisentan family brought both medications and they are non formulary (8) Hypertension: holding lisinopril don't resume until repeat BMP on Thursday 10/05 (9) Hyperlipidemia: (10) DM II (diabetes mellitus, type II), controlled: Hold Metformin, markedly elevated beta hydroxy butyric acid, will follow serum bicarb and acid base balance Placed on Accu-Cheks before meals and at bedtime with NovoLog coverage per scale hemoglobin A1c 8.1 had hypoglycemia night of 09/29 in the 50's adjusted Lantus to 30 units from 50 units pharmacy consulted no further hypoglycemia on discharge, will continue Lantus 30 daily, Metformin 1000mg bid add Novolog 6 units TID meals, no slightly scale (11) Benign prostatic hyperplasia with urinary obstruction: Continue tamsulosin, Total Time Total Time Spent Total Time Spent (In Minutes): 35 minutes Total Time Includes: Examination of the Patient, Discharge Planning, Medication Reconciliation and Communication With Other Providers (Dr. Rice) Discharge Plan Discharge Items Patient Disposition: Home - Self-Care Reason For Visit: RIGHT PLEURAL EFFUSION. RLL PNEUMONIA Discharge Diagnosis: Right parapneumonic effusion Acute kidney injury Paroxysmal atrial fibrillation Condition on Discharge: Good Goals: complete course of Augmentin follow up labs next week stay well nourished and well rested Activity: Resume your previous activity Driving/Machine Use: Resume 3 days after discharge Weightbearing: Full weightbearing Non-emergency contact: Primary Care Provider, [employer] Call non-emergency contact if: you have any medication questions, your symptoms worsen and you have a fever Follow-up/Referrals: Mirta Alaniz CRNP [Primary Care Provider] - 10/09/20 10:30 am (one week) Gera Ray MD [Physician] - 10/22/20 9:00 am (3-4 weeks, follow up paroxysmal afib on Amiodarone) Martinez Rice MD [Physician] - 11/10/20 9:00 am (1 week with chest x-ray) Diet: Carb Consistent or DM2 Ambulatory Orders: Basic Metabolic Panel (Routine) Timeframe: 3 Days Location: Determined by Patient Ordered By: Abraham Santos XR chest 2V PA/lateral (Routine) Timeframe: 1 Week Location: Determined by Patient Ordered By: Abraham Santos Addtl Attending Provider Instructions: Medications: - AUGMENTIN: antibiotic to take twice a day for 12 more days, next dose is this evening - AMIODARONE: 200mg twice a day, this keeps you in normal sinus rhythm, likely just take for 3-4 more weeks then stop, follow up with Dr. Ray cardiology - NOVOLOG: recommend you take 6 units with meals, take when you sit down prior to eating, this helps control post prandial high sugars Parapneumonic effusion treated with chest tube which has now been out, breathing well, no fevers, WBC stable continue Augmentin for 12 more days follow up with Dr. Rice with chest x-ray in one week call if you start to feel more short of breath, develop a fever, not eating, lethargic etc Acute kidney injury Cr is down to 2.0 today from 2.7 two days ago, making a lot of urine continue to hold Lisinopril, lasix and Spironolactone recommend getting blood work on Monday/Monday and if renal function is closer to baseline then you can resume those medications will copy your PCP to the lab results, call her for instructions on medications continue to stay well nourished, get plenty of rest Pending Studies at Discharge: No Stand-Alone Forms: My [employer], Smoking Cessation Medications and DC Order Prescriptions: New amiodarone 200 mg Tablet 200 mg PO BIDM 30 Days Qty: 60 RF: 0 amoxicillin-pot clavulanate 500-125 mg Tablet 1 tab PO BIDM 12 Days Qty: 24 RF: 0 insulin aspart U-100 [Novolog Flexpen U-100 Insulin] 100 unit/mL (3 mL) Insulin Pen 6 unit SC TIDM 30 Days Qty: 1.8 RF: 3 (DME) OneTouch Ultra Blue Test Strip Strip See Rx Instructions .ROUTE .MEDSUPPLY Qty: 100 RF: 3 (DME) lancets [OneTouch Delica Lancets] 33 gauge misc See Rx Instructions .ROUTE .MEDSUPPLY Qty: 100 RF: 3 (DME) pen needle, diabetic 32 gauge x 5/32" needle See Rx Instructions .ROUTE .MEDSUPPLY Qty: 50 RF: 3 Continued Lantus Solostar U-100 Insulin 100 unit/mL (3 mL) insulin pen 30 unit SQ DAILY Qty: 15 RF: 3 acetaminophen 500 mg tablet 500 mg PO Q6H PRN (Reason: pain) RF: 0 tadalafil (pulm. hypertension) 20 mg tablet 40 mg PO DAILY RF: 0 ambrisentan 10 mg tablet 10 mg PO DAILY RF: 0 mupirocin 2 % ointment See Rx Instructions .ROUTE .COMPLEX RF: 0 ferrous sulfate 325 mg (65 mg iron) tablet See Rx Instructions .ROUTE .COMPLEX Qty: 90 RF: 3 metformin 1,000 mg tablet 1,000 mg PO BID Qty: 180 RF: 3 omeprazole 20 mg capsule,delayed release(DR/EC) 20 mg PO DAILY Qty: 90 RF: 3 tamsulosin 0.4 mg capsule 0.4 mg PO BID Qty: 180 RF: 3 furosemide 20 mg tablet 20 mg PO DAILY PRN (Reason: edema) RF: 0 Discontinued spironolactone 25 mg tablet 50 mg PO .COMPLEX RF: 0 lisinopril 5 mg tablet 5 mg PO DAILY Qty: 90 RF: 3 No Action (DME) pen needle, diabetic [1st Tier Unifine Pentips] 31 gauge x 3/16" needle See Rx Instructions .ROUTE .MEDSUPPLY Qty: 100 RF: 0 (DME) blood-glucose meter [OneTouch Ultra2 Meter] [facility] See Rx Instructions .ROUTE .MEDSUPPLY Qty: 1 RF: 0 (DME) blood sugar diagnostic [OneTouch Ultra Blue Test Strip] Strip See Rx Instructions .ROUTE .MEDSUPPLY Qty: 10 RF: 0 (DME) Oxygen Home Liters Per Minute See Rx Instructions .ROUTE .MEDSUPPLY Qty: 1 RF: 0 Discharge Orders: Discharge Order (Routine); Ordered 10/02/20 Ordered By: Abraham Santos Admission Data Admit Date/Time: 09/23/20 16:15 Attending Provider: Abraham Santos Admit Provider: Catalino Thompson Primary Care Provider: Mirta Alaniz Other Providers: Catalino Thompson ; Shankar Larson ; Rosalee Aranda ; Sami Stone ; Armand Walden ; Opal Constantino ; Avtar Zhou ; Sam Zamudio ; Gera Ray ; Lee Ashton ; Georges Montoya ; Omer Robin ; Wayne Shore Jr ; Fabian Monzon ; Lisette Perdue ; Kira Vogt ; Alex Clayton ; Alex Messer ; David Mares ; Chace Gramajo ; Marley Rowe ; Johnie Howe ; Manoj Webster Michael K. Other Interventions: Discharge Summary Assessment (RN) Last Done: 10/02/20 14:02 Coding Level of Care Code D/C Day Management >30 mins Diagnoses Pleural effusion, right J90 Right lower lobe pneumonia J18.9 AMARIS (acute kidney injury) N17.9 Paroxysmal atrial fibrillation with rapid ventricular response I48.0 Sinus tachycardia R00.0 Hypoxia R09.02 Pulmonary hypertension I27.20 Hypertension I10 Hyperlipidemia E78.5 DM II (diabetes mellitus, type II), controlled E11.9 Benign prostatic hyperplasia with urinary obstruction N40.1; N13.8
== END 2020-10-02 15:27 | disposition home or self-care (01) | DRG 871 ==
LOC: ED 12:08 → 2S 16:15 → SUATTDRO 16:15 → 2S 17:38 → 1E 09-24 13:11 → 2S 09-28 11:25 → 3E 10-01 12:58
DX: Z86.711 Personal history of pulmonary embolism; I78.0 Hereditary hemorrhagic telangiectasia; T46.4X5A Adverse effect of angiotensin-converting-enzyme inhibitors, initial encounter; Z88.8 Allergy status to other drugs, medicaments and biological substances; I95.2 Hypotension due to drugs; I31.3 Pericardial effusion (noninflammatory); N17.8 Other acute kidney failure; K59.00 Constipation, unspecified; J86.9 Pyothorax without fistula; D64.9 Anemia, unspecified; E78.5 Hyperlipidemia, unspecified; R04.0 Epistaxis; E11.65 Type 2 diabetes mellitus with hyperglycemia; Z83.6 Family history of other diseases of the respiratory system; J18.9 Pneumonia, unspecified organism; E11.649 Type 2 diabetes mellitus with hypoglycemia without coma; E22.2 Syndrome of inappropriate secretion of antidiuretic hormone; Z87.891 Personal history of nicotine dependence; Z79.4 Long term (current) use of insulin; T50.8X5A Adverse effect of diagnostic agents, initial encounter; I48.0 Paroxysmal atrial fibrillation; K22.70 Barrett's esophagus without dysplasia; I27.29 Other secondary pulmonary hypertension; A41.9 Sepsis, unspecified organism; I10 Essential (primary) hypertension; J90 Pleural effusion, not elsewhere classified; J96.01 Acute respiratory failure with hypoxia; Z79.899 Other long term (current) drug therapy; N40.1 Benign prostatic hyperplasia with lower urinary tract symptoms

== ENCOUNTER 2024-12-26 12:00 | Inpatient (IN) ==
[2024-12-26] MEDS: SODIUM CHLORIDE 0.9% 1,000 ML IV ONE (13:36)
--- NOTE | 2024-12-26 13:43 | Emergency Department Note ---
Impression & Plan Visual field defect of both eyes, Paroxysmal A-fib, Hereditary hemorrhagic telangiectasia, Lymphopenia ED Provider Note NAME: YULIANA WAGNER AGE: 64 SEX: M : 1960 ARRIVES VIA: Walk-In INFORMANT: Patient ED PROVIDER(S): Francisco Fuentes MD CHIEF COMPLAINT: Visual field deficits, referred by optometry and pcp PLAN: Disposition: Admit MEDICAL DECISION MAKING: The patient is a pleasant 64-year-old gentleman with a past medical history of paroxysmal atrial fibrillation on amiodarone not on anticoagulation, history of AVM of the stomach and brain, hypertension, hyperlipidemia, pulmonary hypertension who presents to the emergency department referred by his health information tech after being seen today for an eye exam for assessment of visual field loss over the past week where he was found to have a right eye central scotoma and left eye peripheral field loss. The patient had a retinal scan and there was concern for papilledema. He was referred to the emergency department for MRI imaging after his PCP office was contacted. The patient denies any headache today though he does report having mild headache behind his left eye a week ago prior to onset of visual symptoms. Patient was seen in this emergency department on 12/16 for symptoms of bodyaches and generalized weakness in the setting of being seen by his PCP office week before that where he had fever and weakness and blood work that demonstrated pancytopenia and so testing for tickborne illness was performed but was negative. Patient denies any return of fever since then. He denies any chest pain or shortness of breath. He denies nausea, vomiting, diarrhea or urinary symptoms. On evaluation the patient is in no acute distress, afebrile with blood pressure 140s/70s and vital signs otherwise stable. He appears euvolemic to dry. Visual field examination deferred given recent detailed examination. Otherwise no focal neurologic deficits at this time. EKG without overt acute ischemia. CXR negative for acute cardiopulmonary process per my personal preliminary review/interpretation. WBC and platelets normal limits. H/H similar to prior. Mild lymphopenia present. Chemistry without metabolic acidosis. LFTs unremarkable. High- sensitivity troponin 4.8, within normal limits. Lipase is normal. TSH within normal limits. UA without evidence of infection. Of note IV fluids initially ordered but not administered in the setting of the patient's history of pulmonary hypertension. CT of the head and CTA of the head and neck were performed and were negative for mass, ICH or ischemia. No severe narrowing or occlusion of large vessels. There is description of a 1.2 cm enhancing focus in the right temporal lobe which likely correlates to the patient's known history of a temporal lobe AVM. Testing of tickborne illness was repeated for completeness with Anaplasma Babesia smear negative and Lyme screen negative with DNA testing pending. Given the patient's visual deficits patient agrees with admission for further management. Case was discussed with GAMAL Fernandez PAC, with GAMAL Landeros hospitalist who will evaluate the patient for admission. Further management per admitting team. Triage Nursing notes reviewed and agree them. Prior/external medical records reviewed Vital Signs: reviewed Differential diagnosis: Infection, dehydration, metabolic abnormality, hypo/hyperglycemia, electrolyte disturbance, anemia, hypoxia, cardiac sources, intracerebral event, toxicologic, neurologic, as well as other pathologies. ER treatment provided: See below. Diagnostics interpreted by me: ECG: Normal sinus rhythm, 65 bpm, no ectopy, no overt ST elevation or depression, QTc 432, QRS 100 Cardiac Monitoring: An order for continuous cardiac monitoring was placed and demonstrated Normal sinus rhythm, 65 bpm, no ectopy. Laboratory studies: See below Imaging studies: See below Consultation(s): GAMAL Fernandez PAC, with GAMAL Landeros hospitalist HPI: Per MDM. ROS: See above HPI for pertinent positives & negatives. A total of 10 systems reviewed and were otherwise negative. VITALS:See Below PHYSICAL EXAMINATION: GENERAL: Awake, alert, well-appearing, in no distress HENT: Normocephalic, atraumatic. Oropharynx with dry mucous membranes and otherwise unremarkable. EYES: Normal conjunctiva. Sclera non-icteric. EOMI. No nystamgus. PEARRL. NECK: Supple. No nuchal rigidity. FROM. No JVD. RESPIRATORY: Clear to auscultation. CARDIAC: Regular rate, normal rhythm. Extremities warm and well perfused. Pulses equal. ABDOMEN: Soft, non-distended. No tenderness to palpation. No rebound or guarding. No masses. MUSCULOSKELETAL: Chest examination reveals no tenderness. The back is symmetrical on inspection without obvious abnormality. There is no CVA tenderness to palpation. No joint edema. LOWER EXTREMITIES: Calves are equal size bilaterally and non-tender. No edema. No discoloration. NEURO: Visual field deficits per HPI and otherwise cranial nerves II-XII grossly intact. 5/5 strength and SILT x 4 extremities. Cerebellar function intact including cjkjem-ce-ryky, alternating palms, ntlq-rd-owyd. SKIN: No rash or jaundice noted. Francisco Fuentes MD Past Med/Surg History Problem List (Updated 12/27/24 @ 00:57 by Francisco Fuentes MD) Lymphopenia (Acute) Visual field defect of both eyes (Acute) Vision loss, left eye Weakness (Acute) Uncontrolled type 2 diabetes mellitus with hyperglycemia Callus of foot Epididymitis On amiodarone therapy Depression with anxiety Hereditary hemorrhagic telangiectasia Paroxysmal A-fib (Acute) Peripheral edema Pericardial effusion Pulmonary hypertension (Chronic) Scrotal swelling Elevated PSA Hypertension (Chronic) Hyperlipidemia (Chronic) Benign prostatic hyperplasia with urinary obstruction (Chronic) Barretts esophagus (Chronic) Anemia (Chronic) Medical History COVID-19 Paroxysmal atrial fibrillation with rapid ventricular response Hyponatremia Sinus tachycardia Parapneumonic effusion Pleural effusion, right Pneumonia Hypoxia AVM (arteriovenous malformation) brain AVM (arteriovenous malformation) of duodenum, 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, acquired with hemorrhage Surgical History History of umbilical hernia repair History of colonoscopy History of brain surgery History of prostate biopsy Family History Father Diabetes Hypertension Cancer brain Mother Hypertension Lung disease Cancer Other Bleeding disorder Denies family history of Ovarian cancer Prostate cancer Myocardial infarction Breast cancer Colorectal cancer Social History Smoking Status: Former smoker Tobacco Type: Cigarettes Age Started Using Tobacco: 17; Age Quit Using Tobacco: 41; packs per day: 2; Cigarettes Per Day: 30-40; Second Hand Exposure: No; Do You Dip or Chew Tobacco: No; Hx Alcohol Use: Yes Alcohol type: wine Alcohol Intake Frequency: Monthly or Less Alcohol Intake Frequency Comment: Only drinks a few times a year only 1-2 drinks. 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 How many Children do You have: 3 Feels Safe at Home: Yes Childhood Exposure to Second-Hand Smoke: Yes Diet: regular caffeine: Yes during the past year weight has: remained stable Dental Care, Regularly: No Physical Activity Frequency: Does not Exercise Seatbelt Use: always Sunscreen Use: No Do you think of yourself as: straight/heterosexual Sexual Activity: has been sexually active within the last 12 months Gender Identity: Male Assistive Devices: CPAP and Oxygen - at Night Allergies Allergies Allergy/AdvReac Type Severity Reaction Status Date / Time liraglutide [From Victoza] Allergy Severe Dizziness Verified 12/11/24 10:45 dulaglutide [From Trulicity] Allergy Verified 12/16/24 11:44 Home Meds Home Medications Medication Instructions Recorded Confirmed acetaminophen 500 mg tablet 500 mg PO Q6H PRN pain 03/28/19 12/26/24 ambrisentan 10 mg tablet 10 mg PO DAILY 03/28/19 12/26/24 tadalafil (pulm. hypertension) 20 40 mg PO DAILY pulm. hyper. 03/28/19 12/26/24 mg tablet (pulmonary hypertension) Oxygen Home #1 ea 08/13/19 12/11/24 furosemide 20 mg tablet 20 mg PO DAILY edema 02/04/22 12/26/24 insulin human U-100 NPH-regulr 32 unit subcut QAM 09/19/24 12/26/24 70-30 mix 100 unit/mL subcutaneous susp (Novolin 70/30 U-100 Insulin) ferrous sulfate 325 mg (65 mg 325 mg PO DAILY 12/16/24 12/26/24 iron) tablet spironolactone 25 mg tablet 25 mg PO DAILY PRN edema 12/16/24 12/26/24 tamsulosin 0.4 mg capsule 0.4 mg PO BID 12/16/24 12/26/24 insulin human U-100 NPH-regulr 30 unit subcut QPM 12/26/24 12/26/24 70-30 mix 100 unit/mL subcutaneous susp (Novolin 70/30 U-100 Insulin) onnyinqornkj-vqkxgike-rvyimy 1 tab PO DAILY 12/26/24 12/26/24 tablet (Multivitamin 50 Plus tablet) omeprazole 20 mg capsule,delayed 20 mg PO 3XWK 12/26/24 12/26/24 release sertraline 100 mg tablet 100 mg PO DAILY 12/26/24 12/26/24 Previous Rx's Medication Instructions Recorded pen needle, diabetic 31 gauge x #100 ea 11/04/19 3/16" (1st Tier Unifine Pentips) blood-glucose meter (OneTouch #1 ea 08/28/20 Ultra2 Meter) lancets 33 gauge (OneTouch Delica #100 ea 10/02/20 Lancets) pen needle, diabetic 32 gauge x #50 ea 10/02/20 5/32" insulin syringe-needle U-100 1 mL #100 ea 05/10/21 28 gauge x 1/2" (BD Insulin Syringe) blood sugar diagnostic #200 ea 07/27/21 aspirin 81 mg tablet,delayed 81 mg PO 2XWK #30 tabs 02/04/22 release (Adult Low Dose Aspirin) dutasteride 0.5 mg capsule 0.5 mg PO DAILY #90 caps 12/26/23 lisinopril 5 mg tablet 5 mg PO DAILY #90 tabs 01/30/24 metformin 1,000 mg tablet 1,000 mg PO BID #180 tabs 01/30/24 atorvastatin 10 mg tablet 10 mg PO DAILY #90 tabs 02/15/24 amiodarone 200 mg tablet 100 mg (1/2 x 200 mg) PO DAILY #45 04/01/24 tabs blood-glucose sensor (FreeStyle #1 ea 10/14/24 Alejandro 3 Sensor device) Results & Data (ED) Vital Signs Vital Signs - 24 hr 12/26/24 12:06 12/26/24 12:20 12/26/24 12:36 Temperature 36.7 C Temperature Source Temporal Artery Scan Pulse Rate 74 75 Pulse Rate [Apical] 72 Pulse Rhythm Regular Pulse Rhythm [Apical] Regular Pulse Strength Normal Pulse Strength [Apical] Normal Respiratory Rate 20 19 Respiratory Effort / Characteristics Non-Labored Spontaneous Non-Labored Spontaneous Respiratory Depth Normal Normal Respiratory Pattern Regular Blood Pressure 146/70 H Blood Pressure [Right Arm] 117/68 Blood Pressure Mean 95 Blood Pressure Mean [Right Arm] 84 Blood Pressure Position [Right Arm] Sitting Pulse Oximetry 94 93 Oxygen Delivery Method Room Air Room Air Sepsis Recent Fever Within 48 Hours No Sepsis New/Unexplained Change in Mental Status N/A Sepsis Action Taken by Nursing No Action Required 12/26/24 13:07 12/26/24 14:00 12/26/24 16:00 Temperature Temperature Source Pulse Rate Pulse Rate [Apical] 66 56 L Pulse Rhythm Pulse Rhythm [Apical] Regular Regular Pulse Strength Pulse Strength [Apical] Normal Respiratory Rate 18 18 Respiratory Effort / Characteristics Non-Labored Spontaneous Respiratory Depth Normal Respiratory Pattern Regular Blood Pressure Blood Pressure [Right Arm] 113/76 162/89 H Blood Pressure Mean Blood Pressure Mean [Right Arm] 88 113 Blood Pressure Position [Right Arm] Sitting Pulse Oximetry 93 94 Oxygen Delivery Method Room Air Room Air Sepsis Recent Fever Within 48 Hours Sepsis New/Unexplained Change in Mental Status Sepsis Action Taken by Nursing Laboratory Data 12/26/24 13:27 12/26/24 13:27 Lab Results 12/26/24 12/26/24 Range/Units 12:20 13:27 WBC 5.30 (4.8-10.8) K/ul RBC 4.28 L (4.70-6.10) M/uL Hgb 12.5 L (14.0-18.0) g/dl Hct 37.1 L (42.0-52.0) % MCV 86.7 (80.0-100.0) fL MCH 29.2 (25.0-34.0) pg MCHC 33.7 (32.0-36.0) g/dL RDW Std Deviation 45.1 (36.4-46.3) fL RDW Coeff of Lesly 14.2 (11.5-14.5) % Plt Count 278 (130-400) K/uL MPV 10.0 (9.4-12.4) fL Immature Gran % (Auto) 0.8 % Neut % (Auto) 71.3 % Lymph % (Auto) 15.1 % [place] % (Auto) 10.9 % Eos % (Auto) 1.1 % Baso % (Auto) 0.8 % Neut # (Auto) 3.78 (1.40-6.50) K/uL Lymph # (Auto) 0.80 L (1.20-3.40) K/uL Ste[place] # (Auto) 0.58 (0.11-0.59) K/uL Eos # (Auto) 0.06 (0.00-0.50) K/uL Baso # (Auto) 0.04 (0.00-0.20) K/uL Immature Gran # (Auto) 0.04 (0.01-0.20) K/uL Sodium 138 (136-145) mmol/L Potassium 4.0 (3.5-5.1) mmol/L Chloride 107 (98-107) mmol/L Carbon Dioxide 24 (21-32) mmol/L Anion Gap 7 (3-11) BUN 18 (6-23) mg/dl Creatinine 0.87 (0.6-1.4) mg/dl Est Cr Clr Drug Dosing 96.1 ml/min eGFR 96.96 BUN/Creatinine Ratio 20.7 H (10-20) Glucose 107 H (70-99(Fasting)) mg/dl POC Glucose 143 H (70-99) mg/dl Calcium 9.2 (8.6-10.3) mg/dl Phosphorus 2.3 L (2.5-4.9) mg/dl Magnesium 1.8 (1.7-2.4) mg/dl Total Bilirubin 0.4 (0.2-1.0) mg/dl AST 14 (13-39) U/L ALT 18 (7-52) U/L Alkaline Phosphatase 99 (34-104) U/L Troponin I High Sens 4.8 (0-20) pg/ml Total Protein 7.1 (6.0-8.3) gm/dl Albumin 3.9 (3.4-5.0) gm/dl Globulin 3.2 (2.5-4.0) gm/dl Albumin/Globulin Ratio 1.2 (0.9-2) Lipase 34 (11-82) U/L TSH 0.922 (0.300-4.500) uIu/ml Urine Color Yellow Urine Appearance Clear (Clear) Urine pH 5.5 (4.5-7.5) Ur Specific Fidelity 1.010 (1.000-1.030) Urine Protein Negative (Negative) Urine Glucose (UA) Negative (Negative) Urine Ketones Negative (Negative) Urine Blood Negative (Negative) Urine Nitrite Negative (Negative) Urine Bilirubin Negative (Negative) Urine Urobilinogen Negative (Negative) Ur Leukocyte Esterase Negative (Negative) Urine Comment Anaplasma Smear See Comment Babesia Smear See Comment Lyme Disease Screen Negative (Negative) Administered Medications Insulin Aspart (Insulin Aspart Per Unit Charge) 0 units SC [facility]; Protocol Stop: 01/25/25 20:59 Last Admin: 12/26/24 21:04 Dose: 1 units Documented By: AYAKA Co-signed By: RENARD Tamsulosin HCl (Tamsulosin Hcl 0.4 Mg Cap) 0.4 mg PO BID KATHRYN Stop: 01/25/25 20:59 Last Admin: 12/26/24 21:04 Dose: 0.4 mg Documented By: AYAKA Discontinued Medications Sodium Chloride (Nss) 1,000 mls @ 999 mls/hr IV .Q1H1M ONE Stop: 12/26/24 14:06 Last Admin: 12/26/24 15:19 Dose: Not Given Documented By: CASI Ioversol (Optiray 320 125ml) 118 ml IV ONCE ONE Stop: 12/26/24 15:01 Last Admin: 12/26/24 15:01 Dose: 118 ml Documented By: ERICA Imaging Data Radiologist's Impression: Chest X-Ray 12/26/24 13:07 SINGLE VIEW CHEST CLINICAL HISTORY: Chest pain FINDINGS: An AP, portable, upright chest radiograph is compared to study dated 12/16/2024 and correlated with chest CT dated 09/29/2020. The heart is enlarged noting atherosclerotic calcification of the thoracic aorta. There is pulmonary vascular congestion with mild interstitial edema. Enlargement of the central pulmonary arteries indicate pulmonary artery hypertension. A small right pleural effusion is suspected. There is bibasilar scarring/atelectasis. No pneumothorax is seen. The skeletal structures are osteopenic. The bony thorax is grossly intact. IMPRESSION: 1. Cardiomegaly with evidence of congestive failure and pulmonary edema. 2. There is a small right pleural effusion. ACT 112: Negative or not required by law. Electronically signed by: Eladio Mobley M.D. 12/26/2024 1:[address] 12/26/24 13:54 CT SCAN OF THE BRAIN WITHOUT IV CONTRAST CLINICAL HISTORY: Visual changes. Visual field deficits. COMPARISON STUDY: No priors TECHNIQUE: Unenhanced axial CT scan of the brain is performed from the vertex to the skull base. Images are reviewed in the axial, sagittal, and coronal planes. A dose lowering technique was utilized adhering to the principles of ALARA. FINDINGS: Brain parenchyma: A focus of right temporal encephalomalacia is consistent with a remote insult. There is mild microangiopathic change. There is no hemorrhage, mass effect, or evidence of acute territorial ischemia by CT criteria. Clarke- white matter differentiation is preserved. No extra-axial fluid collection is seen. Ventricles, sulci, cisterns: Normal in configuration. Intracranial vasculature: The visualized intracranial vasculature at the skull base is normal in appearance. Calvarium: This postsurgical change from right-sided craniotomy. No destructive calvarial lesion is seen. Sinuses and mastoids: The visualized paranasal sinuses are clear. The mastoid air cells are well pneumatized. Orbits: The bony orbits are grossly intact. IMPRESSION: 1. There is no hemorrhage, mass effect, or evidence of acute territorial ischemia by CT criteria. 2. Chronic and postsurgical changes as above. ACT 112: Negative or not required by law. Electronically signed by: Eladio Mobley M.D. 12/26/2024 3:19 PM Head CTA 12/26/24 13:54 CT angio head w con CLINICAL HISTORY: 64 years-old Male with R central scotoma, L peripheral field lost.. Acute stroke like symptoms COMPARISON STUDY: Head CT of same day TECHNIQUE: Following the IV administration of 118 cc of Optiray, CT angiogram of the brain was performed from the skull base to the vertex. Images are reviewed in the axial, sagittal, and coronal planes. 3-D MIPS images are created and assessed. IV contrast was administered without complication. All measurements were obtained according to NASCET criteria. A dose lowering technique was utilized adhering to the principles of ALARA. FINDINGS: CT BRAIN: Dictated separately. Mild involutional changes. CT ANGIOGRAM OF THE BRAIN: The imaged bilateral internal carotid arteries are patent. The left anterior and middle cerebral arteries are also patent. The right anterior cerebral artery is not seen and is likely developmentally diminutive. The vertebrobasilar system and posterior cerebral arteries are widely patent. There is no aneurysm, high- grade stenosis, or proximal branch occlusion identified. Dural sinuses appear patent. Right temporal lobe encephalomalacia with right craniotomy changes. 1.2 cm focus of enhancement within the right temporal lobe on image 89 series 6 appears represent a tangle of enhancing vessels. IMPRESSION: 1. CTA demonstrates no aneurysm, dissection, high-grade stenosis or arterial occlusion. 2. Prior right-sided craniotomy with right temporal lobe encephalomalacia. There is an indeterminate 1.2 cm enhancing focus in the right temporal lobe which appears to be vascular in origin, however could be confirmed with a nonemergent follow-up brain MRI. Correlate with prior imaging. ACT 112: Negative or not required by law. The above report was generated using voice recognition software. It may contain grammatical, syntax or spelling errors. Electronically signed by: aPras Renteria M.D. 12/26/2024 3:26 PM Neck CTA 12/26/24 13:54 CT ANGIOGRAPHY OF THE NECK WITH CONTRAST CLINICAL HISTORY: R central scotoma, L peripheral field lost. COMPARISON STUDY: No previous studies for comparison. Technique: CT angiography of the carotid and vertebral arteries was obtained using Optiray and 3D reconstruction on an independent workstation. NASCET criteria was utilized. Automated exposure control was utilized for the study. A dose lowering technique was utilized adhering to the principles of ALARA. CT DOSE: 1186.08 mGy.cm Findings: The heart is enlarged. There is prominence of the central pulmonary vasculature. There is mild septal edema. An equivocal small filling defect within a left upper lobe pulmonary artery branch, likely represents artifact. No thyroid masses are visualized. No salivary gland masses are visualized. There is no evidence of pathologic adenopathy within the neck. There is no evidence of carotid artery stenosis or dissection. There is no evidence of vertebral artery occlusion stenosis or dissection. IMPRESSION: 1. No evidence of carotid or vertebral artery stenosis or dissection 2. Cardiomegaly and mild septal edema ACT 112: Negative or not required by law. Electronically signed by: Rivera Lopez M.D. 12/26/2024 3:35 PM Discharge Plan Visit Data Chief Complaint: Referred by Doctor Stated Complaint: MRI - EMERGENCY/REF BY ED Provider: Francisco Fuentes Discharge Problem: Visual field defect of both eyes, Paroxysmal A-fib, Hereditary hemorrhagic telangiectasia, Lymphopenia Patient Disposition: Admitted As Inpatient Condition: Fair Discharge Instructions Interventions: ED Discharge Assessment Last Done: 12/26/24 17:31
--- NOTE | 2024-12-26 13:48 | XRay Report ---
SINGLE VIEW CHEST CLINICAL HISTORY: Chest pain FINDINGS: An AP, portable, upright chest radiograph is compared to study dated 12/16/2024 and correlat ed with chest CT dated 09/29/2020. The heart is enlarged noting atherosclerotic calcification of the th oracic aorta. There is pulmonary vascular congestion with mild interstitial edema. Enlargement of the central pulmonary arteries indicate pulmonary artery hypertension. A small right pleural effusion is suspected. There is bibasilar scarring/atelectasis. No pneumothorax is seen. The skeletal structures are osteopenic. The bony thorax is grossly intact. IMPRESSION: 1. Cardiomegaly with evidence of congestive failure and pulmonary edema. 2. There is a small right pleural effusion. ACT 112: Negative or not required by law. Electronically signed by: Eladio Mobley M.D. 12/26/2024 1:47 PM
[2024-12-26 13:58] LABS: Hematocrit (blood only) 37.1 % (42.0-52.0); Hemoglobin 12.5 g/dl (14.0-18.0); Immature Granulocytes # (auto) 0.04 K/uL (0.01-0.20); Immature Granulocytes % (auto) 0.8 %; Mean Corpuscular Hemoglobin 29.2 pg (25.0-34.0); Mean Corpuscular Volume 86.7 fL (80.0-100.0); Platelet Count 278 K/uL (130-400); RDW Standard Deviation 45.1 fL (36.4-46.3); Red Blood Count 4.28 M/uL (4.70-6.10); White Blood Count 5.30 K/ul (4.8-10.8)
[2024-12-26 14:02] LABS: Alanine Aminotransferase 18.0 U/L (7-52); Albumin Globulin Ratio 1.2 (0.9-2); Alkaline Phosphatase 99.0 U/L (34-104); Anion Gap 7.0 (3-11); Bilirubin,Total 0.4 mg/dl (0.2-1.0); Blood Urea Nitrogen 18.0 mg/dl (6-23); Calcium 9.2 mg/dl (8.6-10.3); Carbon Dioxide 24.0 mmol/L (21-32); Chloride 107.0 mmol/L (98-107); Creatinine Clr Calc Pharmacy 96.1 ml/min; Globulin 3.2 gm/dl (2.5-4.0); Glucose 107.0 mg/dl (70-99(Fasting)); Lipase 34.0 U/L (11-82); Magnesium 1.8 mg/dl (1.7-2.4); Potassium 4.0 mmol/L (3.5-5.1); Sodium 138.0 mmol/L (136-145); Total Protein 7.1 gm/dl (6.0-8.3)
[2024-12-26 14:17] LABS: Thyroid Stimulating Hormone 0.922 uIu/ml (0.300-4.500)
[2024-12-26] MEDS: OPTIRAY 320 125ml IV ONE (15:01)
--- NOTE | 2024-12-26 15:21 | CT Scan Report ---
CT SCAN OF THE BRAIN WITHOUT IV CONTRAST CLINICAL HISTORY: Visual changes. Visual field deficits. COMPARISON STUDY: No priors TECHNIQUE: Unenhanced axial CT scan of the brain is performed from the vertex to the skull base. Imag es are reviewed in the axial, sagittal, and coronal planes. A dose lowering technique was utilized a dhering to the principles of ALARA. FINDINGS: Brain parenchyma: A focus of right temporal encephalomalacia is consistent with a remote insult. Ther e is mild microangiopathic change. There is no hemorrhage, mass effect, or evidence of acute territor ial ischemia by CT criteria. Clarke-white matter differentiation is preserved. No extra-axial fluid col lection is seen. Ventricles, sulci, cisterns: Normal in configuration. Intracranial vasculature: The visualized intracranial vasculature at the skull base is normal in appe arance. Calvarium: This postsurgical change from right-sided craniotomy. No destructive calvarial lesion is s een. Sinuses and mastoids: The visualized paranasal sinuses are clear. The mastoid air cells are well pneu matized. Orbits: The bony orbits are grossly intact. IMPRESSION: 1. There is no hemorrhage, mass effect, or evidence of acute territorial ischemia by CT criteria. 2. Chronic and postsurgical changes as above. ACT 112: Negative or not required by law. Electronically signed by: Eladio Mobley M.D. 12/26/2024 3:19 PM
[2024-12-26 15:25] LABS: Appearance Urine Clear (Clear); Glucose Urine UA Negative (Negative)
--- NOTE | 2024-12-26 15:28 | CT Scan Report ---
CT angio head w con CLINICAL HISTORY: 64 years-old Male with R central scotoma, L peripheral field lost.. Acute stroke like symptoms COMPARISON STUDY: Head CT of same day TECHNIQUE: Following the IV administration of 118 cc of Optiray, CT angiogram of the brain was perfor med from the skull base to the vertex. Images are reviewed in the axial, sagittal, and coronal planes . 3-D MIPS images are created and assessed. IV contrast was administered without complication. All me asurements were obtained according to NASCET criteria. A dose lowering technique was utilized adherin g to the principles of ALARA. FINDINGS: CT BRAIN: Dictated separately. Mild involutional changes. CT ANGIOGRAM OF THE BRAIN: The imaged bilateral internal carotid arteries are patent. The left anterior and middle cerebral morelia renetta are also patent. The right anterior cerebral artery is not seen and is likely developmentally di minutive. The vertebrobasilar system and posterior cerebral arteries are widely patent. There is no a neurysm, high-grade stenosis, or proximal branch occlusion identified. Dural sinuses appear patent. R ight temporal lobe encephalomalacia with right craniotomy changes. 1.2 cm focus of enhancement within the right temporal lobe on image 89 series 6 appears represent a tangle of enhancing vessels. IMPRESSION: 1. CTA demonstrates no aneurysm, dissection, high-grade stenosis or arterial occlusion. 2. Prior right-sided craniotomy with right temporal lobe encephalomalacia. There is an indeterminate 1.2 cm enhancing focus in the right temporal lobe which appears to be vascular in origin, however cou ld be confirmed with a nonemergent follow-up brain MRI. Correlate with prior imaging. ACT 112: Negative or not required by law. The above report was generated using voice recognition software. It may contain grammatical, syntax o r spelling errors. Electronically signed by: Paras Renteria M.D. 12/26/2024 3:26 PM
--- NOTE | 2024-12-26 15:36 | CT Scan Report ---
CT ANGIOGRAPHY OF THE NECK WITH CONTRAST CLINICAL HISTORY: R central scotoma, L peripheral field lost. COMPARISON STUDY: No previous studies for comparison. Technique: CT angiography of the carotid and vertebral arteries was obtained using Optiray and 3D rec onstruction on an independent workstation. NASCET criteria was utilized. Automated exposure control was utilized for the study. A dose lowering technique was utilized adhering to the principles of ALA RA. CT DOSE: 1186.08 mGy.cm Findings: The heart is enlarged. There is prominence of the central pulmonary vasculature. There is mild septal edema. An equivocal small filling defect within a left upper lobe pulmonary artery branch, likely re presents artifact. No thyroid masses are visualized. No salivary gland masses are visualized. There is no evidence of pa thologic adenopathy within the neck. There is no evidence of carotid artery stenosis or dissection. There is no evidence of vertebral artery occlusion stenosis or dissection. IMPRESSION: 1. No evidence of carotid or vertebral artery stenosis or dissection 2. Cardiomegaly and mild septal edema ACT 112: Negative or not required by law. Electronically signed by: Rivera oLpez M.D. 12/26/2024 3:35 PM
--- NOTE | 2024-12-26 16:35 | History & Physical Report ---
Date of Service December 26, 2024 Assessment & Plan (1) Vision loss, left eye: (2) Paroxysmal A-fib: (3) Pulmonary hypertension: (4) Hyperlipidemia: (5) Hypertension: Plan This is a 64 year old gentleman with past medical history of BPH, anemia, AVM of brain, type 2 DM who presented to the ED on 12/26/2024 referred by the oceanographer geological for vision field deficits. While in the ED, he had multiple imaging studies. CXR revealed cardiomegaly w/ evidence of CHF & pulmonary edema. Head CT was negative for hemorrhage. Head CTA was negative for aneurysm, dissection, high grade stenosis/arterial occlusion. did reveal prior right sided craniotomy w/ right temporal lobe encephalomalacia. indeterminate 1.2cm enhancing focus in right temporal lobe which appears to be vascular in origin. neck CTA negative. CBC w/ mildly low hemoglobin of 12.5 which appears within his baseline. BMP stable. Phosphorous mildly low at 2.3. LFTs WNL. Lipase WNL. TSH WNL. Urinalysis negative. Tick panel negative for anaplasmosis & babesiosis but lyme pending. Previous Tick panel on 12/11/2024 was negative. Ophthalmologic exam performed today prior to arrival @ office included a right eye central scotoma and left eye peripheral field loss. Retinal scan concerning for papilledema. #Peripheral vision loss left eye. Ongoing vision loss of peripheral field left eye for ~ 1 week Ophthalmologic exam performed 12/26 @ office included a right eye central scotoma and left eye peripheral field loss. Retinal scan concerning for papilledema. Head CT negative. Neck CTA negative. Head CTA w/ prior right sided craniotomy w/ right temporal lobe encephalomalacia. Indeterminate 1.2 cm enhancing foci in right temporal lobe which appears to be vascular in origin. (hx of AVM removal in 2018 by neurosurgery @ [facility] [place] CBC/BMP stable. Tick panel pending final results but recent tick panel negative on 12/11/2024. TSH, Lipase, LFTs all WNL. Urinalysis negative. Brain MRI pending Stroke work up including Echo w/ bubble study, A1c, & lipid panel for AM. Hold several BP meds to allow for permissive HTN. Daily ASA Neurology consulted, appreciate recommendations. Continuous monitoring on telemetry overnight. #A fib/pulm HTN Follows outpatient w/ cardiology On amiodarone 100mg daily - continue Ambrisentan for pulm HTN - can hold while inpatient but if brings in ok to give. Echo ordered & pending CXR concerning for pulm edema/CHF. Does take Lasix 20mg daily outpatient w/ prn spironolactone dose. --> hold to allow for permissive HTN. BNP pending. #Type 2 DM A1c 09/03/2024 elevated at 10.8% on NPH insulin 32 units AM + 30 units PM + Metformin 1000mg BID Pharmacy consulted to see if NPH insulin can be given while inpatient. Sliding scale coverage for now w/ goal of 110-160 & CF of 15 - adjust as necessary. Update A1c in morning # BPH - Flomax, dutasteride. #Mental health - sertraline. DVT prophylaxis: hold chemical given hx of AVM Code: full Case discussed w/ Dr. Garcia at time of admission. Updated at bedside 12/26. History of Present Illness Primary Care Provider: SAURABH Valencia This is a 64 year old gentleman with past medical history of BPH, anemia, AVM of brain, type 2 DM who presented to the ED on 12/26/2024 referred by the o phthalmologist for vision field deficits. Georges was seen and examined this evening with his present. Georges reports that about 1 week ago he awoke in the morning and could not see peripherally in his left eye. He reports that he also has b/l black dots in both eyes. States those have been more chronic but he feels he notices them more since the vision loss occurred. He states he went to the oceanographer geological today for a workup and was referred here for an MRI. He states that his symptoms have not worsened over the past week. He denies any additional complaints including no headache, cp, so b, abdominal pain, n/v, urinary urgency/frequency/hematuria, dizziness, weakness, fevers, or chills. Ophthalmologic exam performed today prior to arrival @ office included a right eye central scotoma and left eye peripheral field loss. Retinal scan concerning for papilledema. He does have a significant neurological history & follows with neurosurgery in [place]. He saw his neurosurgeon last month who reported that he was doing well. He has a history of an AVM repair in 2018. Also with a history of hereditary hemorrhagic telangiectasia. He has a hx of A fib for which he follows w/ cardiology as well. He is compliant with his outpatient medications. While in the ED, he had multiple imaging studies. CXR revealed cardiomegaly w/ evidence of CHF & pulmonary edema. Head CT was negative for hemorrhage. Head CTA was negative for aneurysm, dissection, high grade stenosis/arterial occlusion. did reveal prior right sided craniotomy w/ right temporal lobe encephalomalacia. indeterminate 1.2cm enhancing focus in right temporal lobe which appears to be vascular in origin. neck CTA negative. CBC w/ mildly low hemoglobin of 12.5 which appears within his baseline. BMP stable. Phosphorous mildly low at 2.3. LFTs WNL. Lipase WNL. TSH WNL. Urinalysis negative. Tick panel negative for anaplasmosis & babesiosis but lyme pending. Previous Tick panel on 12/11/2024 was negative. Code discussion did take place and he does confirm that he is a full code. Allergies Allergy/AdvReac Type Severity Reaction Status Date / Time liraglutide [From Victoza] Allergy Severe Dizziness Verified 12/11/24 10:45 dulaglutide [From Trulicity] Allergy Verified 12/16/24 11:44 Home Medications Medication Instructions Recorded Confirmed Type acetaminophen 500 mg tablet 500 mg PO Q6H PRN pain 03/28/19 12/26/24 History ambrisentan 10 mg tablet 10 mg PO DAILY 03/28/19 12/26/24 History tadalafil (pulm. hypertension) 20 40 mg PO DAILY pulm. hyper. 03/28/19 12/26/24 History mg tablet (pulmonary hypertension) Oxygen Home #1 ea 08/13/19 12/11/24 History pen needle, diabetic 31 gauge x #100 ea 11/04/19 12/11/24 Rx 3/16" (1st Tier Unifine Pentips) blood-glucose meter (OneTouch #1 ea 08/28/20 12/11/24 Rx Ultra2 Meter) lancets 33 gauge (OneTouch Delica #100 ea 10/02/20 12/11/24 Rx Lancets) pen needle, diabetic 32 gauge x #50 ea 10/02/20 12/11/24 Rx 5/32" insulin syringe-needle U-100 1 mL #100 ea 05/10/21 12/11/24 Rx 28 gauge x 1/2" (BD Insulin Syringe) blood sugar diagnostic #200 ea 07/27/21 12/11/24 Rx aspirin 81 mg tablet,delayed 81 mg PO 2XWK #30 tabs 02/04/22 12/26/24 Rx release (Adult Low Dose Aspirin) furosemide 20 mg tablet 20 mg PO DAILY edema 02/04/22 12/26/24 History dutasteride 0.5 mg capsule 0.5 mg PO DAILY #90 caps 12/26/23 12/26/24 Rx lisinopril 5 mg tablet 5 mg PO DAILY #90 tabs 01/30/24 12/26/24 Rx metformin 1,000 mg tablet 1,000 mg PO BID #180 tabs 01/30/24 12/26/24 Rx atorvastatin 10 mg tablet 10 mg PO DAILY #90 tabs 02/15/24 12/26/24 Rx amiodarone 200 mg tablet 100 mg (1/2 x 200 mg) PO DAILY #45 04/01/24 12/26/24 Rx tabs insulin human U-100 NPH-regulr 32 unit subcut QAM 09/19/24 12/26/24 History 70-30 mix 100 unit/mL subcutaneous susp (Novolin 70/30 U-100 Insulin) blood-glucose sensor (FreeStyle #1 ea 10/14/24 12/11/24 Rx Alejandro 3 Sensor device) ferrous sulfate 325 mg (65 mg 325 mg PO DAILY 12/16/24 12/26/24 History iron) tablet spironolactone 25 mg tablet 25 mg PO DAILY PRN edema 12/16/24 12/26/24 History tamsulosin 0.4 mg capsule 0.4 mg PO BID 12/16/24 12/26/24 History insulin human U-100 NPH-regulr 30 unit subcut QPM 12/26/24 12/26/24 History 70-30 mix 100 unit/mL subcutaneous susp (Novolin 70/30 U-100 Insulin) wovkwmlmqhtl-emxgbljm-kbknwo 1 tab PO DAILY 12/26/24 12/26/24 History tablet (Multivitamin 50 Plus tablet) omeprazole 20 mg capsule,delayed 20 mg PO 3XWK 12/26/24 12/26/24 History release sertraline 100 mg tablet 100 mg PO DAILY 12/26/24 12/26/24 History Past Med/Surg History Problem List (Updated 09/04/25 @ 16:39 by Nelly Ronquillo PA-C) Vision loss, left eye Weakness (Acute) Uncontrolled type 2 diabetes mellitus with hyperglycemia Callus of foot Epididymitis On amiodarone therapy Depression with anxiety Hereditary hemorrhagic telangiectasia Paroxysmal A-fib Peripheral edema Pericardial effusion Pulmonary hypertension (Chronic) Scrotal swelling Elevated PSA Hypertension (Chronic) Hyperlipidemia (Chronic) Benign prostatic hyperplasia with urinary obstruction (Chronic) Barretts esophagus (Chronic) Anemia (Chronic) Medical History COVID-19 Paroxysmal atrial fibrillation with rapid ventricular response Hyponatremia Sinus tachycardia Parapneumonic effusion Pleural effusion, right Pneumonia Hypoxia AVM (arteriovenous malformation) brain AVM (arteriovenous malformation) of duodenum, 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, acquired with hemorrhage Surgical History History of umbilical hernia repair History of colonoscopy History of brain surgery History of prostate biopsy Family History Father Diabetes Hypertension Cancer brain Mother Hypertension Lung disease Cancer Other Bleeding disorder Denies family history of Ovarian cancer Prostate cancer Myocardial infarction Breast cancer Colorectal cancer Social History Smoking Status: Former smoker Tobacco Type: Cigarettes Age Started Using Tobacco: 17; Age Quit Using Tobacco: 41; packs per day: 2; Cigarettes Per Day: 30-40; Second Hand Exposure: Yes; Do You Dip or Chew Tobacco: No; Hx Alcohol Use: Yes Alcohol type: wine Alcohol Intake Frequency: Monthly or Less Alcohol Intake Frequency Comment: Only drinks a few times a year only 1-2 drinks. Hx Substance Use: No Preferred Language: Khmer Communication Ability: Effective Visual Impairment: No Limitations Hearing Ability: Normal Fitness Supervisor Required: No Beliefs That Will Affect Care: None marital status: Current Living Situation: Spouse 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: employed current occupation: [employer] How many Children do You have: 3 Feels Safe at Home: Yes Childhood Exposure to Second-Hand Smoke: Yes Diet: regular caffeine: Yes during the past year weight has: remained stable Dental Care, Regularly: No Physical Activity Frequency: Does not Exercise Seatbelt Use: always Sunscreen Use: No Do you think of yourself as: straight/heterosexual Sexual Activity: has been sexually active within the last 12 months Gender Identity: Male Assistive Devices: Oxygen - at Night Results & Data Results & Data Vital Signs (Past 12 Hours) Vital Signs Temp Pulse Pulse Resp BP BP Pulse Ox 12/26/24 16:00 56 L 18 162/89 H 94 12/26/24 14:00 66 18 113/76 93 12/26/24 13:07 12/26/24 12:36 75 12/26/24 12:20 72 19 117/68 93 12/26/24 12:06 36.7 C 74 20 146/70 H 94 O2 Del Method 12/26/24 16:00 12/26/24 14:00 Room Air 12/26/24 13:07 Room Air 12/26/24 12:36 12/26/24 12:20 Room Air 12/26/24 12:06 Room Air Supervising Physician Co-Signing Physician Notes The patient was seen by me. The chart was reviewed. Case discussed with FABIAN Fernandez. Agree with assessment and plan PG Care Time/CCT Total # of Minutes Spent Total Time Spent with Patient: Total time spent is greater than 50% in coordination of care (as documented) at patient's floor/unit and/or counseling patient: Coding Level of Care Code 47514 INT INP/OBS CARE 375MIN Diagnoses Vision loss, left eye H54.62 Paroxysmal A-fib I48.0 Pulmonary hypertension I27.20 Mixed hyperlipidemia E78.2 Hyperlipidemia type: mixed hyperlipidemia Primary hypertension I10 Hypertension type: primary hypertension (4) Hyperlipidemia Hyperlipidemia type: mixed hyperlipidemia Qualified Code(s): E78.2 - Mixed hyperlipidemia (5) Hypertension Hypertension type: primary hypertension Qualified Code(s): I10 - Essential (primary) hypertension
[2024-12-26] MEDS ORDERED: PHARMACY GLYCEMIC MGMT CONSULT PRN (18:00)
[2024-12-26] MEDS ORDERED: ACETAMINOPHEN 500 MG TAB PO PRN (18:00)
[2024-12-26] MEDS ORDERED: GLUCAGON FOR INJ 1 MG VIAL SQ PRN (18:30)
[2024-12-26] MEDS ORDERED: DEXTROSE 50% 50 ML SYRINGE IV PRN (18:30)
[2024-12-26] MEDS ORDERED: GLUCOSE 40% GEL 15 GM TUBE PO PRN (18:30)
[2024-12-26] MEDS ORDERED: GLUCOSE 10 TAB/TUBE PO PRN (18:30)
[2024-12-26] MEDS ORDERED: CARBOHYDRATES FOR HYPOGLYCEMIA PO PRN (18:30)
--- NOTE | 2024-12-26 18:55 | Pharmacy Report ---
Pharmacy Glycemic Short Note 2 - Date of Service December 26, 2024 - Glycemic Short BSG Results (Last 24 hours): 12/26/24 12/26/24 12/26/24 12:20 13:27 18:18 Glucose 107 H POC Glucose 143 H 89 OUTPATIENT ANTIDIABETIC REGIMEN: * Novolin 70/30 - 32 units SC qAM, 30 units qPM * Metformin * HbA1c ordered for 12/27/24 ASSESSMENT: * 64 yo M with T2DM admitted with vision loss and stroke work-up * Received Novolin 70/30 this AM per medication history documentation * BSG below goal at 89 mg/dL at dinner. Unclear if PO/CHO intake will be similar as an inpatient as compared to an outpatient * To prevent hypoglycemia, with withhold further basal insulin at this point and re-assess in AM * Will order Novolog based on total daily reported insulin dose as an outpatient, which is slightly looser than weight-based moderate stress estimate PLAN FOR INPATIENT GLYCEMIC CONTROL: * Hold outpatient diabetes medications * Basal insulin * None for now. Re-assess in AM * Bolus insulin * NovoLog per scale ACHS or Q6hrs while NPO * Goal Range: Low 120 mg/dL - High 150 mg/dL * Correction Factor: 25 mg/dL/unit * Nutritional / Prandial insulin per carb ratio of 1 unit per 9 grams CHO consumed
[2024-12-26] MEDS: INSULIN ASPART PER UNIT CHARGE SC SCH (21:04)
[2024-12-26] MEDS: TAMSULOSIN HCL 0.4 MG CAP PO SCH (21:04)
--- NOTE | 2024-12-27 00:10 | Magnetic Resonance Report ---
Exam(s): MRI HEAD Without Contrast EXAM: MR Head Without Intravenous Contrast CLINICAL HISTORY: Reason for exam: left peripheral field vision loss. TECHNIQUE: Magnetic resonance images of the head/brain without intravenous contrast in multiple planes. COMPARISON: Prior head CT from December 26, 2024.. FINDINGS: Brain: There is a remote injury of the right anterior temporal lobe with encephalomalacia and gliosis. Mild nonspecific white matter changes. No mass. No hemorrhage. No acute infarct. The flow voids at the base the brain are intact. Ventricles: Unremarkable. No ventriculomegaly. Bones/joints: Dental caries with periapical abscess around tooth #3 and 15. Recommend dental consult. Remote right craniotomy. No acute fracture. Sinuses: Unremarkable as visualized. No acute sinusitis. Mastoid air cells: Unremarkable as visualized. No mastoid effusion. Orbits: Unremarkable as visualized. IMPRESSION: No evidence of acute intracranial pathology. Electronically signed by: Crystal Lindsey MD 12/27/24 00:09 AM
[2024-12-27 04:54] LABS: Hematocrit (blood only) 35.6 % (42.0-52.0); Hemoglobin 11.9 g/dl (14.0-18.0); Mean Corpuscular Hemoglobin 28.7 pg (25.0-34.0); Mean Corpuscular Volume 86.0 fL (80.0-100.0); Platelet Count 269 K/uL (130-400); RDW Standard Deviation 43.8 fL (36.4-46.3); Red Blood Count 4.14 M/uL (4.70-6.10); White Blood Count 6.04 K/ul (4.8-10.8)
[2024-12-27 05:10] LABS: Anion Gap 6.0 (3-11); Blood Urea Nitrogen 18.0 mg/dl (6-23); Calcium 8.7 mg/dl (8.6-10.3); Carbon Dioxide 25.0 mmol/L (21-32); Chloride 105.0 mmol/L (98-107); Cholesterol 131.0 mg/dl (0-200); Creatinine Clr Calc Pharmacy 78.9 ml/min; Glucose 121.0 mg/dl (70-99(Fasting)); HDL Cholesterol 43.0 mg/dl; Potassium 3.7 mmol/L (3.5-5.1); Sodium 136.0 mmol/L (136-145); Triglycerides 171.0 mg/dl (0-150)
[2024-12-27 05:25] LABS: INR 1.0 (0.9-1.1); Prothrombin Time 11.1 Seconds (9.0-12.0)
[2024-12-27 07:32] LABS: Hemoglobin A1C 6.1 % (4.5-5.6)
[2024-12-27] MEDS: AMIODARONE 200 MG TAB PO SCH (09:28)
[2024-12-27] MEDS: FINASTERIDE 5 MG TAB PO SCH (09:28)
[2024-12-27] MEDS: SERTRALINE HCL 100 MG TABLET PO SCH (09:28)
[2024-12-27] MEDS: ATORVASTATIN 10 MG TAB PO SCH (09:29)
[2024-12-27] MEDS: FERROUS SULFATE 325 MG TAB PO SCH (09:29)
[2024-12-27] MEDS: LANTUS PER UNIT CHARGE SC SCH ×2 (09:29→20:44)
[2024-12-27] MEDS: ASPIRIN 81 MG ECTAB PO SCH (09:29)
[2024-12-27] MEDS: GADOBUTROL 65ML VIAL IV ONE (10:18)
--- NOTE | 2024-12-27 11:03 | Magnetic Resonance Report ---
MR venography head wo con HISTORY: 64 years-old Male left vision loss acute left-sided vision loss COMPARISON: Brain MR 12/26/2024 TECHNIQUE: MRV was obtained without IV contrast FINDINGS: Postoperative changes of prior right-sided craniotomy with right temporal lobe encephalomalacia. Norm al cerebral venous sinuses without thrombus. IMPRESSION: No evidence of cerebral venous sinus thrombosis. ACT 112: Negative or not required by law. The above report was generated using voice recognition software. It may contain grammatical, syntax o r spelling errors. Electronically signed by: Paras Renteria M.D. 12/27/2024 11:02 AM
--- NOTE | 2024-12-27 11:27 | Magnetic Resonance Report ---
MRI OF THE ORBITS COMBO CLINICAL HISTORY: Left-sided vision loss. COMPARISON STUDY: MRI of the brain dated 12/26/2024. CT of the brain dated 12/26/2024. TECHNIQUE: High-resolution MRI of the orbits is performed utilizing various T1 and T2-weighted sequen rudy in the axial and coronal planes. Contrast-enhanced sequences were acquired following the IV admin istration of 10 cc of Gadavist. FINDINGS: The bony orbits are grossly intact. Orbital contents are normal as visualized. There is no evidence o f intra or extraconal mass lesion. The extraocular muscles are normal and symmetric. The optic nerves are normal as visualized. There is postsurgical change from right-sided craniotomy. Right temporal encephalomalacia is consiste nt with a remote insult. The brain parenchyma is otherwise normal as imaged. Normal vascular flow voi ds are maintained at the skull base. There is mild mucosal thickening in the left maxillary antrum. T he remaining paranasal sinuses are clear. The mastoid air cells are well pneumatized. IMPRESSION: Normal MRI evaluation of the orbits. Electronically signed by: Eladio Mobley M.D. 12/27/2024 11:26 AM
--- NOTE | 2024-12-27 12:13 | Pharmacy Report ---
Pharmacy Glycemic Short Note 2 - Date of Service December 27, 2024 - Glycemic Short BSG Results (Last 24 hours): 12/26/24 12/26/24 12/26/24 12:20 13:27 18:18 Glucose 107 H POC Glucose 143 H 89 12/26/24 12/27/24 12/27/24 20:50 04:25 08:24 Glucose 121 H POC Glucose 155 H 163 H 12/27/24 11:34 Glucose POC Glucose 252 H OUTPATIENT ANTIDIABETIC REGIMEN: * Novolin 70/30 - 32 units SC qAM, 30 units qPM * Metformin * HbA1c ordered for 12/27/24 ASSESSMENT: 12/27 * Fasting BSG 121 mg/dL - will trial 20 units Lantus this AM and have scale on for HS for 0-10 units * Tighten novolog CF/CR 12/26 * 64 yo M with T2DM admitted with vision loss and stroke work-up * Received Novolin 70/30 this AM per medication history documentation * BSG below goal at 89 mg/dL at dinner. Unclear if PO/CHO intake will be similar as an inpatient as compared to an outpatient * To prevent hypoglycemia, with withhold further basal insulin at this point and re-assess in AM * Will order Novolog based on total daily reported insulin dose as an outpatient, which is slightly looser than weight-based moderate stress estimate PLAN FOR INPATIENT GLYCEMIC CONTROL: * Hold outpatient diabetes medications * Basal insulin * Lantus 20 units daily * Lantus 0-10 units HS * Bolus insulin * NovoLog per scale ACHS or Q6hrs while NPO * Goal Range: Low 120 mg/dL - High 150 mg/dL * Correction Factor: 20 mg/dL/unit * Nutritional / Prandial insulin per carb ratio of 1 unit per 7 grams CHO consumed
--- NOTE | 2024-12-27 13:23 | Hospitalist Progress Note ---
Date of Service December 27, 2024 Assessment & Plan (1) Vision loss, left eye: (2) Paroxysmal A-fib: (3) Pulmonary hypertension: (4) Hyperlipidemia: (5) Hypertension: Plan This is a 64 year old gentleman with past medical history of BPH, anemia, AVM of brain, type 2 DM who presented to the ED on 12/26/2024 referred by the retail banking manager for vision field deficits. #Peripheral vision loss left eye. Ongoing vision loss of peripheral field left eye for ~ 1 week Ophthalmologic exam performed 12/26 @ office included a right eye central scotoma and left eye peripheral field loss. Retinal scan concerning for papilledema. Head CT negative. Neck CTA negative. Head CTA w/ prior right sided craniotomy w/ right temporal lobe encephalomalacia. Indeterminate 1.2 cm enhancing foci in right temporal lobe which appears to be vascular in origin. (hx of AVM removal in 2018 by neuro[place] @ [facility] [place] CBC/BMP stable. Tick panel negative TSH, Lipase, LFTs all WNL. Urinalysis negative. Brain MRI negative. Brain MRV negative. Orbit MRI w/w/o contrast negative. Lumbar puncture performed 12/27, opening pressure measured at 22 cm. await lab results. Echo: grade I diastolic dysfunction. RV moderately dilated. LA mildly dilated. RV systolic pressure > 60mmHg. LVEF 55-60%. A1c 6.1%. TG 171, choelsterol 131, LDH 54, HDL 43. Hold several BP meds to allow for permissive HTN for 24-48 hrs. --> can likely resume 12/28. Daily ASA Neurology consulted, appreciate recommendations. #A fib/pulm HTN Follows outpatient w/ cardiology On amiodarone 100mg daily - continue Ambrisentan for pulm HTN - can hold while inpatient but if brings in ok to give. CXR concerning for pulm edema/CHF. Does take Lasix 20mg daily outpatient w/ prn spironolactone dose. --> hold to allow for permissive HTN. #Type 2 DM Updated A1c 6.1% on NPH insulin 32 units AM + 30 units PM + Metformin 1000mg BID Pharmacy consulted to aide w/ coverage. # BPH - Flomax, dutasteride. #Mental health - sertraline. DVT prophylaxis: hold chemical given hx of AVM Code: full Updated at bedside 12/27. Admission and Anticipated Discharge Date Admission Date: December 26, 2024 Supervising Physician Co-Signing Physician Notes The patient was not seen by me. The chart was reviewed. Case discussed with FABIAN Fernandez. Agree with assessment and plan Subjective Georges seen and examined this afternoon following his lumbar puncture. He reports to be doing okay today. States his vision is the same as yesterday. denies any new complaints. Physical Exam Constitutional: WD/WN, vitals as above Eyes: PERRL, conjunctivae normal, anicteric sclerae Respiratory: normal respiratory effort Skin: no rashes, warm and dry Neurologic: PERRL, EOMI, accommodation nl, no face palsy, no dysarthria Psychiatric: A+Ox3, euthymic affect Results & Data Results & Data Vital Signs (Past 12 Hours) Vital Signs Temp Pulse Pulse Resp BP BP Pulse Ox 12/27/24 08:44 12/27/24 07:42 37.8 C H 59 L 19 131/69 92 12/27/24 07:26 57 L 12/27/24 03:44 36.5 C 59 L 18 133/73 94 O2 Del Method O2 Flow Rate 12/27/24 08:44 Room Air 12/27/24 07:42 Room Air 12/27/24 07:26 12/27/24 03:44 Nasal Cannula 2 PG Care Time/CCT Total # of Minutes Spent Total Time Spent with Patient: Total time spent is greater than 50% in coordination of care (as documented) at patient's floor/unit and/or counseling patient: Coding Level of Care Code 26549 SUB INP/OBS CARE 3/50MIN Diagnoses Vision loss, left eye H54.62 Paroxysmal A-fib I48.0 Pulmonary hypertension I27.20 Mixed hyperlipidemia E78.2 Hyperlipidemia type: mixed hyperlipidemia Primary hypertension I10 Hypertension type: primary hypertension (4) Hyperlipidemia Hyperlipidemia type: mixed hyperlipidemia Qualified Code(s): E78.2 - Mixed hyperlipidemia (5) Hypertension Hypertension type: primary hypertension Qualified Code(s): I10 - Essential (primary) hypertension
--- NOTE | 2024-12-27 14:06 | Fluoroscopy Report ---
LUMBAR PUNCTURE CLINICAL HISTORY: Visual disturbance PROCEDURE: Procedure and risks were explained. Informed consent was obtained. A final timeout was com pleted. The patient was placed prone on the fluoroscopic exam table. The lower lumbar region was prep ped and draped in sterile fashion. 1% lidocaine was utilized for skin anesthesia. Utilizing fluoroscopic guidance, a 22-gauge Sprotte spinal needle was advanced into the intrathecal s pace at the L3-4 disc space. Fluoroscopic spot images were obtained. Opening pressure was measured at 22 cm H20. Approximately 8 mL of clear CSF was removed and sent to the lab for analysis. The needle was removed and Band-Aid applied. The patient tolerated the procedure well. Vital signs will be monit ored postprocedure. Fluoroscopy time 11 seconds. Study dosed is 19.30 mGy. IMPRESSION: Lumbar puncture as above. Performed, dictated, and signed by Wing Grimm PA-C; to be co-signed by Dr. Eladio Mobley. Electronically signed by: Eladio Mobley M.D. 12/27/2024 2:30 PM
--- NOTE | 2024-12-27 14:21 | XCELERA ---
[id number]
[2024-12-27 14:24] LABS: CSF Count Tube # 3; CSF Xanthrochromic No xanthochromia; Red Blood Cell CSF Manual 0 (0); White Blood Cell CSF Manual 4 (0-5)
--- NOTE | 2024-12-27 17:40 | Electrocardiogram Report ---
Test Reason : Blood Pressure : */* mmHG Vent. Rate : 65 BPM Atrial Rate : 65 BPM P-R Int : 180 ms QRS Dur : 100 ms QT Int : 416 ms P-R-T Axes : -26 -11 -19 degrees QTcB Int : 432 ms Normal sinus rhythm possible Inferior infarct , age undetermined Abnormal ECG When compared with ECG of 27-Sep-2020 01:31, Sinus rhythm has replaced Atrial fibrillation Vent. rate has decreased by 95 bpm Confirmed by Juve Messer ([id number]) on 12/27/2024 5:40:03 PM Referred By: REFERRED SELF Confirmed By: Juve Messer
--- NOTE | 2024-12-27 18:04 | Neurology Consultation ---
Date of Consultation December 27, 2024 Assessment & Plan (1) Idiopathic intracranial hypertension: (2) AVM (arteriovenous malformation) brain: Plan 64-year-old male with a history of right anterior temporal lobe AVM resection in 2018. The lesion was discovered in the context of an assessment for hereditary hemorrhagic telangiectasia. No history of headaches or seizures. The resection occurred without complication and without any associated loss of visual lowery. He had been experiencing a fever and refractory headache for 1 week, occurring 1 week ago, followed by development of a left inferolateral field defect for the left eye only and an enlarged blind spot for the right eye. These field defects are persistent. He saw an eye doctor in [place] who identified mild papilledema as well. This patient's symptoms, and examination, are most consistent with elevated intracranial pressure (i.e. idiopathic intracranial hypertension). Currently, his CSF opening pressure was 22 mm H2O which is top normal. I suspect that his pressure was more significantly elevated during his febrile illness and refractory headache which have subsequently resolved. I do not think the right anterior temporal lobe AVM would be responsible for his visual field defect. Classically, a temporal lobe related field defect would affect the superolateral quadrant for both eyes. An enlarged blind spot and loss of inferolateral field are more typically observed in idiopathic intracranial hypertension. Typically, enlargement of the blind spot is the initial abnormality, followed by peripheral visual field loss. This patient's extensive neuroimaging evaluation has not revealed any acute process that would otherwise explain his signs and symptoms. Going forward, I would recommend a gadolinium-enhanced brain MRI to reassess the right temporal lobe AVM. This study can be completed in 1 month or 2 as an outpatient. Due to his persistent visual field loss and papilledema as identified by his project design engineer, I would recommend that he start acetazolamide to further lower his intracranial pressure. Would recommend starting with acetazolamide ER 500 mg daily for 3 days, then increase to 500 mg twice daily thereafter. I would like to see him for a follow-up in neurology clinic in 2 to 3 weeks. He will need additional outpatient ophthalmology assessments as well to track his papilledema and visual lowery. 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 I would not recommend treatment with corticosteroids at this time. Please call with any questions. History of Present Illness Reason for Consultation: Peripheral vision loss Requesting Physician: Yg Attending Physician: Chace Garcia MD History of Present Illness The patient is a 64-year-old male with a history of febrile illness and persistent frontal headache that lasted for about 1 week, occurring 1 week ago, followed by vision loss affecting the inferolateral quadrant of the left eye and a central scotoma for the right eye. These findings were confirmed by his eye doctor in [place] who also identified mild papilledema. He was referred to the emergency department for further evaluation and management. He does have a history of right anterior temporal lobe arteriovenous malformation resection in 2018 at [facility]. This finding was discovered incidentally in the context of an assessment for hereditary hemorrhagic telangiectasia. He has no history of primary headache disorder or seizures. During his acute illness above, he was not taking any antibiotics. He denies any significant weight gain over the past few months. His headache has resolved and his vision disturbance has been persistent, but unchanging. A CT angiogram of the head revealed postcraniotomy changes within the right temporal lobe and associated encephalomalacia as well as an associated vascular enhancing focus. CTA of the neck was unremarkable. A noncontrast brain MRI revealed the above encephalomalacia within the right anterior temporal lobe, no hemorrhage or acute process. I did independently review these images and had discussed his case with Dr. Garcia and had suggested some additional testing as his symptoms were potentially consistent with increased intracranial pressure. An MRV was unremarkable, no cerebral venous thrombosis. An MRI of the orbits was unremarkable. I independently reviewed these images as well. A lumbar puncture was completed, opening pressure top normal, 22 cm H2O. CSF analysis reviewed, clear, colorless, no xanthochromia, CSF WBC 4, RBC 0, glucose 105, protein 43.4. He had a normal ESR on December 16. Hemoglobin A1c 6.1. TSH normal. Lyme screen negative. Allergies Allergy/AdvReac Type Severity Reaction Status Date / Time liraglutide [From Victoza] Allergy Severe Dizziness Verified 12/11/24 10:45 dulaglutide [From Trulicity] Allergy Verified 12/16/24 11:44 Home Medications Medication Instructions Recorded Confirmed Type acetaminophen 500 mg tablet 500 mg PO Q6H PRN pain 03/28/19 12/26/24 History ambrisentan 10 mg tablet 10 mg PO DAILY 03/28/19 12/26/24 History tadalafil (pulm. hypertension) 20 40 mg PO DAILY pulm. hyper. 03/28/19 12/26/24 History mg tablet (pulmonary hypertension) Oxygen Home #1 ea 08/13/19 12/11/24 History pen needle, diabetic 31 gauge x #100 ea 11/04/19 12/11/24 Rx 3/16" (1st Tier Unifine Pentips) blood-glucose meter (OneTouch #1 ea 08/28/20 12/11/24 Rx Ultra2 Meter) lancets 33 gauge (OneTouch Delica #100 ea 10/02/20 12/11/24 Rx Lancets) pen needle, diabetic 32 gauge x #50 ea 10/02/20 12/11/24 Rx 5/32" insulin syringe-needle U-100 1 mL #100 ea 05/10/21 12/11/24 Rx 28 gauge x 1/2" (BD Insulin Syringe) blood sugar diagnostic #200 ea 07/27/21 12/11/24 Rx aspirin 81 mg tablet,delayed 81 mg PO 2XWK #30 tabs 02/04/22 12/26/24 Rx release (Adult Low Dose Aspirin) furosemide 20 mg tablet 20 mg PO DAILY edema 02/04/22 12/26/24 History dutasteride 0.5 mg capsule 0.5 mg PO DAILY #90 caps 12/26/23 12/26/24 Rx lisinopril 5 mg tablet 5 mg PO DAILY #90 tabs 01/30/24 12/26/24 Rx metformin 1,000 mg tablet 1,000 mg PO BID #180 tabs 01/30/24 12/26/24 Rx atorvastatin 10 mg tablet 10 mg PO DAILY #90 tabs 02/15/24 12/26/24 Rx amiodarone 200 mg tablet 100 mg (1/2 x 200 mg) PO DAILY #45 04/01/24 12/26/24 Rx tabs insulin human U-100 NPH-regulr 32 unit subcut QAM 09/19/24 12/26/24 History 70-30 mix 100 unit/mL subcutaneous susp (Novolin 70/30 U-100 Insulin) blood-glucose sensor (FreeStyle #1 ea 10/14/24 12/11/24 Rx Alejandro 3 Sensor device) ferrous sulfate 325 mg (65 mg 325 mg PO DAILY 12/16/24 12/26/24 History iron) tablet spironolactone 25 mg tablet 25 mg PO DAILY PRN edema 12/16/24 12/26/24 History tamsulosin 0.4 mg capsule 0.4 mg PO BID 12/16/24 12/26/24 History insulin human U-100 NPH-regulr 30 unit subcut QPM 12/26/24 12/26/24 History 70-30 mix 100 unit/mL subcutaneous susp (Novolin 70/30 U-100 Insulin) akcmudyojoad-obromiel-glezuz 1 tab PO DAILY 12/26/24 12/26/24 History tablet (Multivitamin 50 Plus tablet) omeprazole 20 mg capsule,delayed 20 mg PO 3XWK 12/26/24 12/26/24 History release sertraline 100 mg tablet 100 mg PO DAILY 12/26/24 12/26/24 History Patient History Medical History COVID-19 Paroxysmal atrial fibrillation with rapid ventricular response Hyponatremia Sinus tachycardia Parapneumonic effusion Pleural effusion, right Pneumonia Hypoxia AVM (arteriovenous malformation) brain AVM (arteriovenous malformation) of duodenum, 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, acquired with hemorrhage Surgical History History of umbilical hernia repair History of colonoscopy History of brain surgery History of prostate biopsy Family History Father Diabetes Hypertension Cancer brain Mother Hypertension Lung disease Cancer Other Bleeding disorder Denies family history of Ovarian cancer Prostate cancer Myocardial infarction Breast cancer Colorectal cancer Social History Smoking Status: Former smoker Tobacco Type: Cigarettes Age Started Using Tobacco: 17; Age Quit Using Tobacco: 41; packs per day: 2; Cigarettes Per Day: 30-40; Second Hand Exposure: No; Do You Dip or Chew Tobacco: No; Hx Alcohol Use: Yes Alcohol type: wine Alcohol Intake Frequency: Monthly or Less Alcohol Intake Frequency Comment: Only drinks a few times a year only 1-2 drinks. 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 How many Children do You have: 3 Feels Safe at Home: Yes Childhood Exposure to Second-Hand Smoke: Yes Diet: regular caffeine: Yes during the past year weight has: remained stable Dental Care, Regularly: No Physical Activity Frequency: Does not Exercise Seatbelt Use: always Sunscreen Use: No Do you think of yourself as: straight/heterosexual Sexual Activity: has been sexually active within the last 12 months Gender Identity: Male Assistive Devices: CPAP and Oxygen - at Night Review of Systems Constitutional: as per Subjective / HPI Eyes: as per Subjective / HPI and + blind spots; no diplopia Ear, Nose, Mouth, Throat: no hearing loss Respiratory: no cough and no dyspnea Cardiovascular: no chest pain and no palpitations Gastrointestinal: no nausea and no vomiting Genitourinary: no dysuria Musculoskeletal: no neck pain and no myalgia Integumentary: no rash Neurologic: as per Subjective / HPI Psychiatric: no depression and no anxiety Hematologic / Lymphatic: no easy bleeding and no easy bruising Exam (Neuro) Constitutional: well developed and well nourished; no acute distress Eyes: PERRL and EOM intact bilaterally; + abnormal visual field confrontation (Inferolateral field defect for the left eye, enlarged blind spot right eye) and no nystagmus Neurologic: Oriented to:: Person, Place and Time Memory: Short Term Intact and Remote Intact Attention: Span Intact and Concentration Intact Speech Fluency: negative Dysarthria or Dysfluency Speech Aphasia: negative Aphasia Fund of Knowledge: Current Events, Past History and Vocabulary Cranial Nerves: Normal III, IV, , V, VII, VIII, IX, X, XI and XII; Abnorm II Motor Strength: Normal Lower Extremities and Normal Upper Extremities Motor Tone: Normal Lower Extremities and Normal Upper Extremities Muscle Bulk/Involuntary Movements: No Involuntary Movements; negative Muscle Atrophy Sensation: Light Touch Intact, Pain/Temperature Intact and Proprioception Intact Coordination: Normal; negative Dysdiadochokinesia, Finger-Nose Abnormal or Heel-[place] Abnormal Deep Tendon Reflexes: Rt Triceps: 1+, Lt Triceps: 1+, Rt Biceps: 1+, Lt Biceps: 1+, Rt Brachioradialis: 1+, Lt Brachioradialis: 1+, Rt Patellar: 1+, Lt Patellar: 1+, Rt Ankle: 0 and Lt Ankle: 0 Special Tests: negative Babinski Present Results & Data Vital Signs (Past 12 Hours) Vital Signs Temp Pulse Pulse Resp BP Pulse Ox O2 Del Method 12/27/24 14:27 36.8 C 54 L 18 119/69 92 Room Air 12/27/24 08:44 Room Air 12/27/24 07:42 37.8 C H 59 L 19 131/69 92 Room Air 12/27/24 07:26 57 L Coding Level of Care Code 99570 INT INP/OBS CARE 3/75MIN Diagnoses Idiopathic intracranial hypertension G93.2 AVM (arteriovenous malformation) brain Q28.2 Time Spent (min) 80 Comment Total time includes patient contact, chart review, counseling, note preparation
[2024-12-28 07:14] LABS: Hematocrit (blood only) 37.8 % (42.0-52.0); Hemoglobin 12.2 g/dl (14.0-18.0); Mean Corpuscular Hemoglobin 28.0 pg (25.0-34.0); Mean Corpuscular Volume 86.7 fL (80.0-100.0); Platelet Count 266 K/uL (130-400); RDW Standard Deviation 43.8 fL (36.4-46.3); Red Blood Count 4.36 M/uL (4.70-6.10); White Blood Count 5.12 K/ul (4.8-10.8)
[2024-12-28 07:43] LABS: Anion Gap 6.0 (3-11); Blood Urea Nitrogen 18.0 mg/dl (6-23); Calcium 8.6 mg/dl (8.6-10.3); Carbon Dioxide 25.0 mmol/L (21-32); Chloride 107.0 mmol/L (98-107); Creatinine Clr Calc Pharmacy 85.2 ml/min; Glucose 147.0 mg/dl (70-99(Fasting)); Potassium 4.2 mmol/L (3.5-5.1); Sodium 138.0 mmol/L (136-145)
[2024-12-28] MEDS ORDERED: acetaZOLAMIDE 250 MG TAB PO SCH (09:00)
--- NOTE | 2024-12-28 10:03 | Neurology Progress Note ---
Date of Service December 28, 2024 Assessment & Plan (1) Idiopathic intracranial hypertension: (2) AVM (arteriovenous malformation) brain: Plan Suspected idiopathic intracranial hypertension, persistent inferolateral field defect for the left eye only, persistent enlarged blind spot for the right eye. 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 Would recommend acetazolamide 500 mg daily for 3 days, then increase to 500 mg twice daily thereafter. Patient will need to follow-up with both myself and an caregivers non medical as an outpatient to track his papilledema and visual lowery. History of right temporal lobe arteriovenous malformation resection in 2018 without residual deficits or neurologic sequelae. Patient saw his neurosurgeon at [facility] 1 to 2 months ago and had an up-to-date brain MRI at that time as well. I do not think his vision difficulties and papilledema would be related to the AVM. As described previously, a right temporal lobe AVM can sometimes be associated with a contralateral superior quadrantanopsia. His field defect is inferolateral for the left eye only and he has an enlarged blind spot for the right eye. This pattern of field defects, in the context of papilledema would not be expected from his AVM, especially considering its recent stability as assessed by his neurosurgeon. I also note that his recent imaging at [facility] did not suggest any obvious acute process. Please see yesterday's consultation for additional details. Patient may follow-up with me in the outpatient clinic in 1 to 2 weeks. Please call with any questions. Admission and Anticipated Discharge Date Admission Date: December 26, 2024 Subjective Follow-up, visual field loss The patient does not report any change in his vision loss. Continues to perceive significant vision loss for the inferolateral quadrant of the left eye, and has an enlarged blind spot or central scotoma for the right eye. No ocular pain or headache, no diplopia. Recent lumbar puncture, top normal opening pressure, 22 cm H2O. History of right temporal lobe AVM resection in 2018 without complications such as vision loss, no history of seizures. Last saw his neurosurgeon at [facility] about 1 month ago, had an up-to-date MRI around that time as well. Acetazolamide has been ordered for suspected idiopathic intracranial hypertension. Results & Data Vital Signs (Past 12 Hours) Vital Signs Temp Pulse Pulse Resp BP Pulse Ox O2 Del Method 12/28/24 08:14 36.5 C 54 L 20 153/66 H 92 Room Air 12/28/24 03:00 36.5 C 65 18 136/69 93 Room Air 12/27/24 22:39 36.6 C 52 L 18 130/69 94 Room Air 12/27/24 21:51 62 Exam (Neuro) Neurologic: Oriented to:: Person, Place and Time Memory: Short Term Intact and Remote Intact Attention: Span Intact and Concentration Intact Speech Fluency: negative Dysarthria or Dysfluency Speech Aphasia: negative Aphasia Fund of Knowledge: Current Events, Past History and Vocabulary Cranial Nerves: Normal III, IV, , V, VII, VIII, IX, X, XI and XII; Abnorm II Motor Strength: Normal Lower Extremities and Normal Upper Extremities Muscle Bulk/Involuntary Movements: No Involuntary Movements Coordination: Normal Coding Level of Care Code 59401 SUB INP/OBS CARE 2/35MIN Diagnoses Idiopathic intracranial hypertension G93.2 AVM (arteriovenous malformation) brain Q28.2 Time Spent (min) 40
[2024-12-28] MEDS: acetaZOLAMIDE 250 MG TAB PO SCH (10:13)
[2024-12-28 11:12] VITALS: RESP 16; TEMP 98.1; O2SAT 94
--- NOTE | 2024-12-28 11:21 | Discharge Summary ---
Discharge Summary Date of Service December 28, 2024 Principal Dx & Hospital Course #1 = Principal Diagnosis (1) Vision loss, left eye: The patient developed a visual field defect involving the left eye and scotoma involving the right eye. This was thought to be due to elevated intracranial pressures per neurology. Neurology consultation and recommendations appreciated. He has been started on acetazolamide. CSF studies are pending from the lumbar puncture done yesterday, December 27. Opening pressure was borderline elevated. He is neurologically stable overall (2) Paroxysmal A-fib: Stable. 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 Stable (4) Hyperlipidemia: Continue current medical management. Stable (5) Hypertension: Continue current medical management. Stable Plan Home today, December 28, on acetazolamide. All other medications remain the same. He will refrain from driving until cleared by neurology. Follow-up with neurology in 2 weeks. Admission HPI Per Admitting Provider This is a 64 year old gentleman with past medical history of BPH, anemia, AVM of brain, type 2 DM who presented to the ED on 12/26/2024 referred by the clinical courier for vision field deficits. Georges was seen and examined this evening with his present. Georges reports that about 1 week ago he awoke in the morning and could not see peripherally in his left eye. He reports that he also has b/l black dots in both eyes. States those have been more chronic but he feels he notices them more since the vision loss occurred. He states he went to the clinical courier today for a workup and was referred here for an MRI. He states that his symptoms have not worsened over the past week. He denies any additional complaints including no headache, cp, sob, abdominal pain, n/v, urinary urgency/frequency/hematuria, dizziness, weakness, fevers, or chills. Ophthalmologic exam performed today prior to arrival @ office included a right eye central scotoma and left eye peripheral field loss. Retinal scan concerning for papilledema. He does have a significant neurological history & follows with neurosurgery in [place]. He saw his neurosurgeon last month who reported that he was doing well. He has a history of an AVM repair in 2018. Also with a history of hereditary hemorrhagic telangiectasia. He has a hx of A fib for which he follows w/ cardiology as well. He is compliant with his outpatient medications. While in the ED, he had multiple imaging studies. CXR revealed cardiomegaly w/ evidence of CHF & pulmonary edema. Head CT was negative for hemorrhage. Head CTA was negative for aneurysm, dissection, high grade stenosis/arterial occlusion. did reveal prior right sided craniotomy w/ right temporal lobe encephalomalacia. indeterminate 1.2cm enhancing focus in right temporal lobe which appears to be vascular in origin. neck CTA negative. CBC w/ mildly low hemoglobin of 12.5 which appears within his baseline. BMP stable. Phosphorous mildly low at 2.3. LFTs WNL. Lipase WNL. TSH WNL. Urinalysis negative. Tick panel negative for anaplasmosis & babesiosis but lyme pending. Previous Tick panel on 12/11/2024 was negative. Code discussion did take place and he does confirm that he is a full code. Discharge Plan Discharge Items Patient Disposition: Home - Self-Care Reason For Visit: VISION LOSS Discharge Diagnosis: Left visual field defect, right eye scotoma, suspected elevated intracranial pressure Condition on Discharge: Good Activity: As commented below Activity Comment: No driving until cleared by neurology Non-emergency contact: Primary Care Provider and Neurologist Call non-emergency contact if: your symptoms worsen Follow-up/Referrals: Mirta Alaniz CRNP [Primary Care Provider] - Diet: Regular and Heart Healthy Addtl Attending Provider Instructions: Take acetazolamide (Diamox) 500 mg daily for 3 days then twice a day thereafter. A prescription has been sent to your pharmacy at [facility] on [address]. Follow-up with neurology in 2 to 3 weeks, Dr. Gandhi Pending Studies at Discharge: Yes Studies:: CSF studies Stand-Alone Forms: My [facility], Smoking Cessation Medications and DC Order Prescriptions: New acetazolamide 500 mg capsule, extended release See Rx Instructions .ROUTE .COMPLEX Qty: 60 0RF Rx Instructions: 500 mg orally daily for 3 days then 500 mg twice daily after that aspirin 81 mg Tablet,Delayed Release (Dr/Ec) 81 mg PO DAILY Qty: 0 0RF Continued (DME) pen needle, diabetic [1st Tier Unifine Pentips] 31 gauge x 3/16" needle See Rx Instructions .ROUTE .MEDSUPPLY Qty: 100 0RF Rx Instructions: As directed (DME) blood-glucose meter [BaynetworkTouch Ultra2 Meter] [facility] See Rx Instructions .ROUTE .MEDSUPPLY Qty: 1 0RF Rx Instructions: As directed (DME) insulin syringe-needle U-100 [BD Insulin Syringe] 1 mL 28 gauge x 1/2" syringe See Rx Instructions .Route Qty: 100 3RF Rx Instructions: use twice daily (DME) blood sugar diagnostic Strip See Rx Instructions .ROUTE .MEDSUPPLY Qty: 200 3RF Rx Instructions: TEST 3 TIMES DAILY; DX CODE- E11.9 dutasteride 0.5 mg capsule 0.5 mg PO DAILY Qty: 90 3RF lisinopril 5 mg tablet 5 mg PO DAILY Qty: 90 3RF metformin 1,000 mg tablet 1,000 mg PO BID Qty: 180 3RF Hold Instructions: was told not to take [facility] amiodarone 200 mg tablet 100 mg PO DAILY Qty: 45 3RF (DME) FreeStyle Alejandro 3 Sensor Device See Rx Instructions .Route Qty: 1 4RF Rx Instructions: As directed acetaminophen 500 mg tablet 500 mg PO Q6H PRN (Reason: pain) Patient Comments: Unable to verify OTC meds at this date/time. 12/16/24 tadalafil (pulm. hypertension) 20 mg tablet 40 mg PO DAILY Patient Comments: Unable to verify w/ pt at this date/time. Not on file w/ Pharmacy. Original Directions: 40mg by mouth once daily. 12/16/24 ambrisentan 10 mg tablet 10 mg PO DAILY furosemide 20 mg tablet 20 mg PO DAILY Hold Instructions: was told not to take [facility] aspirin [Adult Low Dose Aspirin] 81 mg tablet,delayed release (DR/EC) 81 mg PO 2XWK Qty: 30 3RF (DME) Oxygen Home Liters Per Minute See Rx Instructions .ROUTE .MEDSUPPLY Qty: 1 Rx Instructions: As directed Novolin 70/30 U-100 Insulin 100 unit/mL (70-30) suspension 32 unit subcut QAM Rx Instructions: 32 u am, 30 u pm subcut, twice a day; atorvastatin 10 mg tablet 10 mg PO DAILY Qty: 90 3RF (DME) lancets [OneTouch Delica Lancets] [facility] See Rx Instructions .ROUTE .MEDSUPPLY Qty: 100 3RF Rx Instructions: to test 4x a day (DME) pen needle, diabetic 32 gauge x 5/32" needle See Rx Instructions .ROUTE .MEDSUPPLY Qty: 50 3RF Rx Instructions: Novolog 3x a day tamsulosin 0.4 mg capsule 0.4 mg PO BID Rx Instructions: Take 1 capsule by mouth twice daily spironolactone 25 mg tablet 25 mg PO DAILY PRN (Reason: edema) Rx Instructions: To take if gain over 5 lbs. ferrous sulfate 325 mg (65 mg iron) tablet 325 mg PO DAILY Novolin 70/30 U-100 Insulin 100 unit/mL (70-30) Suspension 30 unit SUBCUT QPM sertraline 100 mg tablet 100 mg PO DAILY omeprazole 20 mg capsule,delayed release(DR/EC) 20 mg PO 3XWK Rx Instructions: Mon/Wed/Fri Multivitamin 50 Plus Tablet 1 tab PO DAILY Discharge Orders: Discharge Order (Routine); Ordered 12/28/24 Ordered By: Chace Holm/Other Patient Handouts: Managing Type 2 Diabetes Admission Data Admit Date/Time: 12/26/24 16:15 Attending Provider: Chace Garcia Admit Provider: Chace Garcia Primary Care Provider: Mirta Alaniz Other Providers: Chace Garcia; Jason Godwin Hospital Stay Data Consultations 12/26/24 15:51 ED Decision to Admit Stat 12/26/24 16:23 Consult Neurology Routine Diagnostic Imagining Performed 12/26/24 13:54 CT angio head w con Stat CT angio neck with con Stat CT head/brain wo con Stat 12/26/24 16:24 MRI Brain [MR brain wo con] Urgent 12/27/24 09:14 IR lumbar puncture diagnostic Routine MR orbit wo/w con Urgent MRI venography head [MR venography head wo con] Urgent Pending Results Patient Have Any Pending Studies at Discharge: Yes Discharge Instructions Given to Patient (Per Discharging Provider) Take acetazolamide (Diamox) 500 mg daily for 3 days then twice a day thereafter. A prescription has been sent to your pharmacy at [facility] on [address]. Follow-up with neurology in 2 to 3 weeks, Dr. Gandhi Total Time Total Time Spent Total Time Spent (In Minutes): 45 minutes Coding Level of Care Code 25279 INP/OBS DISCH >30 MIN Diagnoses Vision loss, left eye H54.62 Paroxysmal A-fib I48.0 Pulmonary hypertension I27.20 Mixed hyperlipidemia E78.2 Hyperlipidemia type: mixed hyperlipidemia Primary hypertension I10 Hypertension type: primary hypertension
[2024-12-28 12:37] VITALS: BP 133/73; PULSE 54
== END 2024-12-28 14:27 | disposition home or self-care (01) | DRG 123 ==
LOC: SUATTDRO → ED 12:00 → 2N 16:15